=== PATIENT | male | born 1950 | race Hispanic/Latino ===

== ENCOUNTER 2019-02-12 09:36 | Day surgery (SDC) | payer OTHER ==
[~2019-02-12] VITALS: Ht 160 cm; Wt 76.2 kg
[2019-02-12] VITALS (7 sets, daily range): BP systolic 93–136; BP diastolic 51–81
[~2019-02-12 09:36] MED LIST: ASPI-1197 PO; FENO145T37 PO; FISH1CAP20 PO; IBUP-2353 PO; LISI-613 PO; METF-445 PO; SODIUM CHLORIDE 0.9% 1000ML 1,000 ML IV ONE; TAMS-1 PO
[2019-02-12] MEDS ORDERED: PROPOFOL 10 MG/ML 20ML VIAL IV ONE (12:49)
== END 2019-02-12 13:45 | disposition home or self-care (01) ==
LOC: DAH 09:36
PROVIDERS: ATTEND Internal Medicine
DX: K31.89 Other diseases of stomach and duodenum (principal); K86.9 Disease of pancreas, unspecified; K86.89 Other specified diseases of pancreas; I10 Essential (primary) hypertension; M10.9 Gout, unspecified; E78.5 Hyperlipidemia, unspecified; E11.9 Type 2 diabetes mellitus without complications; Z68.31 Body mass index [BMI] 31.0-31.9, adult; Z79.82 Long term (current) use of aspirin; Z98.890 Other specified postprocedural states; Z95.5 Presence of coronary angioplasty implant and graft
CPT/HCPCS: 43238; 82948 ×2; A4606; J2704; J7030; 43232

== ENCOUNTER 2019-03-05 06:57 | Day surgery (SDC) | payer OTHER ==
[~2019-03-05] VITALS: Ht 165.1 cm; Wt 120.7 kg
[~2019-03-05 06:57] MED LIST changes: -ASPI-1197 PO
[2019-03-05 07:51] VITALS: BP 121/76
[2019-03-05] MEDS ORDERED: METO-408 PO (08:05)
[2019-03-05 09:57] VITALS: BP 103/66
[2019-03-05 10:01] VITALS: BP 110/68
[2019-03-05 10:06] VITALS: BP 108/71
[2019-03-05 10:14] VITALS: BP 106/69
== END 2019-03-05 10:24 | disposition home or self-care (01) ==
LOC: ENDO 06:57 → DAH 06:57 → ENDO 10:24
PROVIDERS: ATTEND Internal Medicine Gastroenterology
DX: K31.89 Other diseases of stomach and duodenum (principal); K86.89 Other specified diseases of pancreas; D37.8 Neoplasm of uncertain behavior of other specified digestive organs; I10 Essential (primary) hypertension; E78.5 Hyperlipidemia, unspecified; E11.9 Type 2 diabetes mellitus without complications; Z79.899 Other long term (current) drug therapy; Z79.84 Long term (current) use of oral hypoglycemic drugs; Z79.82 Long term (current) use of aspirin; Z95.5 Presence of coronary angioplasty implant and graft; Z98.890 Other specified postprocedural states
CPT/HCPCS: 43238; 82948 ×2; A4215 ×2; A4606; J7030; 43232

== ENCOUNTER 2019-11-06 07:46 | Day surgery (SDC) | payer OTHER ==
[2019-11-06] VITALS (8 sets, daily range): BP systolic 98–133; BP diastolic 59–88
[~2019-11-06] VITALS: Ht 165.1 cm; Wt 77.1 kg
[~2019-11-06 07:46] MED LIST changes: +FENO145T26 PO; -FENO145T37 PO; -FISH1CAP20 PO; -IBUP-2353 PO; +IBUP-2784 PO; +METO-408 PO
[2019-11-06] MEDS ORDERED: PROPOFOL 10 MG/ML 20ML VIAL IV ONE ×3 (10:48→11:03)
== END 2019-11-06 11:55 | disposition home or self-care (01) ==
LOC: DAH 07:46 → ENDO 07:46
PROVIDERS: ATTEND Internal Medicine
DX: K86.9 Disease of pancreas, unspecified (principal); R93.3 Abnormal findings on diagnostic imaging of other parts of digestive tract; R93.5 Abnormal findings on diagnostic imaging of other abdominal regions, including retroperitoneum; E11.9 Type 2 diabetes mellitus without complications; I10 Essential (primary) hypertension; E78.5 Hyperlipidemia, unspecified; M10.9 Gout, unspecified; Z95.5 Presence of coronary angioplasty implant and graft; Z79.84 Long term (current) use of oral hypoglycemic drugs; Z79.82 Long term (current) use of aspirin; Z79.899 Other long term (current) drug therapy
CPT/HCPCS: 43237; 82948 ×2; 93005; A4215; A4221; A4222; A4223; A4606; A4620; A4663; J2704 ×3; J7030

== ENCOUNTER → 2020-01-06 | Outpatient (CLI) | payer OTHER ==
[~2020-01-06] MED LIST changes: -SODIUM CHLORIDE 0.9% 1000ML 1,000 ML IV ONE
[2020-01-06 16:56] LABS: CREATININE 1.2 mg/dL (0.5-1.5)
== END | disposition home or self-care (01) ==
LOC: LAB 16:13
PROVIDERS: ATTEND Internal Medicine Gastroenterology
DX: K86.1 Other chronic pancreatitis (principal); R93.3 Abnormal findings on diagnostic imaging of other parts of digestive tract
CPT/HCPCS: 36415; 82565; 84520

== ENCOUNTER → 2020-01-15 | Outpatient (CLI) | payer OTHER ==
[~2020-01-15] MED LIST changes: +GADODIAMIDE 10 MMOL/20 ML VIAL IV ONE
== END | disposition home or self-care (01) ==
LOC: RAH 08:00
PROVIDERS: ATTEND Internal Medicine Gastroenterology
DX: K86.2 Cyst of pancreas (principal); K86.1 Other chronic pancreatitis; R93.3 Abnormal findings on diagnostic imaging of other parts of digestive tract
CPT/HCPCS: 74183; A9579

== ENCOUNTER → 2020-10-12 | Outpatient (CLI) | payer OTHER ==
[~2020-10-12] MED LIST changes: -GADODIAMIDE 10 MMOL/20 ML VIAL IV ONE
== END | disposition home or self-care (01) ==
LOC: RAH 07:37
PROVIDERS: ATTEND Internal Medicine Gastroenterology
DX: K86.2 Cyst of pancreas (principal); R93.3 Abnormal findings on diagnostic imaging of other parts of digestive tract
CPT/HCPCS: 74181

== ENCOUNTER → 2021-04-09 | Outpatient (CLI) | payer OTHER ==
[~2021-04-09] MED LIST changes: +GADOTERATE MEGLUMINE 10 MMOL/20 ML VIAL IV ONE; -LISI-613 PO; +LISI20TA24 PO
== END | disposition home or self-care (01) ==
LOC: RAH 08:04
PROVIDERS: ATTEND Internal Medicine Gastroenterology
DX: K86.1 Other chronic pancreatitis (principal)
CPT/HCPCS: 74183; A9575

== ENCOUNTER → 2021-11-01 | Outpatient (CLI) | payer OTHER | END | disposition home or self-care (01) | LOC: RAH 08:02 | PROVIDERS: ATTEND Internal Medicine Gastroenterology | DX: K86.1 Other chronic pancreatitis (principal); K86.2 Cyst of pancreas | CPT/HCPCS: 74183; A9575 ==

== ENCOUNTER → 2022-07-05 | Outpatient (CLI) | payer OTHER | END | disposition home or self-care (01) | LOC: RAH 07:44 | PROVIDERS: ATTEND Internal Medicine Gastroenterology | DX: K86.1 Other chronic pancreatitis (principal) | CPT/HCPCS: 74183; A9575 ==

== ENCOUNTER 2022-08-09 10:13 | Day surgery (SDC) | payer OTHER ==
[~2022-08-09] VITALS: Ht 167.6 cm; Wt 70.3 kg
[~2022-08-09 10:13] MED LIST changes: +0.9%NACL 1000ML 1,000 ML IV ONE; -GADOTERATE MEGLUMINE 10 MMOL/20 ML VIAL IV ONE
[2022-08-09 10:30] VITALS: BP 119/75
[2022-08-09] MEDS ORDERED: ASPI-1443 PO (11:19)
[2022-08-09] MEDS ORDERED: ATOR40TA71 PO (11:19)
[2022-08-09] MEDS ORDERED: OMEG-148 PO (11:19)
[2022-08-09] MEDS ORDERED: FENTANYL CITRATE PF 50 MCG/1 ML 2ML VIAL ONE (12:07)
[2022-08-09] MEDS ORDERED: MIDAZOLAM HCL 1 MG/ML 2ML VIAL ONE ×2 (12:08→13:06)
[2022-08-09 13:40] VITALS: BP 113/67
[2022-08-09 13:55] VITALS: BP 119/78
[2022-08-09 14:10] VITALS: BP 120/69
== END 2022-08-09 14:33 | disposition home or self-care (01) ==
LOC: DAH 10:13 → ENDO 10:13
PROVIDERS: ATTEND Internal Medicine Gastroenterology
DX: R93.3 Abnormal findings on diagnostic imaging of other parts of digestive tract (principal); Z20.822 Contact with and (suspected) exposure to COVID-19; K86.2 Cyst of pancreas; K86.1 Other chronic pancreatitis; I10 Essential (primary) hypertension; E78.5 Hyperlipidemia, unspecified; M10.9 Gout, unspecified; E11.9 Type 2 diabetes mellitus without complications; Z79.84 Long term (current) use of oral hypoglycemic drugs; Z79.82 Long term (current) use of aspirin; Z88.8 Allergy status to other drugs, medicaments and biological substances; Z79.899 Other long term (current) drug therapy; Z83.3 Family history of diabetes mellitus
CPT/HCPCS: 87426; 43238; 88173; 88305; J3010; J7030 ×2; J2250 ×2; A4620; A4215 ×3; A4223; A4657; A4222; A4221; A4663; A4606; 99152; 99153

== ENCOUNTER 2025-08-02 20:19 | Inpatient (IN) | payer OTHER, MEDICAID ==
[~2025-08-02] VITALS: Ht 170.2 cm; Wt 56.6 kg
[~2025-08-02 20:19] MED LIST changes: -0.9%NACL 1000ML 1,000 ML IV ONE; +ASPI-1443 PO; +ATOR40TA71 PO; -FENO145T26 PO; +OMEG-148 PO
--- NOTE | 2025-08-02 20:30 | NUR ---
FAMILY REPORTS PATIENT WITH FEVER, CHILLS AND SORE THROAT ONSET 3 DAYS
--- NOTE | 2025-08-02 20:44 | EKG ---
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
[2025-08-02 20:51] LABS: APPEARANCE,URINE CLOUDY (CLEAR); GLUCOSE, URINE (UA) 30 mg/dL (NEGATIVE); LEUKOCYTE ESTERASE ,URINE NEGATIVE Leu/uL (NEGATIVE); NITRATE,URINE NEGATIVE (NEGATIVE); OCCULT BLOOD,URINE LARGE (NEGATIVE)
[2025-08-02] MEDS: 0.9%NACL 1000ML 1,770 ML IV ONE (20:56)
[2025-08-02 20:57] LABS: ADD UA MICROSCOPIC YES
[2025-08-02 21:01] LABS: SQUAMOUS EPITHELIAL CELL,UR RARE /HPF (0-2)
[2025-08-02 21:03] LABS: IMMATURE GRANULOCYTE ABSOLUTE 0.03 K/uL (0-1); NUCLEATED RED BLOOD CELLS 0.0 % (0.0-0.19); PLATELET COUNT (AUTO) 186 K/uL (130-400); RED BLOOD CELL COUNT(AUTO) 4.93 MIL/uL (4.50-6.20); RED CELL DISTRIBUTION WIDTH 12.0 % (11.0-15.5); WHITE BLOOD COUNT (AUTO) 9.6 K/uL (4.8-10.8)
[2025-08-02 21:13] LABS: INR 1.31 (0.85-1.15)
[2025-08-02 21:16] LABS: CREATININE 1.7 mg/dL (0.5-1.3); GLOMERULAR FILTR. RATE CALC 42.0 mL/min (>90); GLUCOSE,RANDOM 200.0 mg/dL (70-105); SODIUM SERUM 139.0 mmol/L (136-145); UREA NITROGEN, BLOOD 21.0 mg/dL (7-18)
[2025-08-02 21:39] LABS: ASPARTATE AMINOTRANSFERASE 56.0 U/L (10-37); TOTAL PROTEIN, SERUM 7.4 g/dL (6.0-8.3)
[2025-08-02 21:46] LABS: CREATINE KINASE, TOTAL 1742.0 U/L (21-232)
[2025-08-02 21:51] LABS: RAPID GROUP A STREP positive (NEGATIVE)
[2025-08-02 21:59] LABS: COVID19 (SARS ANTIGEN RAPID) PRESUMPTIVE NEGATIVE (NEGATIVE); INFLUENZA TYPE A Negative For Type A (NEGATIVE); INFLUENZA TYPE B Negative For Type B (NEGATIVE)
--- NOTE | 2025-08-02 21:59 | ERN ---
ED Note History of Present Illness Stated Complaint: SORE THROAT, CHILLS Chief Complaint: Sepsis Time Seen by MD: 20:25 Time Seen by Midlevel: 20:25 Dictation: The patient is a 75-year-old male with a history of diabetes, hypertension, who presents to the emergency department with complaints of sore throat and chills onset three days ago. Patient was seen at an day and night clinic and was sent over for further evaluation. Patient and family are poor historians. Unknown is patient has a history of arrhythmia but patient is on Xarelto 20 mg daily and metoprolol titrate. Patient reports occasionally green productive cough, denies any nausea or vomiting, denies any pain. Allergies: Coded Allergies: No Known Drug Allergies (Verified Allergy, Unknown, 04/24/20) Home Meds Reported Medications Atorvastatin Calcium (Atorvastatin Calcium) 40 Mg Tablet, 40 MG PO DAILY, TAB 08/09/22 [place]-3S/Dha/Epa/Fish Oil (Fish Oil 1,000 mg Softgel) 1 Each Capsule, 1 EACH PO DAILY, CAP 08/09/22 Aspirin (Aspirin EC) 81 Mg Tablet.dr, 81 MG PO DAILY, TAB 08/09/22 Metoprolol Succinate (Metoprolol Succinate) 25 Mg Tab.er.24h, 25 MG PO BID, TAB 03/05/19 Ibuprofen (Ibuprofen 200 mg Tablet) 200 Mg Tablet, 600 MG PO AD, TAB 02/11/19 Tamsulosin HCl (Flomax) 0.4 Mg/Cap Cap.er.24h, 0.4 MG PO HS, CAPSULE.DR 02/23/17 Lisinopril (Lisinopril) 20 Mg Tablet, 20 MG PO HS, TAB 02/23/17 Metformin HCl (Metformin HCl) 850 Mg Tablet, 850 MG PO BID, TAB 02/23/17 Past Medical History Past Medical History: Diabetes-Type II, Other Additional Past Medical Hx: POOR HISTORIAN Surgical History: Other Surgical History Other: SHOULDER, UNKNOWN LEFT OR RIGHT RN Note Reviewed/Agreed w/PFSH: Yes Review of System Dictation Constitutional: Negative for fever,chills, and weight loss Eyes: Negative for injury, pain,redness, and discharge ENT: Negative for injury,pain or swelling positive for sore throat Cardiovascular: Negative for chest pain, and edema positive for palpitations Respiratory: Negative for shortness of breath, cough, and wheezing, Abdomen/GI: Negative for abdominal pain, nausea, vomiting, diarrhea, and constipation Back: Negative for injury and pain : Negative for injury, bleeding and discharge MS/Extremity: Negative for injury and deformity Skin: Negative for rash, and discoloration Neuro: Negative for headache, weakness, numbness, tingling, and seizure Psych: Negative for suicide ideation, homicidal ideation, and hallucinations Initial Vital Sign VS Vital Signs Date Time Temp Pulse Resp B/P (MAP) Pulse Ox O2 Delivery O2 Flow Rate FiO2 08/02/25 20:20 99.1 180 24 89/57 94 Room Air 08/02/25 21:06 0 21 Physical Exam Dictation Vital Signs reviewed General Appearance: Alert, oriented x 3, no acute distress, well developed, nourished. Head and Face: non-traumatic. Eyes: PERRL, pink conjunctivas, eyelid no trauma, anterior chamber with arcus senilis. Ears: Pinnas intact and no signs of trauma or erythema ear canals clear and no discharge TM no erythema Nose: No discharge, no bleeding. Oropharynx: Mouth normal, tongue pink. pharynx clear,+ erythema, tonsils no exudates, no abscesses noted, mucous membrane moist Neck: Supple, non-tender, no thyromegaly, no masses, no JVD, no bruits Breast:Deferred Chest:No tenderness, no crepitus, no paradoxical movement, no retractions Lungs:Clear, well-ventilated, symmetric, no rales, no wheezing, no rhonchi, no stridor, good breath sounds bilaterally Heart: Irregular rate, irregular rhythm, no murmur, no gallops Vascular: no peripheral edema, Abdomen: Soft, positive bowel sounds, nondistended, no guarding, nontender, no rebound, no masses no hepatomegaly, no splenomegaly, no Odell's sign, no hernias. Rectal: Deferred Genital: Deferred Neurological: Normal speech, motor function intact, sensory function intact Musculoskeletal: Neck nontender, full range of motion, back nontender, full range of motion, Extremities: nontender, full range of motion Skin: Color pink, dry, no turgor, no rash, no lacerations, no abrasions, no contusions. Lymphatic: Deferred Results (Laboratory/Radiology) Laboratory/Radiology Laboratory Tests Test 08/02/25 20:30 08/02/25 20:50 08/02/25 21:33 08/03/25 01:04 Urine Color LIGHT-ORANGE (YELLOW) Urine Appearance CLOUDY (CLEAR) H Urine pH 5.5 (5.0-8.0) Urine Specific [place] 1.033 (1.001-1.031) Urine Protein 100 mg/dL (NEGATIVE) H Urine Glucose (UA) 30 mg/dL (NEGATIVE) H Urine Ketones NEGATIVE mg/dL (NEGATIVE) Urine Occult Blood LARGE (NEGATIVE) H Urine Nitrate NEGATIVE (NEGATIVE) Urine Bilirubin NEGATIVE mg/dL (NEGATIVE) Urine Urobilinogen 0.2 mg/dL (0.2-1.0) Urine Leukocyte Esterase NEGATIVE Liu/uL Urine RBC 2-5 /HPF (0-1) H Urine WBC 2-5 /HPF (0-1) H Urine Squamous Epithelial Cells RARE /HPF (0-2) Urine Bacteria RARE /HPF (None Seen) White Blood Count 9.6 K/uL (4.8-10.8) Red Blood Count 4.93 MIL/uL (4.50-6.20) Hemoglobin 16.1 g/dL (14.0-18.0) Hematocrit 45.2 % (42-54) Mean Corpuscular Volume 91.7 fL (79-99) Mean Corpuscular Hemoglobin 32.7 pg (27.0-33.0) Mean Corpuscular Hemoglobin Concent 35.6 g/dL (32.0-36.0) Red Cell Distribution Width 12.0 % (11.0-15.5) Platelet Count 186 K/uL (130-400) Mean Platelet Volume 11.1 fL (7.5-10.5) H Immature Granulocyte % (Auto) 0.3 % (0-1) Neutrophils (%) (Auto) 88.2 % (40.0-77.0) H Lymphocytes (%) (Auto) 4.7 % (21.0-51.0) L Monocytes (%) (Auto) 6.5 % (3.0-13.0) Eosinophils (%) (Auto) 0.0 % (0.0-8.0) Basophils (%) (Auto) 0.3 % (0.0-5.0) Neutrophils # (Auto) 8.5 K/uL (1.8-7.7) H Lymphocytes # (Auto) 0.5 K/uL (1.0-4.8) L Monocytes # (Auto) 0.6 K/uL (0.1-1.0) Eosinophils # (Auto) 0.00 K/uL (0.00-0.70) Basophils # (Auto) 0.03 K/uL (0.00-0.20) Absolute Immature Granulocyte (auto 0.03 K/uL (0-1) Nucleated Red Blood Cells 0.0 % (0.0-0.19) White Cell Morphology Comment See comments Prothrombin Time 13.5 SEC (9.6-11.6) H Prothromb Time International Ratio 1.31 (0.85-1.15) H Activated Partial Thromboplast Time 31.9 SEC (26.3-35.5) Sodium Level 139 mmol/L (136-145) Potassium Level 3.4 mmol/L (3.5-5.1) L Chloride Level 104 mmol/L (101-111) Carbon Dioxide Level 21 mmol/L (21-32) Blood Urea Nitrogen 21 mg/dL (7-18) H Creatinine 1.7 mg/dL (0.5-1.3) H Glomerular Filtration Rate Calc 42 mL/min (>90) Random Glucose 200 mg/dL (70-105) H Lactic Acid Level 3.1 mmol/L (0.8-2.5) H 2.0 mmol/L (0.8-2.5) Total Calcium 8.5 mg/dL (8.5-10.1) Magnesium Level 1.80 mg/dL (1.80-2.40) Total Bilirubin 1.4 mg/dL (0.2-1.0) H Direct Bilirubin 0.2 mg/dL (0.0-0.3) Aspartate Amino Transf (AST/SGOT) 56 U/L (10-37) H Alanine Aminotransferase (ALT/SGPT) 32 U/L (12-78) Alkaline Phosphatase 73 U/L (50-136) Total Creatine Kinase 1742 U/L (21-232) *H Troponin I High Sensitivity 44 ng/L (4-75) B-Type Natriuretic Peptide 118 pg/mL (0-100) H Total Protein 7.4 g/dL (6.0-8.3) Albumin 3.6 g/dL (3.5-5.0) Influenza Type A Antigen Negative For Type A Influenza Type B Antigen Negative For Type B SARS-CoV-2 Antigen (Rapid) PRESUMPTIVE NEGATIVE Group A Streptococcus Rapid positive (NEGATIVE) *A REASON: sob ORDERING PHYSICIAN: ILDA JEFFREY PROCEDURE: CXR1VW - CHEST 1VW EXAM: CR Chest, 1 View. CLINICAL HISTORY: sob COMPARISON: None provided. FINDINGS: LUNGS: The lungs show possible right upper lobe lung nodule adjacent to the anterior first rib. PLEURAL SPACES: No evidence of pleural effusion or pneumothorax. MEDIASTINUM: Cardiac size and mediastinal contours within normal limits. BONES: No acute osseous abnormality. IMPRESSION: Possible right upper lobe lung nodule. Recommend CT scan /[place] Labs Reviewed?: Yes EKG: (+) rhythm (Atrial fibrillation with a RVR) EKG Comment: Date:08/02/2025 Time:2036 Ventricular rate:184 ND interval: QRS duration:95 QT/QTc:319/552 EKG interpretation: Atrial flutter with a RVR Reviewed by ED Attending no STEMI Date:08/02/2025 Time:2323 Ventricular rate:104 ND interval:125 QRS duration:93 QT/QTc:326 EKG interpretation: Tachycardia with a regular rate Reviewed by ED Attending no STEMI ED Course ED Course Orders Procedure Category Date Status Time 12 Lead Ekg Tracing- EKG 08/02/25 Complete Technical 20:30 Cbc With Differential LAB 08/02/25 Complete 20:30 Blood Cult CONCHIS 08/02/25 In Process 20:30 Urinalysis Profile LAB 08/02/25 Complete 20:30 Chest 1vw RAD 08/02/25 Resulted 20:30 Acetaminophen 500mg PHA 08/02/25 Complete Tab (Tylenol 500mg T 20:30 0.9%Nacl 1000ml (Ns PHA 08/02/25 Complete 1000ml) 20:30 Creatine Kinase, Total LAB 08/02/25 Complete 20:30 Troponin I High LAB 08/02/25 Complete Sensitivity 20:30 Lactic Acid LAB 08/02/25 Complete 20:30 Ceftriaxone 1g Vial PHA 08/02/25 Complete (Rocephine 1g Inj) 20:30 Basic Metabolic Panel LAB 08/02/25 Complete 20:30 B-Type Natriuretic LAB 10/25/25 Complete Peptide 20:30 Hepatic Function Panel LAB 08/02/25 Complete 20:30 Covid19 (Sars Antigen LAB 08/02/25 Complete Rapid) 20:30 Influenza Type A & B, LAB 08/02/25 Complete Rapid 20:30 Rapid (Group A Strep) LAB 08/02/25 Complete 20:30 Pt And Ptt LAB 08/02/25 Complete 20:33 Diltiazem 25mg Inj PHA 08/02/25 Complete (Cardizem 25mg Inj) 21:00 Diltiazem 25mg Inj PHA 08/02/25 Complete (Cardizem 25mg Inj) 21:30 Magnesium LAB 08/02/25 Complete 21:22 Diltiazem 25mg Inj PHA 08/02/25 Complete (Cardizem 25mg Inj) 22:00 Potassium Bicarb/Cit PHA 08/02/25 Complete Ac 25meq (K-Lyte Ta 22:00 Diltiazem 125 Mg/25 PHA 08/02/25 In Process Ml Inj (Diltiazem 12 22:00 Diltiazem 25mg Inj PHA 08/02/25 Complete (Cardizem 25mg Inj) 22:00 12 Lead Ekg Tracing- EKG 08/02/25 Complete Technical 23:21 Edm Admit Bridge Order ADM 08/02/25 Transmitted 23:49 Lactic Acid (Removed) LAB 08/03/25 Complete 00:07 Cardiology Consult CONPHYSVC 08/03/25 Transmitted 00:20 Lactated Ringers PHA 08/03/25 In Process 1000ml (Lactated 00:30 Heparin 5,000 Unit PHA 08/03/25 In Process Vial (Heparin 5,000 U 00:30 Penicillin G PHA 08/03/25 In Process Benzathine (Bicillin 01:30 Hemoglobin A1c LAB 08/03/25 In Process 00:14 Initiate JANINA 08/03/25 In Process Hyperglycemia Protoco 00:14 Insulin Regular, PHA 08/03/25 In Process Human 3ml (Humulin R 07:30 Initiate Hypoglycemia JANINA 08/03/25 In Process Protocol 00:14 Dextrose 50%-Water PHA 08/03/25 In Process (D50w) 00:30 Glucagon 1mg Kit PHA 08/03/25 In Process (Glucagon 1mg Kit) 00:30 Procalcitonin LAB 08/03/25 In Process 00:14 Potassium Chloride PHA 08/03/25 Complete 20meq Er (K-Dur/Klor- 00:30 Metoprolol Tartrate PHA 08/03/25 In Process 25 Mg Tab (Lopressor 09:00 Ceftriaxone 2gm Vial PHA 08/03/25 In Process (Rocephin 2gm Inj) 00:30 Vital Signs(Adult CPOE 08/03/25 Transmitted Hospitalist) 00:23 Acetaminophen 325 Tab PHA 08/03/25 In Process (Tylenol 325mg Tab 00:30 Acetaminophen 325 Tab PHA 08/03/25 In Process (Tylenol 325mg Tab 00:30 Ondansetron 4mg Inj PHA 08/03/25 In Process (Zofran 4mg Inj) 00:30 Mag/Alum/Simeth 30ml PHA 08/03/25 In Process (Maalox Plus 30ml) 00:30 Lactulose 20 Gm/30 Ml PHA 08/03/25 In Process Udcup (Constulose 00:30 Nitroglycerin 0.4mg PHA 08/03/25 In Process Sl Tab (Nitrostat) 00:30 Guaifenesin-Dm PHA 08/03/25 In Process 200/20mg 10ml 00:30 Nurse To Enter Home CPOE 08/03/25 Transmitted Medication 00:23 Admit Orders ADM 08/03/25 Transmitted 00:23 Heart Healthy Diet DIET 08/03/25 Transmitted Breakfast Famotidine 20mg Tab PHA 08/03/25 In Process (Pepcid 20mg Tab) 09:00 Blood Cult CONCHIS 08/03/25 In Process 00:30 Creatine Kinase, Total LAB 08/04/25 Verified 04:00 0.9%Nacl 1000ml (Ns PHA 08/03/25 In Process 1000ml) 00:30 Echo 2-D Complete ECHO 08/03/25 Logged 00:40 Current Medications Medications (Trade) Dose Ordered Sig/Anish Route PRN Reason Start Time Stop Time Status Last Admin Dose Admin Acetaminophen (TYLenol 500MG TAB) 1,000 mg ONCE ONCE PO 08/02/25 20:30 08/02/25 20:37 DC 08/02/25 21:26 Ceftriaxone Sodium (ROCEphine 1G INJ) 1 gm ONCE ONCE IVPB 08/02/25 20:30 08/02/25 20:37 DC 08/02/25 21:25 Diltiazem HCl (CARDIzem 25MG INJ) 5 mg ONCE ONCE IVP 08/02/25 21:30 08/02/25 21:31 DC 08/02/25 21:12 Diltiazem HCl (CARDIzem 25MG INJ) 5 mg ONCE ONCE IVP 08/02/25 22:00 08/02/25 22:01 DC 08/02/25 21:45 Diltiazem HCl (CARDIzem 25MG INJ) 10 mg ONCE ONCE IVP 08/02/25 21:00 08/02/25 21:01 DC 08/02/25 20:58 Diltiazem HCl (CARDIzem 25MG INJ) 10 mg ONCE ONCE IVP 08/02/25 22:00 08/02/25 22:01 DC 08/02/25 21:56 Diltiazem HCl 125 mg/Sodium Chloride 125 ml @ 0 mls/hr PROTOCOL IV 08/02/25 22:00 09/01/25 21:59 08/02/25 22:24 Potassium Bicarbonate (K-Lyte Tablet Eff 25 Meq Tablet.eff) 25 meq ONCE ONCE PO 08/02/25 22:00 08/02/25 22:01 DC 08/02/25 21:45 Sodium Chloride 1,770 ml @ 590 mls/hr ONCE ONCE IV 08/02/25 20:30 08/02/25 23:29 DC 08/02/25 20:56 Vital Signs Date Time Temp Pulse Resp B/P (MAP) Pulse Ox O2 Delivery O2 Flow Rate FiO2 08/03/25 00:23 105 18 104/65 96 Room Air* 0 21 08/02/25 23:31 104 19 93/58 97 Room Air* 0 21 08/02/25 22:52 145 20 100/58 97 Room Air* 0 21 08/02/25 22:24 157 95/65 08/02/25 21:56 152 08/02/25 21:45 146 08/02/25 21:26 100.0 08/02/25 21:12 146 08/02/25 21:06 100.0 144 20 91/57 97 Room Air* 0 21 08/02/25 20:58 180 84/61 08/02/25 20:20 99.1 180 24 89/57 94 Room Air Medical Decision Making MDM MDM: The patient is a 75-year-old male with a history of diabetes, hypertension, who presents to the emergency department with complaints of sore throat and chills onset three days ago. Patient was seen at an day and night clinic and was sent over for further evaluation. Patient and family are poor historians. Unknown is patient has a history of arrhythmia but patient is on Xarelto 20 mg daily and metoprolol titrate. Patient reports occasionally green productive cough, denies any nausea or vomiting, denies any pain. CBC showed no leukocytosis, no anemia, chemistry showed mild hypokalemia, creatinine of 1.7, lactic acid of 3.3, negative troponin but elevated CK level, slightly elevated BNP. Serology was positive for strep throat. Chest x-ray showed a small right upper lung nodule. Patient was treated with IV antibiotics and IV fluids. Patient was started on Cardizem drip for AFib RVR. Patient's heart rate improved. We will admit patient for further evaluation treatment. Differential diagnosis: Sepsis, ACS, electrolyte imbalance, tachyarrhythmias, dehydration Comorbidities: Hypertension, hyperlipidemia, hypothyroidism Tests considered and not ordered secondary to shared decision making include: none Previous outside records reviewed: none Risk of complication and/or morbidity or mortality of patient management: The patient meets criteria for admission. Need for emergency major/minor surgery: No There are no social concerns with this patient. I independently interpreted the tests I ordered (labs, urinalysis, etc.). I discussed the case with the hospitalist for admission. Tray who accepts admission I discussed the case with the following specialists: none. Historian: wally avina I independently interpreted imaging studies and EKGs that I ordered (US, CT, XR, EKG, etc.). External chart review: none. Medical management and examination interpretation discussions were had by me with other qualified healthcare professionals as indicated for the patient's care. Critical Care Note Critical Time: other (37) Comment(s) Total critical care time was 37 minutes. Excluding time for procedures. Management of critically ill patient with concern for acute decompensation. Management included interpretation of laboratory values and imaging, hemodynamics, time for consultation with consultants and admitting physician. DX & DISP Disposition: Inpatient Decision to Admit Date: Aug 03, 2025 Decision to Admit Time: 23:49 Departure Impression: Primary Impression: Atrial fibrillation with RVR Additional Impressions: Sepsis, Strep throat, Hypokalemia, Acute kidney injury, Rhabdomyolysis Condition: Stable Referrals: JASPREET JACK M.D. (PCP) I have examined patient, & reviewed all documents, & agreed W/ the Diagnosis, and Plan ILDA JEFFREY Aug 02, 2025 21:59 JASS ESCALANTE MD Aug 03, 2025 01:28
--- NOTE | 2025-08-02 22:14 | HMCIMG ---
EXAM: CR Chest, 1 View. CLINICAL HISTORY: sob COMPARISON: None provided. FINDINGS: LUNGS: The lungs show possible right upper lobe lung nodule adjacent to the anterior first rib. PLEURAL SPACES: No evidence of pleural effusion or pneumothorax. MEDIASTINUM: Cardiac size and mediastinal contours within normal limits. BONES: No acute osseous abnormality. IMPRESSION: Possible right upper lobe lung nodule. Recommend CT scan /[place]
--- NOTE | 2025-08-02 23:30 | EKG ---
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
[2025-08-03] VITALS (8 sets, daily range): BP systolic 97–118; BP diastolic 54–75; PULSE 62–168; RESP 18–22; TEMP 97.5–98.8; O2SAT 94–100
[2025-08-03] MEDS ORDERED: NITROGLYCERIN 0.4 MG SL TAB SL PRN (00:30)
[2025-08-03] MEDS ORDERED: MAG/ALUM/SIMETH 30 ML UDCUP PO PRN (00:30)
[2025-08-03] MEDS ORDERED: GLUCAGON 1MG KIT 1 MG ML IM PRN (00:30)
[2025-08-03] MEDS ORDERED: DEXTROSE 50%-WATER 50 ML DISP.SYRIN IV PRN (00:30)
[2025-08-03] MEDS: LACTATED RINGERS 1000ML 1,000 ML IV SCH (00:42)
[2025-08-03] MEDS: PoTASSium chloRIDE 20MEQ ER 20 MEQ ERTAB PO ONE (00:42)
[2025-08-03] MEDS: 0.9%NACL 1000ML 1,983 ML IV ONE (00:43)
--- NOTE | 2025-08-03 00:50 | HP ---
[facility] HISTORY & PHYSICAL Date Patient Seen: Aug 03, 2025 Time of Visit: 00:33 Supervising Physician: CARLOS MCCABE Primary Care Physician: DR. JACK. JASPREET Outpatient Specialists: [ ] Inpatient Consults: [ ] PROBLEM LIST: 1. ACUTE STREPTOCOCCAL PHARYNGITIS 2. ACUTE COMPLICATED CYSTITIS 3. SEVERE SEPSIS DUE TO ACUTE COMPLICATED CYSTITIS AND ACUTE STREPTOCOCCAL PHARYNGITIS 4. CHRONIC KIDNEY DISEASE STAGE III 5. RHABDOMYOLYSIS 6. DIABETES TYPE 2 UNCONTROLLED 7. AFIB WITH RVR 8. HYPOKALEMIA CHIEF COMPLAINT: Sore throat, fever and chills HPI: Patient is a 75-year-old male with past medical history significant for diabetes type 2, hypertension, BPH, hypothyroidism, atrial fibrillation on Xarelto and [id number] mg p.o. b.i.d., and a surgical history of left shoulder surgery, referred to the emergency department four days in our clinic for evaluation of sore throat associated with fever and chills for about three days. Patient reports that for the past three days, he has been experiencing worsening sore throat associated with fever and chills. Today, he was evaluated at day and night clinic and was referred to the emergency department for further evaluation and treatment. Per ER report, patient WBC at day and night clinic was 12.5. The workup in the emergency department shows group a strep rapid positive, potassium of 3.4, BUN of 21, creatinine 1.7, GFR of 42, glucose of 200, lactic acid of 3.1, CK of 1742, UA positive for UTI. EKG shows AFib with RVR. In the emergency department, patient received NS1 L bolus, Cardizem 10 mg IV push x2, Cardizem 5 mg IV push x2, and was started on Cardizem drip. In addition patient received potassium [id number] mEq once, ceftriaxone1 g IV. And patient was started on Cardizem drip. Patient will be admitted to PCCU for close monitoring. PAST MEDICAL HX: see above PAST SURGICAL HX: noncontributory SOCIAL HISTORY: No tobacco, ETOH, or illicit drug use Coded Allergies: No Known Drug Allergies (Verified Allergy, Unknown, 04/24/20) REVIEW OF SYSTEMS: 12 point ROS reviewed with patient. Pertinent positives mentioned above. Otherwise negative. PHYSICAL EXAM: GENERAL: alert, weak, awake oriented x 3 HEENT: EOMI, Sclera non icteric, moist mucosa NECK: Sore throat LUNGS: Clear breath sounds bilaterally. No wheezes HEART: Regular rate and rhythm. Normal S1 and S2, without murmurs ABD: Abdomen soft, nontender. Bowel sounds present EXT: No clubbing cyanosis or edema NEURO: Alert and oriented to person, follows commands Vital Signs (last 8hr) Date Time Temp Pulse Resp B/P (MAP) Pulse Ox O2 Delivery O2 Flow Rate FiO2 08/03/25 00:23 105 18 104/65 96 Room Air* 0 21 08/02/25 23:31 104 19 93/58 97 Room Air* 0 21 08/02/25 22:52 145 20 100/58 97 Room Air* 0 21 08/02/25 22:24 157 95/65 08/02/25 21:56 152 08/02/25 21:45 146 08/02/25 21:26 100.0 08/02/25 21:12 146 08/02/25 21:06 100.0 144 20 91/57 97 Room Air* 0 21 08/02/25 20:58 180 84/61 08/02/25 20:20 99.1 180 24 89/57 94 Room Air LABS: Hematology Labs: Test 08/02/25 20:50 Range/Units White Blood Count 9.6 4.8-10.8 K/uL Red Blood Count 4.93 4.50-6.20 MIL/uL Hemoglobin 16.1 14.0-18.0 g/dL Hematocrit 45.2 42-54 % Mean Corpuscular Volume 91.7 79-99 fL Mean Corpuscular Hemoglobin 32.7 27.0-33.0 pg Mean Corpuscular Hemoglobin Concent 35.6 32.0-36.0 g/dL Red Cell Distribution Width 12.0 11.0-15.5 % Platelet Count 186 130-400 K/uL Mean Platelet Volume 11.1 H 7.5-10.5 fL Immature Granulocyte % (Auto) 0.3 0-1 % Neutrophils (%) (Auto) 88.2 H 40.0-77.0 % Lymphocytes (%) (Auto) 4.7 L 21.0-51.0 % Monocytes (%) (Auto) 6.5 3.0-13.0 % Eosinophils (%) (Auto) 0.0 0.0-8.0 % Basophils (%) (Auto) 0.3 0.0-5.0 % Neutrophils # (Auto) 8.5 H 1.8-7.7 K/uL Lymphocytes # (Auto) 0.5 L 1.0-4.8 K/uL Monocytes # (Auto) 0.6 0.1-1.0 K/uL Eosinophils # (Auto) 0.00 0.00-0.70 K/uL Basophils # (Auto) 0.03 0.00-0.20 K/uL Absolute Immature Granulocyte (auto 0.03 0-1 K/uL Nucleated Red Blood Cells 0.0 0.0-0.19 % White Cell Morphology Comment See comments Chemistry Labs: Test 08/02/25 20:50 Range/Units Sodium Level 139 136-145 mmol/L Potassium Level 3.4 L 3.5-5.1 mmol/L Chloride Level 104 101-111 mmol/L Carbon Dioxide Level 21 21-32 mmol/L Blood Urea Nitrogen 21 H 7-18 mg/dL Creatinine 1.7 H 0.5-1.3 mg/dL Glomerular Filtration Rate Calc 42 >90 mL/min Random Glucose 200 H 70-105 mg/dL Lactic Acid Level 3.1 H 0.8-2.5 mmol/L Total Calcium 8.5 8.5-10.1 mg/dL Magnesium Level 1.80 1.80-2.40 mg/dL Total Bilirubin 1.4 H 0.2-1.0 mg/dL Direct Bilirubin 0.2 0.0-0.3 mg/dL Aspartate Amino Transf (AST/SGOT) 56 H 10-37 U/L Alanine Aminotransferase (ALT/SGPT) 32 12-78 U/L Alkaline Phosphatase 73 50-136 U/L Total Creatine Kinase 1742 *H 21-232 U/L Troponin I High Sensitivity 44 4-75 ng/L B-Type Natriuretic Peptide 118 H 0-100 pg/mL Total Protein 7.4 6.0-8.3 g/dL Albumin 3.6 3.5-5.0 g/dL Coagulation Labs: Test 08/02/25 20:50 Range/Units Prothrombin Time 13.5 H 9.6-11.6 SEC Prothromb Time International Ratio 1.31 H 0.85-1.15 Activated Partial Thromboplast Time 31.9 26.3-35.5 SEC DIAGNOSTICS / RADIOLOGY RESULTS: [ ] PLAN: Admit patient PCCU Start LR at 150 mL/hour Penicillin G 1.2 MILLION UNITS IM ONCE Ceftriaxone2 g IV daily Obtain blood culture x2 Obtain urine culture Repeat lactic acid level in 6 hours Repeat potassium level in a.m. Repeat CK level in a.m. Cardiac ADA diet Accu-Cheks a.c. HS Insulin coverage per sliding scale Obtain hemoglobin A1c All nephrotoxic drugs Monitor creatinine trend Continue Cardizem drip [id number] mg p.o. b.i.d. Cardiology is consulted pending anticipation for further recommendations Obtain 2D echo cardiology read Obtain procalcitonin level NEURO: Minimize central acting medications as possible. Maintain fall precautions, adequate lighting during the day PULMONARY: Supplemental 02 as needed. Maintain aspiration precautions at all times CARDIOVASCULAR: Follow hemodynamics. Vital signs per facility protocol Cardiology consult pending anticipation for further recommendations Continue Cardizem drip Obtain 2D echo cardiology read GI & NUTRITION: Continue with nutritional support. Continue stool softeners and laxatives as needed. KIDNEYS & ELECTROLYTES: Strict monitoring of intake, output and overall fluid balance. Avoid nephrotoxic medications to the extent possible. Medications to be dosed according to renal function. Monitor electrolytes and replace as needed Start LR at 150 mL/hour ENDOCRINE: Maintain blood glucose between 100-180 at all times. Hypoglycemia protocol in place Obtain hemoglobin A1c INFECTIOUS DISEASE: Trend temperature, WBC and procalcitonin level Follow cultures, deescalate antibiotics as soon as possible. Panculture if new onset fever Penicillin G 1.2 million units IM once Ceftriaxone2 g IV daily ONCOLOGY/HEMATOLOGY/COAGULATION: Monitor for s/s of bleeding Monitor hemoglobin, coagulation studies as needed SKIN: Pressure ulcer prevention per facility protocol Specialty mattress ORTHO/REHAB: Continue PT/OT Prophylaxis: Continue GI and DVT prophylaxis Code Status: Full Resuscitation Disposition: TBD Other: Total patient care time exceeds 35 minutes excluding all procedures. Case discussed with Carlos Mccabe and the above plan was formulated. TRENTON ALLEN Aug 03, 2025 00:49
[2025-08-03] MEDS: PENIcillin G benZATHine L-A 1.2 MILUNITS/2 ML SYG IM ONE (01:46)
[2025-08-03] MEDS ORDERED: LEVO25TA54 PO (01:57)
[2025-08-03] MEDS ORDERED: METO25TA6 PO (01:57)
[2025-08-03] MEDS ORDERED: METF-445 PO (01:57)
[2025-08-03] MEDS ORDERED: RIVA20TA PO (01:57)
[2025-08-03] MEDS ORDERED: ERGO500093 PO (01:57)
[2025-08-03] MEDS: FAMOTIDINE 20MG TAB PO SCH (08:39)
--- NOTE | 2025-08-03 08:54 | CONS ---
[facility] CARDIOLOGY CONSULTATION NOTE Date Patient Seen: Aug 03, 2025 Time of Visit: 08:48 Primary Supervisor [employer]: Dr Bette Cui Reason for Consultation: AF RVR History of Present Illness: Patient is a 75-year-old male with past medical history of paroxysmal atrial fibrillation, recently diagnosed in March of 2025 and started on metoprolol and DOAC Xarelto, coronary artery disease, nonobstructive by prior left heart catheterization in 2012, benign cardiac pharmacologic stress test in 2018, hypertension, dyslipidemia, type 2 diabetes mellitus, history of pancreatic mass. Patient was admitted to [facility] with complaints of fevers and chills, diagnosed with severe sepsis due to acute complicated cystitis and streptococcal pharyngitis. Creatinine 1.7. Lactic acid 3.1. Creatinine kinase 17. Patient is presenting EKG showed atrial fibrillation with rapid ventricular response, having received Cardizem IV pushes and started on Cardizem drip. TSH normal at 1.17. Procalcitonin elevated at 7.48. Chest x-ray showed possible right upper lobe lung nodule". Past Medical History: Hypertension. Hyperlipidemia. Diabetes. left heart catheter August 2013 with that 20% mid and distal LAD. 50% diagonal otherwise normal coronaries with EF of 70%. hospitalization February 18, 2019 with chest pain. echo February 19, 2019 with EF of 55-60%. Trace MR. Bishop February 19, 2019 with normal myocardial perfusion. No ischemia or infarct. EF 70%. short burst of PAT versus PAF lasting 1- 2 seconds. Pancreatic mass status post recent biopsy pending further workup. Memory impairment Past Surgical History: Left heart catheterization 2012 Right Shoulder Arthroscopy 02/24/2017 Family History: no FHx cardiac disease Social History: nonsmoker Home Meds: Ergocalciferol 1.25 MG (29890 UT) Capsule 1 capsule Orally once a week. Levothyroxine Sodium 25 MCG Tablet 1 tablet in the morning on an empty stomach Orally Once a day. Ibuprofen 600 MG Tablet 1 tablet with food or milk as needed Orally Three times a day. metFORMIN HCl 850 MG Tablet 1 tablet with a meal Orally Twice a day. Metoprolol Tartrate 25 MG Tablet 1 tablet Orally once a day. Xarelto 20 MG Tablet 1 tablet with food Orally Once a day. Current Meds: Current Medications Medications Dose Ordered Sig/Anish Start Time Stop Time Status Last Admin Diltiazem HCl 125 mg/Sodium Chloride 125 ml @ 0 mls/hr PROTOCOL 08/02/25 22:00 09/01/25 21:59 08/02/25 22:24 Lactated Ringer's 1,000 ml @ 150 mls/hr Q6H40M 08/03/25 00:30 09/02/25 00:29 08/03/25 07:18 Heparin Sodium (Porcine) 5,000 unit Q12H 08/03/25 00:30 09/02/25 00:29 08/03/25 00:42 Insulin Human Regular INSULIN SLIDING SCAL... ACHS 08/03/25 07:30 09/02/25 07:29 Dextrose 50 ml AD PRN 08/03/25 00:30 09/02/25 00:29 Glucagon 1 mg AD PRN 08/03/25 00:30 09/02/25 00:29 Metoprolol Tartrate 25 mg BID 08/03/25 09:00 09/02/25 08:59 08/03/25 07:18 Ceftriaxone Sodium 2 gm Q24H 08/03/25 00:30 08/13/25 00:29 Acetaminophen 650 mg Q6H PRN 08/03/25 00:30 09/02/25 00:29 Ondansetron HCl 4 mg Q6H PRN 08/03/25 00:30 09/02/25 00:29 Al Hydroxide/Mg Hydroxide 30 ml Q6H PRN 08/03/25 00:30 09/02/25 00:29 Lactulose 20 gm BID PRN 08/03/25 00:30 09/02/25 00:29 Nitroglycerin 0.4 mg PROTOCOL PRN 08/03/25 00:30 09/02/25 00:29 Guaifenesin/ Dextromethorphan 10 ml Q4H PRN 08/03/25 00:30 09/02/25 00:29 Famotidine 20 mg DAILY 08/03/25 09:00 09/02/25 08:59 08/03/25 08:39 Acetaminophen 650 mg Q6H PRN 08/03/25 02:30 09/02/25 02:29 Review of Systems: Presently, patient feels well. Denies any chest pain, fatigue, fevers or chills. No abdominal pain nausea vomiting or diarrhea. Denies any bleeding or bruising. He denies any chest pain, shortness of breath orthopnea lower extremity edema, PND. No palpitations. Physical Examination: GENERAL: [No acute distress.] HEAD: [Normal with no signs of head trauma.] NECK: Normal carotid upstrokes without bruits.] LUNGS: [Clear breath sounds bilaterally. On room air No wheezes, or rhonchi.] HEART: Irregularly irregular rhythm.. Tachycardic. Normal S1 and S2 without murmurs, gallop or rub.] VASC: [Peripheral pulses +2 bilaterally.] ABD: [Soft, nontender EXT: [No clubbing, cyanosis or edema.] SKIN: [No rashes or lesions noted.] NEURO: [Awake, alert, and oriented x3. No focal sensory or strength deficits noted.] Vital Signs (last 8hr) Date Time Temp Pulse Resp B/P (MAP) Pulse Ox O2 Delivery O2 Flow Rate FiO2 08/03/25 08:30 95 08/03/25 08:01 120 08/03/25 07:00 98.1 168 18 107/75 98 Room Air 08/03/25 05:45 94 Room Air* 0 21 08/03/25 05:10 98.6 115 19 109/59 97 Room Air* 0 21 08/03/25 04:22 113 19 93/72 97 Room Air* 0 21 08/03/25 02:00 140 20 111/79 100 Nasal Cannula* 2 28 Laboratory: [ ] Hematology Labs: Test 08/02/25 20:50 Range/Units White Blood Count 9.6 4.8-10.8 K/uL Red Blood Count 4.93 4.50-6.20 MIL/uL Hemoglobin 16.1 14.0-18.0 g/dL Hematocrit 45.2 42-54 % Mean Corpuscular Volume 91.7 79-99 fL Mean Corpuscular Hemoglobin 32.7 27.0-33.0 pg Mean Corpuscular Hemoglobin Concent 35.6 32.0-36.0 g/dL Red Cell Distribution Width 12.0 11.0-15.5 % Platelet Count 186 130-400 K/uL Mean Platelet Volume 11.1 H 7.5-10.5 fL Immature Granulocyte % (Auto) 0.3 0-1 % Neutrophils (%) (Auto) 88.2 H 40.0-77.0 % Lymphocytes (%) (Auto) 4.7 L 21.0-51.0 % Monocytes (%) (Auto) 6.5 3.0-13.0 % Eosinophils (%) (Auto) 0.0 0.0-8.0 % Basophils (%) (Auto) 0.3 0.0-5.0 % Neutrophils # (Auto) 8.5 H 1.8-7.7 K/uL Lymphocytes # (Auto) 0.5 L 1.0-4.8 K/uL Monocytes # (Auto) 0.6 0.1-1.0 K/uL Eosinophils # (Auto) 0.00 0.00-0.70 K/uL Basophils # (Auto) 0.03 0.00-0.20 K/uL Absolute Immature Granulocyte (auto 0.03 0-1 K/uL Nucleated Red Blood Cells 0.0 0.0-0.19 % White Cell Morphology Comment See comments Chemistry Labs: Test 08/03/25 08:00 08/03/25 01:04 08/02/25 20:50 Range/Units Whole Blood Glucose 161 H 70-110 MG/DL Bedside Glucose Comment Notified Nurse Hemoglobin A1c 6.3 H 4.0-6.0 % Estimated Average Glucose (eAG) 134 H 70-126 mg/dL Lactic Acid Level 2.0 0.8-2.5 mmol/L Procalcitonin 7.48 H 0.05-0.5 ng/mL Thyroid Stimulating Hormone (TSH) 1.17 0.36-3.74 uIU/mL Sodium Level 139 136-145 mmol/L Potassium Level 3.4 L 3.5-5.1 mmol/L Chloride Level 104 101-111 mmol/L Carbon Dioxide Level 21 21-32 mmol/L Blood Urea Nitrogen 21 H 7-18 mg/dL Creatinine 1.7 H 0.5-1.3 mg/dL Glomerular Filtration Rate Calc 42 >90 mL/min Random Glucose 200 H 70-105 mg/dL Total Calcium 8.5 8.5-10.1 mg/dL Magnesium Level 1.80 1.80-2.40 mg/dL Total Bilirubin 1.4 H 0.2-1.0 mg/dL Direct Bilirubin 0.2 0.0-0.3 mg/dL Aspartate Amino Transf (AST/SGOT) 56 H 10-37 U/L Alanine Aminotransferase (ALT/SGPT) 32 12-78 U/L Alkaline Phosphatase 73 50-136 U/L Total Creatine Kinase 1742 *H 21-232 U/L Troponin I High Sensitivity 44 4-75 ng/L B-Type Natriuretic Peptide 118 H 0-100 pg/mL Total Protein 7.4 6.0-8.3 g/dL Albumin 3.6 3.5-5.0 g/dL Coagulation Labs: Test 08/02/25 20:50 Range/Units Prothrombin Time 13.5 H 9.6-11.6 SEC Prothromb Time International Ratio 1.31 H 0.85-1.15 Activated Partial Thromboplast Time 31.9 26.3-35.5 SEC Assessment: Severe sepsis Acute complicated cystitis Acute streptococcal pharyngitis Atrial fibrillation with rapid ventricular response Hypothyroidism, normal TSH Coronary artery disease, nonobstructive by prior [facility] Lung nodule Pancreatic mass Plan: Breakthrough atrial fibrillation with rapid ventricular response likely precipitated by acute infectious illness Continue with metoprolol [id number] mg twice a day, compared with once daily as his home medications Continue with the diltiazem drip Continue to treat underlying infectious illness and wean from the diltiazem drip as tolerated Continue with the therapeutic anticoagulation, however due to an EGFR less than 50, we will reduce the dose to Xarelto 15 mg daily We will obtain transthoracic echocardiogram once his heart rate is less than 100 beats per minute to evaluate his left ventricular systolic function and left atrial size. BETTE CUI DO Aug 03, 2025 08:54
[2025-08-03] MEDS: RIVAROXABAN 15 MG TABLET PO ONE (10:27)
[2025-08-03] MEDS: BENZOCAINE/MENTH/CETYLPYRD CL 1 EACH LOZENGE MM PRN (11:55)
--- NOTE | 2025-08-03 12:29 | HMCSR ---
APPROVED REPORT EXAM: Two-dimensional and M-mode echocardiogram with Doppler and color Doppler. Study Details: TDS INDICATION ICD: Atrial fibrillation with rapid ventricular response. 2D Dimensions IVSd0.6 (0.7-1.1cm)LVEF(%)44.6 (>50%)LVED Vol(simp.)40.0 mL LVDd4.1 (3.8-5.6cm)FS(%)22 %LVES Vol(simp.)21.0 mL PWd0.9 (0.7-1.1cm)LVOT diam1.9 (1.8-2.4cm)LVEF(%, simp.)47 % IVSs0.7 cmIVC diam1.1 cmLA ESV INDEX (BP)15.83 mL/m2 LVDs3.2 (2.5-4.0cm) PWs1.0 cm Deformation Strain Apical 4-9.8 % Apical 2-7.8 % Apical 3-10.7 % Global Strain-9.5 % Aortic Valve AoV Vmax1.0 m/Tsering Peak GR4.3 mmHgLVOT Vmax0.6 m/s AoV VTI0.1 mAo Mean GR2.3 mmHgLVOT VTI0.12 m KEVYN (VMAX)1.64 cm2AVA (VTI) 2.2 cm2 Mitral Valve MV E Vmax99.6 cm/sDECEL Ermm172 ms P 1/2 T52 ms MVA (PHT)4.3 cm2 TDI E/E' Medial9.4E/E' Cteamgd81.0 Medial E' Peak V10.57 cm/sLateral E' Peak V9.02 cm/s Tricuspid Valve RAP (EST) 8 mmHgRVSP8.0 mmHg Left Ventricle The left ventricle is normal size. GLS -10.0% Suboptimal endocardial definition. There is normal left ventricular wall thickness. LVEF is 45-50%. The LV diastolic function was unable to be assessed due to atrial arrhythmia. Right Ventricle The right ventricle appears normal in size. The right ventricular systolic function is normal. Atria The left atrium size is normal. The right atrium size is normal. Aortic Valve The aortic valve is normal in structure. No aortic regurgitation is present. There is no aortic valvu lar stenosis. Mitral Valve Mild posterior annular calcification noted. The mitral valve is mildly thickened. There is no mitral valve regurgitation noted. There is no mitral valve stenosis. Tricuspid Valve The tricuspid valve is normal in structure. There is no tricuspid valve regurgitation noted. Pulmonic Valve The pulmonary valve is normal in structure. There is no pulmonic valvular regurgitation. Great Vessels The aortic root is normal in size. The IVC is normal in size and collapses <50% with inspiration. Pericardium There is no pericardial effusion. Other Information Quality : Technically difficult study due to body habitus Rhythm : A-Fib Conclusion LVEF is 45-50%. Suboptimal endocardial definition. The LV diastolic function was unable to be assessed due to atrial arrhythmia. Mild posterior annular calcification noted.
[2025-08-03 13:44] LABS: AMPHET/METH SCREEN,URINE NEGATIVE (NEGATIVE); BARBITURATE SCREEN, URINE NEGATIVE (NEGATIVE); CANNABINOID SCREEN,URINE NEGATIVE (NEGATIVE); COCAINE SCREEN,URINE NEGATIVE (NEGATIVE)
--- NOTE | 2025-08-03 17:29 | NUR ---
CM NOTE MET WITH PT AND SPOUSE AND SPOKE TO SON SOCORRO ON PHONE, PT LIVES WITH SON AND SPOUSE, HAS PROVIDER 2-3HRS DAILY FOR ADLS ASSIST, AMBULATES PER SELF NO DME. [place] SONS ASSIST WITH TRANSPORT. Addendum: 08/03/25 at 1734 by JAROCHO OJEDA CM Amended: Links added.
--- NOTE | 2025-08-03 22:21 | PN ---
[facility] PROGRESS NOTE Date Patient Seen: Aug 03, 2025 Time of Visit: 12:00 Supervising Physician: Carlos Branham MD Primary Care Physician: DR. JACK. JASPREET Outpatient Specialists: [ ] Inpatient Consults: [ ] PROBLEM LIST: 1. ACUTE STREPTOCOCCAL PHARYNGITIS 2. ACUTE COMPLICATED CYSTITIS 3. SEVERE SEPSIS DUE TO ACUTE COMPLICATED CYSTITIS AND ACUTE STREPTOCOCCAL PHARYNGITIS 4. CHRONIC KIDNEY DISEASE STAGE III 5. RHABDOMYOLYSIS 6. DIABETES TYPE 2 UNCONTROLLED 7. AFIB WITH RVR 8. HYPOKALEMIA INTERVAL HISTORY: No major overnight events. Patient with GCS of 14. Continues on LR at 150 with decreased to 75 mL/hour. Denies nausea and vomiting or diarrhea. As per one six at the bedside patient has been having trouble eating due to throat infection and pain. Currently patient is on room air in no apparent distress. Neutrophils glucose has been within goal. Procalcitonin elevated at 7.48 hemoglobin A1c of 6.3. Troponins negative. CK level 1742. We will repeat labs in the morning. REVIEW OF SYSTEMS: 12 point ROS reviewed with patient. Pertinent positives mentioned above. Otherwise negative. PHYSICAL EXAM: GENERAL: sleeping but easily awake. HEENT: EOMI, Sclera non icteric, moist mucosa NECK: Sore throat LUNGS: Clear breath sounds bilaterally. No wheezes HEART: Regular rate and rhythm. Normal S1 and S2, without murmurs ABD: Abdomen soft, nontender. Bowel sounds present EXT: No clubbing cyanosis or edema NEURO: Alert and oriented to person, follows commands Vital Signs (last 8hr) Date Time Temp Pulse Resp B/P (MAP) Pulse Ox O2 Delivery O2 Flow Rate FiO2 08/03/25 20:01 98.1 62 18 118/66 96 Room Air 08/03/25 16:00 97.5 108 20 107/54 97 Room Air LABS: Hematology Labs: Test 08/02/25 20:50 Range/Units White Blood Count 9.6 4.8-10.8 K/uL Red Blood Count 4.93 4.50-6.20 MIL/uL Hemoglobin 16.1 14.0-18.0 g/dL Hematocrit 45.2 42-54 % Mean Corpuscular Volume 91.7 79-99 fL Mean Corpuscular Hemoglobin 32.7 27.0-33.0 pg Mean Corpuscular Hemoglobin Concent 35.6 32.0-36.0 g/dL Red Cell Distribution Width 12.0 11.0-15.5 % Platelet Count 186 130-400 K/uL Mean Platelet Volume 11.1 H 7.5-10.5 fL Immature Granulocyte % (Auto) 0.3 0-1 % Neutrophils (%) (Auto) 88.2 H 40.0-77.0 % Lymphocytes (%) (Auto) 4.7 L 21.0-51.0 % Monocytes (%) (Auto) 6.5 3.0-13.0 % Eosinophils (%) (Auto) 0.0 0.0-8.0 % Basophils (%) (Auto) 0.3 0.0-5.0 % Neutrophils # (Auto) 8.5 H 1.8-7.7 K/uL Lymphocytes # (Auto) 0.5 L 1.0-4.8 K/uL Monocytes # (Auto) 0.6 0.1-1.0 K/uL Eosinophils # (Auto) 0.00 0.00-0.70 K/uL Basophils # (Auto) 0.03 0.00-0.20 K/uL Absolute Immature Granulocyte (auto 0.03 0-1 K/uL Nucleated Red Blood Cells 0.0 0.0-0.19 % White Cell Morphology Comment See comments Chemistry Labs: Test 08/03/25 19:59 08/03/25 15:59 08/03/25 01:04 08/02/25 20:50 Range/Units Whole Blood Glucose 142 H 70-110 MG/DL Bedside Glucose Comment Notified Nurse Hemoglobin A1c 6.3 H 4.0-6.0 % Estimated Average Glucose (eAG) 134 H 70-126 mg/dL Lactic Acid Level 2.0 0.8-2.5 mmol/L Procalcitonin 7.48 H 0.05-0.5 ng/mL Thyroid Stimulating Hormone (TSH) 1.17 0.36-3.74 uIU/mL Sodium Level 139 136-145 mmol/L Potassium Level 3.4 L 3.5-5.1 mmol/L Chloride Level 104 101-111 mmol/L Carbon Dioxide Level 21 21-32 mmol/L Blood Urea Nitrogen 21 H 7-18 mg/dL Creatinine 1.7 H 0.5-1.3 mg/dL Glomerular Filtration Rate Calc 42 >90 mL/min Random Glucose 200 H 70-105 mg/dL Total Calcium 8.5 8.5-10.1 mg/dL Magnesium Level 1.80 1.80-2.40 mg/dL Total Bilirubin 1.4 H 0.2-1.0 mg/dL Direct Bilirubin 0.2 0.0-0.3 mg/dL Aspartate Amino Transf (AST/SGOT) 56 H 10-37 U/L Alanine Aminotransferase (ALT/SGPT) 32 12-78 U/L Alkaline Phosphatase 73 50-136 U/L Total Creatine Kinase 1742 *H 21-232 U/L Troponin I High Sensitivity 44 4-75 ng/L B-Type Natriuretic Peptide 118 H 0-100 pg/mL Total Protein 7.4 6.0-8.3 g/dL Albumin 3.6 3.5-5.0 g/dL Coagulation Labs: Test 08/02/25 20:50 Range/Units Prothrombin Time 13.5 H 9.6-11.6 SEC Prothromb Time International Ratio 1.31 H 0.85-1.15 Activated Partial Thromboplast Time 31.9 26.3-35.5 SEC DIAGNOSTICS / RADIOLOGY RESULTS: [ ][address] [place] [address] IMAGING REPORT Signed PATIENT: LADARIUS CARTER MR#: [id number] : 1950 SEX: M AGE: 75 LOCATION: [facility] ORDER STATUS: ADM IN REPORT#: [id number] SERVICE REASON: afib with rvr ORDERING PHYSICIAN: TRENTON ALLEN PROCEDURE: ECHO CMP - ECHO 2-D COMPLETE APPROVED REPORT EXAM: Two-dimensional and M-mode echocardiogram with Doppler and color Doppler. Study Details: TDS INDICATION ICD: Atrial fibrillation with rapid ventricular response. 2D Dimensions IVSd 0.6 (0.7-1.1cm) LVEF(%) 44.6 (>50%) LVED Vol(simp.) 40.0 mL LVDd 4.1 (3.8-5.6cm) FS(%) 22 % LVES Vol(simp.) 21.0 mL PWd 0.9 (0.7-1.1cm) LVOT diam 1.9 (1.8-2.4cm) LVEF(%, simp.) 47 % IVSs 0.7 cm IVC diam 1.1 cm LA ESV INDEX (BP) 15.83 mL/m2 LVDs 3.2 (2.5-4.0cm) PWs 1.0 cm Deformation Strain Apical 4 -9.8 % Apical 2 -7.8 % Apical 3 -10.7 % Global Strain -9.5 % Aortic Valve AoV Vmax 1.0 m/s Ao Peak GR 4.3 mmHg LVOT Vmax 0.6 m/s AoV VTI 0.1 m Ao Mean GR 2.3 mmHg LVOT VTI 0.12 m KEVYN (VMAX) 1.64 cm2 KEVYN (VTI) 2.2 cm2 Mitral Valve MV E Vmax 99.6 cm/s DECEL Time 130 ms P 1/2 T 52 ms MVA (PHT) 4.3 cm2 TDI E/E' Medial 9.4 E/E' Lateral 11.0 Medial E' Peak V 10.57 cm/s Lateral E' Peak V 9.02 cm/s Tricuspid Valve RAP (EST) 8 mmHg RVSP 8.0 mmHg Left Ventricle The left ventricle is normal size. GLS -10.0% Suboptimal endocardial definition. There is normal left ventricular wall thickness. LVEF is 45-50%. The LV diastolic function was unable to be assessed due to atrial arrhythmia. Right Ventricle The right ventricle appears normal in size. The right ventricular systolic function is normal. Atria The left atrium size is normal. The right atrium size is normal. Aortic Valve The aortic valve is normal in structure. No aortic regurgitation is present. There is no aortic valvular stenosis. Mitral Valve Mild posterior annular calcification noted. The mitral valve is mildly thickened. There is no mitral valve regurgitation noted. There is no mitral valve stenosis. Tricuspid Valve The tricuspid valve is normal in structure. There is no tricuspid valve regurgitation noted. Pulmonic Valve The pulmonary valve is normal in structure. There is no pulmonic valvular regurgitation. Great Vessels The aortic root is normal in size. The IVC is normal in size and collapses <50% with inspiration. Pericardium There is no pericardial effusion. Other Information Quality : Technically difficult study due to body habitus Rhythm : A-Fib Conclusion LVEF is 45-50%. Suboptimal endocardial definition. The LV diastolic function was unable to be assessed due to atrial arrhythmia. Mild posterior annular calcification noted. DICTATED BY: BETTE ISAACS DO DATE: 08/03/2549 ELECTRONICALLY SIGNED BY: BETTE ISAACS DO DATE: 08/03/25 1229 [facility] [address] [place] [address] IMAGING REPORT Signed PATIENT: LADARIUS CARTER MR#: [id number] : 1950 SEX: M AGE: 75 LOCATION: [facility] ORDER 32 STATUS: REG ER REPORT#: [id number] SERVICE 29 REASON: sob ORDERING PHYSICIAN: ILDA JEFFREY SALES AND MARKETING MANAGER PROCEDURE: CXR1VW - CHEST 1VW EXAM: CR Chest, 1 View. CLINICAL HISTORY: sob COMPARISON: None provided. FINDINGS: LUNGS: The lungs show possible right upper lobe lung nodule adjacent to the anterior first rib. PLEURAL SPACES: No evidence of pleural effusion or pneumothorax. MEDIASTINUM: Cardiac size and mediastinal contours within normal limits. BONES: No acute osseous abnormality. IMPRESSION: Possible right upper lobe lung nodule. Recommend CT scan /[place] DICTATED BY: YAIMA PEREZ MD DATE: 08/02/252312 ELECTRONICALLY SIGNED BY: YAIMA PEREZ MD DATE: 08/02/252312 PLAN: continue PCU Start LR at 75 mL/hour Ceftriaxone2 g IV daily Obtain blood culture x2 UDS CK level in am Cardiac ADA diet Accu-Cheks a.c. HS Monitor creatinine trend [id number] mg p.o. b.i.d. follow cardiology recommendations continue Xarelto NEURO: Minimize central acting medications as possible. Maintain fall precautions, adequate lighting during the day PULMONARY: Supplemental 02 as needed. Maintain aspiration precautions at all times CARDIOVASCULAR: Follow hemodynamics. Vital signs per facility protocol Cardiology consult pending anticipation for further recommendations Continue Cardizem drip Obtain 2D echo cardiology read GI & NUTRITION: Continue with nutritional support. Continue stool softeners and laxatives as needed. KIDNEYS & ELECTROLYTES: Strict monitoring of intake, output and overall fluid balance. Avoid nephrotoxic medications to the extent possible. Medications to be dosed according to renal function. Monitor electrolytes and replace as needed Start LR at 75 mL/hour ENDOCRINE: Maintain blood glucose between 100-180 at all times. Hypoglycemia protocol in place Obtain hemoglobin A1c INFECTIOUS DISEASE: Trend temperature, WBC and procalcitonin level Follow cultures, deescalate antibiotics as soon as possible. Panculture if new onset fever Penicillin G 1.2 million units IM once Ceftriaxone2 g IV daily ONCOLOGY/HEMATOLOGY/COAGULATION: Monitor for s/s of bleeding Monitor hemoglobin, coagulation studies as needed SKIN: Pressure ulcer prevention per facility protocol Specialty mattress ORTHO/REHAB: Continue PT/OT Prophylaxis: Continue GI and DVT prophylaxis Code Status: Full Resuscitation Disposition: TBD Other: Total patient care time exceeds 35 minutes excluding all procedures. Case dis cussed with Carlos Leyva and the above plan was formulated. ATTESTATION BY PHYSICIAN I attest that I reviewed and discussed the case with the Physician Sole Rounding Machine Operator as well as agree with the Physician Sole Rounding Machine Operator's findings, plans of care, and documentation above. Carlos Guzmán MD, [facility] Aug 03, 2025 22:21
[2025-08-04] VITALS (8 sets, daily range): BP systolic 97–120; BP diastolic 61–75; PULSE 66–110; RESP 18–20; TEMP 97.9–99.5; O2SAT 96–98
--- NOTE | 2025-08-04 03:13 | NUR ---
Orders. spoke to Dr. Burrows. Informed that patient has dementia and was pulling on IV tubing lines. Cardizem drip is infusing through peripheral IV.Family member is at bedside, attempted to utilize family member to deter patient from removing iv lines, telemetry, and getting out of bed. the assistance of family member was not successful.Order for jasiel received.
--- NOTE | 2025-08-04 05:30 | NUR ---
Orders. spoke to Taha after mitten orders were in place. Informed Taha that patient has removed mittens.Family member is at bedside, attempted to utilize family member to deter patient from removing mittens. The assistance of family member was not successful.Order for sitter was placed. No sitter available at this time as per house carpenter. Patient will get a sitter at shift change.
--- NOTE | 2025-08-04 07:31 | PN ---
Severe sepsis Acute complicated cystitis Acute streptococcal pharyngitis Atrial fibrillation with rapid ventricular response Hypothyroidism, normal TSH Coronary artery disease, nonobstructive by prior [facility] Lung nodule Pancreatic mass Patient denies chest pain or chest pressure, shortness of breath or palpitations. He is eager to go home. No JVD, nonlabored respiration, bibasilar rales noted but these are probably atelectatic. Normal S1 and S2, no edema, oriented in all spheres and appropriate. Echocardiogram demonstrated 45-50% ejection fraction but this was obtained when the patient had been septic and in atrial fibrillation. Now he is in sinus rhythm with regular rhythm and I think we should eventually reassess ventricular function on an outpatient basis after a period of stability, but for now I would not change medicines further. I will defer to others to address the noncardiac issues such as complicated urinary tract infection and sepsis, but would not make additional changes in cardiac treatment at this time. If others feel the patient is ready for discharge, we can see him in follow up in the office in two months. Vitals/Labs Vital Signs Date Time Temp Pulse Resp B/P (MAP) Pulse Ox O2 Delivery O2 Flow Rate FiO2 08/04/25 04:25 98.4 110 18 102/65 95 Room Air 08/04/25 03:51 0 21 Medications Current Medications Acetaminophen 1,000 mg ONCE ONCE PO Last administered on 08/02/25at 21:26; Start 08/02/25 at 20:30; Stop 08/02/25 at 20:37; Status DC Sodium Chloride 1,770 ml @ 590 mls/hr ONCE ONCE IV Last administered on 08/02/25at 20:56; Start 08/02/25 at 20:30; Stop 08/02/25 at 23:29; Status DC Ceftriaxone Sodium 1 gm ONCE ONCE IVPB Last administered on 08/02/25at 21:25; Start 08/02/25 at 20:30; Stop 08/02/25 at 20:37; Status DC Diltiazem HCl 10 mg ONCE ONCE IVP Last administered on 08/02/25at 20:58; Start 08/02/25 at 21:00; Stop 08/02/25 at 21:01; Status DC Diltiazem HCl 5 mg ONCE ONCE IVP Last administered on 08/02/25at 21:12; Start 08/02/25 at 21:30; Stop 08/02/25 at 21:31; Status DC Diltiazem HCl 5 mg ONCE ONCE IVP Last administered on 08/02/25at 21:45; Start 08/02/25 at 22:00; Stop 08/02/25 at 22:01; Status DC Potassium Bicarbonate 25 meq ONCE ONCE PO Last administered on 08/02/25at 21:45; Start 08/02/25 at 22:00; Stop 08/02/25 at 22:01; Status DC Diltiazem HCl 125 mg/Sodium Chloride 125 ml @ 0 mls/hr PROTOCOL IV Last administered on 08/04/25at 02:49; Start 08/02/25 at 22:00; Stop 09/01/25 at 21:59 Diltiazem HCl 10 mg ONCE ONCE IVP Last administered on 08/02/25at 21:56; Start 08/02/25 at 22:00; Stop 08/02/25 at 22:01; Status DC Lactated Ringer's 1,000 ml @ 150 mls/hr Q6H40M IV Last administered on 08/04/25at 00:23; Start 08/03/25 at 00:30; Stop 09/02/25 at 00:29 Heparin Sodium (Porcine) 5,000 unit Q12H SQ Last administered on 08/03/25at 00:42; Start 08/03/25 at 00:30; Stop 08/03/25 at 10:08; Status DC Penicillin G Benzathine 1.2 milunits ONCE ONCE IM Last administered on 5at 01:46; Start 08/03/25 at 01:30; Stop 08/03/25 at 01:31; Status DC Insulin Human Regular INSULIN SLIDING SCAL... ACHS SQ Last administered on 08/03/25at 11:58; Start 08/03/25 at 07:30; Stop 09/02/25 at 07:29 Dextrose 50 ml AD PRN IV; Start 08/03/25 at 00:30; Stop 09/02/25 at 00:29 Glucagon 1 mg AD PRN IM; Start 08/03/25 at 00:30; Stop 09/02/25 at 00:29 Potassium Chloride 40 meq ONCE ONCE PO Last administered on 08/03/25at 00:42; Start 08/03/25 at 00:30; Stop 08/03/25 at 00:41; Status DC Metoprolol Tartrate 25 mg BID PO Last administered on 08/03/25at 20:55; Start 08/03/25 at 09:00; Stop 09/02/25 at 08:59 Ceftriaxone Sodium 2 gm Q24H IVPB Last administered on 08/04/25at 02:00; Start 08/03/25 at 00:30; Stop 08/13/25 at 00:29 Acetaminophen 650 mg Q6H PRN PO; Start 08/03/25 at 00:30; Stop 09/02/25 at 00:29 Acetaminophen 650 mg Q4H PRN PO; Start 08/03/25 at 00:30; Stop 08/03/25 at 02:29; Status DC Ondansetron HCl 4 mg Q6H PRN IV; Start 08/03/25 at 00:30; Stop 09/02/25 at 00:29 Al Hydroxide/Mg Hydroxide 30 ml Q6H PRN PO; Start 08/03/25 at 00:30; Stop 09/02/25 at 00:29 Lactulose 20 gm BID PRN PO; Start 08/03/25 at 00:30; Stop 09/02/25 at 00:29 Nitroglycerin 0.4 mg PROTOCOL PRN SL; Start 08/03/25 at 00:30; Stop 09/02/25 at 00:29 Guaifenesin/ Dextromethorphan 10 ml Q4H PRN PO; Start 08/03/25 at 00:30; Stop 09/02/25 at 00:29 Famotidine 20 mg DAILY PO Last administered on 08/03/25at 08:39; Start 08/03/25 at 09:00; Stop 09/02/25 at 08:59 Sodium Chloride 1,983 ml @ 661 mls/hr ONCE ONCE IV; Start 08/03/25 at 00:30; Stop 08/03/25 at 03:29; Status DC Acetaminophen 650 mg Q6H PRN PEG; Start 08/03/25 at 02:30; Stop 09/02/25 at 02:29 Metoprolol Tartrate 25 mg STK-MED ONCE .ROUTE; Start 08/03/25 at 07:17; Stop 08/03/25 at 07:17; Status DC Rivaroxaban 15 mg DAILY PO; Start 08/04/25 at 09:00; Stop 09/03/25 at 08:59 Rivaroxaban 15 mg ONCE ONCE PO Last administered on 08/03/25at 10:27; Start 08/03/25 at 10:00; Stop 08/03/25 at 10:09; Status DC Benzocaine 1 each Q4H PRN MM Last administered on 08/03/25at 11:55; Start 08/03/25 at 10:30; Stop 09/02/25 at 10:29 GAVIOTA VOSS MD Aug 04, 2025 07:31
[2025-08-04] MEDS: RIVAROXABAN 10 MG TABLET PO SCH (09:42)
[2025-08-04 10:56] LABS: IMMATURE GRANULOCYTE ABSOLUTE 0.06 K/uL (0-1); NUCLEATED RED BLOOD CELLS 0.0 % (0.0-0.19); PLATELET COUNT (AUTO) 161 K/uL (130-400); RED BLOOD CELL COUNT(AUTO) 4.11 MIL/uL (4.50-6.20); RED CELL DISTRIBUTION WIDTH 12.4 % (11.0-15.5); WHITE BLOOD COUNT (AUTO) 12.0 K/uL (4.8-10.8)
--- NOTE | 2025-08-04 10:56 | PN ---
[facility] PROGRESS NOTE Date Patient Seen: Aug 04, 2025 Time of Visit: 10:56 Supervising Physician: Trung Breaux MD Primary Care Physician: DR. JACK. JASPREET Outpatient Specialists: [ ] Inpatient Consults: [ ] PROBLEM LIST: ACUTE STREPTOCOCCAL PHARYNGITIS ACUTE COMPLICATED CYSTITIS SEVERE SEPSIS DUE TO ACUTE COMPLICATED CYSTITIS AND ACUTE STREPTOCOCCAL PHARYNGITIS CHRONIC KIDNEY DISEASE STAGE III RHABDOMYOLYSIS, improving 1 episode Melena DIABETES TYPE 2 UNCONTROLLED AFIB WITH RVR on Xarelto HYPOKALEMIA INTERVAL HISTORY: Overnight patient became confused slightly combative trying to remove IVs. Ordered for 1-1 sitter was placed and currently on a 1-1 observation. As per patient's son this is how he gets when he has been in the hospital given that he has history of dementia. Nurse reported one episode of melena no further episodes since this morning. Patient is started on Protonix 40 mg IV push b.i.d.. Son wishes to take patient home to avoid further confusion. GI specialist Dr. Jairo Cash from [facility] agrees to see pt at his clinic once discharged. Per Supervising Physician monitor inpatinet one more day due to his current HX of AC with Xarelto. Otherwise patient is tolerating clear liquids a little better. Rhabdomyolysis is improving. He continues on LR at 75 mL/hour. REVIEW OF SYSTEMS: 12 point ROS reviewed with patient. Pertinent positives mentioned above. Otherwise negative. PHYSICAL EXAM: GENERAL: sleeping but easily awake. HEENT: EOMI, Sclera non icteric, moist mucosa NECK: Sore throat LUNGS: Clear breath sounds bilaterally. No wheezes HEART: Regular rate and rhythm. Normal S1 and S2, without murmurs ABD: Abdomen soft, nontender. Bowel sounds present EXT: No clubbing cyanosis or edema NEURO: Alert and oriented to person, follows commands Vital Signs (last 8hr) Date Time Temp Pulse Resp B/P (MAP) Pulse Ox O2 Delivery O2 Flow Rate FiO2 08/04/25 08:00 97.9 90 20 120/74 97 Room Air 08/04/25 04:25 98.4 110 18 102/65 95 Room Air 08/04/25 03:51 96 Room Air* 0 21 LABS: Hematology Labs: Test 08/02/25 20:50 Range/Units White Blood Count 9.6 4.8-10.8 K/uL Red Blood Count 4.93 4.50-6.20 MIL/uL Hemoglobin 16.1 14.0-18.0 g/dL Hematocrit 45.2 42-54 % Mean Corpuscular Volume 91.7 79-99 fL Mean Corpuscular Hemoglobin 32.7 27.0-33.0 pg Mean Corpuscular Hemoglobin Concent 35.6 32.0-36.0 g/dL Red Cell Distribution Width 12.0 11.0-15.5 % Platelet Count 186 130-400 K/uL Mean Platelet Volume 11.1 H 7.5-10.5 fL Immature Granulocyte % (Auto) 0.3 0-1 % Neutrophils (%) (Auto) 88.2 H 40.0-77.0 % Lymphocytes (%) (Auto) 4.7 L 21.0-51.0 % Monocytes (%) (Auto) 6.5 3.0-13.0 % Eosinophils (%) (Auto) 0.0 0.0-8.0 % Basophils (%) (Auto) 0.3 0.0-5.0 % Neutrophils # (Auto) 8.5 H 1.8-7.7 K/uL Lymphocytes # (Auto) 0.5 L 1.0-4.8 K/uL Monocytes # (Auto) 0.6 0.1-1.0 K/uL Eosinophils # (Auto) 0.00 0.00-0.70 K/uL Basophils # (Auto) 0.03 0.00-0.20 K/uL Absolute Immature Granulocyte (auto 0.03 0-1 K/uL Nucleated Red Blood Cells 0.0 0.0-0.19 % White Cell Morphology Comment See comments Chemistry Labs: Test 08/04/25 10:43 08/04/25 05:02 08/03/25 15:59 08/03/25 01:04 Range/Units Whole Blood Glucose 146 H 70-110 MG/DL Total Creatine Kinase 652 #*H 21-232 U/L Bedside Glucose Comment Notified Nurse Hemoglobin A1c 6.3 H 4.0-6.0 % Estimated Average Glucose (eAG) 134 H 70-126 mg/dL Lactic Acid Level 2.0 0.8-2.5 mmol/L Procalcitonin 7.48 H 0.05-0.5 ng/mL Thyroid Stimulating Hormone (TSH) 1.17 0.36-3.74 uIU/mL Test 08/02/25 20:50 Range/Units Sodium Level 139 136-145 mmol/L Potassium Level 3.4 L 3.5-5.1 mmol/L Chloride Level 104 101-111 mmol/L Carbon Dioxide Level 21 21-32 mmol/L Blood Urea Nitrogen 21 H 7-18 mg/dL Creatinine 1.7 H 0.5-1.3 mg/dL Glomerular Filtration Rate Calc 42 >90 mL/min Random Glucose 200 H 70-105 mg/dL Total Calcium 8.5 8.5-10.1 mg/dL Magnesium Level 1.80 1.80-2.40 mg/dL Total Bilirubin 1.4 H 0.2-1.0 mg/dL Direct Bilirubin 0.2 0.0-0.3 mg/dL Aspartate Amino Transf (AST/SGOT) 56 H 10-37 U/L Alanine Aminotransferase (ALT/SGPT) 32 12-78 U/L Alkaline Phosphatase 73 50-136 U/L Troponin I High Sensitivity 44 4-75 ng/L B-Type Natriuretic Peptide 118 H 0-100 pg/mL Total Protein 7.4 6.0-8.3 g/dL Albumin 3.6 3.5-5.0 g/dL Coagulation Labs: Test 08/02/25 20:50 Range/Units Prothrombin Time 13.5 H 9.6-11.6 SEC Prothromb Time International Ratio 1.31 H 0.85-1.15 Activated Partial Thromboplast Time 31.9 26.3-35.5 SEC DIAGNOSTICS / RADIOLOGY RESULTS: [ ] [address] [place] [address] IMAGING REPORT Signed PATIENT: LADARIUS CARTER MR#: [id number] : 1950 SEX: M AGE: 75 LOCATION: 2DH ORDER 1132 STATUS: ADM IN REPORT#: [id number] SERVICE 1127 REASON: altered mental status ORDERING PHYSICIAN: DIONISIO MCINTYRE PROCEDURE: HEAD WO - CT HEAD/BRAIN W/O CONTRAST CT OF THE BRAIN WITHOUT CONTRAST CLINICAL INDICATION: Altered mental status TECHNIQUE: Multiple contiguous axial CT images were obtained through the brain without the administration of intravenous contrast. Coronal and sagittal reconstructions were also obtained. COMPARISON: None available FINDINGS: The ventricular system and cortical sulci demonstrate a normal size and configuration for the patients age. There are no intra- or extra-axial collections, mass effect, or midline shift. The basal cisterns are patent. The cyr-white matter differentiation is preserved. The midline structures and cervicomedullary junction are unremarkable. There is no evidence of acute intracranial hemorrhage or areas of acute infarction. Vascular calcification is present. The calvarium is unremarkable in appearance. No suspicious lytic or sclerotic osseous lesions are seen. The visualized portions of the sinuses are well aerated. The mastoid air cells are well pneumatized and well aerated. The visualized orbital structures are unremarkable in appearance. IMPRESSION: 1. No CT evidence of an acute intracranial process. 2. Age-appropriate involutional changes. /[place] DICTATED BY: SUDHA DUNNE MD DATE: 08/04/251417 ELECTRONICALLY SIGNED BY: SUDHA DUNNE MD DATE: 08/04/251417 PLAN: continue LR at 75 mL/hour Ceftriaxone2 g IV daily Follow cultures Monitor for bleeding Protonix 40mg IVp BID Sucralfate 1 g BID CK level in am Cardiac ADA diet Accu-Cheks a.c. HS Monitor creatinine trend [id number] mg p.o. b.i.d. follow cardiology recommendations - pt to follow up with cardiology in 2 months. continue Xarelto NEURO: Minimize central acting medications as possible. Maintain fall precautions, adequate lighting during the day PULMONARY: Supplemental 02 as needed. Maintain aspiration precautions at all times CARDIOVASCULAR: Follow hemodynamics. Vital signs per facility protocol Cardiology consult pending anticipation for further recommendations Continue Cardizem drip Obtain 2D echo cardiology read GI & NUTRITION: Continue with nutritional support. Continue stool softeners and laxatives as needed. KIDNEYS & ELECTROLYTES: Strict monitoring of intake, output and overall fluid balance. Avoid nephrotoxic medications to the extent possible. Medications to be dosed according to renal function. Monitor electrolytes and replace as needed Start LR at 75 mL/hour ENDOCRINE: Maintain blood glucose between 100-180 at all times. Hypoglycemia protocol in place Obtain hemoglobin A1c INFECTIOUS DISEASE: Trend temperature, WBC and procalcitonin level Follow cultures, deescalate antibiotics as soon as possible. Panculture if new onset fever Penicillin G 1.2 million units IM once Ceftriaxone2 g IV daily ONCOLOGY/HEMATOLOGY/COAGULATION: Monitor for s/s of bleeding Monitor hemoglobin, coagulation studies as needed SKIN: Pressure ulcer prevention per facility protocol Specialty mattress ORTHO/REHAB: Continue PT/OT Prophylaxis: Continue GI and DVT prophylaxis Code Status: Full Resuscitation Disposition: TBD Other: Total patient care time exceeds 35 minutes excluding all procedures. ATTESTATION BY PHYSICIAN I have evaluated the patient chart, medical records, and spoke with appropriate staff. I reviewed the documentation, medical decision making, and treatment plan as noted by the mid-level provider above. I agree with the findings and plan of care. Trung Breaux MD, [facility] Aug 04, 2025 10:56
[2025-08-04 11:05] LABS: CREATININE 0.8 mg/dL (0.5-1.3); GLOMERULAR FILTR. RATE CALC 93.0 mL/min (>90); GLUCOSE,RANDOM 163.0 mg/dL (70-105); SODIUM SERUM 141.0 mmol/L (136-145); UREA NITROGEN, BLOOD 27.0 mg/dL (7-18)
[2025-08-04 11:08] LABS: ASPARTATE AMINOTRANSFERASE 57.0 U/L (10-37); TOTAL PROTEIN, SERUM 5.6 g/dL (6.0-8.3)
--- NOTE | 2025-08-04 13:19 | HMCIMG ---
CT OF THE BRAIN WITHOUT CONTRAST CLINICAL INDICATION: Altered mental status TECHNIQUE: Multiple contiguous axial CT images were obtained through the brain without the administration of intravenous contrast. Coronal and sagittal reconstructions were also obtained. COMPARISON: None available FINDINGS: The ventricular system and cortical sulci demonstrate a normal size and configuration for the patients age. There are no intra- or extra-axial collections, mass effect, or midline shift. The basal cisterns are patent. The cyr-white matter differentiation is preserved. The midline structures and cervicomedullary junction are unremarkable. There is no evidence of acute intracranial hemorrhage or areas of acute infarction. Vascular calcification is present. The calvarium is unremarkable in appearance. No suspicious lytic or sclerotic osseous lesions are seen. The visualized portions of the sinuses are well aerated. The mastoid air cells are well pneumatized and well aerated. The visualized orbital structures are unremarkable in appearance. IMPRESSION: 1. No CT evidence of an acute intracranial process. 2. Age-appropriate involutional changes. /[place]
[2025-08-04] MEDS: MAGNESIUM 2GM PREMIX 50ML 50 ML IV PRN (13:22)
[2025-08-04] MEDS: PoTASSium chloRIDE 20MEQ ER 20 MEQ ERTAB PO PRN (13:22)
[2025-08-04] MEDS: SUCRALFATE 1 GM TABLET PO SCH (22:19)
[2025-08-05 03:48] VITALS: BP 113/71; PULSE 70; RESP 20; TEMP 98.2
[2025-08-05 07:00] VITALS: BP 135/87; PULSE 65; RESP 20; TEMP 98
[2025-08-05 07:49] LABS: NUCLEATED RED BLOOD CELLS 0.0 % (0.0-0.19); PLATELET COUNT (AUTO) 164.0 K/uL (130-400); RED BLOOD CELL COUNT(AUTO) 3.56 MIL/uL (4.50-6.20); RED CELL DISTRIBUTION WIDTH 12.5 % (11.0-15.5); WHITE BLOOD COUNT (AUTO) 7.3 K/uL (4.8-10.8)
--- NOTE | 2025-08-05 07:53 | PN ---
Severe sepsis Acute complicated cystitis Acute streptococcal pharyngitis Atrial fibrillation with rapid ventricular response Hypothyroidism, normal TSH Coronary artery disease, nonobstructive by prior [facility] Lung nodule Pancreatic mass Acute mental status changes 08/04/2025 Dementia Melena morning of 08/04/2025 Hospitalist mid-level note yesterday references melena yesterday morning. Patient's son reports dark poop. Current nurse can not confirm that the patient had melena. Patient is conversant but apparently has not been having mental status changes and was combative at times in the last24 hours. Has a sitter. Physical exam shows no JVD, no rales, nonlabored respiration, no retractions, normal S1 and S2, no murmur, regular rhythm at a controlled rate, no edema. I note that the patient has a planned outpatient follow up for melena/GI bleeding. In my opinion it would be best to have the patient evaluated before discharge, particularly since he has atrial fibrillation and I ideally should be anticoagulated. If he does have confirmed acute GI bleeding he should be off Xarelto. Since there is confusion about this issue, I will defer to the hospitalist to clarify whether melena was or was not present within the last48 hours and if it was, I will defer to the hospitalist to discontinue Xarelto. Vitals/Labs Vital Signs Date Time Temp Pulse Resp B/P (MAP) Pulse Ox O2 Delivery O2 Flow Rate FiO2 08/05/25 07:00 98.1 65 20 135/87 100 Room Air 08/04/25 20:00 0 21 Laboratory Tests 08/05/25 07:39 Medications Current Medications Acetaminophen 1,000 mg ONCE ONCE PO Last administered on 08/02/25at 21:26; Start 08/02/25 at 20:30; Stop 08/02/25 at 20:37; Status DC Sodium Chloride 1,770 ml @ 590 mls/hr ONCE ONCE IV Last administered on 08/02/25at 20:56; Start 08/02/25 at 20:30; Stop 08/02/25 at 23:29; Status DC Ceftriaxone Sodium 1 gm ONCE ONCE IVPB Last administered on 08/02/25at 21:25; Start 08/02/25 at 20:30; Stop 08/02/25 at 20:37; Status DC Diltiazem HCl 10 mg ONCE ONCE IVP Last administered on 08/02/25at 20:58; Start 08/02/25 at 21:00; Stop 08/02/25 at 21:01; Status DC Diltiazem HCl 5 mg ONCE ONCE IVP Last administered on 08/02/25at 21:12; Start 08/02/25 at 21:30; Stop 08/02/25 at 21:31; Status DC Diltiazem HCl 5 mg ONCE ONCE IVP Last administered on 08/02/25at 21:45; Start 08/02/25 at 22:00; Stop 08/02/25 at 22:01; Status DC Potassium Bicarbonate 25 meq ONCE ONCE PO Last administered on 08/02/25at 21:45; Start 08/02/25 at 22:00; Stop 08/02/25 at 22:01; Status DC Diltiazem HCl 125 mg/Sodium Chloride 125 ml @ 0 mls/hr PROTOCOL IV Last administered on 08/04/25at 02:49; Start 08/02/25 at 22:00; Stop 08/04/25 at 12:58; Status DC Diltiazem HCl 10 mg ONCE ONCE IVP Last administered on 08/02/25at 21:56; Start 08/02/25 at 22:00; Stop 08/02/25 at 22:01; Status DC Lactated Ringer's 1,000 ml @ 50 mls/hr Q20H IV Last administered on 08/04/25at 22:32; Start 08/03/25 at 00:30; Stop 09/02/25 at 00:29 Heparin Sodium (Porcine) 5,000 unit Q12H SQ Last administered on 08/03/25at 00:42; Start 08/03/25 at 00:30; Stop 08/03/25 at 10:08; Status DC Penicillin G Benzathine 1.2 milunits ONCE ONCE IM Last administered on 08/03/25at 01:46; Start 08/03/25 at 01:30; Stop 08/03/25 at 01:31; Status DC Insulin Human Regular INSULIN SLIDING SCAL... ACHS SQ Last administered on 08/03/25at 11:58; Start 08/03/25 at 07:30; Stop 09/02/25 at 07:29 Dextrose 50 ml AD PRN IV; Start 08/03/25 at 00:30; Stop 09/02/25 at 00:29 Glucagon 1 mg AD PRN IM; Start 08/03/25 at 00:30; Stop 09/02/25 at 00:29 Potassium Chloride 40 meq ONCE ONCE PO Last administered on 08/03/25at 00:42; Start 08/03/25 at 00:30; Stop 08/03/25 at 00:41; Status DC Metoprolol Tartrate 25 mg BID PO Last administered on 08/04/25at 22:20; Start 08/03/25 at 09:00; Stop 09/02/25 at 08:59 Ceftriaxone Sodium 2 gm Q24H IVPB Last administered on 08/05/25at 00:44; Start 08/03/25 at 00:30; Stop 08/13/25 at 00:29 Acetaminophen 650 mg Q6H PRN PO; Start 08/03/25 at 00:30; Stop 09/02/25 at 00:29 Acetaminophen 650 mg Q4H PRN PO; Start 08/03/25 at 00:30; Stop 08/03/25 at 02:29; Status DC Ondansetron HCl 4 mg Q6H PRN IV; Start 08/03/25 at 00:30; Stop 09/02/25 at 00:29 Al Hydroxide/Mg Hydroxide 30 ml Q6H PRN PO; Start 08/03/25 at 00:30; Stop 09/02/25 at 00:29 Lactulose 20 gm BID PRN PO; Start 08/03/25 at 00:30; Stop 09/02/25 at 00:29 Nitroglycerin 0.4 mg PROTOCOL PRN SL; Start 08/03/25 at 00:30; Stop 09/02/25 at 00:29 Guaifenesin/ Dextromethorphan 10 ml Q4H PRN PO; Start 08/03/25 at 00:30; Stop 09/02/25 at 00:29 Famotidine 20 mg DAILY PO Last administered on 08/04/25at 09:42; Start 08/03/25 at 09:00; Stop 08/04/25 at 12:54; Status DC Sodium Chloride 1,983 ml @ 661 mls/hr ONCE ONCE IV; Start 08/03/25 at 00:30; Stop 08/03/25 at 03:29; Status DC Acetaminophen 650 mg Q6H PRN PEG; Start 08/03/25 at 02:30; Stop 09/02/25 at 02:29 Metoprolol Tartrate 25 mg STK-MED ONCE .ROUTE; Start 08/03/25 at 07:17; Stop 08/03/25 at 07:17; Status DC Rivaroxaban 15 mg DAILY PO Last administered on 08/04/25at 09:42; Start 08/04/25 at 09:00; Stop 09/03/25 at 08:59 Rivaroxaban 15 mg ONCE ONCE PO Last administered on 08/03/25at 10:27; Start 08/03/25 at 10:00; Stop 08/03/25 at 10:09; Status DC Benzocaine 1 each Q4H PRN MM Last administered on 08/03/25at 11:55; Start 08/03/25 at 10:30; Stop 09/02/25 at 10:29 Pantoprazole Sodium 40 mg BID PO; Start 08/04/25 at 21:00; Stop 08/04/25 at 12:57; Status DC Sucralfate 1 gm BID PO Last administered on 08/04/25at 22:19; Start 08/04/25 at 21:00; Stop 09/03/25 at 20:59 Potassium Chloride 100 ml @ 100 mls/hr AD PRN IV; Start 08/04/25 at 12:00; Stop 09/03/25 at 11:59 Potassium Chloride 20 meq AD PRN PO; Start 08/04/25 at 12:00; Stop 09/03/25 at 11:59 Potassium Chloride 20 meq AD PRN PO Last administered on 08/04/25at 13:22; Start 08/04/25 at 12:00; Stop 09/03/25 at 11:59 Magnesium Sulfate 50 ml @ 0 mls/hr PROTOCOL PRN IV Last administered on 08/04/25at 13:22; Start 08/04/25 at 12:00; Stop 09/03/25 at 11:59 Pantoprazole Sodium 40 mg BID IVP Last administered on 08/04/25at 22:18; Start 08/04/25 at 21:00; Stop 09/03/25 at 20:59 Pantoprazole Sodium 40 mg ONCE ONCE IVP Last administered on 08/04/25at 13:21; Start 08/04/25 at 13:00; Stop 08/04/25 at 13:05; Status DC Metoprolol Tartrate 5 mg Q6H PRN IV Last administered on 08/04/25at 22:21; Start 08/04/25 at 17:00; Stop 09/03/25 at 16:59 GAVIOTA VOSS MD Aug 05, 2025 07:53
[2025-08-05 08:00] VITALS: O2SAT 97
[2025-08-05 08:21] LABS: CREATININE 1.0 mg/dL (0.5-1.3); GLOMERULAR FILTR. RATE CALC 79.0 mL/min (>90); GLUCOSE,RANDOM 82.0 mg/dL (70-105); SODIUM SERUM 143.0 mmol/L (136-145); UREA NITROGEN, BLOOD 18.0 mg/dL (7-18)
[2025-08-05 09:23] LABS: ASPARTATE AMINOTRANSFERASE 42.0 U/L (10-37); TOTAL PROTEIN, SERUM 5.4 g/dL (6.0-8.3)
--- NOTE | 2025-08-05 11:49 | PN ---
[facility] PROGRESS NOTE Date Patient Seen: Aug 05, 2025 Time of Visit: 11:49 Supervising Physician: Dr. Trung Breaux Primary Care Physician: Dr. Doris Vela Inpatient Consults: [facility], GI PROBLEM LIST: Acute streptococcal pharyngitis Acute complicated cystitis Severe sepsis due to above Acute GI bleed (+) melena Acute blood loss anemia Acute rhabdomyolysis Acute delirium in patient with dementia Electrolyte derangement (Hypokalemia) Atrial fibrillation on Xarelto (on hold), CHADS2-VASc 5 points, HAS-BLED 4 points GOUT, possible exacerbation CKD stage III Diabetes mellitus type 2 History of pancreatic mass since 2021 Dementia INTERVAL HISTORY: Patient assessed at bedside. Awake and alert to name. Calm. Sitter at bedside. Confused, at baseline due to dementia. Per son at bedside, patient hasn't slept much since admission. Spoke to son about starting melatonin and Olanzapine IM PRN in case patient gets agitated. Son states last night patient was very agitated and aggressive, which is not normal behavior for patient. Son states patient had another episode of melena dark earlier today and one yesterday. Hemoglobin decreased to 11.7 from 16 on admission. Xarelto placed on hold. Explained CHADS2-VASc 5 points, HAS-BLED 4 points to sons at bedside, state they understand risks and benefits of holding Xarelto. Later in the day, I was notified that patient had right knee pain and had history of Gout, uric acid ordered. All questions answered. Prognosis is guarded. PLAN: Consult GI, hold Xarelto Melatonin at night Sitter due to confusion, fall precaution Trial of prednisone due to Gout Continue Ceftriaxone 2 g IV daily Follow cultures Protonix 40mg IV BID Sucralfate 1 g BID CK level in am Monitor creatinine trend Metoprolol 25 mg p.o. b.i.d. Follow cardiology recommendations - pt to follow up with cardiology in 2 months. PRN Olanzapine REVIEW OF SYSTEMS: Unable due to mental status PHYSICAL EXAM: GENERAL: sleeping but easily awake. HEENT: EOMI, Sclera non icteric, moist mucosa NECK: Sore throat LUNGS: Clear breath sounds bilaterally. No wheezes HEART: Regular rate and rhythm. Normal S1 and S2, without murmurs ABD: Abdomen soft, nontender. Bowel sounds present EXT: No clubbing cyanosis or edema NEURO: Alert and oriented to person, follows commands Vital Signs (last 8hr) Date Time Temp Pulse Resp B/P (MAP) Pulse Ox O2 Delivery O2 Flow Rate FiO2 08/05/25 07:00 98.1 65 20 135/87 100 Room Air LABS: Hematology Labs: Test 08/05/25 07:39 08/04/25 05:02 Range/Units White Blood Count 7.3 4.8-10.8 K/uL Red Blood Count 3.56 L 4.50-6.20 MIL/uL Hemoglobin 11.7 L 14.0-18.0 g/dL Hematocrit 32.1 L 42-54 % Mean Corpuscular Volume 90.2 79-99 fL Mean Corpuscular Hemoglobin 32.9 27.0-33.0 pg Mean Corpuscular Hemoglobin Concent 36.4 H 32.0-36.0 g/dL Red Cell Distribution Width 12.5 11.0-15.5 % Platelet Count 164 130-400 K/uL Mean Platelet Volume 11.4 H 7.5-10.5 fL Nucleated Red Blood Cells 0.0 0.0-0.19 % Immature Granulocyte % (Auto) 0.5 0-1 % Neutrophils (%) (Auto) 83.6 H 40.0-77.0 % Lymphocytes (%) (Auto) 10.9 L 21.0-51.0 % Monocytes (%) (Auto) 4.8 3.0-13.0 % Eosinophils (%) (Auto) 0.0 0.0-8.0 % Basophils (%) (Auto) 0.2 0.0-5.0 % Neutrophils # (Auto) 10.1 H 1.8-7.7 K/uL Lymphocytes # (Auto) 1.3 1.0-4.8 K/uL Monocytes # (Auto) 0.6 0.1-1.0 K/uL Eosinophils # (Auto) 0.00 0.00-0.70 K/uL Basophils # (Auto) 0.02 0.00-0.20 K/uL Absolute Immature Granulocyte (auto 0.06 0-1 K/uL Red Blood Cell Morphology See comments Chemistry Labs: Test 08/05/25 11:39 08/05/25 07:39 08/04/25 05:02 08/03/25 15:59 Range/Units Whole Blood Glucose 82 70-110 MG/DL Sodium Level 143 136-145 mmol/L Potassium Level 3.7 3.5-5.1 mmol/L Chloride Level 110 101-111 mmol/L Carbon Dioxide Level 28 21-32 mmol/L Blood Urea Nitrogen 18 7-18 mg/dL Creatinine 1.0 0.5-1.3 mg/dL Glomerular Filtration Rate Calc 79 >90 mL/min Random Glucose 82 70-105 mg/dL Total Calcium 8.2 L 8.5-10.1 mg/dL Magnesium Level 1.90 1.80-2.40 mg/dL Total Bilirubin 0.4 0.2-1.0 mg/dL Direct Bilirubin 0.1 0.0-0.3 mg/dL Aspartate Amino Transf (AST/SGOT) 42 H 10-37 U/L Alanine Aminotransferase (ALT/SGPT) 41 12-78 U/L Alkaline Phosphatase 46 L 50-136 U/L Total Protein 5.4 L 6.0-8.3 g/dL Albumin 2.4 L 3.5-5.0 g/dL Total Creatine Kinase 652 #*H 21-232 U/L Lipase 26 16-77 U/L Bedside Glucose Comment Notified Nurse DIAGNOSTICS / RADIOLOGY RESULTS: NA Plan: NEURO: Minimize central acting medications as possible. Maintain fall precautions, adequate lighting during the day PULMONARY: Supplemental 02 as needed. Maintain aspiration precautions at all times CARDIOVASCULAR: Follow hemodynamics. Vital signs per facility protocol Cardiology consult pending anticipation for further recommendations GI & NUTRITION: Continue with nutritional support. Continue stool softeners and laxatives as needed. KIDNEYS & ELECTROLYTES: Strict monitoring of intake, output and overall fluid balance. Avoid nephrotoxic medications to the extent possible. Medications to be dosed according to renal function. Monitor electrolytes and replace as needed ENDOCRINE: Maintain blood glucose between 100-180 at all times. Hypoglycemia protocol in place INFECTIOUS DISEASE: Trend temperature, WBC and procalcitonin level Follow cultures, deescalate antibiotics as soon as possible. Panculture if new onset fever ONCOLOGY/HEMATOLOGY/COAGULATION: Monitor for s/s of bleeding Monitor hemoglobin, coagulation studies as needed SKIN: Pressure ulcer prevention per facility protocol Specialty mattress ORTHO/REHAB: Continue PT/OT Prophylaxis: Continue GI and DVT prophylaxis Code Status: Full Resuscitation Disposition: TBD Other: Total patient care time 37 minutes excluding all procedures. ASHLEY MONTEIRO [employer] Aug 05, 2025 11:49
[2025-08-05 12:00] VITALS: BP 127/68; PULSE 68; RESP 18; TEMP 98.1
[2025-08-05] MEDS: guaiFENesin-DM 200/20MG 10ML PO PRN (16:31)
--- NOTE | 2025-08-05 17:23 | CONS ---
GASTROENTEROLOGY CONSULTATION NOTE Date of Consultation: Aug 05, 2025 Time of Consultation: 17:21 History of Present Illness: [ 75-year-old male patient with past medical history for Type 2 diabetes, Hypertension, afib on xarelto, BPH who presented to the emergency room with complaints of sore throat, chills. We were consulted for melena. Patient's initial hgb of 16.1 has dropped to 10.9. WBC7.3, and platelets 164. Chemistry significant for calcium 8.2, AST 42, alkaline phosphatase 4, total tein 5.4, albumin 2.4. Pt 13.5/INR 1.31. CXR showing possible right upper lung nodule. Head CT showing no acute intracranial process. On exam, Patient is awake, alert, and oriented x 3 in no acute distress. His respirations are unlabored. BBS are clear. Abdomen is soft and not distended. Patent denies having any melena or hematemesis. Spouse at bedside states she is unsure if patient has had any melena. Recommendations for EGD given since his hgb dropped significantly since admission. All their questions were answered and they agreed to proceed. Informed EGD will be scheduled for 08/07/25 given patient had last dose of Xarelto this morning and is currently on third day of treatment for Grp A strep. Patient and spouse verbalized understanding and agreement. ] Review of Systems: CONSTITUTIONAL: No malaise or change in sensation of wellbeing. ENMT: No rhinorrhea, otorrhea, sinus pain, ear ache. CARDIOVASCULAR: No angina, palpitations, orthopnea or paroxysmal dyspnea. RESPIRATORY: No SOB. GASTROINTESTINAL: No abdominal pain, nausea, vomiting, diarrhea, hematemesis, melena or change in the patient's habitual bowel movements consistency/number. GENITOURINARY: No dysuria, hematuria or change in bladder continence. MUSCULOSKELETAL: No new muscle pain or decrease in muscular strength. No new joint swelling, redness or tenderness. SKIN: No new rash. Past Medical History: [ Type 2 diabetes, hypertension, bph ] Past Surgical History: [ shoulder surgery] Past Social History: [ ] Family History: [ ] Coded Allergies: No Known Drug Allergies (Verified Allergy, Unknown, 04/24/20) Physical Exam: GEN: Awake, alert, oriented in person, time and place, and in no acute distress. HEENT: No rhinorrhea. Oral mucosa is pink, moist and within normal limits. CHEST: Lung auscultation revealed normal breath sounds bilaterally. CARDIAC:Heart sounds are regular. ABD: Soft, non-tender and not distended. No peritoneal signs on palpation. Normal bowel sounds. Last bm 08/05/25. EXT: No cyanosis or clubbing. No edema. SKIN: Intact. No rashes. NEURO: Alert and oriented to name, place and person.No focal motor deficits. Normal speech. Vital Sign (Last 24 Hours) 08/05/25 08/05/25 08:00 12:00 Temp 98.1 Pulse 68 Resp 18 B/P (MAP) 127/68 Pulse Ox 97 O2 Delivery Room Air O2 Flow Rate 0 FiO2 21 Intake & Output (last 24hrs) 08/04/25 08/04/25 08/05/25 15:00 23:00 07:00 Intake Total 480 ml 490.0 ml 400.0 ml Output Total 100 ml 1350 ml Balance 380 ml 490.0 ml -950.0 ml Laboratory: [ ] Laboratory: Test 08/05/25 15:27 08/05/25 14:53 08/05/25 07:39 08/04/25 05:02 Range/Units Whole Blood Glucose 101 70-110 MG/DL Hemoglobin 11.4 L 14.0-18.0 g/dL Hematocrit 31.7 L 42-54 % White Blood Count 7.3 4.8-10.8 K/uL Red Blood Count 3.56 L 4.50-6.20 MIL/uL Mean Corpuscular Volume 90.2 79-99 fL Mean Corpuscular Hemoglobin 32.9 27.0-33.0 pg Mean Corpuscular Hemoglobin Concent 36.4 H 32.0-36.0 g/dL Red Cell Distribution Width 12.5 11.0-15.5 % Platelet Count 164 130-400 K/uL Mean Platelet Volume 11.4 H 7.5-10.5 fL Nucleated Red Blood Cells 0.0 0.0-0.19 % Sodium Level 143 136-145 mmol/L Potassium Level 3.7 3.5-5.1 mmol/L Chloride Level 110 101-111 mmol/L Carbon Dioxide Level 28 21-32 mmol/L Blood Urea Nitrogen 18 7-18 mg/dL Creatinine 1.0 0.5-1.3 mg/dL Glomerular Filtration Rate Calc 79 >90 mL/min Random Glucose 82 70-105 mg/dL Uric Acid 6.0 2.6-7.2 mg/dL Total Calcium 8.2 L 8.5-10.1 mg/dL Magnesium Level 1.90 1.80-2.40 mg/dL Total Bilirubin 0.4 0.2-1.0 mg/dL Direct Bilirubin 0.1 0.0-0.3 mg/dL Aspartate Amino Transf (AST/SGOT) 42 H 10-37 U/L Alanine Aminotransferase (ALT/SGPT) 41 12-78 U/L Alkaline Phosphatase 46 L 50-136 U/L Total Protein 5.4 L 6.0-8.3 g/dL Albumin 2.4 L 3.5-5.0 g/dL Immature Granulocyte % (Auto) 0.5 0-1 % Neutrophils (%) (Auto) 83.6 H 40.0-77.0 % Lymphocytes (%) (Auto) 10.9 L 21.0-51.0 % Monocytes (%) (Auto) 4.8 3.0-13.0 % Eosinophils (%) (Auto) 0.0 0.0-8.0 % Basophils (%) (Auto) 0.2 0.0-5.0 % Neutrophils # (Auto) 10.1 H 1.8-7.7 K/uL Lymphocytes # (Auto) 1.3 1.0-4.8 K/uL Monocytes # (Auto) 0.6 0.1-1.0 K/uL Eosinophils # (Auto) 0.00 0.00-0.70 K/uL Basophils # (Auto) 0.02 0.00-0.20 K/uL Absolute Immature Granulocyte (auto 0.06 0-1 K/uL Red Blood Cell Morphology See comments Total Creatine Kinase 652 #*H 21-232 U/L Lipase 26 16-77 U/L Current Medications Medications (Trade) Dose Ordered Sig/Anish Route PRN Reason Start Time Stop Time Status Last Admin Dose Admin Acetaminophen (TYLenol 325MG TAB) 650 mg Q4H PRN PO MILD PAIN (1-3) 08/03/25 00:30 08/03/25 02:29 DC Acetaminophen (TYLenol 325MG TAB) 650 mg Q6H PRN PO TEMPERATURE GREATER THAN 101.5 08/03/25 00:30 09/02/25 00:29 08/05/25 16:31 650 MG Acetaminophen (TYLenol 650MG ELIXIR) 650 mg Q6H PRN PEG MILD PAIN (1-3) 08/03/25 02:30 09/02/25 02:29 Al Hydroxide/Mg Hydroxide (MAALox PLUS 30ML) 30 ml Q6H PRN PO INDIGESTION 08/03/25 00:30 09/02/25 00:29 Benzocaine (Cepacol Sore Throat Lozenge) 1 each Q4H PRN MM SORE THROAT 08/03/25 10:30 09/02/25 10:29 08/03/25 11:55 1 EACH Ceftriaxone Sodium (Rocephin 2gm Inj) 2 gm Q24H IVPB 08/03/25 00:30 08/13/25 00:29 08/05/25 00:44 2 GM Dextrose (D50w) 50 ml AD PRN IV HYPOGLYCEMIA PROTOCOL 08/03/25 00:30 09/02/25 00:29 Diltiazem HCl 125 mg/Sodium Chloride 125 ml @ 0 mls/hr PROTOCOL IV 08/02/25 22:00 08/04/25 12:58 DC 08/04/25 02:49 0 MLS/HR Famotidine (Pepcid 20mg Tab) 20 mg DAILY PO 08/03/25 09:00 08/04/25 12:54 DC 08/04/25 09:42 20 MG Glucagon (Glucagon 1mg Kit) 1 mg AD PRN IM HYPOGLYCEMIA PROTOCOL 08/03/25 00:30 09/02/25 00:29 Guaifenesin/ Dextromethorphan (RobiTUSSin DM 200/20MG 10ML) 10 ml Q4H PRN PO COUGH 08/03/25 00:30 09/02/25 00:29 08/05/25 16:31 10 ML Heparin Sodium (Porcine) (HEParin 5,000 UNIT VIAL) 5,000 unit Q12H SQ 08/03/25 00:30 08/03/25 10:08 DC 08/03/25 00:42 5,000 UNIT Insulin Human Regular (humuLIN R 100 UNIT/ML 3ML) INSULIN SLIDING SCAL... ACHS SQ 08/03/25 07:30 09/02/25 07:29 08/03/25 11:58 4 UNIT Lactated Ringer's 1,000 ml @ 50 mls/hr Q20H IV 08/03/25 00:30 09/02/25 00:29 08/04/25 22:32 50 MLS/HR Lactulose (Constulose 20gm/ 30ml Udcup) 20 gm BID PRN PO CONSTIPATION 08/03/25 00:30 09/02/25 00:29 Magnesium Sulfate 50 ml @ 0 mls/hr PROTOCOL PRN IV MAGNESIUM PROTOCOL 08/04/25 12:00 09/03/25 11:59 08/04/25 13:22 25 MLS/HR Metoprolol Tartrate (loprESSOR) 5 mg Q6H PRN IV INCREASED HEART RATE >120 BPM 08/04/25 17:00 09/03/25 16:59 08/04/25 22:21 5 MG Metoprolol Tartrate (loprESSOR) 25 mg BID PO 08/03/25 09:00 09/02/25 08:59 08/05/25 11:42 25 MG Nitroglycerin (Nitrostat) 0.4 mg PROTOCOL PRN SL CHEST PAIN 08/03/25 00:30 09/02/25 00:29 Olanzapine (ZyPREXA 10MG/ML 1ML Vial) 5 mg DAILY PRN IM AGITATION 08/05/25 17:30 09/04/25 17:29 Ondansetron HCl (zoFRAN 4MG INJ) 4 mg Q6H PRN IV NAUSEA/VOMITING 08/03/25 00:30 09/02/25 00:29 Pantoprazole Sodium (PROTonix 40MG INJ) 40 mg BID IVP 08/04/25 21:00 09/03/25 20:59 08/05/25 12:22 40 MG Pantoprazole Sodium (PROTonix 40MG TAB) 40 mg BID PO 08/04/25 21:00 08/04/25 12:57 DC Potassium Chloride 100 ml @ 100 mls/hr AD PRN IV POTASSIUM PROTOCOL 08/04/25 12:00 09/03/25 11:59 Potassium Chloride (K-Dur/Klor-Con 20meq) 20 meq AD PRN PO POTASSIUM PROTOCOL 08/04/25 12:00 09/03/25 11:59 08/05/25 16:31 20 MEQ Potassium Chloride (KCl 10% Elixir 20meq/15ml) 20 meq AD PRN PO POTASSIUM PROTOCOL 08/04/25 12:00 09/03/25 11:59 Prednisone (deltaSONE/ oraSONE 20MG TAB) 20 mg DAILY PO 08/05/25 17:00 09/04/25 16:59 Rivaroxaban (Xarelto) 15 mg DAILY PO 08/04/25 09:00 08/05/25 11:54 DC 08/04/25 09:42 15 MG Sucralfate (Carafate) 1 gm BID PO 08/04/25 21:00 09/03/25 20:59 08/05/25 11:41 1 GM Diagnostics / Radiology: [COPY/PASTE HERE IF NO REPORTS PLEASE DELETE SECTION] Assessment: [ Melena Acute Gi blood loss Afib on xarelto STrep A positive] Plan: [Case discussed with Dr. Izquierdo Hold Xarelto Plan for EGD on 08/07/25 Please call with questions, concerns, and change in clinical status, and any s igns of overt GI bleed Thank you for this consult. ] VASU [employer] Aug 05, 2025 17:23
[2025-08-05 19:02] VITALS: BP 108/61; PULSE 63; RESP 18; TEMP 98.2
[2025-08-05 20:00] VITALS: O2SAT 97
[2025-08-05] MEDS: MELATONIN 5 MG TABLET PO ONE (21:48)
[2025-08-06] VITALS (7 sets, daily range): BP systolic 113–151; BP diastolic 56–78; PULSE 60–80; RESP 18–22; TEMP 97.2–98.5; O2SAT 100
[2025-08-06] MEDS: HALOPERIDOL INJ 5 MG/ML VIAL IM ONE (02:02)
[2025-08-06 02:46] LABS: ASPARTATE AMINOTRANSFERASE 54.0 U/L (10-37); CREATINE KINASE, TOTAL 231.0 U/L (21-232); CREATININE 1.0 mg/dL (0.5-1.3); GLOMERULAR FILTR. RATE CALC 79.0 mL/min (>90); GLUCOSE,RANDOM 185.0 mg/dL (70-105); SODIUM SERUM 142.0 mmol/L (136-145); TOTAL PROTEIN, SERUM 5.9 g/dL (6.0-8.3); UREA NITROGEN, BLOOD 17.0 mg/dL (7-18)
--- NOTE | 2025-08-06 07:44 | PN ---
Severe sepsis Acute complicated cystitis Acute streptococcal pharyngitis Atrial fibrillation with rapid ventricular response Hypothyroidism, normal TSH Coronary artery disease, nonobstructive by prior [facility] Lung nodule Pancreatic mass Acute mental status changes 08/04/2025 Dementia Melena morning of 08/04/2025 Patient is somnolent this morning, apparently still has significant mental status changes but is calm. Chest is clear, no JVD, normal S1 and S2, no S3 or murmur, S4 noted, regular rhythm at normal rate, no edema. Currently the patient is in normal sinus rhythm. Impression and recommendation: No change of treatment for today. I observe that Xarelto has been discontinued and GI service consulted nine concur with that plan. Vitals/Labs Vital Signs Date Time Temp Pulse Resp B/P (MAP) Pulse Ox O2 Delivery O2 Flow Rate FiO2 08/06/25 07:00 98.2 60 22 151/78 100 Room Air 08/05/25 20:00 0 21 Laboratory Tests 08/05/25 14:53 08/05/25 20:13 08/06/25 02:27 Medications Current Medications Acetaminophen 1,000 mg ONCE ONCE PO Last administered on 08/02/25at 21:26; Start 08/02/25 at 20:30; Stop 08/02/25 at 20:37; Status DC Sodium Chloride 1,770 ml @ 590 mls/hr ONCE ONCE IV Last administered on 08/02/25at 20:56; Start 08/02/25 at 20:30; Stop 08/02/25 at 23:29; Status DC Ceftriaxone Sodium 1 gm ONCE ONCE IVPB Last administered on 08/02/25at 21:25; Start 08/02/25 at 20:30; Stop 08/02/25 at 20:37; Status DC Diltiazem HCl 10 mg ONCE ONCE IVP Last administered on 08/02/25at 20:58; Start 08/02/25 at 21:00; Stop 08/02/25 at 21:01; Status DC Diltiazem HCl 5 mg ONCE ONCE IVP Last administered on 08/02/25at 21:12; Start 08/02/25 at 21:30; Stop 08/02/25 at 21:31; Status DC Diltiazem HCl 5 mg ONCE ONCE IVP Last administered on 08/02/25at 21:45; Start 08/02/25 at 22:00; Stop 08/02/25 at 22:01; Status DC Potassium Bicarbonate 25 meq ONCE ONCE PO Last administered on 08/02/25at 21:45; Start 08/02/25 at 22:00; Stop 08/02/25 at 22:01; Status DC Diltiazem HCl 125 mg/Sodium Chloride 125 ml @ 0 mls/hr PROTOCOL IV Last administered on 08/04/25at 02:49; Start 08/02/25 at 22:00; Stop 08/04/25 at 12:58; Status DC Diltiazem HCl 10 mg ONCE ONCE IVP Last administered on 08/02/25at 21:56; Start 08/02/25 at 22:00; Stop 08/02/25 at 22:01; Status DC Lactated Ringer's 1,000 ml @ 50 mls/hr Q20H IV Last administered on 08/06/25at 00:09; Start 08/03/25 at 00:30; Stop 09/02/25 at 00:29 Heparin Sodium (Porcine) 5,000 unit Q12H SQ Last administered on 08/03/25at 00:42; Start 08/03/25 at 00:30; Stop 08/03/25 at 10:08; Status DC Penicillin G Benzathine 1.2 milunits ONCE ONCE IM Last administered on 08/03/25at 01:46; Start 08/03/25 at 01:30; Stop 08/03/25 at 01:31; Status DC Insulin Human Regular INSULIN SLIDING SCAL... ACHS SQ Last administered on 08/03/25at 11:58; Start 08/03/25 at 07:30; Stop 09/02/25 at 07:29 Dextrose 50 ml AD PRN IV; Start 08/03/25 at 00:30; Stop 09/02/25 at 00:29 Glucagon 1 mg AD PRN IM; Start 08/03/25 at 00:30; Stop 09/02/25 at 00:29 Potassium Chloride 40 meq ONCE ONCE PO Last administered on 08/03/25at 00:42; Start 08/03/25 at 00:30; Stop 08/03/25 at 00:41; Status DC Metoprolol Tartrate 25 mg BID PO Last administered on 08/05/25at 21:16; Start 08/03/25 at 09:00; Stop 09/02/25 at 08:59 Ceftriaxone Sodium 2 gm Q24H IVPB Last administered on 08/06/25at 00:09; Start 08/03/25 at 00:30; Stop 08/13/25 at 00:29 Acetaminophen 650 mg Q6H PRN PO Last administered on 08/06/25at 05:26; Start 08/03/25 at 00:30; Stop 09/02/25 at 00:29 Acetaminophen 650 mg Q4H PRN PO; Start 08/03/25 at 00:30; Stop 08/03/25 at 02:29; Status DC Ondansetron HCl 4 mg Q6H PRN IV; Start 08/03/25 at 00:30; Stop 09/02/25 at 00:29 Al Hydroxide/Mg Hydroxide 30 ml Q6H PRN PO; Start 08/03/25 at 00:30; Stop 09/02/25 at 00:29 Lactulose 20 gm BID PRN PO; Start 08/03/25 at 00:30; Stop 09/02/25 at 00:29 Nitroglycerin 0.4 mg PROTOCOL PRN SL; Start 08/03/25 at 00:30; Stop 09/02/25 at 00:29 Guaifenesin/ Dextromethorphan 10 ml Q4H PRN PO Last administered on 08/05/25at 16:31; Start 08/03/25 at 00:30; Stop 09/02/25 at 00:29 Famotidine 20 mg DAILY PO Last administered on 08/04/25at 09:42; Start 08/03/25 at 09:00; Stop 08/04/25 at 12:54; Status DC Sodium Chloride 1,983 ml @ 661 mls/hr ONCE ONCE IV; Start 08/03/25 at 00:30; Stop 08/03/25 at 03:29; Status DC Acetaminophen 650 mg Q6H PRN PEG; Start 08/03/25 at 02:30; Stop 09/02/25 at 02:29 Metoprolol Tartrate 25 mg STK-MED ONCE .ROUTE; Start 08/03/25 at 07:17; Stop 08/03/25 at 07:17; Status DC Rivaroxaban 15 mg DAILY PO Last administered on 08/04/25at 09:42; Start 08/04/25 at 09:00; Stop 08/05/25 at 11:54; Status DC Rivaroxaban 15 mg ONCE ONCE PO Last administered on 08/03/25at 10:27; Start 08/03/25 at 10:00; Stop 08/03/25 at 10:09; Status DC Benzocaine 1 each Q4H PRN MM Last administered on 08/03/25at 11:55; Start 08/03/25 at 10:30; Stop 09/02/25 at 10:29 Pantoprazole Sodium 40 mg BID PO; Start 08/04/25 at 21:00; Stop 08/04/25 at 12:57; Status DC Sucralfate 1 gm BID PO Last administered on 08/05/25at 21:16; Start 08/04/25 at 21:00; Stop 09/03/25 at 20:59 Potassium Chloride 100 ml @ 100 mls/hr AD PRN IV; Start 08/04/25 at 12:00; Stop 09/03/25 at 11:59 Potassium Chloride 20 meq AD PRN PO; Start 08/04/25 at 12:00; Stop 09/03/25 at 11:59 Potassium Chloride 20 meq AD PRN PO Last administered on 08/05/25at 16:31; Start 08/04/25 at 12:00; Stop 09/03/25 at 11:59 Magnesium Sulfate 50 ml @ 0 mls/hr PROTOCOL PRN IV Last administered on 08/04/25at 13:22; Start 08/04/25 at 12:00; Stop 09/03/25 at 11:59 Pantoprazole Sodium 40 mg BID IVP Last administered on 08/05/25at 21:16; Start 08/04/25 at 21:00; Stop 09/03/25 at 20:59 Pantoprazole Sodium 40 mg ONCE ONCE IVP Last administered on 08/04/25at 13:21; Start 08/04/25 at 13:00; Stop 08/04/25 at 13:05; Status DC Metoprolol Tartrate 5 mg Q6H PRN IV Last administered on 08/04/25at 22:21; Start 08/04/25 at 17:00; Stop 09/03/25 at 16:59 Prednisone 20 mg DAILY PO Last administered on 08/05/25at 18:44; Start 08/05/25 at 17:00; Stop 09/04/25 at 16:59 Olanzapine 5 mg DAILY PRN IM Last administered on 08/06/25at 00:13; Start 08/05/25 at 17:30; Stop 09/04/25 at 17:29 Melatonin 10 mg ONCE ONCE PO Last administered on 08/05/25at 21:48; Start 08/05/25 at 21:30; Stop 08/05/25 at 21:31; Status DC Haloperidol Lactate 4 mg ONCE ONCE IM Last administered on 08/06/25at 02:02; Start 08/06/25 at 02:00; Stop 08/06/25 at 02:01; Status DC GAVIOTA VOSS MD Aug 06, 2025 07:44
--- NOTE | 2025-08-06 10:34 | PN ---
[facility] PROGRESS NOTE Date Patient Seen: Aug 06, 2025 Time of Visit: 10:34 Supervising Physician: Dr. Trung Breaux Primary Care Physician: Dr. Doris Vela Inpatient Consults: [facility], GI PROBLEM LIST: Acute streptococcal pharyngitis Acute complicated cystitis Severe sepsis due to above Acute GI bleed (+) melena Acute blood loss anemia Acute rhabdomyolysis Acute delirium in patient with dementia Electrolyte derangement (Hypokalemia) Atrial fibrillation on Xarelto (on hold), CHADS2-VASc 5 points, HAS-BLED 4 points GOUT, possible exacerbation CKD stage III Diabetes mellitus type 2 History of pancreatic mass since 2021 Dementia INTERVAL HISTORY: Patient assessed at bedside. Awake and alert, able to follow commands. Complains of right knee pain. Will adjust pain medications and added lidocaine. Uric acid is normal. Per son, he gives patient allopurinol at home. Will start allopurinol here. No more episodes of melena, hemoglobin stable at 12.2. Pending to go for EGD tomorrow. Patient got agitated last night again, sitter at bedside. PLAN: Pending EGD on 08/07/2025 by GI, hold Xarelto Melatonin at night Sitter due to confusion, fall precaution Trial of prednisone due to Gout and allopurinol Continue Ceftriaxone 2 g IV daily (day #4) Follow cultures Protonix 40mg IV BID Sucralfate 1 g BID CK level in am Monitor creatinine trend Metoprolol 25 mg p.o. b.i.d. Follow cardiology recommendations - pt to follow up with cardiology in 2 months. PRN Olanzapine REVIEW OF SYSTEMS: Unable due to mental status PHYSICAL EXAM: GENERAL: 75 year old male on room air. NAD. HEENT: EOMI, Sclera non icteric, moist mucosa NECK: Sore throat LUNGS: Clear breath sounds bilaterally. No wheezes HEART: Regular rate and rhythm. Normal S1 and S2, without murmurs ABD: Abdomen soft, nontender. Bowel sounds present EXT: No clubbing cyanosis or edema NEURO: Alert and oriented to person, follows commands Vital Signs (last 8hr) Date Time Temp Pulse Resp B/P (MAP) Pulse Ox O2 Delivery O2 Flow Rate FiO2 08/06/25 07:00 98.2 60 22 151/78 100 Room Air 08/06/25 03:00 98.4 72 18 120/61 98 Room Air LABS: Hematology Labs: Test 08/06/25 08:10 08/05/25 07:39 Range/Units Hemoglobin 12.2 L 14.0-18.0 g/dL Hematocrit 34.3 L 42-54 % White Blood Count 7.3 4.8-10.8 K/uL Red Blood Count 3.56 L 4.50-6.20 MIL/uL Mean Corpuscular Volume 90.2 79-99 fL Mean Corpuscular Hemoglobin 32.9 27.0-33.0 pg Mean Corpuscular Hemoglobin Concent 36.4 H 32.0-36.0 g/dL Red Cell Distribution Width 12.5 11.0-15.5 % Platelet Count 164 130-400 K/uL Mean Platelet Volume 11.4 H 7.5-10.5 fL Nucleated Red Blood Cells 0.0 0.0-0.19 % Chemistry Labs: Test 08/06/25 05:10 08/06/25 02:27 08/05/25 07:39 Range/Units Whole Blood Glucose 132 H 70-110 MG/DL Sodium Level 142 136-145 mmol/L Potassium Level 3.9 3.5-5.1 mmol/L Chloride Level 108 101-111 mmol/L Carbon Dioxide Level 24 21-32 mmol/L Blood Urea Nitrogen 17 7-18 mg/dL Creatinine 1.0 0.5-1.3 mg/dL Glomerular Filtration Rate Calc 79 >90 mL/min Random Glucose 185 #H 70-105 mg/dL Total Calcium 8.1 L 8.5-10.1 mg/dL Magnesium Level 2.00 1.80-2.40 mg/dL Total Bilirubin 0.3 # 0.2-1.0 mg/dL Aspartate Amino Transf (AST/SGOT) 54 H 10-37 U/L Alanine Aminotransferase (ALT/SGPT) 58 # 12-78 U/L Alkaline Phosphatase 68 # 50-136 U/L Total Creatine Kinase 231 # 21-232 U/L Total Protein 5.9 L 6.0-8.3 g/dL Albumin 2.6 L 3.5-5.0 g/dL Uric Acid 6.0 2.6-7.2 mg/dL Direct Bilirubin 0.1 0.0-0.3 mg/dL DIAGNOSTICS / RADIOLOGY RESULTS: [ ] Plan: NEURO: Minimize central acting medications as possible. Maintain fall precautions, adequate lighting during the day PULMONARY: Supplemental 02 as needed. Maintain aspiration precautions at all times CARDIOVASCULAR: Follow hemodynamics. Vital signs per facility protocol Cardiology consult pending anticipation for further recommendations GI & NUTRITION: Continue with nutritional support. Continue stool softeners and laxatives as needed. KIDNEYS & ELECTROLYTES: Strict monitoring of intake, output and overall fluid balance. Avoid nephrotoxic medications to the extent possible. Medications to be dosed according to renal function. Monitor electrolytes and replace as needed ENDOCRINE: Maintain blood glucose between 100-180 at all times. Hypoglycemia protocol in place INFECTIOUS DISEASE: Trend temperature, WBC and procalcitonin level Follow cultures, deescalate antibiotics as soon as possible. Panculture if new onset fever ONCOLOGY/HEMATOLOGY/COAGULATION: Monitor for s/s of bleeding Monitor hemoglobin, coagulation studies as needed SKIN: Pressure ulcer prevention per facility protocol Specialty mattress ORTHO/REHAB: Continue PT/OT Prophylaxis: Continue GI and DVT prophylaxis Code Status: Full Resuscitation Disposition: ASHLEY SOTO Aug 06, 2025 10:34
--- NOTE | 2025-08-06 12:01 | PN ---
GASTROENTEROLOGY PROGRESS NOTE Date of Visit: Aug 06, 2025 Time of Visit: 11:58 Events / Notes: [No acute events overnight. VSS. Patient's hemoglobin holding at 11.9 and 12.2. Chemistries significant for glucose of 185, calcium 8.1, AST of 54, total protein 5.9, albumin 2.6. On exam patient is resting in semi-Acuna's in no acute distress. He denies having any pain. Patient continues receiving Roce phin for strep infection and has been off of Xarelto now for two days. Plan for EGD exam in the morning. All their questions were answered and they agreed to proceed. Review of Systems: CONSTITUTIONAL: No malaise or change in sensation of wellbeing. ENMT: No rhinorrhea, otorrhea, sinus pain, ear ache. CARDIOVASCULAR: No angina, palpitations, orthopnea or paroxysmal dyspnea. RESPIRATORY: No SOB. GASTROINTESTINAL: No abdominal pain, nausea, vomiting, diarrhea, hematemesis, melena or change in the patient's habitual bowel movements consistency/number. GENITOURINARY: No dysuria, hematuria or change in bladder continence. MUSCULOSKELETAL: No new muscle pain or decrease in muscular strength. No new joint swelling, redness or tenderness. SKIN: No new rash. Physical Exam: GEN: Awake, alert, oriented in person, time and place, and in no acute distress. HEENT: No rhinorrhea. Oral mucosa is pink, moist and within normal limits. CHEST: Lung auscultation revealed normal breath sounds bilaterally. CARDIAC:Heart sounds are regular. ABD: Soft, non-tender and not distended. No peritoneal signs on palpation. Normal bowel sounds. Last bm 08/06/25. EXT: No cyanosis or clubbing. No edema. SKIN: Intact. No rashes. NEURO: Alert and oriented to name, place and person.No focal motor deficits. Normal speech. Vital Signs (last 8hr) Date Time Temp Pulse Resp B/P (MAP) Pulse Ox O2 Delivery O2 Flow Rate FiO2 08/06/25 11:04 97.7 62 20 133/73 Room Air 08/06/25 07:00 98.2 60 22 151/78 100 Room Air Laboratory: [ ] Laboratory: Test 08/06/25 11:12 08/06/25 08:10 08/06/25 02:27 08/05/25 07:39 Range/Units Whole Blood Glucose 97 70-110 MG/DL Hemoglobin 12.2 L 14.0-18.0 g/dL Hematocrit 34.3 L 42-54 % Sodium Level 142 136-145 mmol/L Potassium Level 3.9 3.5-5.1 mmol/L Chloride Level 108 101-111 mmol/L Carbon Dioxide Level 24 21-32 mmol/L Blood Urea Nitrogen 17 7-18 mg/dL Creatinine 1.0 0.5-1.3 mg/dL Glomerular Filtration Rate Calc 79 >90 mL/min Random Glucose 185 #H 70-105 mg/dL Total Calcium 8.1 L 8.5-10.1 mg/dL Magnesium Level 2.00 1.80-2.40 mg/dL Total Bilirubin 0.3 # 0.2-1.0 mg/dL Aspartate Amino Transf (AST/SGOT) 54 H 10-37 U/L Alanine Aminotransferase (ALT/SGPT) 58 # 12-78 U/L Alkaline Phosphatase 68 # 50-136 U/L Total Creatine Kinase 231 # 21-232 U/L Total Protein 5.9 L 6.0-8.3 g/dL Albumin 2.6 L 3.5-5.0 g/dL White Blood Count 7.3 4.8-10.8 K/uL Red Blood Count 3.56 L 4.50-6.20 MIL/uL Mean Corpuscular Volume 90.2 79-99 fL Mean Corpuscular Hemoglobin 32.9 27.0-33.0 pg Mean Corpuscular Hemoglobin Concent 36.4 H 32.0-36.0 g/dL Red Cell Distribution Width 12.5 11.0-15.5 % Platelet Count 164 130-400 K/uL Mean Platelet Volume 11.4 H 7.5-10.5 fL Nucleated Red Blood Cells 0.0 0.0-0.19 % Uric Acid 6.0 2.6-7.2 mg/dL Direct Bilirubin 0.1 0.0-0.3 mg/dL Current Medications Medications (Trade) Dose Ordered Sig/Anish Route PRN Reason Start Time Stop Time Status Last Admin Dose Admin Acetaminophen (TYLenol 325MG TAB) 650 mg Q4H PRN PO MILD PAIN (1-3) 08/03/25 00:30 08/03/25 02:29 DC Acetaminophen (TYLenol 325MG TAB) 650 mg Q6H PRN PO TEMPERATURE GREATER THAN 101.5 08/03/25 00:30 09/02/25 00:29 08/06/25 05:26 650 MG Acetaminophen (TYLenol 650MG ELIXIR) 650 mg Q6H PRN PEG MILD PAIN (1-3) 08/03/25 02:30 09/02/25 02:29 Al Hydroxide/Mg Hydroxide (MAALox PLUS 30ML) 30 ml Q6H PRN PO INDIGESTION 08/03/25 00:30 09/02/25 00:29 Allopurinol (ZYLOprim 100MG) 100 mg TID PO 08/06/25 14:00 09/05/25 13:59 Benzocaine (Cepacol Sore Throat Lozenge) 1 each Q4H PRN MM SORE THROAT 08/03/25 10:30 09/02/25 10:08/03/25 11:55 1 EACH Ceftriaxone Sodium (Rocephin 2gm Inj) 2 gm Q24H IVPB 08/03/25 00:30 08/13/25 00:29 08/06/25 00:09 2 GM Dextrose (D50w) 50 ml AD PRN IV HYPOGLYCEMIA PROTOCOL 08/03/25 00:30 09/02/25 00:29 Diltiazem HCl 125 mg/Sodium Chloride 125 ml @ 0 mls/hr PROTOCOL IV 08/02/25 22:00 08/04/25 12:58 DC 08/04/25 02:49 0 MLS/HR Famotidine (Pepcid 20mg Tab) 20 mg DAILY PO 08/03/25 09:00 08/04/25 12:54 DC 08/04/25 09:42 20 MG Glucagon (Glucagon 1mg Kit) 1 mg AD PRN IM HYPOGLYCEMIA PROTOCOL 08/03/25 00:30 09/02/25 00:29 Guaifenesin/ Dextromethorphan (RobiTUSSin DM 200/20MG 10ML) 10 ml Q4H PRN PO COUGH 08/03/25 00:30 09/02/25 00:29 08/05/25 16:31 10 ML Heparin Sodium (Porcine) (HEParin 5,000 UNIT VIAL) 5,000 unit Q12H SQ 08/03/25 00:30 08/03/25 10:08 DC 08/03/25 00:42 5,000 UNIT Insulin Human Regular (humuLIN R 100 UNIT/ML 3ML) INSULIN SLIDING SCAL... ACHS SQ 08/03/25 07:30 09/02/25 07:29 08/03/25 11:58 4 UNIT Lactated Ringer's 1,000 ml @ 50 mls/hr Q20H IV 08/03/25 00:30 09/02/25 00:29 08/06/25 00:09 50 MLS/HR Lactulose (Constulose 20gm/ 30ml Udcup) 20 gm BID PRN PO CONSTIPATION 08/03/25 00:30 09/02/25 00:29 Magnesium Sulfate 50 ml @ 0 mls/hr PROTOCOL PRN IV MAGNESIUM PROTOCOL 08/04/25 12:00 09/03/25 11:59 08/04/25 13:22 25 MLS/HR Metoprolol Tartrate (loprESSOR) 5 mg Q6H PRN IV INCREASED HEART RATE >120 BPM 08/04/25 17:00 09/03/25 16:59 08/04/25 22:21 5 MG Metoprolol Tartrate (loprESSOR) 25 mg BID PO 08/03/25 09:00 09/02/25 08:59 08/06/25 09:54 25 MG Nitroglycerin (Nitrostat) 0.4 mg PROTOCOL PRN SL CHEST PAIN 08/03/25 00:30 09/02/25 00:29 Olanzapine (ZyPREXA 10MG/ML 1ML Vial) 5 mg DAILY PRN IM AGITATION 08/05/25 17:30 09/04/25 17:29 08/06/25 00:13 5 MG Ondansetron HCl (zoFRAN 4MG INJ) 4 mg Q6H PRN IV NAUSEA/VOMITING 08/03/25 00:30 09/02/25 00:29 Pantoprazole Sodium (PROTonix 40MG INJ) 40 mg BID IVP 08/04/25 21:00 09/03/25 20:59 08/06/25 09:54 40 MG Pantoprazole Sodium (PROTonix 40MG TAB) 40 mg BID PO 08/04/25 21:00 08/04/25 12:57 DC Potassium Chloride 100 ml @ 100 mls/hr AD PRN IV POTASSIUM PROTOCOL 08/04/25 12:00 09/03/25 11:59 Potassium Chloride (K-Dur/Klor-Con 20meq) 20 meq AD PRN PO POTASSIUM PROTOCOL 08/04/25 12:00 09/03/25 11:59 08/05/25 16:31 20 MEQ Potassium Chloride (KCl 10% Elixir 20meq/15ml) 20 meq AD PRN PO POTASSIUM PROTOCOL 08/04/25 12:00 09/03/25 11:59 Prednisone (deltaSONE/ oraSONE 20MG TAB) 20 mg DAILY PO 08/05/25 17:00 09/04/25 16:59 08/06/25 09:54 20 MG Rivaroxaban (Xarelto) 15 mg DAILY PO 08/04/25 09:00 08/05/25 11:54 DC 08/04/25 09:42 15 MG Sucralfate (Carafate) 1 gm BID PO 08/04/25 21:00 09/03/25 20:59 08/06/25 09:54 1 GM Diagnostics / Radiology: [COPY/PASTE HERE IF NO REPORTS PLEASE DELETE SECTION] Assessment: [ Melena Acute Gi blood loss Afib on xarelto STrep A positive] Plan: [Case discussed with Dr. Izquierdo Hold Xarelto Clear fluids today NPO after midnight Plan for EGD on 08/07/25 Please call with questions, concerns, and change in clinical status, and any signs of overt GI bleed Thank you for this consult. ] VASU REEVES Aug 06, 2025 12:01
[2025-08-06] MEDS: LIDOCAINE 4% ADH..PATCH TP ONE (16:30)
[2025-08-07] VITALS (18 sets, daily range): BP systolic 103–150; BP diastolic 49–89; PULSE 77–166; RESP 18–22; TEMP 97.5–102.5; O2SAT 96–100
--- NOTE | 2025-08-07 03:17 | NUR ---
laundry housekeeper mariana made aware of EGD, confirmed with me that the EGD is already scheduled for 0800 for 08/07
[2025-08-07 03:53] LABS: NUCLEATED RED BLOOD CELLS 0.0 % (0.0-0.19); PLATELET COUNT (AUTO) 249.0 K/uL (130-400); RED BLOOD CELL COUNT(AUTO) 3.53 MIL/uL (4.50-6.20); RED CELL DISTRIBUTION WIDTH 12.3 % (11.0-15.5); WHITE BLOOD COUNT (AUTO) 15.1 K/uL (4.8-10.8)
[2025-08-07 04:18] LABS: ASPARTATE AMINOTRANSFERASE 37.0 U/L (10-37); CREATININE 0.9 mg/dL (0.5-1.3); GLOMERULAR FILTR. RATE CALC 90.0 mL/min (>90); GLUCOSE,RANDOM 91.0 mg/dL (70-105); SODIUM SERUM 142.0 mmol/L (136-145); TOTAL PROTEIN, SERUM 6.1 g/dL (6.0-8.3); UREA NITROGEN, BLOOD 10.0 mg/dL (7-18)
--- NOTE | 2025-08-07 05:43 | NUR ---
spoke to esequiel galvez lease analyst about patient being in pain however he is NPO due to EGD in the morning, as per esequiel galvez lease analyst, okay to give patient one time does of morphine 2mg
[2025-08-07] MEDS ORDERED: VANCOMYCIN PROTOCOL PER PHARMACY IV SCH (07:30)
--- NOTE | 2025-08-07 07:36 | NUR ---
UA/UCX sent. Lab notified to draw blood culture before to start antibiotic.
[2025-08-07 07:49] LABS: APPEARANCE,URINE CLEAR (CLEAR); GLUCOSE, URINE (UA) NEGATIVE (NEGATIVE); LEUKOCYTE ESTERASE ,URINE NEGATIVE Leu/uL (NEGATIVE); NITRATE,URINE NEGATIVE (NEGATIVE); OCCULT BLOOD,URINE NEGATIVE (NEGATIVE)
[2025-08-07 07:51] LABS: ADD UA MICROSCOPIC NO
[2025-08-07] MEDS ORDERED: VANCOMYCIN HCL 1.25 GM/250 ML BAG IV ONE (09:00)
--- NOTE | 2025-08-07 09:00 | PN ---
Severe sepsis Acute complicated cystitis Acute streptococcal pharyngitis Atrial fibrillation with rapid ventricular response Hypothyroidism, normal TSH Coronary artery disease, nonobstructive by prior [facility] Lung nodule Pancreatic mass Acute mental status changes 08/04/2025 Dementia Melena morning of 08/04/2025 Patient reports no chest pain or dyspnea. Rhythm is currently regular with the occasional extrasystole. Endoscopy is planned for this afternoon and I agree with that plan; from a cardiac perspective with the patient is stable enough for the procedure and with melena during this hospitalization I concur with a plan to evaluate and treat aggressively. Physical exam is negative for JVD, rales, respiratory distress or murmur. Occasional extra systole on exam with a normal S1 and S2, no edema. Impression and plan: Patient was previously known to have atrial fibrillation and has been exacerbation when treated here for sepsis. He has had mental status changes. He has been pancreatic mass and a lung nodule and has developed melena during this hospitalization. From a cardiac perspective he should be anticoagulated if possible, but from a GI perspective this may not be appropriate. At this time I do not have any further cardiac recommendations, apart from completing the phone cardiac evaluation as mentioned. Vitals/Labs Vital Signs Date Time Temp Pulse Resp B/P (MAP) Pulse Ox O2 Delivery O2 Flow Rate FiO2 08/07/25 07:20 101.7 08/07/25 07:00 77 22 115/76 97 Room Air 08/07/25 00:00 0 21 Laboratory Tests 08/07/25 03:44 Medications Current Medications Acetaminophen 1,000 mg ONCE ONCE PO Last administered on 08/02/25at 21:26; Start 08/02/25 at 20:30; Stop 08/02/25 at 20:37; Status DC Sodium Chloride 1,770 ml @ 590 mls/hr ONCE ONCE IV Last administered on 08/02/25at 20:56; Start 08/02/25 at 20:30; Stop 08/02/25 at 23:29; Status DC Ceftriaxone Sodium 1 gm ONCE ONCE IVPB Last administered on 08/02/25at 21:25; Start 08/02/25 at 20:30; Stop 08/02/25 at 20:37; Status DC Diltiazem HCl 10 mg ONCE ONCE IVP Last administered on 08/02/25at 20:58; Start 08/02/25 at 21:00; Stop 08/02/25 at 21:01; Status DC Diltiazem HCl 5 mg ONCE ONCE IVP Last administered on 08/02/25at 21:12; Start 08/02/25 at 21:30; Stop 08/02/25 at 21:31; Status DC Diltiazem HCl 5 mg ONCE ONCE IVP Last administered on 08/02/25at 21:45; Start 08/02/25 at 22:00; Stop 08/02/25 at 22:01; Status DC Potassium Bicarbonate 25 meq ONCE ONCE PO Last administered on 08/02/25at 21:45; Start 08/02/25 at 22:00; Stop 08/02/25 at 22:01; Status DC Diltiazem HCl 125 mg/Sodium Chloride 125 ml @ 0 mls/hr PROTOCOL IV Last administered on 08/04/25at 02:49; Start 08/02/25 at 22:00; Stop 08/04/25 at 12:58; Status DC Diltiazem HCl 10 mg ONCE ONCE IVP Last administered on 08/02/25at 21:56; Start 08/02/25 at 22:00; Stop 08/02/25 at 22:01; Status DC Lactated Ringer's 1,000 ml @ 50 mls/hr Q20H IV Last administered on 08/06/25at 14:03; Start 08/03/25 at 00:30; Stop 09/02/25 at 00:29 Heparin Sodium (Porcine) 5,000 unit Q12H SQ Last administered on 08/03/25at 00:42; Start 08/03/25 at 00:30; Stop 08/03/25 at 10:08; Status DC Penicillin G Benzathine 1.2 milunits ONCE ONCE IM Last administered on 08/03/25at 01:46; Start 08/03/25 at 01:30; Stop 08/03/25 at 01:31; Status DC Insulin Human Regular INSULIN SLIDING SCAL... ACHS SQ Last administered on 08/03/25at 11:58; Start 08/03/25 at 07:30; Stop 09/02/25 at 07:29 Dextrose 50 ml AD PRN IV; Start 08/03/25 at 00:30; Stop 09/02/25 at 00:29 Glucagon 1 mg AD PRN IM; Start 08/03/25 at 00:30; Stop 09/02/25 at 00:29 Potassium Chloride 40 meq ONCE ONCE PO Last administered on 08/03/25at 00:42; Start 08/03/25 at 00:30; Stop 08/03/25 at 00:41; Status DC Metoprolol Tartrate 25 mg BID PO Last administered on 08/06/25at 21:46; Start 08/03/25 at 09:00; Stop 09/02/25 at 08:59 Ceftriaxone Sodium 2 gm Q24H IVPB Last administered on 08/07/25at 01:39; Start 08/03/25 at 00:30; Stop 08/07/25 at 07:28; Status DC Acetaminophen 650 mg Q6H PRN PO Last administered on 08/07/25at 07:20; Start 08/03/25 at 00:30; Stop 09/02/25 at 00:29 Acetaminophen 650 mg Q4H PRN PO; Start 08/03/25 at 00:30; Stop 08/03/25 at 02:29; Status DC Ondansetron HCl 4 mg Q6H PRN IV; Start 08/03/25 at 00:30; Stop 09/02/25 at 00:29 Al Hydroxide/Mg Hydroxide 30 ml Q6H PRN PO; Start 08/03/25 at 00:30; Stop 09/02/25 at 00:29 Lactulose 20 gm BID PRN PO; Start 08/03/25 at 00:30; Stop 09/02/25 at 00:29 Nitroglycerin 0.4 mg PROTOCOL PRN SL; Start 08/03/25 at 00:30; Stop 09/02/25 at 00:29 Guaifenesin/ Dextromethorphan 10 ml Q4H PRN PO Last administered on 08/05/25at 16:31; Start 08/03/25 at 00:30; Stop 09/02/25 at 00:29 Famotidine 20 mg DAILY PO Last administered on 08/04/25at 09:42; Start 08/03/25 at 09:00; Stop 08/04/25 at 12:54; Status DC Sodium Chloride 1,983 ml @ 661 mls/hr ONCE ONCE IV; Start 08/03/25 at 00:30; Stop 08/03/25 at 03:29; Status DC Acetaminophen 650 mg Q6H PRN PEG; Start 08/03/25 at 02:30; Stop 09/02/25 at 02:29 Metoprolol Tartrate 25 mg STK-MED ONCE .ROUTE; Start 08/03/25 at 07:17; Stop 08/03/25 at 07:17; Status DC Rivaroxaban 15 mg DAILY PO Last administered on 08/04/25at 09:42; Start 08/04/25 at 09:00; Stop 08/05/25 at 11:54; Status DC Rivaroxaban 15 mg ONCE ONCE PO Last administered on 08/03/25at 10:27; Start 08/03/25 at 10:00; Stop 08/03/25 at 10:09; Status DC Benzocaine 1 each Q4H PRN MM Last administered on 08/03/25at 11:55; Start 08/03/25 at 10:30; Stop 09/02/25 at 10:29 Pantoprazole Sodium 40 mg BID PO; Start 08/04/25 at 21:00; Stop 08/04/25 at 12:57; Status DC Sucralfate 1 gm BID PO Last administered on 08/06/25at 21:47; Start 08/04/25 at 21:00; Stop 09/03/25 at 20:59 Potassium Chloride 100 ml @ 100 mls/hr AD PRN IV; Start 08/04/25 at 12:00; Stop 09/03/25 at 11:59 Potassium Chloride 20 meq AD PRN PO; Start 08/04/25 at 12:00; Stop 09/03/25 at 11:59 Potassium Chloride 20 meq AD PRN PO Last administered on 08/05/25at 16:31; Start 08/04/25 at 12:00; Stop 09/03/25 at 11:59 Magnesium Sulfate 50 ml @ 0 mls/hr PROTOCOL PRN IV Last administered on 08/04/25at 13:22; Start 08/04/25 at 12:00; Stop 09/03/25 at 11:59 Pantoprazole Sodium 40 mg BID IVP Last administered on 08/06/25at 21:46; Start 08/04/25 at 21:00; Stop 09/03/25 at 20:59 Pantoprazole Sodium 40 mg ONCE ONCE IVP Last administered on 08/04/25at 13:21; Start 08/04/25 at 13:00; Stop 08/04/25 at 13:05; Status DC Metoprolol Tartrate 5 mg Q6H PRN IV Last administered on 08/04/25at 22:21; Start 08/04/25 at 17:00; Stop 09/03/25 at 16:59 Prednisone 20 mg DAILY PO Last administered on 08/06/25at 09:54; Start 08/05/25 at 17:00; Stop 09/04/25 at 16:59 Olanzapine 5 mg DAILY PRN IM Last administered on 08/06/25at 00:13; Start 08/05/25 at 17:30; Stop 09/04/25 at 17:29 Melatonin 10 mg ONCE ONCE PO Last administered on 08/05/25at 21:48; Start 08/05/25 at 21:30; Stop 08/05/25 at 21:31; Status DC Haloperidol Lactate 4 mg ONCE ONCE IM Last administered on 08/06/25at 02:02; Start 08/06/25 at 02:00; Stop 08/06/25 at 02:01; Status DC Allopurinol 100 mg TID PO Last administered on 08/06/25at 21:46; Start 08/06/25 at 14:00; Stop 09/05/25 at 13:59 Tramadol HCl 50 mg ONCE ONCE PO Last administered on 08/06/25at 16:30; Start 08/06/25 at 16:30; Stop 08/06/25 at 16:31; Status DC Lidocaine 1 each ONCE ONCE TP Last administered on 08/06/25at 16:30; Start 08/06/25 at 16:30; Stop 08/06/25 at 16:31; Status DC Lidocaine 1 each Q24H TP; Start 08/07/25 at 16:30; Stop 09/06/25 at 16:29 Tramadol HCl 50 mg Q6H PRN PO Last administered on 08/07/25at 00:05; Start 08/06/25 at 19:30; Stop 08/11/25 at 19:29 Morphine Sulfate 2 mg ONCE ONCE IVP Last administered on 08/07/25at 05:57; Start 08/07/25 at 05:45; Stop 08/07/25 at 05:50; Status DC Morphine Sulfate 2 mg ONCE ONCE IVP; Start 08/07/25 at 06:00; Stop 08/07/25 at 05:50; Status DC Cefepime HCl 1 gm Q8H IVPB Last administered on 08/07/25at 07:52; Start 08/07/25 at 07:30; Stop 08/17/25 at 07:29 Vancomycin HCl 1 each AD IV; Start 08/07/25 at 07:30; Stop 08/21/25 at 07:29 Vancomycin HCl 1.25 gm ONCE ONCE IV; Start 08/07/25 at 09:00; Stop 08/07/25 at 07:39; Status DC Vancomycin HCl 250 ml @ 125 mls/hr Q12H IV; Start 08/07/25 at 21:00; Stop 08/17/25 at 20:59 Vancomycin HCl 250 ml @ 125 mls/hr ONCE ONCE IV; Start 08/07/25 at 09:00; Stop 08/07/25 at 10:59 GAVIOTA VOSS MD Aug 07, 2025 09:00
[2025-08-07 09:09] LABS: SARS-CoV-2, RNA, NAAT NEGATIVE SARS CoV-2 (NEGATIVE)
[2025-08-07 09:16] LABS: INFLUENZA TYPE A Negative For Type A (NEGATIVE); INFLUENZA TYPE B Negative For Type B (NEGATIVE)
[2025-08-07] MEDS: VANCOMYCIN 1.25 GM/250 ML BAG 250 ML IV ONE (09:42)
--- NOTE | 2025-08-07 11:10 | NUR ---
patient taken for EGD at tis time. Son at bedside, called and notified.
--- NOTE | 2025-08-07 12:16 | PN ---
[facility] PROGRESS NOTE Date Patient Seen: Aug 07, 2025 Time of Visit: 12:16 Supervising Physician: Dr. Dru Soliman Primary Care Physician: Dr. Doris Vela Inpatient Consults: [facility], GI, Dr. Anderson (Orthopedic surgeon) PROBLEM LIST: Acute streptococcal pharyngitis Acute complicated cystitis Severe sepsis due to above Acute GI bleed (+) melena Acute blood loss anemia Acute rhabdomyolysis, resolved Acute delirium in patient with dementia Acute metabolic encephalopathy in patient with dementia Electrolyte derangement (Hypokalemia) Atrial fibrillation with RVRon Xarelto (on hold), CHADS2-VASc 5 points, HAS- BLED 4 points Left knee swelling with moderate joint effusion is seen per CT knee, rule out septic arthritis Febrile illness, not POA GOUT CKD stage III Diabetes mellitus type 2 History of pancreatic cyst since 2021, negative biopsy per family Dementia INTERVAL HISTORY: Patient assessed at bedside. Awake and alert, able to follow commands. Patient started with atrial fibrillation with RVR in the 150's-170's. Patient went for EGD but was aborted due to afib RVR. IV metoprolol 5mg ordered, with repeat dose as well. Metoprolol increased to 50mg PO every 6 hours per cardiology recommendations. Cardiology was made aware by nursing. Complains of left knee pain now, more swelling noted. CT of LLE showed moderate joint effusion is seen, orthopedic surgeon consulted. Uric acid is normal.Hemoglobin 11.5, no melanotic stools per nursing or family. WBC increased to 15.6. Pancultures ordered due to fevers with highest of 102.6. Escalated IV ABX to Cefepime and Vancomycin. COVID and influenza negative. Updated and son at bedside on plan of care. Explained CHADS2-VASc 5 points, HAS-BLED 4 points, state they understand risk of stroke due to holding OAC right now. Prognosis is guarded. PLAN: Consult orthopedic surgeon due to left joint effusion Changed IV ABX to Cefepime and Vancomycin, pancultured CT chest with contrast ordered due to abnormal CXR Pending EGD on 08/08/2025 by GI, hold Xarelto Sitter due to confusion, fall precaution Trial of prednisone due to Gout and allopurinol Follow cultures Protonix 40mg IV BID Sucralfate 1 g BID Metoprolol 25 mg p.o. b.i.d. Follow cardiology recommendations PRN Olanzapine REVIEW OF SYSTEMS: Unable due to mental status PHYSICAL EXAM: GENERAL: 75 year old male on room air. NAD. HEENT: EOMI, Sclera non icteric, moist mucosa NECK: Sore throat LUNGS: Clear breath sounds bilaterally. No wheezes HEART: Regular rate and rhythm. Normal S1 and S2, without murmurs ABD: Abdomen soft, nontender. Bowel sounds present EXT: No clubbing cyanosis or edema NEURO: Alert and oriented to person, follows commands Vital Signs (last 8hr) Date Time Temp Pulse Resp B/P (MAP) Pulse Ox O2 Delivery O2 Flow Rate FiO2 08/07/25 11:00 99.7 82 20 138/66 96 Room Air 08/07/25 08:20 98.2 08/07/25 07:20 101.7 08/07/25 07:00 102.6 77 22 115/76 97 Room Air LABS: Hematology Labs: Test 08/07/25 03:44 Range/Units White Blood Count 15.1 H 4.8-10.8 K/uL Red Blood Count 3.53 L 4.50-6.20 MIL/uL Hemoglobin 11.5 L 14.0-18.0 g/dL Hematocrit 32.4 L 42-54 % Mean Corpuscular Volume 91.8 79-99 fL Mean Corpuscular Hemoglobin 32.6 27.0-33.0 pg Mean Corpuscular Hemoglobin Concent 35.5 32.0-36.0 g/dL Red Cell Distribution Width 12.3 11.0-15.5 % Platelet Count 249 # 130-400 K/uL Mean Platelet Volume 10.9 H 7.5-10.5 fL Nucleated Red Blood Cells 0.0 0.0-0.19 % Chemistry Labs: Test 08/07/25 11:11 08/07/25 07:43 08/07/25 03:44 08/06/25 02:27 Range/Units Whole Blood Glucose 81 70-110 MG/DL Lactic Acid Level 1.2 0.8-2.5 mmol/L Uric Acid 4.7 2.6-7.2 mg/dL Procalcitonin 0.36 0.05-0.5 ng/mL Sodium Level 142 136-145 mmol/L Potassium Level 3.5 3.5-5.1 mmol/L Chloride Level 106 101-111 mmol/L Carbon Dioxide Level 29 21-32 mmol/L Blood Urea Nitrogen 10 7-18 mg/dL Creatinine 0.9 0.5-1.3 mg/dL Glomerular Filtration Rate Calc 90 >90 mL/min Random Glucose 91 70-105 mg/dL Total Calcium 8.2 L 8.5-10.1 mg/dL Magnesium Level 2.00 1.80-2.40 mg/dL Total Bilirubin 0.3 0.2-1.0 mg/dL Aspartate Amino Transf (AST/SGOT) 37 10-37 U/L Alanine Aminotransferase (ALT/SGPT) 55 12-78 U/L Alkaline Phosphatase 56 50-136 U/L Total Protein 6.1 6.0-8.3 g/dL Albumin 2.7 L 3.5-5.0 g/dL Total Creatine Kinase 231 # 21-232 U/L DIAGNOSTICS / RADIOLOGY RESULTS: SERVICE 0721 REASON: left knee swelling, fevers ORDERING PHYSICIAN: ASHLEY MONTEIRO SPEEDER FRAME TENDER PROCEDURE: LOW EXT WO - CT LOW EXT W/O CONTRAST EXAM: CT left Knee without IV contrast CLINICAL HISTORY: left knee swelling, fevers TECHNIQUE: Axial images were acquired through the left knee without IV contrast. Reformatted images were reviewed. COMPARISON: None provided. FINDINGS: BONES: No acute fracture or aggressive appearing osseous lesion. JOINTS: No dislocation. The joint spaces are narrowed affecting all 3 compartments. SOFT TISSUES: The soft tissues are remarkable for a large joint effusion. No abscess. IMPRESSION: No acute osseous abnormality. Tricompartmental osteoarthritis. No evidence of abscess or osteomyelitis. Moderate joint effusion is seen /[place] Plan: NEURO: Minimize central acting medications as possible. Maintain fall precautions, adequate lighting during the day PULMONARY: Supplemental 02 as needed. Maintain aspiration precautions at all times CARDIOVASCULAR: Follow hemodynamics. Vital signs per facility protocol Cardiology consult pending anticipation for further recommendations GI & NUTRITION: Continue with nutritional support. Continue stool softeners and laxatives as needed. KIDNEYS & ELECTROLYTES: Strict monitoring of intake, output and overall fluid balance. Avoid nephrotoxic medications to the extent possible. Medications to be dosed according to renal function. Monitor electrolytes and replace as needed ENDOCRINE: Maintain blood glucose between 100-180 at all times. Hypoglycemia protocol in place INFECTIOUS DISEASE: Trend temperature, WBC and procalcitonin level Follow cultures, deescalate antibiotics as soon as possible. Panculture if new onset fever ONCOLOGY/HEMATOLOGY/COAGULATION: Monitor for s/s of bleeding Monitor hemoglobin, coagulation studies as needed SKIN: Pressure ulcer prevention per facility protocol Specialty mattress ORTHO/REHAB: Continue PT/OT Prophylaxis: Continue GI and DVT prophylaxis Code Status: Full Resuscitation Disposition: TBD Total care time: 36 minutes excluding procedures ASHLEY MONTEIRO Aug 07, 2025 12:16
--- NOTE | 2025-08-07 13:10 | EKG ---
[facility] Test Date: 2025-08-07 Test Time: 12:57:39 Pat Name: LADARIUS CARTER Department: [facility] Room: 228 1 Gender: M Operations Tech: [id number] : 1950 Requested By: BENEDICTO JAMES Order Number: [id number] Reading MD: Jairo James Measurements Intervals [place] Rate: 155 P: 0 MA: 0 QRS: 87 QRSD: 92 T: -43 QT: 303 QTc: 493 Interpretive Statements Atrial fibrillation with rapid V-rate Ventricular premature complex Repolarization abnormality, prob rate related Compared to ECG 08/02/2025 23:24:21 Ventricular premature complex(es) now present Early repolarization now present Sinus tachycardia no longer present Electronically Signed On 08-07-2025 17:48:29 CDT by Jairo James Please click the below link to view image of tracing.
--- NOTE | 2025-08-07 13:22 | NUR ---
PATIENT BACK FROM ENDO, PROCEDURE CANCELLED BECAUSE OF AFIB RVR. ON ARRIVAL TO UNIT PATIENT IS SINUS RHYTHM PER TELE.
--- NOTE | 2025-08-07 14:23 | HMCIMG ---
EXAM: CT left Knee without IV contrast CLINICAL HISTORY: left knee swelling, fevers TECHNIQUE: Axial images were acquired through the left knee without IV contrast. Reformatted images were reviewed. COMPARISON: None provided. FINDINGS: BONES: No acute fracture or aggressive appearing osseous lesion. JOINTS: No dislocation. The joint spaces are narrowed affecting all 3 compartments. SOFT TISSUES: The soft tissues are remarkable for a large joint effusion. No abscess. IMPRESSION: No acute osseous abnormality. Tricompartmental osteoarthritis. No evidence of abscess or osteomyelitis. Moderate joint effusion is seen /[place]
[2025-08-07] MEDS: PoTASSium chl 10% ELIXIR 20MEQ 20 MEQ/15 ML UDCUP PO PRN (14:41)
--- NOTE | 2025-08-07 14:58 | NUR ---
Spoke with Dr. Garcia and reported heart rate and rhythm. TORB entered and implemented. Will continue to monitor the patient.
[2025-08-07] MEDS: LIDOCAINE 4% ADH..PATCH TP SCH (16:34)
[2025-08-07] MEDS: VANCOMYCIN 1G/250ML KIT 250 ML IV SCH (20:49)
--- NOTE | 2025-08-07 22:25 | HMCIMG ---
EXAM: CHEST RADIOGRAPH, 1 VIEW Technique: Single frontal view of the chest was obtained. Clinical Information: Fevers. Findings: Lungs and large airways: Bilateral perihilar air-space opacities with mild pulmonary vascular congestion. A right upper lobe nodular opacity is again seen and appears more conspicuous than on the prior study. Pleura: No pleural effusion or pneumothorax identified. Heart and mediastinum: Cardiac size and mediastinal contours are within normal limits. Bones/joints: No acute osseous abnormality is identified. Impression: * Comparison: Compared with chest radiograph dated 08/02/2025 at 21:01 EDT: the right upper lobe nodular opacity appears increased in conspicuity, and new/greater bilateral perihilar infiltrates with mild pulmonary vascular congestion are present; cardiac and mediastinal contours remain within normal limits. * Bilateral perihilar infiltrates with mild pulmonary vascular congestion???consider infectious process versus edema; correlate clinically and consider short-interval radiographic follow-up to document resolution. /[place]
[2025-08-08] VITALS (136 sets, daily range): BP systolic 89–155; BP diastolic 45–114; PULSE 57–175; RESP 11–50; TEMP 97.6–99.8; O2SAT 97–98
[2025-08-08 05:24] LABS: NUCLEATED RED BLOOD CELLS 0.0 % (0.0-0.19); PLATELET COUNT (AUTO) 247.0 K/uL (130-400); RED BLOOD CELL COUNT(AUTO) 3.48 MIL/uL (4.50-6.20); RED CELL DISTRIBUTION WIDTH 12.4 % (11.0-15.5); WHITE BLOOD COUNT (AUTO) 11.6 K/uL (4.8-10.8)
[2025-08-08 05:37] LABS: ASPARTATE AMINOTRANSFERASE 48.0 U/L (10-37); CREATININE 1.1 mg/dL (0.5-1.3); GLOMERULAR FILTR. RATE CALC 71.0 mL/min (>90); GLUCOSE,RANDOM 92.0 mg/dL (70-105); SODIUM SERUM 139.0 mmol/L (136-145); TOTAL PROTEIN, SERUM 6.2 g/dL (6.0-8.3); UREA NITROGEN, BLOOD 13.0 mg/dL (7-18); VANCOMYCIN TROUGH 16.9 UG/ML (10.0-20.0)
--- NOTE | 2025-08-08 05:53 | EKG ---
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: [id number] : 1950 Requested By: GAVIOTA VOSS Order Number: [id number] Reading MD: Prashant Garcia Measurements Intervals [place] Rate: 173 P: 0 WV: 0 QRS: 61 QRSD: 92 T: -30 QT: 252 QTc: 427 Interpretive Statements Atrial fibrillation with rapid ventricular response Nonspecific ST abnormality Abnormal QRS-T angle, consider primary T wave abnormality Compared to ECG 08/07/2025 12:57:39 ST (T wave) deviation now present T-wave abnormality now present Atrial fibrillation no longer present Ventricular premature complex(es) no longer present Early repolarization no longer present Electronically Signed On 08-08-2025 12:22:59 CDT by Prashant Garcia Please click the below link to view image of tracing.
--- NOTE | 2025-08-08 06:04 | NUR ---
Paged [employer] Technician [employer] fire [employer] via [employer] answering service for patient heart rate 170s-180s. Metoprolol prn dose given however HR is still elevated. Addendum: 08/08/25 at 0625 by AZALIA HENDERSON RN RN Spoke to railroad engineer Jairo James MD. Informed him of patients heart rate and rhythm. As per provider give 10 mg cardizem iv push now and if patients heart rate is still tachycardic and SBP is above 105 give a second dose of cardizem 10 mg iv push.
--- NOTE | 2025-08-08 07:30 | PN ---
PROGRESS NOTE PROBLEM LIST: [Severe sepsis Acute complicated cystitis Acute streptococcal pharyngitis Atrial fibrillation with rapid ventricular response Hypothyroidism, normal TSH Coronary artery disease, nonobstructive by prior [facility] Lung nodule Pancreatic mass Acute mental status changes 08/04/2025 Dementia Melena morning of 08/04/20] INTERIM HISTORY OF PRESENT ILLNESS: I was called early this morning regarding patient's SVT requiring with heart rates in the 160s to 180s. Patient has a history was in the hospital for atrial fibrillation with a rapid ventricular response in the setting of severe sepsis and acute complicated cystitis. Upon my arrival to the room patient was also febrile. This is likely contributing fracture. Adjustments were made by Cardiology yesterday in regards to patient's AV rafa blocking agents and patient has a ejection fraction of 45-50%. REVIEW OF SYSTEMS: See HPI VITAL SIGNS Vital Signs Date Time Temp Pulse Resp B/P (MAP) Pulse Ox O2 Delivery O2 Flow Rate FiO2 08/08/25 07:04 102.4 08/08/25 06:58 129 141/88 08/08/25 06:40 20 100 Room Air 08/07/25 19:14 0 21 Laboratory Tests 08/08/25 04:52 LABS/MEDS Laboratory Tests Test 08/07/25 07:34 08/07/25 07:43 08/07/25 08:40 08/07/25 11:11 Urine Color LIGHT-YELLOW (YELLOW) Urine Appearance CLEAR (CLEAR) Urine pH 6.0 (5.0-8.0) Urine Specific [place] 1.014 (1.001-1.031) Urine Protein NEGATIVE mg/dL (NEGATIVE) Urine Glucose (UA) NEGATIVE mg/dL (NEGATIVE) Urine Ketones NEGATIVE mg/dL (NEGATIVE) Urine Occult Blood NEGATIVE (NEGATIVE) Urine Nitrate NEGATIVE (NEGATIVE) Urine Bilirubin NEGATIVE mg/dL (NEGATIVE) Urine Urobilinogen 0.2 mg/dL (0.2-1.0) Urine Leukocyte Esterase NEGATIVE Liu/uL Lactic Acid Level 1.2 mmol/L (0.8-2.5) Uric Acid 4.7 mg/dL (2.6-7.2) Procalcitonin 0.36 ng/mL (0.05-0.5) Influenza Type A Antigen Negative For Type A Influenza Type B Antigen Negative For Type B SARS-CoV-2, RNA, NAAT NEGATIVE SARS CoV-2 Whole Blood Glucose 81 MG/DL (70-110) Test 08/07/25 16:19 08/07/25 20:22 08/08/25 04:51 08/08/25 04:52 Whole Blood Glucose 115 MG/DL (70-110) H 107 MG/DL (70-110) 95 MG/DL (70-110) White Blood Count 11.6 K/uL (4.8-10.8) H Red Blood Count 3.48 MIL/uL (4.50-6.20) L Hemoglobin 11.3 g/dL (14.0-18.0) L Hematocrit 32.5 % (42-54) L Mean Corpuscular Volume 93.4 fL (79-99) Mean Corpuscular Hemoglobin 32.5 pg (27.0-33.0) Mean Corpuscular Hemoglobin Concent 34.8 g/dL (32.0-36.0) Red Cell Distribution Width 12.4 % (11.0-15.5) Platelet Count 247 K/uL (130-400) Mean Platelet Volume 11.2 fL (7.5-10.5) H Nucleated Red Blood Cells 0.0 % (0.0-0.19) Sodium Level 139 mmol/L (136-145) Potassium Level 3.5 mmol/L (3.5-5.1) Chloride Level 104 mmol/L (101-111) Carbon Dioxide Level 28 mmol/L (21-32) Blood Urea Nitrogen 13 mg/dL (7-18) Creatinine 1.1 mg/dL (0.5-1.3) Glomerular Filtration Rate Calc 71 mL/min (>90) Random Glucose 92 mg/dL (70-105) Lactic Acid Level 1.2 mmol/L (0.8-2.5) Total Calcium 8.2 mg/dL (8.5-10.1) L Magnesium Level 1.80 mg/dL (1.80-2.40) Total Bilirubin 0.6 mg/dL (0.2-1.0) Aspartate Amino Transf (AST/SGOT) 48 U/L (10-37) H Alanine Aminotransferase (ALT/SGPT) 61 U/L (12-78) Alkaline Phosphatase 66 U/L (50-136) C-Reactive Protein, Quantitative 199.30 mg/L (0.5-3.0) H Total Protein 6.2 g/dL (6.0-8.3) Albumin 2.5 g/dL (3.5-5.0) L Procalcitonin 0.82 ng/mL (0.05-0.5) H Vancomycin Level Trough 16.9 UG/ML (10.0-20.0) Current Medications Acetaminophen 1,000 mg ONCE ONCE PO Last administered on 08/02/25 21:26; Start 08/02/25 at 20:30; Stop 08/02/25 at 20:37; Status DC Sodium Chloride 1,770 ml @ 590 mls/hr ONCE ONCE IV Last administered on 08/02/25at 20:56; Start 08/02/25 at 20:30; Stop 08/02/25 at 23:29; Status DC Ceftriaxone Sodium 1 gm ONCE ONCE IVPB Last administered on 08/02/25at 21:25; Start 08/02/25 at 20:30; Stop 08/02/25 at 20:37; Status DC Diltiazem HCl 10 mg ONCE ONCE IVP Last administered on 08/02/25at 20:58; Start 08/02/25 at 21:00; Stop 08/02/25 at 21:01; Status DC Diltiazem HCl 5 mg ONCE ONCE IVP Last administered on 08/02/25at 21:12; Start 08/02/25 at 21:30; Stop 08/02/25 at 21:31; Status DC Diltiazem HCl 5 mg ONCE ONCE IVP Last administered on 08/02/25at 21:45; Start 08/02/25 at 22:00; Stop 08/02/25 at 22:01; Status DC Potassium Bicarbonate 25 meq ONCE ONCE PO Last administered on 08/02/25at 21:45; Start 08/02/25 at 22:00; Stop 08/02/25 at 22:01; Status DC Diltiazem HCl 125 mg/Sodium Chloride 125 ml @ 0 mls/hr PROTOCOL IV Last administered on 08/04/25at 02:49; Start 08/02/25 at 22:00; Stop 08/04/25 at 12:58; Status DC Diltiazem HCl 10 mg ONCE ONCE IVP Last administered on 08/02/25at 21:56; Start 08/02/25 at 22:00; Stop 08/02/25 at 22:01; Status DC Lactated Ringer's 1,000 ml @ 50 mls/hr Q20H IV Last administered on 08/07/25at 14:47; Start 08/03/25 at 00:30; Stop 09/02/25 at 00:29 Heparin Sodium (Porcine) 5,000 unit Q12H SQ Last administered on 08/03/25at 00:42; Start 08/03/25 at 00:30; Stop 08/03/25 at 10:08; Status DC Penicillin G Benzathine 1.2 milunits ONCE ONCE IM Last administered on 08/03/25at 01:46; Start 08/03/25 at 01:30; Stop 08/03/25 at 01:31; Status DC Insulin Human Regular INSULIN SLIDING SCAL... ACHS SQ Last administered on 08/03/25at 11:58; Start 08/03/25 at 07:30; Stop 09/02/25 at 07:29 Dextrose 50 ml AD PRN IV; Start 08/03/25 at 00:30; Stop 09/02/25 at 00:29 Glucagon 1 mg AD PRN IM; Start 08/03/25 at 00:30; Stop 09/02/25 at 00:29 Potassium Chloride 40 meq ONCE ONCE PO Last administered on 08/03/25at 00:42; Start 08/03/25 at 00:30; Stop 08/03/25 at 00:41; Status DC Metoprolol Tartrate 25 mg BID PO Last administered on 08/07/25at 13:10; Start 08/03/25 at 09:00; Stop 08/07/25 at 15:00; Status DC Ceftriaxone Sodium 2 gm Q24H IVPB Last administered on 08/07/25at 01:39; Start 08/03/25 at 00:30; Stop 08/07/25 at 07:28; Status DC Acetaminophen 650 mg Q6H PRN PO Last administered on 08/07/25at 13:40; Start 08/03/25 at 00:30; Stop 09/02/25 at 00:29 Acetaminophen 650 mg Q4H PRN PO; Start 08/03/25 at 00:30; Stop 08/03/25 at 02:29; Status DC Ondansetron HCl 4 mg Q6H PRN IV; Start 08/03/25 at 00:30; Stop 09/02/25 at 00:29 Al Hydroxide/Mg Hydroxide 30 ml Q6H PRN PO; Start 08/03/25 at 00:30; Stop 09/02/25 at 00:29 Lactulose 20 gm BID PRN PO; Start 08/03/25 at 00:30; Stop 09/02/25 at 00:29 Nitroglycerin 0.4 mg PROTOCOL PRN SL; Start 08/03/25 at 00:30; Stop 09/02/25 at 00:29 Guaifenesin/ Dextromethorphan 10 ml Q4H PRN PO Last administered on 08/05/25at 16:31; Start 08/03/25 at 00:30; Stop 09/02/25 at 00:29 Famotidine 20 mg DAILY PO Last administered on 08/04/25at 09:42; Start 08/03/25 at 09:00; Stop 08/04/25 at 12:54; Status DC Sodium Chloride 1,983 ml @ 661 mls/hr ONCE ONCE IV; Start 08/03/25 at 00:30; Stop 08/03/25 at 03:29; Status DC Acetaminophen 650 mg Q6H PRN PEG Last administered on 08/08/25at 07:04; Start 08/03/25 at 02:30; Stop 09/02/25 at 02:29 Metoprolol Tartrate 25 mg STK-MED ONCE .ROUTE; Start 08/03/25 at 07:17; Stop 08/03/25 at 07:17; Status DC Rivaroxaban 15 mg DAILY PO Last administered on 08/04/25at 09:42; Start 08/04/25 at 09:00; Stop 08/05/25 at 11:54; Status DC Rivaroxaban 15 mg ONCE ONCE PO Last administered on 08/03/25at 10:27; Start 08/03/25 at 10:00; Stop 08/03/25 at 10:09; Status DC Benzocaine 1 each Q4H PRN MM Last administered on 08/03/25at 11:55; Start 08/03/25 at 10:30; Stop 09/02/25 at 10:29 Pantoprazole Sodium 40 mg BID PO; Start 08/04/25 at 21:00; Stop 08/04/25 at 12:57; Status DC Sucralfate 1 gm BID PO Last administered on 08/07/25at 20:49; Start 08/04/25 at 21:00; Stop 09/03/25 at 20:59 Potassium Chloride 100 ml @ 100 mls/hr AD PRN IV; Start 08/04/25 at 12:00; Stop 09/03/25 at 11:59 Potassium Chloride 20 meq AD PRN PO Last administered on 08/08/25at 06:10; Start 08/04/25 at 12:00; Stop 09/03/25 at 11:59 Potassium Chloride 20 meq AD PRN PO Last administered on 08/05/25at 16:31; Start 08/04/25 at 12:00; Stop 09/03/25 at 11:59 Magnesium Sulfate 50 ml @ 0 mls/hr PROTOCOL PRN IV Last administered on 08/08/25at 06:10; Start 08/04/25 at 12:00; Stop 09/03/25 at 11:59 Pantoprazole Sodium 40 mg BID IVP Last administered on 08/07/25at 20:49; Start 08/04/25 at 21:00; Stop 09/03/25 at 20:59 Pantoprazole Sodium 40 mg ONCE ONCE IVP Last administered on 08/04/25at 13:21; Start 08/04/25 at 13:00; Stop 08/04/25 at 13:05; Status DC Metoprolol Tartrate 5 mg Q6H PRN IV Last administered on 08/08/25at 05:02; Start 08/04/25 at 17:00; Stop 09/03/25 at 16:59 Prednisone 20 mg DAILY PO Last administered on 08/06/25at 09:54; Start 08/05/25 at 17:00; Stop 09/04/25 at 16:59 Olanzapine 5 mg DAILY PRN IM Last administered on 08/06/25at 00:13; Start 08/05/25 at 17:30; Stop 09/04/25 at 17:29 Melatonin 10 mg ONCE ONCE PO Last administered on 08/05/25at 21:48; Start 08/05/25 at 21:30; Stop 08/05/25 at 21:31; Status DC Haloperidol Lactate 4 mg ONCE ONCE IM Last administered on 08/06/25at 02:02; Start 08/06/25 at 02:00; Stop 08/06/25 at 02:01; Status DC Allopurinol 100 mg TID PO Last administered on 08/07/25at 20:49; Start 08/06/25 at 14:00; Stop 09/05/25 at 13:59 Tramadol HCl 50 mg ONCE ONCE PO Last administered on 08/06/25at 16:30; Start 08/06/25 at 16:30; Stop 08/06/25 at 16:31; Status DC Lidocaine 1 each ONCE ONCE TP Last administered on 08/06/25at 16:30; Start 08/06/25 at 16:30; Stop 08/06/25 at 16:31; Status DC Lidocaine 1 each Q24H TP Last administered on 08/07/25at 16:34; Start 08/07/25 at 16:30; Stop 09/06/25 at 16:29 Tramadol HCl 50 mg Q6H PRN PO Last administered on 08/08/25at 01:04; Start 08/06/25 at 19:30; Stop 08/11/25 at 19:29 Morphine Sulfate 2 mg ONCE ONCE IVP Last administered on 08/07/25at 05:57; Start 08/07/25 at 05:45; Stop 08/07/25 at 05:50; Status DC Morphine Sulfate 2 mg ONCE ONCE IVP; Start 08/07/25 at 06:00; Stop 08/07/25 at 05:50; Status DC Cefepime HCl 1 gm Q8H IVPB Last administered on 08/08/25at 01:03; Start 08/07/25 at 07:30; Stop 08/17/25 at 07:29 Vancomycin HCl 1 each AD IV; Start 08/07/25 at 07:30; Stop 08/21/25 at 07:29 Vancomycin HCl 1.25 gm ONCE ONCE IV; Start 08/07/25 at 09:00; Stop 08/07/25 at 07:39; Status DC Vancomycin HCl 250 ml @ 125 mls/hr Q12H IV Last administered on 08/07/25at 20:49; Start 08/07/25 at 21:00; Stop 08/17/25 at 20:59 Vancomycin HCl 250 ml @ 125 mls/hr ONCE ONCE IV Last administered on 08/07/25at 09:42; Start 08/07/25 at 09:00; Stop 08/07/25 at 10:59; Status DC Metoprolol Tartrate 5 mg ONCE ONCE IV Last administered on 08/07/25at 14:18; Start 08/07/25 at 14:30; Stop 08/07/25 at 14:31; Status DC Diltiazem HCl 10 mg ONCE PRN IVP; Start 08/07/25 at 15:00; Stop 08/07/25 at 15:00; Status DC Diltiazem HCl 125 mg/Sodium Chloride 125 ml @ 0 mls/hr AD PRN IV; Start 08/07/25 at 15:00; Stop 08/07/25 at 14:59; Status DC Metoprolol Tartrate 50 mg Q6H PO Last administered on 08/08/25at 01:04; Start 08/07/25 at 19:00; Stop 09/06/25 at 18:59 Metoprolol Tartrate 5 mg ONCE IV Last administered on 08/07/25at 16:53; Start 08/07/25 at 17:00; Stop 08/07/25 at 21:00; Status DC Metoprolol Tartrate 50 mg ONCE PO Last administered on 08/07/25at 16:53; Start 08/07/25 at 17:00; Stop 08/07/25 at 21:00; Status DC Diltiazem HCl 10 mg ONCE ONCE IVP Last administered on 08/08/25at 06:37; Start 08/08/25 at 06:30; Stop 08/08/25 at 06:31; Status DC Diltiazem HCl 10 mg ONCE ONCE IVP Last administered on 08/08/25at 06:58; Start 08/08/25 at 07:00; Stop 08/08/25 at 07:01; Status DC PHYSICAL EXAMINATION: GENERAL: No acute distress. HEENT: Normocephalic, atraumatic. CARDIAC: Positive S1 and S2 tachycardic irregularly irregular. No murmurs. LUNGS: Clear to auscultation bilaterally. ABDOMEN: Bowel sounds present, soft, nontender. EXTREMITIES: No edema bilaterally. NEUROLOGIC: Cranial nerves 2-12 grossly intact. PSYCHIATRIC: Calm. TELEMETRY: AFib with RVR ASSESSMENT: []Severe sepsis Acute complicated cystitis Acute streptococcal pharyngitis Atrial fibrillation with rapid ventricular response Hypothyroidism, normal TSH Coronary artery disease, nonobstructive by prior [facility] Lung nodule Pancreatic mass Acute mental status changes 08/04/2025 Dementia Melena morning of 08/04/2025 PLAN: [] We will reinitiate Cardizem as he did respond to that and has been on that medication with adequate rate control. Albumin of two RV boluses and I think it would be best to returns for patient to the ICU for better observation and management of patient's SVT. May have to initiate a Cardizem drip. Also patient is afebrile of hardware evaluation of the SOB readdress by primary team. We will continue to follow closely. MASON HOYOS MD Aug 08, 2025 07:30
--- NOTE | 2025-08-08 07:43 | NUR ---
Jairo James MD at the bedside. As per provider patient is to be upgraded to ICU. Start patient on 30 mg cardizem po q 6hr first dose now.
[2025-08-08] MEDS ORDERED: MAGNESIUM 2GM PREMIX 50ML 50 ML IV SCH (08:00)
[2025-08-08] MEDS: DOXYCYCLINE 100MG+NS 250ML 250 ML IV SCH (08:17)
--- NOTE | 2025-08-08 09:13 | NUR ---
[facility] ICU Skin Assessment: Patient assessed by wound healing team. Patient with no wounds or skin breakdown noted. Assessment and recommendations provided to primary nurse. Education provided. Addendum: 08/08/25 at 1149 by JUANCHO BAHENA RN RN/ Amended: Links added.
--- NOTE | 2025-08-08 10:39 | CONS ---
[facility] CONSULTATION NOTE Date Patient Seen: Aug 08, 2025 Time of Visit: 10:38 Supervising Physician: Dr. Dru Soliman Reason for Consultation: ICU Primary Care Physician: Dr. Doris Vela Inpatient Consults: [facility], GI, Dr. Anderson (Orthopedic surgeon) PROBLEM LIST: Acute streptococcal pharyngitis Acute complicated cystitis Severe sepsis due to above Acute GI bleed (+) melena Acute blood loss anemia Acute rhabdomyolysis, resolved Acute delirium in patient with dementia Acute metabolic encephalopathy in patient with dementia Electrolyte derangement (Hypokalemia) Atrial fibrillation with RVR on Xarelto (on hold), CHADS2-VASc 5 points, HAS- BLED 4 points Left knee swelling with moderate joint effusion is seen per CT knee, rule out septic arthritis Febrile illness, not POA GOUT CKD stage III Diabetes mellitus type 2 History of pancreatic cyst since 2021, negative biopsy per family Dementia INTERVAL HISTORY: Patient assessed at bedside. He was transferred to ICU per cardiology due to persistent atrial fibrillation with RVR. Cardiology ordered Cardizem IV. Awake and alert, able to follow commands. Complains of left knee pain now, continues with swelling. CT of LLE showed moderate joint effusion is seen, orthopedic surgeon consulted yesterday and pending to evaluate today. Uric acid is normal.Hemoglobin 11.3, no melanotic stools per nursing or family. WBC decreased to 11.6 from 15. Pancultures ordered yesterday, still pending. Continues on IV ABX to Cefepime, Vancomycin and added Doxycycline. COVID and influenza negative. BLE venous doppler ordered negative for DVT but shows suprapatellar bursitis. Updated son at bedside on plan of care. Explained CHADS2-VASc 5 points, HAS-BLED 4 points, state they understand risk of stroke due to holding OAC right now. Prognosis is guarded. PLAN: Transferred to ICU due to afib RVR Consult orthopedic surgeon due to left joint effusion Continue on IV ABX to Cefepime, Vancomycin, and doxycycline, pancultured CT chest with contrast ordered due to abnormal CXR Pending EGD on 08/08/2025 by GI, hold Xarelto Follow cardiology recommendations Sitter due to confusion, fall precaution Trial of prednisone due to Gout and allopurinol Follow cultures Protonix 40mg IV BID Sucralfate 1 g BID Metoprolol 25 mg p.o. b.i.d. Follow cardiology recommendations PRN Olanzapine PAST MEDICAL HX: see above PAST SURGICAL HX: noncontributory SOCIAL HISTORY: No tobacco, ETOH, or illicit drug use Coded Allergies: No Known Drug Allergies (Verified Allergy, Unknown, 04/24/20) REVIEW OF SYSTEMS: Unable due to mental status PHYSICAL EXAM: GENERAL: 75 year old male on room air. NAD. HEENT: EOMI, Sclera non icteric, moist mucosa NECK: Sore throat LUNGS: Clear breath sounds bilaterally. No wheezes HEART: Regular rate and rhythm. Normal S1 and S2, without murmurs ABD: Abdomen soft, nontender. Bowel sounds present EXT: No clubbing cyanosis or edema (+) left knee warm to to touch, swelling noted. NEURO: Alert and oriented to person, follows commands Vital Signs (last 8hr) Date Time Temp Pulse Resp B/P (MAP) Pulse Ox O2 Delivery O2 Flow Rate FiO2 08/08/25 08:56 117 19 96 08/08/25 08:55 127 14 98 08/08/25 08:53 123 19 124/78 (93) 99 08/08/25 08:52 123 19 100 08/08/25 08:51 112 19 110/64 (79) 100 08/08/25 08:46 123 22 100 08/08/25 08:46 123 20 99 Room Air 08/08/25 08:46 123 22 110/64 (79) 100 08/08/25 08:45 114 20 100 08/08/25 08:42 138 20 110/64 (79) 100 08/08/25 08:42 138 20 110/64 99 Room Air 08/08/25 08:31 154 20 99 Room Air 08/08/25 08:30 151 20 100 08/08/25 08:29 145 20 130/56 99 Room Air 08/08/25 08:29 145 20 130/56 (80) 100 08/08/25 08:16 148 20 99 Room Air 08/08/25 08:15 155 20 100 08/08/25 08:12 155 25 103/69 99 Room Air 08/08/25 08:12 155 20 103/69 (80) 100 08/08/25 08:01 162 20 100 Room Air 08/08/25 08:00 163 20 99 08/08/25 07:57 163 20 104/65 100 Room Air 08/08/25 07:57 163 20 104/65 (78) 99 08/08/25 07:54 179 141/88 08/08/25 07:16 161 20 100 Room Air 08/08/25 07:15 99.3 164 20 99 08/08/25 07:04 102.4 08/08/25 06:58 129 141/88 08/08/25 06:40 113 20 121/83 100 Room Air 08/08/25 06:37 142 08/08/25 06:23 169 20 119/58 100 Room Air 08/08/25 06:13 170 20 100 Room Air 08/08/25 06:04 174 20 139/98 100 Room Air 08/08/25 05:53 93 20 121/80 100 Room Air 08/08/25 05:43 175 20 144/82 100 Room Air 08/08/25 05:33 101 20 134/66 100 Room Air 08/08/25 05:23 74 20 143/94 100 Room Air 08/08/25 05:02 161 149/68 08/08/25 05:00 161 18 149/68 98 Room Air 08/08/25 04:57 86 18 149/68 100 Room Air 08/08/25 03:09 99.0 88 20 136/73 100 Room Air LABS: Hematology Labs: Test 08/08/25 04:52 Range/Units White Blood Count 11.6 H 4.8-10.8 K/uL Red Blood Count 3.48 L 4.50-6.20 MIL/uL Hemoglobin 11.3 L 14.0-18.0 g/dL Hematocrit 32.5 L 42-54 % Mean Corpuscular Volume 93.4 79-99 fL Mean Corpuscular Hemoglobin 32.5 27.0-33.0 pg Mean Corpuscular Hemoglobin Concent 34.8 32.0-36.0 g/dL Red Cell Distribution Width 12.4 11.0-15.5 % Platelet Count 247 130-400 K/uL Mean Platelet Volume 11.2 H 7.5-10.5 fL Nucleated Red Blood Cells 0.0 0.0-0.19 % Chemistry Labs: Test 08/08/25 04:52 08/08/25 04:51 08/07/25 07:43 Range/Units Sodium Level 139 136-145 mmol/L Potassium Level 3.5 3.5-5.1 mmol/L Chloride Level 104 101-111 mmol/L Carbon Dioxide Level 28 21-32 mmol/L Blood Urea Nitrogen 13 7-18 mg/dL Creatinine 1.1 0.5-1.3 mg/dL Glomerular Filtration Rate Calc 71 >90 mL/min Random Glucose 92 70-105 mg/dL Lactic Acid Level 1.2 0.8-2.5 mmol/L Total Calcium 8.2 L 8.5-10.1 mg/dL Magnesium Level 1.80 1.80-2.40 mg/dL Total Bilirubin 0.6 0.2-1.0 mg/dL Aspartate Amino Transf (AST/SGOT) 48 H 10-37 U/L Alanine Aminotransferase (ALT/SGPT) 61 12-78 U/L Alkaline Phosphatase 66 50-136 U/L C-Reactive Protein, Quantitative 199.30 H 0.5-3.0 mg/L Total Protein 6.2 6.0-8.3 g/dL Albumin 2.5 L 3.5-5.0 g/dL Procalcitonin 0.82 H 0.05-0.5 ng/mL Whole Blood Glucose 95 70-110 MG/DL Uric Acid 4.7 2.6-7.2 mg/dL DIAGNOSTICS / RADIOLOGY RESULTS: PROCEDURE: VENOUS WILLIAM - US VENOUS DOPPLER BILATERAL EXAM: ULTRASOUND VENOUS DOPPLER OF BOTH LOWER EXTREMITIES Technique: Real-time grayscale ultrasound with graded transducer compression, color Doppler, and pulsed-wave spectral Doppler performed from the common femoral region through the calf veins in longitudinal and transverse planes; respiratory phasicity and distal augmentation maneuvers were assessed. Clinical Information: Bilateral lower-extremity swelling. Findings: Right lower extremity venous system: The common femoral vein, great saphenous vein at the saphenofemoral junction, femoral vein, popliteal vein, and posterior tibial veins are fully compressible with normal color filling and normal respiratory phasicity and augmentation on spectral Doppler; no intraluminal thrombus is identified. Right knee region: A fluid collection in the suprapatellar region measures 5.4 ??? 4.3 ??? 1.4 cm, most consistent with suprapatellar bursitis. Left lower extremity venous system: The common femoral vein, great saphenous vein at the saphenofemoral junction, femoral vein, popliteal vein, and posterior tibial veins are fully compressible with normal color filling and normal respiratory phasicity and augmentation on spectral Doppler; no intraluminal thrombus is identified. Left knee region: A fluid collection in the suprapatellar region measures 5.6 ??? 5.4 ??? 1.4 cm, most consistent with suprapatellar bursitis. Impression: * No sonographic evidence of deep venous thrombosis in either lower extremity from the common femoral through the posterior tibial veins. * Right suprapatellar bursitis with a fluid collection measuring 5.4 ??? 4.3 ??? 1.4 cm; correlate with symptoms and consider orthopedic evaluation and/or aspiration if clinically indicated. * Left suprapatellar bursitis with a fluid collection measuring 5.6 ??? 5.4 ??? 1.4 cm; correlate with symptoms and consider orthopedic evaluation and/or PLAN NEURO: Minimize central acting medications as possible. Fall Precautions. Well lighted room through the day and minimize interruptions through the night to prevent acute delirium. PULMONARY: Supplemental 02 as needed Titrate Fio2 to keep Spo2 > or = 90% DuoNebs and CPT as needed IS hourly while awake for pulmonary hygiene Out of bed to chair as tolerated CARDIOVASCULAR: Follow hemodynamics. Titrate vasopressor to keep MAP >65 or systolic blood pressure >95mmHg DRIPS: [ ] LINES: [ ] GI & NUTRITION: Continue nutritional support Aspirations precautions Prokinetic agents and laxatives as needed KIDNEYS & ELECTROLYTES: Strict monitoring of intake and output Daily weights Avoid nephrotoxic agents Monitor electrolytes and replace as needed Goal urine output of 30mL/hr or 0.5mL/kg/hr ENDOCRINE: Maintain blood glucose between 100-180 at all times. Insulin sliding scale for blood glucose management INFECTIOUS DISEASE: Trend temperature. Powell-culture if febrile. Micro: [ ] Antibiotics: [ ] HEMATOLOGY & COAGULATION: Monitor H&H. Keep Hgb > 7 Transfuse 1 unit of PRBC for Hgb < 7 Transfuse 1 pack of platelets of platelets < 20, 000 Watch for any signs and symptoms of bleeding SKIN: Pressure ulcer prevention per facility protocol Rehab: PT/OT Prophylaxis: GI: [ ] DVT: [ ] Code Status: Full Resuscitation Disposition: TBD Other: Total patient care time exceeds 35 minutes excluding all procedures. Case was discussed and seen with my supervising physician. The above plan was formulated and agreed upon. ASHLEY MONTEIRO Aug 08, 2025 10:39
[2025-08-08 12:29] LABS: CREATININE 1.0 mg/dL (0.5-1.3); GLOMERULAR FILTR. RATE CALC 79.0 mL/min (>90); GLUCOSE,RANDOM 194.0 mg/dL (70-105); SODIUM SERUM 137.0 mmol/L (136-145); UREA NITROGEN, BLOOD 13.0 mg/dL (7-18)
[2025-08-08 12:34] LABS: ASPARTATE AMINOTRANSFERASE 50.0 U/L (10-37); TOTAL PROTEIN, SERUM 6.0 g/dL (6.0-8.3)
--- NOTE | 2025-08-08 14:39 | HMCIMG ---
EXAM: ULTRASOUND VENOUS DOPPLER OF BOTH LOWER EXTREMITIES Technique: Real-time grayscale ultrasound with graded transducer compression, color Doppler, and pulsed-wave spectral Doppler performed from the common femoral region through the calf veins in longitudinal and transverse planes; respiratory phasicity and distal augmentation maneuvers were assessed. Clinical Information: Bilateral lower-extremity swelling. Findings: Right lower extremity venous system: The common femoral vein, great saphenous vein at the saphenofemoral junction, femoral vein, popliteal vein, and posterior tibial veins are fully compressible with normal color filling and normal respiratory phasicity and augmentation on spectral Doppler; no intraluminal thrombus is identified. Right knee region: A fluid collection in the suprapatellar region measures 5.4 ??? 4.3 ??? 1.4 cm, most consistent with suprapatellar bursitis. Left lower extremity venous system: The common femoral vein, great saphenous vein at the saphenofemoral junction, femoral vein, popliteal vein, and posterior tibial veins are fully compressible with normal color filling and normal respiratory phasicity and augmentation on spectral Doppler; no intraluminal thrombus is identified. Left knee region: A fluid collection in the suprapatellar region measures 5.6 ??? 5.4 ??? 1.4 cm, most consistent with suprapatellar bursitis. Impression: * No sonographic evidence of deep venous thrombosis in either lower extremity from the common femoral through the posterior tibial veins. * Right suprapatellar bursitis with a fluid collection measuring 5.4 ??? 4.3 ??? 1.4 cm; correlate with symptoms and consider orthopedic evaluation and/or aspiration if clinically indicated. * Left suprapatellar bursitis with a fluid collection measuring 5.6 ??? 5.4 ??? 1.4 cm; correlate with symptoms and consider orthopedic evaluation and/or aspiration if clinically indicated. /[place]
[2025-08-08] MEDS ORDERED: IOHEXOL-350 50ML VIAL IV ONE (17:49)
[2025-08-08 21:15] LABS: CREATININE 1.1 mg/dL (0.5-1.3); GLOMERULAR FILTR. RATE CALC 71.0 mL/min (>90); GLUCOSE,RANDOM 156.0 mg/dL (70-105); SODIUM SERUM 138.0 mmol/L (136-145); UREA NITROGEN, BLOOD 15.0 mg/dL (7-18)
[2025-08-09] VITALS (69 sets, daily range): BP systolic 91–189; BP diastolic 43–120; PULSE 67–161; RESP 9–35; TEMP 97.5–98.6; O2SAT 96–100
[2025-08-09 04:26] LABS: NUCLEATED RED BLOOD CELLS 0.0 % (0.0-0.19); PLATELET COUNT (AUTO) 327.0 K/uL (130-400); RED BLOOD CELL COUNT(AUTO) 3.5 MIL/uL (4.50-6.20); RED CELL DISTRIBUTION WIDTH 12.6 % (11.0-15.5); WHITE BLOOD COUNT (AUTO) 14.4 K/uL (4.8-10.8)
[2025-08-09 04:54] LABS: ASPARTATE AMINOTRANSFERASE 31.0 U/L (10-37); CREATININE 1.3 mg/dL (0.5-1.3); GLOMERULAR FILTR. RATE CALC 58.0 mL/min (>90); GLUCOSE,RANDOM 124.0 mg/dL (70-105); SODIUM SERUM 140.0 mmol/L (136-145); TOTAL PROTEIN, SERUM 6.1 g/dL (6.0-8.3); UREA NITROGEN, BLOOD 18.0 mg/dL (7-18)
--- NOTE | 2025-08-09 09:07 | PN ---
[facility] PROGRESS NOTE Date Patient Seen: Aug 09, 2025 Time of Visit: 09:07 Supervising Physician: Trung Breaux MD Primary Care Physician: Dr. Doris Vela Inpatient Consults: [facility], GI, Dr. Anderson (Orthopedic surgeon) PROBLEM LIST: Acute streptococcal pharyngitis Acute complicated cystitis Severe sepsis due to above Acute GI bleed (+) melena Acute blood loss anemia Acute rhabdomyolysis, resolved Acute delirium in patient with dementia Acute metabolic encephalopathy in patient with dementia Electrolyte derangement (Hypokalemia) Atrial fibrillation with RVR on Xarelto (on hold), CHADS2-VASc 5 points, HAS- BLED 4 points+ Left knee swelling with moderate joint effusion is seen per CT knee, rule out septic arthritis Febrile illness, not POA GOUT CKD stage III Diabetes mellitus type 2 History of pancreatic cyst since 2021, negative biopsy per family Dementia INTERVAL HISTORY: Pt seen in the ICU slightly restless, one to one sitter. Pt continue with atrial flutter Rythm at 105bpm on bedside monitor. He continues on Cardizem at 15mg/hr. We are following cardiology recommendations regarding his atrial fibrillation. For now pt may receive Valium PRN anxiety for agitation. We are pending ortho consult to eval left kne effusion. PLAN: Consult orthopedic surgeon due to left joint effusion Changed IV ABX to Cefepime and Vancomycin, pancultured CT chest with contrast ordered due to abnormal CXR Pending EGD on 08/08/2025 by GI, hold Xarelto likely Monday Sitter due to confusion, fall precaution Trial of prednisone due to Gout and allopurinol Follow cultures Protonix 40mg IV BID Sucralfate 1 g BID Metoprolol 25 mg p.o. b.i.d. Follow cardiology recommendations PRN Olanzapine REVIEW OF SYSTEMS: Unable due to mental status PHYSICAL EXAM: GENERAL: 75 year old male on room air. NAD. HEENT: EOMI, Sclera non icteric, moist mucosa NECK: no JVD LUNGS: Clear breath sounds bilaterally. No wheezes HEART: Regular rate and rhythm. Normal S1 and S2, without murmurs ABD: Abdomen soft, nontender. Bowel sounds present EXT: No clubbing cyanosis or edema (+) left knee warm to to touch, swelling noted. NEURO: Alert and oriented to person, follows commands Vital Signs (last 8hr) Date Time Temp Pulse Resp B/P (MAP) Pulse Ox O2 Delivery O2 Flow Rate FiO2 08/09/25 08:45 98.6 08/09/25 06:24 116 14 122/84 (97) 100 08/09/25 06:09 110 16 115/77 (90) 100 08/09/25 05:55 103 16 125/87 (100) 100 08/09/25 05:54 102 9 172/120 (137) 99 08/09/25 05:39 123 16 142/82 (102) 100 08/09/25 05:30 104 18 112/73 (86) 100 08/09/25 05:09 115 14 133/61 (85) 100 08/09/25 04:54 122 18 126/105 (112) 96 08/09/25 04:44 132 17 128/80 (96) 99 08/09/25 04:24 121 24 105/73 (84) 93 08/09/25 04:09 137 22 110/68 (82) 100 08/09/25 04:00 100 Room Air* 0 21 08/09/25 04:00 97.9 08/09/25 03:56 166 153/110 08/09/25 03:54 125 17 100/62 (75) 84 08/09/25 03:40 118 24 123/43 (69) 97 08/09/25 03:24 159 17 153/110 (124) 86 08/09/25 03:09 150 16 128/84 (99) 100 08/09/25 02:54 82 18 117/61 (79) 98 08/09/25 02:40 159 16 126/75 (92) 99 08/09/25 02:25 122 18 107/61 (76) 97 08/09/25 02:10 108 17 127/59 (81) 96 08/09/25 01:55 109 14 114/80 (91) 94 08/09/25 01:40 94 16 116/75 (89) 97 08/09/25 01:24 110 17 112/62 (79) 96 08/09/25 01:09 97 19 115/63 (80) 77 LABS: Hematology Labs: Test 08/09/25 03:58 Range/Units White Blood Count 14.4 H 4.8-10.8 K/uL Red Blood Count 3.50 L 4.50-6.20 MIL/uL Hemoglobin 11.6 L 14.0-18.0 g/dL Hematocrit 32.5 L 42-54 % Mean Corpuscular Volume 92.9 79-99 fL Mean Corpuscular Hemoglobin 33.1 H 27.0-33.0 pg Mean Corpuscular Hemoglobin Concent 35.7 32.0-36.0 g/dL Red Cell Distribution Width 12.6 11.0-15.5 % Platelet Count 327 # 130-400 K/uL Mean Platelet Volume 10.5 7.5-10.5 fL Nucleated Red Blood Cells 0.0 0.0-0.19 % Chemistry Labs: Test 08/09/25 05:45 08/09/25 03:58 08/08/25 04:52 Range/Units Whole Blood Glucose 132 H 70-110 MG/DL Sodium Level 140 136-145 mmol/L Potassium Level 3.7 3.5-5.1 mmol/L Chloride Level 107 101-111 mmol/L Carbon Dioxide Level 21 21-32 mmol/L Blood Urea Nitrogen 18 7-18 mg/dL Creatinine 1.3 0.5-1.3 mg/dL Glomerular Filtration Rate Calc 58 >90 mL/min Random Glucose 124 H 70-105 mg/dL Total Calcium 8.3 L 8.5-10.1 mg/dL Magnesium Level 2.40 1.80-2.40 mg/dL Total Bilirubin 0.6 0.2-1.0 mg/dL Aspartate Amino Transf (AST/SGOT) 31 10-37 U/L Alanine Aminotransferase (ALT/SGPT) 48 12-78 U/L Alkaline Phosphatase 65 50-136 U/L Total Protein 6.1 6.0-8.3 g/dL Albumin 2.2 L 3.5-5.0 g/dL Lactic Acid Level 1.2 0.8-2.5 mmol/L C-Reactive Protein, Quantitative 199.30 H 0.5-3.0 mg/L Procalcitonin 0.82 H 0.05-0.5 ng/mL DIAGNOSTICS / RADIOLOGY RESULTS: [[place] [address] [place] [id number] IMAGING REPORT Signed PATIENT: LADARIUS CARTER MR#: [id number] : 1950 SEX: M AGE: 75 LOCATION: 2CV ORDER 5 STATUS: ADM IN REPORT#: [id number] SERVICE REASON: swelling ORDERING PHYSICIAN: ASHLEY MONTEIRO LEAD CLINICAL RESEARCH COORDINATOR PROCEDURE: VENOUS WILLIAM - US VENOUS DOPPLER BILATERAL EXAM: ULTRASOUND VENOUS DOPPLER OF BOTH LOWER EXTREMITIES Technique: Real-time grayscale ultrasound with graded transducer compression, color Doppler, and pulsed-wave spectral Doppler performed from the common femoral region through the calf veins in longitudinal and transverse planes; respiratory phasicity and distal augmentation maneuvers were assessed. Clinical Information: Bilateral lower-extremity swelling. Findings: Right lower extremity venous system: The common femoral vein, great saphenous vein at the saphenofemoral junction, femoral vein, popliteal vein, and posterior tibial veins are fully compressible with normal color filling and normal respiratory phasicity and augmentation on spectral Doppler; no intraluminal thrombus is identified. Right knee region: A fluid collection in the suprapatellar region measures 5.4 ??? 4.3 ??? 1.4 cm, most consistent with suprapatellar bursitis. Left lower extremity venous system: The common femoral vein, great saphenous vein at the saphenofemoral junction, femoral vein, popliteal vein, and posterior tibial veins are fully compressible with normal color filling and normal respiratory phasicity and augmentation on spectral Doppler; no intraluminal thrombus is identified. Left knee region: A fluid collection in the suprapatellar region measures 5.6 ??? 5.4 ??? 1.4 cm, most consistent with suprapatellar bursitis. Impression: * No sonographic evidence of deep venous thrombosis in either lower extremity from the common femoral through the posterior tibial veins. * Right suprapatellar bursitis with a fluid collection measuring 5.4 ??? 4.3 ??? 1.4 cm; correlate with symptoms and consider orthopedic evaluation and/or aspiration if clinically indicated. * Left suprapatellar bursitis with a fluid collection measuring 5.6 ??? 5.4 ??? 1.4 cm; correlate with symptoms and consider orthopedic evaluation and/or aspiration if clinically indicated. /[place] DICTATED BY: OTIS GLASS MD DATE: 08/08/251537 ELECTRONICALLY SIGNED BY: OTIS GLASS MD DATE: 08/08/251537 ] PLAN NEURO: Minimize central acting medications as possible. Fall Precautions. Well lighted room through the day and minimize interruptions through the night to prevent acute delirium. PULMONARY: Supplemental 02 as needed Titrate Fio2 to keep Spo2 > or = 90% DuoNebs and CPT as needed IS hourly while awake for pulmonary hygiene Out of bed to chair as tolerated CARDIOVASCULAR: Follow hemodynamics. Titrate vasopressor to keep MAP >65 or systolic blood pressure >95mmHg DRIPS: cardizem LINES: PIV GI & NUTRITION: Continue nutritional support Aspirations precautions Prokinetic agents and laxatives as needed KIDNEYS & ELECTROLYTES: Strict monitoring of intake and output Daily weights Avoid nephrotoxic agents Monitor electrolytes and replace as needed Goal urine output of 30mL/hr or 0.5mL/kg/hr ENDOCRINE: Maintain blood glucose between 100-180 at all times. Insulin sliding scale for blood glucose management INFECTIOUS DISEASE: Trend temperature. Powell-culture if febrile. Micro: [ ] Antibiotics: [ ] cefepime doxy and vanco HEMATOLOGY & COAGULATION: Monitor H&H. Keep Hgb > 7 Transfuse 1 unit of PRBC for Hgb < 7 Transfuse 1 pack of platelets of platelets < 20, 000 Watch for any signs and symptoms of bleeding SKIN: Pressure ulcer prevention per facility protocol Rehab: PT/OT Prophylaxis: GI: [Protonix ] DVT: [SCD ] Code Status: Full Resuscitation Disposition: TBD Other: Total patient care time exceeds 35 minutes excluding all procedures. Case was discussed and seen with my supervising physician. The above plan was formulated and agreed upon. ATTESTATION BY PHYSICIAN I have evaluated the patient chart, medical records, and spoke with appropriate staff. I reviewed the documentation, medical decision making, and treatment plan as noted by the mid-level provider above. I agree with the findings and plan of care. Trung Breaux MD, NELLY J AGACN Aug 09, 2025 09:07
--- NOTE | 2025-08-09 11:45 | NUR ---
STATUS PT AFIB 160s, RESTLESS. DENIES PAIN OR DISCOMFORT @ THIS TIME. CARDIZEM GTT INCREASED TO 15 MG/HR. PRN DOSE OF METOPROLOL 5 MG IVP GIVEN. V/S PER SPREADSHEET.
--- NOTE | 2025-08-09 13:38 | PN ---
[facility] C[facility]IOLOG[facility] PROGRESS NOTE Date Patient Seen: Aug 09, 2025 Time of Visit: 13:24 Interval History: This 75-year-old [place] male, patient of Dr. Bette Cui, has a history of type 2 diabetes, stage III chronic renal insufficiency, gout, pancr eatic cysts since 2021, dementia, permanent atrial fibrillation, chronic anticoagulation with Xarelto, and nonobstructive coronary artery disease by prior cardiac catheterization in 2012 (20% mid and distal LAD and 50% diagonal stenosis with otherwise normal coronaries). He was admitted with acute streptococcal pharyngitis, complicated cystitis, and sepsis as well as melena and blood loss anemia. The patient has had delirium complicating his dementia as well as a metabolic encephalopathy. Patient was noted to have a rapid ventricular response to his permanent atrial fibrillation on admission and currently is on a combination of diltiazem drip 15 milligrams/hour and metoprolol 50 mg q.6 as well as p.r.n. IV metoprolol as needed. Upper endoscopy was aborted 08/08/2025 due to a rapid ventricular response to his atrial fibrillation earlier. There has been no evidence of bright red blood per rectum. He complained of left leg pain and a CT of LLE showed moderate joint effusion was seen with consultation placed orthopedic surgery. Physical Examination: GENERAL: No acute distress. HEAD: Normal with no signs of head trauma. EYES: PERRLA, EOMI, conjunctiva and sclera normal. NECK: Supple without JVD. There is no tenderness, lymphadenopathy, or masses. No thyromegaly. Normal carotid upstrokes without bruits. LUNGS: Clear breath sounds bilaterally. No wheezes, or rhonchi. HEART: Normal rate and rhythm. Normal S1 and S2 without murmurs, gallop or rub. VASC: Peripheral pulses +2 bilaterally. EXT: No clubbing, cyanosis or edema. NEURO: Awake, alert, and oriented x3. No focal neurological deficits noted. Laboratory: Hematology Labs: Test 08/09/25 03:58 Range/Units White Blood Count 14.4 H 4.8-10.8 K/uL Red Blood Count 3.50 L 4.50-6.20 MIL/uL Hemoglobin 11.6 L 14.0-18.0 g/dL Hematocrit 32.5 L 42-54 % Mean Corpuscular Volume 92.9 79-99 fL Mean Corpuscular Hemoglobin 33.1 H 27.0-33.0 pg Mean Corpuscular Hemoglobin Concent 35.7 32.0-36.0 g/dL Red Cell Distribution Width 12.6 11.0-15.5 % Platelet Count 327 # 130-400 K/uL Mean Platelet Volume 10.5 7.5-10.5 fL Nucleated Red Blood Cells 0.0 0.0-0.19 % Chemistry Labs: Test 08/09/25 11:44 08/09/25 03:58 08/08/25 04:52 Range/Units Whole Blood Glucose 178 H 70-110 MG/DL Sodium Level 140 136-145 mmol/L Potassium Level 3.7 3.5-5.1 mmol/L Chloride Level 107 101-111 mmol/L Carbon Dioxide Level 21 21-32 mmol/L Blood Urea Nitrogen 18 7-18 mg/dL Creatinine 1.3 0.5-1.3 mg/dL Glomerular Filtration Rate Calc 58 >90 mL/min Random Glucose 124 H 70-105 mg/dL Total Calcium 8.3 L 8.5-10.1 mg/dL Magnesium Level 2.40 1.80-2.40 mg/dL Total Bilirubin 0.6 0.2-1.0 mg/dL Aspartate Amino Transf (AST/SGOT) 31 10-37 U/L Alanine Aminotransferase (ALT/SGPT) 48 12-78 U/L Alkaline Phosphatase 65 50-136 U/L Total Protein 6.1 6.0-8.3 g/dL Albumin 2.2 L 3.5-5.0 g/dL Lactic Acid Level 1.2 0.8-2.5 mmol/L C-Reactive Protein, Quantitative 199.30 H 0.5-3.0 mg/L Procalcitonin 0.82 H 0.05-0.5 ng/mL Diagnostics / Radiology: 2D echo: Conclusion LVEF is 45-50%. Suboptimal endocardial definition. The LV diastolic function was unable to be assessed due to atrial arrhythmia. Mild posterior annular calcification noted. DICTATED BY: BETTE CUI DO DATE: 08/03/25 0949 Impression and Plan: Acute streptococcal pharyngitis: Acute complicated cystitis: Severe sepsis due to above: Left knee swelling with moderate joint effusion is seen per CT knee, rule out septic arthritis: -antibiotic management as per primary team -await orthopedic surgical consultation Acute GI bleed (+) melena reported on admission, no bright red blood per rectum, upper endoscopy aborted due to AFib with RVR 08/08/2025: Long-term Xarelto 20 mg daily for permanent atrial fibrillation, on hold given history of GI bleed on admission: -PPI therapy and reschedule endoscopy Monday if sepsis syndrome resolves and AFib rate is controlled -continue to hold Xarelto until endoscopic studies completed Permanent atrial fibrillation, with rapid ventricular response rate due to sepsis syndrome: Long-term anticoagulation with Xarelto, currently on hold: -continue diltiazem IV drip at current 15 mg/hour. Consider weaning when heart rate begins to improve on present metoprolol 50 p.o. q.6 hours Nonobstructive coronary artery disease by cardiac catheterization August 2013 with 20% mid and distal LAD stenosis, 50% diagonal branch stenosis, and otherwise normal coronaries with LVEF of 70%: -discontinue statin therapy given rhabdomyolysis Comorbidities: Essential hypertension Hyperlipidemia History of hypothyroidism Acute rhabdomyolysis, resolved Acute delirium in patient with dementia Acute metabolic encephalopathy in patient with dementia Electrolyte derangement (Hypokalemia) GOUT CKD stage III Diabetes mellitus type 2 History of pancreatic cyst since 2021, negative biopsy per family Dementia ENIO VALEIRO MD Aug 09, 2025 13:38
--- NOTE | 2025-08-09 15:25 | NUR ---
TRANSFER PT TRANSFERRED TO 229 VIA BED. TOLERATED TRANSFER WELL, NO DISTRESS NOTED. 1:1 SITTER @ BEDSIDE. CARDIZEM GTT @ 15 MG/HR & LACTATED RINGER'S @ 50 ML/HR. BEDSIDE REPORT GIVEN TO MARILIA BRAVO RN.
--- NOTE | 2025-08-09 21:00 | NUR ---
MEDICATION HELD PT APPEARED DROWSY UPON ENTERING ROOM. DIFFICULTY AROUSING PT. PT DRANK MINIMUM WATER AND BEGAN COUGHING UP WATER. APPEARED TO HAVE DIFFICULTY SWALLOWING WATER. HELD ALLOPURINOL, VALIUM, AND SUCRALFATE. METOPROLOL MEDICATION HELD DUE TO LOW BLOOD PRESSURE OF
[2025-08-10] VITALS (9 sets, daily range): BP systolic 111–145; BP diastolic 53–75; PULSE 62–142; RESP 18–22; TEMP 98.1–98.9; O2SAT 97
[2025-08-10 04:29] LABS: NUCLEATED RED BLOOD CELLS 0.0 % (0.0-0.19); PLATELET COUNT (AUTO) 370.0 K/uL (130-400); RED BLOOD CELL COUNT(AUTO) 3.41 MIL/uL (4.50-6.20); RED CELL DISTRIBUTION WIDTH 12.6 % (11.0-15.5); WHITE BLOOD COUNT (AUTO) 20.7 K/uL (4.8-10.8)
[2025-08-10 04:54] LABS: ASPARTATE AMINOTRANSFERASE 40.0 U/L (10-37); CREATININE 1.0 mg/dL (0.5-1.3); GLOMERULAR FILTR. RATE CALC 79.0 mL/min (>90); GLUCOSE,RANDOM 119.0 mg/dL (70-105); SODIUM SERUM 138.0 mmol/L (136-145); TOTAL PROTEIN, SERUM 6.0 g/dL (6.0-8.3); UREA NITROGEN, BLOOD 15.0 mg/dL (7-18)
--- NOTE | 2025-08-10 07:15 | NUR ---
DR. LAZO AT BEDSIDE FOR EVALUATION, PTS STATUS, CONSULT FOR BILATERAL KNEE PAIN, MD UPDATED ON PTS LABS, VS, MEDICATIONS. PT ORIENTED X2, UNABLE TO MAKE MEDICAL DECISIONS AT THIS TIME, WILL AWAIT FOR FAMILY MEMBER TO EXPLAIN OPTIONS FOR TREATMENT.
--- NOTE | 2025-08-10 10:08 | PN ---
[facility] PROGRESS NOTE Date Patient Seen: Aug 10, 2025 Time of Visit: 10:08 Supervising Physician: Trung Breaux MD Primary Care Physician: Dr. Doris Vela Inpatient Consults: [facility], GI, Dr. Anderson (Orthopedic surgeon) PROBLEM LIST: Acute streptococcal pharyngitis Acute complicated cystitis Severe sepsis due to above Acute GI bleed (+) melena Acute blood loss anemia Acute rhabdomyolysis, resolved Acute delirium in patient with dementia Acute metabolic encephalopathy in patient with dementia Electrolyte derangement (Hypokalemia) Atrial fibrillation with RVR on Xarelto (on hold), CHADS2-VASc 5 points, HAS- BLED 4 points+ Left knee swelling with moderate joint effusion is seen per CT knee, rule out septic arthritis Febrile illness, not POA GOUT CKD stage III Diabetes mellitus type 2 History of pancreatic cyst since 2021, negative biopsy per family Dementia INTERVAL HISTORY: Pt now in [facility] atrial flutter HR of 108bpm on cardizem gtt at 15mg/hr. Will continue following cardiology recommendations. Pt is confused, has underlying dementia. currently with one to one sitter. Family is visiting. He was seen by Dr anderson I have spoke to Dr Anderson requesting aspiration of left knee for rule out of septi arthritis and he reported he will proceed for bedside procedure if ok with family. Pt has remained afebrile WBC increasing and may be causing increased confusion for now will DC. Pt can use lidocaine patch to site and Tylenol prn. PLAN: Consult orthopedic surgeon due to left joint effusion- follow recommendations Continue IV abx follow cultures CT chest with contrast ordered due to abnormal CXR- pending results Pending EGD on 08/08/2025 by GI, hold Xarelto likely Monday Sitter due to confusion, fall precaution DC prednisone Follow cultures Protonix 40mg IV BID Sucralfate 1 g BID Metoprolol 25 mg p.o. b.i.d. Follow cardiology recommendations PRN Olanzapine REVIEW OF SYSTEMS: Unable due to mental status PHYSICAL EXAM: GENERAL: 75 year old male on room air. NAD. HEENT: EOMI, Sclera non icteric, moist mucosa NECK: no JVD LUNGS: Clear breath sounds bilaterally. No wheezes HEART: Regular rate and rhythm. Normal S1 and S2, without murmurs ABD: Abdomen soft, nontender. Bowel sounds present EXT: No clubbing cyanosis or edema (+) left knee warm to to touch, swelling noted. NEURO: Alert and oriented to person, follows commands Vital Signs (last 8hr) Date Time Temp Pulse Resp B/P (MAP) Pulse Ox O2 Delivery O2 Flow Rate FiO2 08/10/25 08:00 98.4 62 18 137/75 93 Room Air 08/10/25 07:59 97 Room Air* 0 21 08/10/25 03:36 98.2 98 18 122/60 99 Room Air LABS: Hematology Labs: Test 08/10/25 03:36 Range/Units White Blood Count 20.7 #H 4.8-10.8 K/uL Red Blood Count 3.41 L 4.50-6.20 MIL/uL Hemoglobin 10.9 L 14.0-18.0 g/dL Hematocrit 32.0 L 42-54 % Mean Corpuscular Volume 93.8 79-99 fL Mean Corpuscular Hemoglobin 32.0 27.0-33.0 pg Mean Corpuscular Hemoglobin Concent 34.1 32.0-36.0 g/dL Red Cell Distribution Width 12.6 11.0-15.5 % Platelet Count 370 130-400 K/uL Mean Platelet Volume 10.3 7.5-10.5 fL Nucleated Red Blood Cells 0.0 0.0-0.19 % Chemistry Labs: Test 08/10/25 03:36 08/09/25 20:17 08/09/25 03:58 Range/Units Sodium Level 138 136-145 mmol/L Potassium Level 3.3 L 3.5-5.1 mmol/L Chloride Level 103 101-111 mmol/L Carbon Dioxide Level 29 21-32 mmol/L Blood Urea Nitrogen 15 7-18 mg/dL Creatinine 1.0 0.5-1.3 mg/dL Glomerular Filtration Rate Calc 79 >90 mL/min Random Glucose 119 H 70-105 mg/dL Total Calcium 8.3 L 8.5-10.1 mg/dL Total Bilirubin 0.6 0.2-1.0 mg/dL Aspartate Amino Transf (AST/SGOT) 40 H 10-37 U/L Alanine Aminotransferase (ALT/SGPT) 66 # 12-78 U/L Alkaline Phosphatase 69 50-136 U/L Total Protein 6.0 6.0-8.3 g/dL Albumin 2.0 L 3.5-5.0 g/dL Thyroid Stimulating Hormone (TSH) 2.19 # 0.36-3.74 uIU/mL Free Thyroxine (T4) Direct 1.15 0.76-1.46 ng/dL Whole Blood Glucose 154 H 70-110 MG/DL Magnesium Level 2.40 1.80-2.40 mg/dL DIAGNOSTICS / RADIOLOGY RESULTS: [ ][facility] [address] [place] [address] IMAGING REPORT Signed PATIENT: LADARIUS CARTER MR#: [id number] : 1950 SEX: M AGE: 75 LOCATION: 2CV ORDER 5 STATUS: ADM IN REPORT#: [id number] SERVICE REASON: swelling ORDERING PHYSICIAN: ASHLEY MONTEIRO PROCEDURE: VENOUS WILLIAM - US VENOUS DOPPLER BILATERAL EXAM: ULTRASOUND VENOUS DOPPLER OF BOTH LOWER EXTREMITIES Technique: Real-time grayscale ultrasound with graded transducer compression, color Doppler, and pulsed-wave spectral Doppler performed from the common femoral region through the calf veins in longitudinal and transverse planes; respiratory phasicity and distal augmentation maneuvers were assessed. Clinical Information: Bilateral lower-extremity swelling. Findings: Right lower extremity venous system: The common femoral vein, great saphenous vein at the saphenofemoral junction, femoral vein, popliteal vein, and posterior tibial veins are fully compressible with normal color filling and normal respiratory phasicity and augmentation on spectral Doppler; no intraluminal thrombus is identified. Right knee region: A fluid collection in the suprapatellar region measures 5.4 ??? 4.3 ??? 1.4 cm, most consistent with suprapatellar bursitis. Left lower extremity venous system: The common femoral vein, great saphenous vein at the saphenofemoral junction, femoral vein, popliteal vein, and posterior tibial veins are fully compressible with normal color filling and normal respiratory phasicity and augmentation on spectral Doppler; no intraluminal thrombus is identified. Left knee region: A fluid collection in the suprapatellar region measures 5.6 ??? 5.4 ??? 1.4 cm, most consistent with suprapatellar bursitis. Impression: * No sonographic evidence of deep venous thrombosis in either lower extremity from the common femoral through the posterior tibial veins. * Right suprapatellar bursitis with a fluid collection measuring 5.4 ??? 4.3 ??? 1.4 cm; correlate with symptoms and consider orthopedic evaluation and/or aspiration if clinically indicated. * Left suprapatellar bursitis with a fluid collection measuring 5.6 ??? 5.4 ??? 1.4 cm; correlate with symptoms and consider orthopedic evaluation and/or aspiration if clinically indicated. /[place] DICTATED BY: OTIS GLASS MD DATE: 08/08/251537 ELECTRONICALLY SIGNED BY: OTIS GLASS MD DATE: 08/08/251537 Plan: NEURO: Minimize central acting medications as possible. Maintain fall precautions, adequate lighting during the day PULMONARY: Supplemental 02 as needed. Maintain aspiration precautions at all times CARDIOVASCULAR: Follow hemodynamics. Vital signs per facility protocol Cardiology consult pending anticipation for further recommendations GI & NUTRITION: Continue with nutritional support. Continue stool softeners and laxatives as needed. KIDNEYS & ELECTROLYTES: Strict monitoring of intake, output and overall fluid balance. Avoid nephrotoxic medications to the extent possible. Medications to be dosed according to renal function. Monitor electrolytes and replace as needed ENDOCRINE: Maintain blood glucose between 100-180 at all times. Hypoglycemia protocol in place INFECTIOUS DISEASE: Trend temperature, WBC and procalcitonin level Follow cultures, deescalate antibiotics as soon as possible. Panculture if new onset fever ONCOLOGY/HEMATOLOGY/COAGULATION: Monitor for s/s of bleeding Monitor hemoglobin, coagulation studies as needed SKIN: Pressure ulcer prevention per facility protocol Specialty mattress ORTHO/REHAB: Continue PT/OT Prophylaxis: Continue GI and DVT prophylaxis Code Status: Full Resuscitation Disposition: TBD Total care time: 36 minutes excluding procedures ATTESTATION BY PHYSICIAN I have evaluated the patient chart, medical records, and spoke with appropriate staff. I reviewed the documentation, medical decision making, and treatment plan as noted by the mid-level provider above. I agree with the findings and plan of care. Trung Breaux MD, NELLY J AGACNP Aug 10, 2025 10:08
--- NOTE | 2025-08-10 10:23 | PN ---
[facility]IOLOG[facility] PROGRESS NOTE Date Patient Seen: Aug 10, 2025 Time of Visit: 10:09 Interval History: This 75-year-old Latin-[place]e male, patient of Dr. Bette Cui, has a history of type 2 diabetes, stage III chronic renal insufficiency, gout, pancr eatic cysts since 2021, dementia, permanent atrial fibrillation, chronic anticoagulation with Xarelto, and nonobstructive coronary artery disease by prior cardiac catheterization in 2012 (20% mid and distal LAD and 50% diagonal stenosis with otherwise normal coronaries). He was admitted with acute streptococcal pharyngitis, complicated cystitis, and sepsis as well as melena and blood loss anemia. The patient has had delirium complicating his dementia as well as a metabolic encephalopathy. Patient was noted to have a rapid ventricular response to his permanent atrial fibrillation on admission and currently is on a combination of diltiazem drip 15 milligrams/hour and metoprolol 50 mg q.6 as well as p.r.n. IV metoprolol as needed. Upper endoscopy was aborted 08/08/2025 due to a rapid ventricular response to his atrial fibrillation earlier. There has been no evidence of bright red blood per rectum. He complained of left leg pain and a CT of LLE showed moderate joint effusion , he has been seen by orthopedic surgeon and feels may be a gout flare- up. This morning, he continues on IV diltiazem at 15 milligrams/hour with heart rates into the 130 beat per minute range of his atrial fibrillation. Physical Examination: GENERAL: No acute distress. HEAD: Normal with no signs of head trauma. EYES: PERRLA, EOMI, conjunctiva and sclera normal. NECK: Supple without JVD. There is no tenderness, lymphadenopathy, or masses. No thyromegaly. Normal carotid upstrokes without bruits. LUNGS: Clear breath sounds bilaterally. No wheezes, or rhonchi. HEART: Normal rate and rhythm. Normal S1 and S2 without murmurs, gallop or rub. VASC: Peripheral pulses +2 bilaterally. EXT: No clubbing, cyanosis or edema. Tenderness to the knees bilaterally with warmth noted NEURO: Awake, alert, and oriented x2. No focal neurological deficits noted. Laboratory: Hematology Labs: Test 08/10/25 03:36 Range/Units White Blood Count 20.7 #H 4.8-10.8 K/uL Red Blood Count 3.41 L 4.50-6.20 MIL/uL Hemoglobin 10.9 L 14.0-18.0 g/dL Hematocrit 32.0 L 42-54 % Mean Corpuscular Volume 93.8 79-99 fL Mean Corpuscular Hemoglobin 32.0 27.0-33.0 pg Mean Corpuscular Hemoglobin Concent 34.1 32.0-36.0 g/dL Red Cell Distribution Width 12.6 11.0-15.5 % Platelet Count 370 130-400 K/uL Mean Platelet Volume 10.3 7.5-10.5 fL Nucleated Red Blood Cells 0.0 0.0-0.19 % Chemistry Labs: Test 08/10/25 03:36 08/09/25 20:17 08/09/25 03:58 Range/Units Sodium Level 138 136-145 mmol/L Potassium Level 3.3 L 3.5-5.1 mmol/L Chloride Level 103 101-111 mmol/L Carbon Dioxide Level 29 21-32 mmol/L Blood Urea Nitrogen 15 7-18 mg/dL Creatinine 1.0 0.5-1.3 mg/dL Glomerular Filtration Rate Calc 79 >90 mL/min Random Glucose 119 H 70-105 mg/dL Total Calcium 8.3 L 8.5-10.1 mg/dL Total Bilirubin 0.6 0.2-1.0 mg/dL Aspartate Amino Transf (AST/SGOT) 40 H 10-37 U/L Alanine Aminotransferase (ALT/SGPT) 66 # 12-78 U/L Alkaline Phosphatase 69 50-136 U/L Total Protein 6.0 6.0-8.3 g/dL Albumin 2.0 L 3.5-5.0 g/dL Thyroid Stimulating Hormone (TSH) 2.19 # 0.36-3.74 uIU/mL Free Thyroxine (T4) Direct 1.15 0.76-1.46 ng/dL Whole Blood Glucose 154 H 70-110 MG/DL Magnesium Level 2.40 1.80-2.40 mg/dL Diagnostics / Radiology: 2D echo: Conclusion LVEF is 45-50%. Suboptimal endocardial definition. The LV diastolic function was unable to be assessed due to atrial arrhythmia. Mild posterior annular calcification noted. DICTATED BY: BETTE CUI DO DATE: 08/03/25 0949 Impression and Plan: Acute streptococcal pharyngitis: Acute complicated cystitis: Severe sepsis due to above: Left knee swelling with moderate joint effusion is seen per CT knee, rule out septic arthritis: -antibiotic management as per primary team -continue with recommendations per Orthopedic surgeon Acute GI bleed (+) melena reported on admission, no bright red blood per rectum, upper endoscopy aborted due to AFib with RVR 08/08/2025: Long-term Xarelto 20 mg daily for permanent atrial fibrillation, on hold given history of GI bleed on admission: -PPI therapy and reschedule endoscopy Monday if sepsis syndrome resolves and AFib rate is controlled -continue to hold Xarelto until endoscopic studies completed Permanent atrial fibrillation, with rapid ventricular response rate due to sepsis syndrome: Long-term anticoagulation with Xarelto, currently on hold: -continue diltiazem IV drip at current 15 mg/hour. -continues on metoprolol 50 p.o. q.6 hours -give digoxin 0.25 mg IV x1 dose and assess heart rate response -continue to hold Xarelto until endoscopic studies completed Nonobstructive coronary artery disease by cardiac catheterization August 2013 with 20% mid and distal LAD stenosis, 50% diagonal branch stenosis, and otherwise normal coronaries with LVEF of 70%: -discontinue statin therapy given rhabdomyolysis Comorbidities: Essential hypertension Hyperlipidemia History of hypothyroidism Acute rhabdomyolysis, resolved Acute delirium in patient with dementia Acute metabolic encephalopathy in patient with dementia Electrolyte derangement (Hypokalemia) GOUT CKD stage III Diabetes mellitus type 2 History of pancreatic cyst since 2021, negative biopsy per family Dementia PHYSICIAN ATTESTATION OF PHYSICIAN CLOTH WASHER BACK TENDER DOCUMENTATION: I attest that I was physically present for the varela portions of the service and evaluated the patient with the Physician Shell Shop Supervisor, and I reviewed and discussed the case with the Physician Shell Shop Supervisor and made modifications to the Physician Shell Shop Supervisor's findings and plans of care as documented above SERGIO GAN Aug 10, 2025 10:23 ENIO VALERIO MD Aug 10, 2025 13:32
[2025-08-11] VITALS (12 sets, daily range): BP systolic 110–137; BP diastolic 67–89; PULSE 89–168; RESP 16–22; TEMP 97.9–99.7; O2SAT 96–97
--- NOTE | 2025-08-11 00:33 | HMCIMG ---
EXAM: CHEST RADIOGRAPH, 1 VIEW Technique: Single frontal view of the chest. Clinical Information: Sepsis and congestive heart failure. Findings: Lungs and large airways: Bilateral perihilar air-space opacities are present with mild pulmonary vascular congestion. A right upper lobe nodular opacity is present. Pleura: No pleural effusion or pneumothorax is identified. Heart and mediastinum: Cardiac size and mediastinal contours are within normal limits. Bones/joints: No acute osseous abnormality is identified. Impression: * Comparison: Compared with chest radiograph dated 08/07/2025 09:11 EDT, bilateral perihilar air-space opacities and mild pulmonary vascular congestion are unchanged, and the right upper lobe nodular opacity persists. /[place]
[2025-08-11] MEDS: LACTULOSE 20 GM/30 ML UDCUP PO PRN (08:38)
--- NOTE | 2025-08-11 12:45 | PN ---
[facility] PROGRESS NOTE Date Patient Seen: Aug 11, 2025 Time of Visit: 12:36 Supervising Physician: Dr Trung Breaux Primary Care Physician: Dr. Doris Vela Inpatient Consults: [facility], GI, Dr. Anderson (Orthopedic surgeon) PROBLEM LIST: Atrial fibrillation with RVR on Xarelto (on hold), CHADS2-VASc 5 points, HAS- BLED 4 points+ Acute streptococcal pharyngitis Acute complicated cystitis Severe sepsis due to above Acute GI bleed (+) melena Acute blood loss anemia Acute rhabdomyolysis, resolved Acute delirium in patient with dementia Acute metabolic encephalopathy in patient with dementia Electrolyte derangement (Hypokalemia) Left knee swelling with moderate joint effusion is seen per CT knee, rule out septic arthritis Febrile illness, not POA GOUT CKD stage III Diabetes mellitus type 2 History of pancreatic cyst since 2021, negative biopsy per family Dementia INTERVAL HISTORY: Patient was seen and examined, all labs and imaging have been reviewed, patient is back in AFib RVR overnight, heart rate in the 150s, started back on the Cardizem, cardiology increased the metoprolol to 75 mg b.i.d., patient is currently in AFib heart rate in the 80s GI is still waiting for the sepsis and the strip to resolve before proceeding with any type of EGD. Xarelto remains on hold, The hemoglobin remained stable, platelets are 370 yesterday we are pending repeat labs today. Patient's white count is up to 20 but he has been started on steroids. He is on 20 mg daily. Cultures remain negative x4 days, he is afebrile Patient continues on antibiotics to include doxycycline, vancomycin and cefepime. Patient has underlying dementia, there is a sitter at bedside for redirection. Family is also present at bedside. All were updated. Patient currently on room air chest x-ray shows improvement PLAN: Continue on antibiotics, supplemental O2, nebulizer treatments Follow specialty recs Orthopedic recs Follow GI recs, pending EGD Follow cardiology recs - adjustments to antihypertensive Telemetry REVIEW OF SYSTEMS: Unable due to mental status PHYSICAL EXAM: GENERAL: 75 year old male on room air. NAD. HEENT: EOMI, Sclera non icteric, moist mucosa NECK: no JVD LUNGS: Clear breath sounds bilaterally. No wheezes HEART: Regular rate and rhythm. Normal S1 and S2, without murmurs ABD: Abdomen soft, nontender. Bowel sounds present EXT: No clubbing cyanosis or edema (+) left knee warm to to touch, swelling noted. NEURO: Alert and oriented to person, follows commands Vital Signs (last 8hr) Date Time Temp Pulse Resp B/P (MAP) Pulse Ox O2 Delivery O2 Flow Rate FiO2 08/11/25 11:29 99.3 98 22 110/76 100 Room Air 08/11/25 10:30 108 08/11/25 08:45 97 Room Air* 0 21 08/11/25 08:18 160 124/78 08/11/25 07:08 99.7 97 16 124/78 99 Room Air LABS: Hematology Labs: Test 08/10/25 03:36 Range/Units White Blood Count 20.7 #H 4.8-10.8 K/uL Red Blood Count 3.41 L 4.50-6.20 MIL/uL Hemoglobin 10.9 L 14.0-18.0 g/dL Hematocrit 32.0 L 42-54 % Mean Corpuscular Volume 93.8 79-99 fL Mean Corpuscular Hemoglobin 32.0 27.0-33.0 pg Mean Corpuscular Hemoglobin Concent 34.1 32.0-36.0 g/dL Red Cell Distribution Width 12.6 11.0-15.5 % Platelet Count 370 130-400 K/uL Mean Platelet Volume 10.3 7.5-10.5 fL Nucleated Red Blood Cells 0.0 0.0-0.19 % Chemistry Labs: Test 08/11/25 11:32 08/11/25 03:46 08/10/25 03:36 Range/Units Whole Blood Glucose 172 H 70-110 MG/DL Procalcitonin 0.16 0.05-0.5 ng/mL Sodium Level 138 136-145 mmol/L Potassium Level 3.3 L 3.5-5.1 mmol/L Chloride Level 103 101-111 mmol/L Carbon Dioxide Level 29 21-32 mmol/L Blood Urea Nitrogen 15 7-18 mg/dL Creatinine 1.0 0.5-1.3 mg/dL Glomerular Filtration Rate Calc 79 >90 mL/min Random Glucose 119 H 70-105 mg/dL Total Calcium 8.3 L 8.5-10.1 mg/dL Total Bilirubin 0.6 0.2-1.0 mg/dL Aspartate Amino Transf (AST/SGOT) 40 H 10-37 U/L Alanine Aminotransferase (ALT/SGPT) 66 # 12-78 U/L Alkaline Phosphatase 69 50-136 U/L Total Protein 6.0 6.0-8.3 g/dL Albumin 2.0 L 3.5-5.0 g/dL Thyroid Stimulating Hormone (TSH) 2.19 # 0.36-3.74 uIU/mL Free Thyroxine (T4) Direct 1.15 0.76-1.46 ng/dL DIAGNOSTICS / RADIOLOGY RESULTS: [ ] Plan: NEURO: Minimize central acting medications as possible. Maintain fall precautions, adequate lighting during the day PULMONARY: Supplemental 02 as needed. Maintain aspiration precautions at all times CARDIOVASCULAR: Follow hemodynamics. Vital signs per facility protocol Cardiology consult pending anticipation for further recommendations GI & NUTRITION: Continue with nutritional support. Continue stool softeners and laxatives as needed. KIDNEYS & ELECTROLYTES: Strict monitoring of intake, output and overall fluid balance. Avoid nephrotoxic medications to the extent possible. Medications to be dosed according to renal function. Monitor electrolytes and replace as needed ENDOCRINE: Maintain blood glucose between 100-180 at all times. Hypoglycemia protocol in place INFECTIOUS DISEASE: Trend temperature, WBC and procalcitonin level Follow cultures, deescalate antibiotics as soon as possible. Panculture if new onset fever ONCOLOGY/HEMATOLOGY/COAGULATION: Monitor for s/s of bleeding Monitor hemoglobin, coagulation studies as needed SKIN: Pressure ulcer prevention per facility protocol Specialty mattress ORTHO/REHAB: Continue PT/OT Prophylaxis: Continue GI and DVT prophylaxis Code Status: Full Resuscitation Disposition: TBD Total care time: 42 minutes excluding procedures NUSRAT RICK PAC Aug 11, 2025 12:45
--- NOTE | 2025-08-11 13:06 | CONS ---
HISTORY OF PRESENT ILLNESS: This is a 75-year-old gentleman who has been admitted in the [facility]. The patient complains of bilateral knee pain. No history of any trauma or falls. No history of insect bite. The patient is complaining of pain in both right and left knee, which alternates. The patient is currently being admitted for fevers and chills. PAST MEDICAL HISTORY: Positive for diabetes, hypertension, benign prostatic hypertrophy, AFib on blood thinners. Hypothyroidism. PAST SURGICAL HISTORY: None. ALLERGIES: None. HOME MEDICATIONS: Reviewed. SOCIAL HISTORY: He does not smoke. He does not drink alcohol or do illegal drugs. FAMILY HISTORY: Nothing significant. PHYSICAL EXAMINATION: GENERAL: The patient is awake, alert, oriented x 3. VITAL SIGNS: The latest vital signs are heart rate 86, respiratory rate 15, blood pressure 132/73, oxygen saturation 98% on room air. HEENT: Normocephalic, atraumatic. NECK: No engorged vein. CHEST: Symmetric movement is seen. HEART: Regular rate and rhythm. ABDOMEN: Soft, nontender, and nondistended. Bowel sounds present. EXTREMITIES: Examination of the right lower extremity shows right knee swelling present. Mild warmth present. Knee range of motion is limited. Motor and sensory is grossly intact. Toes are warm and pink. Good capillary refill is present. Examination of the left knee again shows swelling more than the right knee. No bony tenderness. No bony crepitus. Compartments are soft and compressible. Motor and sensory is grossly intact. Toes are warm and pink. LABORATORY INVESTIGATIONS: Reviewed. DIAGNOSTIC STUDIES: CT scan of both knees shows changes of some arthritis present in the knee joint. ASSESSMENT AND PLAN: No fever, no chills. I had a detailed conversation with the patient regarding his condition and told the treatment options available including the risks and benefits of all the options available, including aspiration of the right knee joint. The patient verbalized understanding and said that he will get back to us for further care and management. Also, we will continue to follow the patient. TID: [id number] RECEIPT: [id number]
--- NOTE | 2025-08-11 13:19 | PN ---
PROBLEM LIST: 1. Acute streptococcal pharyngitis. 2. Acute complicated cystitis. 3. Severe sepsis. 4. Left knee joint effusion, questionable septic arthritis, being managed by Orthopedic Surgery. 5. Acute GI blood loss with melena, referred on this admission with bright red blood per rectum, pending assessment by GI. 6. Permanent atrial fibrillation with long-term anticoagulation with Xarelto, currently on hold due to GI bleed. 7. History of nonobstructive coronary artery disease by cardiac catheterization in 2012 with prior documentation of preserved LV systolic function. 8. Essential hypertension. 9. Hypoproteinemia. 10. History of hypothyroidism, on supplement. 11. Acute rhabdomyolysis, on presentation, resolved. 12. Underlying history of dementia with superimposed delirium and agitation with probable superimposed acute metabolic encephalopathy with electrolyte derangements. 13. Chronic kidney disease, stage 3. 14. History of gout. 15. Diabetes mellitus, type 2. 16. History of pancreatic cyst documented in 2021. 17. Echocardiography on this admission revealing an EF of 45-50%. This gentleman has been hospitalized predominantly because of his infectious disease and possible connective tissue issues. He has been fairly agitated intermittently and has been requiring medications for that. The patient has also had atrial fibrillation with rapid ventricular response, currently on diltiazem drip. He has been maintained on beta blockers as well and has been given 1 dose of digoxin. On assessing the patient this morning, he appears to have generalized discomfort. He basically has discomfort anywhere he is touched. He is currently afebrile, but had a low-grade temperature yesterday. His blood pressure has been in the 130 systolic range. He is saturated at 100% on room air. The patient's last lab studies yesterday revealed a white count of 20.7 with an H and H of 10.9 and 32.0 respectively with a platelet count of 370,000. Chemistry yesterday revealed a sodium of 138, potassium of 3.3 being addressed per protocol. The chloride is 103, CO2 is 29, BUN was 15, and creatinine 1.0 with a GFR of 79. The patient had a hemoglobin A1c of 6.3. His lactic acid was normal. The calcium was slightly low at 8.3, the magnesium was 2.4. Liver enzymes are essentially normal. The patient had a C-reactive protein of 199.3. His albumin was low at 2.0 consistent with significant protein malnutrition. Lipase was normal and the thyroid function was adequate. This gentleman is currently maintained on levothyroxine, p.r.n. diazepam, Maxipime, diltiazem, vancomycin, metoprolol, allopurinol, Zyprexa, pantoprazole, sucralfate, metoprolol on a p.r.n. basis, and additional p.r.n. medications. The patient's atrial fibrillation has been permanent. The drop in the ejection fraction is likely related to the rapid ventricular response episodes. The patient's predominant problem now is his possible infectious process. From the cardiac standpoint, I will increase the metoprolol to 75 q.6 in the hope of getting his heart rate under slightly better control. We will continue management as per the primary care team, Orthopedics, Infectious Disease, and GI. TID: [id number] RECEIPT: [id number]
--- NOTE | 2025-08-11 16:15 | NUR ---
DISCHARGE Discharge instructions given to patient and patient's brother, Kevin. Both verbalized knowledge and understanding. Report called to Naomi Rubio LVN. All questions/concerns addressed. Personal belongings verified to be back with patient. 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 Addendum: 08/11/25 at 1901 by ANITHA MATA RN RN PLEASE DISREGARD PREVIOUS NOTE WRONG PATIENT
--- NOTE | 2025-08-11 21:10 | PN ---
GASTROENTEROLOGY PROGRESS NOTE Date of Visit: Aug 11, 2025 Time of Visit: 21:09 Events / Notes: No acute events overnight. Hgb 10.9. EGD aborted due to arrhythmia. Plan of care discussed. Denies fever, chills, abdominal pain, N/V, hematemesis, bloating, constipation, diarrhea, melena or hematochezia. Review of Systems: CONSTITUTIONAL: No malaise or change in sensation of wellbeing. ENMT: No rhinorrhea, otorrhea, sinus pain, ear ache. CARDIOVASCULAR: No angina, palpitations, orthopnea or paroxysmal dyspnea. RESPIRATORY: No SOB. GASTROINTESTINAL: No abdominal pain, nausea, vomiting, diarrhea, hematemesis, melena or change in the patient's habitual bowel movements consistency/number. GENITOURINARY: No dysuria, hematuria or change in bladder continence. MUSCULOSKELETAL: No new muscle pain or decrease in muscular strength. No new joint swelling, redness or tenderness. SKIN: No new rash. Physical Exam: GEN: Awake, alert, oriented in person, time and place, and in no acute distress. HEENT: No rhinorrhea. Oral mucosa is pink, moist and within normal limits. CHEST: Lung auscultation revealed normal breath sounds bilaterally. CARDIAC:Heart sounds are regular. ABD: Soft, non-tender and not distended. No peritoneal signs on palpation. Normal bowel sounds. Last bm 08/06/25. EXT: No cyanosis or clubbing. No edema. SKIN: Intact. No rashes. NEURO: Alert and oriented to name, place and person.No focal motor deficits. Normal speech. Vital Signs (last 8hr) Date Time Temp Pulse Resp B/P (MAP) Pulse Ox O2 Delivery O2 Flow Rate FiO2 08/11/25 19:55 98.1 134 18 137/86 95 Room Air 08/11/25 19:55 134 08/11/25 16:00 98.1 90 20 120/83 98 Room Air 08/11/25 15:51 90 120/83 Laboratory: [ ] Laboratory: Test 08/11/25 19:55 08/11/25 03:46 08/10/25 07:54 08/10/25 03:36 Range/Units Whole Blood Glucose 146 H 70-110 MG/DL Procalcitonin 0.16 0.05-0.5 ng/mL Vancomycin Level Trough 18.7 # 10.0-20.0 UG/ML White Blood Count 20.7 #H 4.8-10.8 K/uL Red Blood Count 3.41 L 4.50-6.20 MIL/uL Hemoglobin 10.9 L 14.0-18.0 g/dL Hematocrit 32.0 L 42-54 % Mean Corpuscular Volume 93.8 79-99 fL Mean Corpuscular Hemoglobin 32.0 27.0-33.0 pg Mean Corpuscular Hemoglobin Concent 34.1 32.0-36.0 g/dL Red Cell Distribution Width 12.6 11.0-15.5 % Platelet Count 370 130-400 K/uL Mean Platelet Volume 10.3 7.5-10.5 fL Nucleated Red Blood Cells 0.0 0.0-0.19 % Sodium Level 138 136-145 mmol/L Potassium Level 3.3 L 3.5-5.1 mmol/L Chloride Level 103 101-111 mmol/L Carbon Dioxide Level 29 21-32 mmol/L Blood Urea Nitrogen 15 7-18 mg/dL Creatinine 1.0 0.5-1.3 mg/dL Glomerular Filtration Rate Calc 79 >90 mL/min Random Glucose 119 H 70-105 mg/dL Total Calcium 8.3 L 8.5-10.1 mg/dL Total Bilirubin 0.6 0.2-1.0 mg/dL Aspartate Amino Transf (AST/SGOT) 40 H 10-37 U/L Alanine Aminotransferase (ALT/SGPT) 66 # 12-78 U/L Alkaline Phosphatase 69 50-136 U/L Total Protein 6.0 6.0-8.3 g/dL Albumin 2.0 L 3.5-5.0 g/dL Thyroid Stimulating Hormone (TSH) 2.19 # 0.36-3.74 uIU/mL Free Thyroxine (T4) Direct 1.15 0.76-1.46 ng/dL Current Medications Medications (Trade) Dose Ordered Sig/Anish Route PRN Reason Start Time Stop Time Status Last Admin Dose Admin Acetaminophen (TYLenol 325MG TAB) 650 mg Q4H PRN PO MILD PAIN (1-3) 08/03/25 00:30 08/03/25 02:29 DC Acetaminophen (TYLenol 325MG TAB) 650 mg Q6H PRN PO PAIN LEVEL 1 TO 3 08/03/25 00:30 09/02/25 00:29 08/11/25 09:53 650 MG Acetaminophen (TYLenol 650MG ELIXIR) 650 mg Q6H PRN PEG MILD PAIN (1-3) 08/03/25 02:30 08/11/25 08:38 DC 08/08/25 07:04 650 MG Acetaminophen (TYLenol 650MG ELIXIR) 650 mg Q6H PRN PO MILD PAIN (1-3) 08/11/25 14:30 09/10/25 14:29 Al Hydroxide/Mg Hydroxide (MAALox PLUS 30ML) 30 ml Q6H PRN PO INDIGESTION 08/03/25 00:30 09/02/25 00:29 Allopurinol (ZYLOprim 100MG) 100 mg TID PO 08/06/25 14:00 09/05/25 13:59 08/11/25 17:05 100 MG Benzocaine (Cepacol Sore Throat Lozenge) 1 each Q4H PRN MM SORE THROAT 08/03/25 10:30 09/02/25 10:29 08/03/25 11:55 1 EACH Cefepime HCl (MAXipime 1 GM vial) 1 gm Q12H IVPB 08/09/25 19:30 08/17/25 07:29 08/11/25 08:18 1 GM Cefepime HCl (MAXipime 1 GM vial) 1 gm Q8H IVPB 08/07/25 07:30 08/09/25 07:17 DC 08/09/25 07:00 1 GM Ceftriaxone Sodium (Rocephin 2gm Inj) 2 gm Q24H IVPB 08/03/25 00:30 08/07/25 07:28 DC 08/07/25 01:39 2 GM Dextrose (D50w) 50 ml AD PRN IV HYPOGLYCEMIA PROTOCOL 08/03/25 00:30 09/02/25 00:29 Diazepam (VALium 5 MG/ML 2 ML SYG) 5 mg AM PRN IV AGITATION/PSYCHOSIS 08/09/25 15:30 08/16/25 15:29 08/11/25 03:46 5 MG Diazepam (VALium 5 MG/ML 2 ML SYG) 5 mg HS IV 08/09/25 21:00 08/16/25 20:59 Diltiazem HCl (CARDIzem 25MG INJ) 10 mg ONCE PRN IVP CARDIZEM PROTOCOL 08/07/25 15:00 08/07/25 15:00 DC Diltiazem HCl (CARDIzem 60MG TAB) 30 mg Q6H PO 08/08/25 08:00 08/08/25 11:00 DC 08/08/25 07:59 30 MG Diltiazem HCl 125 mg/Sodium Chloride 125 ml @ 0 mls/hr AD PRN IV CARDIZEM PROTOCOL 08/07/25 15:00 08/07/25 14:59 DC Diltiazem HCl 125 mg/Sodium Chloride 125 ml @ 0 mls/hr AD PRN IV CARDIZEM PROTOCOL 08/08/25 11:00 09/07/25 10:59 08/11/25 15:51 15 MLS/HR Diltiazem HCl 125 mg/Sodium Chloride 125 ml @ 0 mls/hr PROTOCOL IV 08/02/25 22:00 08/04/25 12:58 DC 08/04/25 02:49 0 MLS/HR Doxycycline Hyclate 250 ml @ 125 mls/hr Q12H IV 08/08/25 08:00 08/18/25 07:59 08/11/25 08:38 125 MLS/HR Famotidine (Pepcid 20mg Tab) 20 mg DAILY PO 08/03/25 09:00 08/04/25 12:54 DC 08/04/25 09:42 20 MG Glucagon (Glucagon 1mg Kit) 1 mg AD PRN IM HYPOGLYCEMIA PROTOCOL 08/03/25 00:30 09/02/25 00:29 Guaifenesin/ Dextromethorphan (RobiTUSSin DM 200/20MG 10ML) 10 ml Q4H PRN PO COUGH 08/03/25 00:30 09/02/25 00:29 08/05/25 16:31 10 ML Heparin Sodium (Porcine) (HEParin 5,000 UNIT VIAL) 5,000 unit Q12H SQ 08/03/25 00:30 08/03/25 10:08 DC 08/03/25 00:42 5,000 UNIT Insulin Human Regular (humuLIN R 100 UNIT/ML 3ML) INSULIN SLIDING SCAL... ACHS SQ 08/03/25 07:30 09/02/25 07:29 08/10/25 21:24 6 UNIT Lactated Ringer's 1,000 ml @ 50 mls/hr Q20H IV 08/03/25 00:30 08/10/25 10:11 DC 08/09/25 08:47 50 MLS/HR Lactulose (Constulose 20gm/ 30ml Udcup) 20 gm BID PRN PO CONSTIPATION 08/03/25 00:30 09/02/25 00:29 08/11/25 08:38 20 GM Levothyroxine Sodium (SYNTHroid 25MCG TAB) 25 mcg DAILY@0630 PO 08/10/25 06:30 09/09/25 06:29 08/11/25 06:08 25 MCG Lidocaine (Lidocaine Patch 4%) 1 each Q24H TP 08/07/25 16:30 09/06/25 16:29 08/11/25 17:01 1 EACH Magnesium Sulfate 50 ml @ 0 mls/hr PROTOCOL IV 08/08/25 08:00 08/08/25 07:36 DC Magnesium Sulfate 50 ml @ 0 mls/hr PROTOCOL PRN IV MAGNESIUM PROTOCOL 08/04/25 12:00 09/03/25 11:59 08/08/25 06:10 25 MLS/HR Metoprolol Tartrate (loprESSOR) 5 mg ONCE IV 08/07/25 17:00 08/07/25 21:00 DC 08/07/25 16:53 5 MG Metoprolol Tartrate (loprESSOR) 5 mg Q6H PRN IV INCREASED HEART RATE >120 BPM 08/04/25 17:00 09/03/25 16:59 08/11/25 19:55 5 MG Metoprolol Tartrate (loprESSOR) 25 mg BID PO 08/03/25 09:00 08/07/25 15:00 DC 08/07/25 13:10 25 MG Metoprolol Tartrate (loprESSOR) 50 mg ONCE PO 08/07/25 17:00 08/07/25 21:00 DC 08/07/25 16:53 50 MG Metoprolol Tartrate (loprESSOR) 50 mg Q6H PO 08/07/25 19:00 08/11/25 08:04 DC 08/11/25 00:59 50 MG Metoprolol Tartrate (loprESSOR) 75 mg Q6H PO 08/11/25 08:30 09/10/25 08:29 08/11/25 17:05 75 MG Nitroglycerin (Nitrostat) 0.4 mg PROTOCOL PRN SL CHEST PAIN 08/03/25 00:30 09/02/25 00:29 Olanzapine (ZyPREXA 10MG/ML 1ML Vial) 5 mg DAILY PRN IM AGITATION 08/05/25 17:30 09/04/25 17:29 08/08/25 20:21 5 MG Ondansetron HCl (zoFRAN 4MG INJ) 4 mg Q6H PRN IV NAUSEA/VOMITING 08/03/25 00:30 09/02/25 00:29 Pantoprazole Sodium (PROTonix 40MG INJ) 40 mg BID IVP 08/04/25 21:00 09/03/25 20:59 08/11/25 08:18 40 MG Pantoprazole Sodium (PROTonix 40MG TAB) 40 mg BID PO 08/04/25 21:00 08/04/25 12:57 DC Potassium Chloride 100 ml @ 100 mls/hr AD PRN IV POTASSIUM PROTOCOL 08/04/25 12:00 09/03/25 11:59 08/09/25 17:00 100 MLS/HR Potassium Chloride (K-Dur/Klor-Con 20meq) 20 meq AD PRN PO POTASSIUM PROTOCOL 08/04/25 12:00 09/03/25 11:59 08/05/25 16:31 20 MEQ Potassium Chloride (KCl 10% Elixir 20meq/15ml) 20 meq AD PRN PO POTASSIUM PROTOCOL 08/04/25 12:00 09/03/25 11:59 08/08/25 06:10 20 MEQ Prednisone (deltaSONE/ oraSONE 20MG TAB) 20 mg DAILY PO 08/05/25 17:00 08/10/25 10:08 DC 08/10/25 09:12 20 MG Rivaroxaban (Xarelto) 15 mg DAILY PO 08/04/25 09:00 08/05/25 11:54 DC 08/04/25 09:42 15 MG Sucralfate (Carafate) 1 gm BID PO 08/04/25 21:00 09/03/25 20:59 08/11/25 08:17 1 GM Tramadol HCl (UltRAM) 50 mg Q6H PRN PO MODERATE PAIN (4-6) 08/06/25 19:30 08/10/25 10:33 DC 08/09/25 10:30 50 MG Vancomycin HCl 250 ml @ 125 mls/hr Q12H IV 08/07/25 21:00 08/11/25 17:08 DC 08/11/25 11:14 125 MLS/HR Vancomycin HCl (Vancomycin Protocol) 1 each AD IV 08/07/25 07:30 08/21/25 07:29 Diagnostics / Radiology: [COPY/PASTE HERE IF NO REPORTS PLEASE DELETE SECTION] Assessment: [ Melena Acute Gi blood loss Afib on xarelto STrep A positive] Plan: Continue GI prophylaxis Advance diet as tolerated Avoid NSAIDs Antireflux measures Monitor H&H and transfuse as needed Call with questions, concerns or change in clinical status Patient to follow-up at clinic post discharge Thank you for this consult DEBBIE KIMBROUGH SPECIAL NEEDS BABYSITTER Aug 11, 2025 21:10
[2025-08-11 21:51] LABS: CREATININE 1.7 mg/dL (0.5-1.3); GLOMERULAR FILTR. RATE CALC 42.0 mL/min (>90); GLUCOSE,RANDOM 164.0 mg/dL (70-105); SODIUM SERUM 138.0 mmol/L (136-145); UREA NITROGEN, BLOOD 21.0 mg/dL (7-18)
[2025-08-11 21:54] LABS: PHOSPHORUS 3.6 mg/dL (2.5-4.9)
[2025-08-12] VITALS (10 sets, daily range): BP systolic 114–136; BP diastolic 65–98; PULSE 81–140; RESP 18–22; TEMP 97.8–99.1; O2SAT 97
--- NOTE | 2025-08-12 00:06 | NUR ---
PER TELE FULL TIME BABYSITTER PATIENT CONVERTED TO SINUS RHYTHM 80s. CARDIZEM DRIP TO BE STOPPED DUE TO CONVERSION TO SINUS RHYTHM.
--- NOTE | 2025-08-12 00:52 | NUR ---
PER TELE RADIO/TV TECHNICIAN, PATIENT CONVERTED BACK TO AFIB 120s. WILL RESTART ON IV DRIP CARDIZEM @ 10MG/HR.
--- NOTE | 2025-08-12 01:19 | NUR ---
@2128PM 08/11/[address] Mitra HOYOS, REPORTED AFIB IN 160s DESPITE ON CARDIZEM 15MG/HR IV, STATED TO ORDER METOPROLOL 5MG IV PUSH Q5MIN X3 IF HEART RATE GREATER THAN 110, ORDERS Q4HRS PRN.
--- NOTE | 2025-08-12 06:59 | EKG ---
[facility] Test Date: 2025-08-11 Test Time: 21:20:53 Pat Name: LADARIUS CARTER Department: 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
--- NOTE | 2025-08-12 07:54 | NUR ---
dr. crowley rounded this am. stated to d/c metoprolol tartrate 75mg po q6hrs, start on metoprolol tartrate 200mg bid.
[2025-08-12] MEDS ORDERED: COMPOUND IV REFRIGERATED 1 EACH IVSOLN MISC PRN (08:00)
[2025-08-12] MEDS ORDERED: COMPOUND IV MISC 1 EACH IVSOLN MISC PRN (08:00)
[2025-08-12 09:52] LABS: IMMATURE GRANULOCYTE ABSOLUTE 0.17 K/uL (0-1); NUCLEATED RED BLOOD CELLS 0.0 % (0.0-0.19); PLATELET COUNT (AUTO) 333 K/uL (130-400); RED BLOOD CELL COUNT(AUTO) 3.78 MIL/uL (4.50-6.20); RED CELL DISTRIBUTION WIDTH 13.0 % (11.0-15.5); WHITE BLOOD COUNT (AUTO) 18.1 K/uL (4.8-10.8)
--- NOTE | 2025-08-12 12:10 | NUR ---
CARDIZEM DRIP WAS DC'D AFTER HEART RATE DOWN TO 70'S AND WILL CONTINUE TO MONITOR HEART RATE. REMAINS IN A FIB.
--- NOTE | 2025-08-12 13:15 | NUR ---
PT CONVERTED TO RSR AND WILL CONTINUE TO MONITOR HEART RATE AND RHYTHM.
--- NOTE | 2025-08-12 14:32 | PN ---
[facility] PROGRESS NOTE Date Patient Seen: Aug 12, 2025 Time of Visit: 14:32 Supervising Physician: Dr Sabino Williamson Primary Care Physician: Dr. Doris Vela Inpatient Consults: [facility], GI, Dr. Anderson (Orthopedic surgeon) PROBLEM LIST: Atrial fibrillation with RVR on Xarelto (on hold), CHADS2-VASc 5 points, HAS- BLED 4 points+ Acute streptococcal pharyngitis Acute complicated cystitis Severe sepsis due to above Acute GI bleed (+) melena Acute blood loss anemia Acute rhabdomyolysis, resolved Acute delirium in patient with dementia Acute metabolic encephalopathy in patient with dementia Electrolyte derangement (Hypokalemia) Left knee swelling with moderate joint effusion is seen per CT knee, rule out septic arthritis Febrile illness, not POA GOUT CKD stage III Diabetes mellitus type 2 History of pancreatic cyst since 2021, negative biopsy per family Dementia INTERVAL HISTORY: Patient was seen and examined, all labs and imaging have been reviewed, patient's rate is more controlled, did require continued adjustments to the Cardizem as well as increasing his beta-yovany to 200 mg b.i.d. Patient is awake and following simple commands continues to be confused, secondary to dementia and has a sitter at bedside GI we will hold off on any type of EGD, possible outpatient Patient continues on antibiotics, we are following cultures Chest x-ray revealed improvement, good saturations on room air, blood pressure is 123/98 with a heart rate in the 1 teens PLAN: Continue on antibiotics, supplemental O2, nebulizer treatments Follow specialty recs Orthopedic recs Follow GI recs Follow cardiology recs - adjustments to antihypertensive Telemetry Total critical care time spent 41 minutes, time excludes any procedures or educational time. Patient requiring adjustments to antihypertensives along with antiarrhythmics. Telemetry and is at high risk for decompensation. REVIEW OF SYSTEMS: Unable due to mental status PHYSICAL EXAM: GENERAL: 75 year old male on room air. NAD. HEENT: EOMI, Sclera non icteric, moist mucosa NECK: no JVD LUNGS: Clear breath sounds bilaterally. No wheezes HEART: Regular rate and rhythm. Normal S1 and S2, without murmurs ABD: Abdomen soft, nontender. Bowel sounds present EXT: No clubbing cyanosis or edema (+) left knee warm to to touch, swelling noted. NEURO: Alert and oriented to person, follows commands Vital Signs (last 8hr) Date Time Temp Pulse Resp B/P (MAP) Pulse Ox O2 Delivery O2 Flow Rate FiO2 08/12/25 11:25 98.1 82 20 114/70 96 Room Air 08/12/25 07:00 97.9 117 20 123/98 97 Room Air LABS: Hematology Labs: Test 08/12/25 09:48 Range/Units White Blood Count 18.1 H 4.8-10.8 K/uL Red Blood Count 3.78 L 4.50-6.20 MIL/uL Hemoglobin 12.4 L 14.0-18.0 g/dL Hematocrit 35.9 L 42-54 % Mean Corpuscular Volume 95.0 79-99 fL Mean Corpuscular Hemoglobin 32.8 27.0-33.0 pg Mean Corpuscular Hemoglobin Concent 34.5 32.0-36.0 g/dL Red Cell Distribution Width 13.0 11.0-15.5 % Platelet Count 333 130-400 K/uL Mean Platelet Volume 9.7 7.5-10.5 fL Immature Granulocyte % (Auto) 0.9 0-1 % Neutrophils (%) (Auto) 90.7 H 40.0-77.0 % Lymphocytes (%) (Auto) 3.2 L 21.0-51.0 % Monocytes (%) (Auto) 4.8 3.0-13.0 % Eosinophils (%) (Auto) 0.2 0.0-8.0 % Basophils (%) (Auto) 0.2 0.0-5.0 % Neutrophils # (Auto) 16.4 H 1.8-7.7 K/uL Lymphocytes # (Auto) 0.6 L 1.0-4.8 K/uL Monocytes # (Auto) 0.9 0.1-1.0 K/uL Eosinophils # (Auto) 0.04 0.00-0.70 K/uL Basophils # (Auto) 0.04 0.00-0.20 K/uL Absolute Immature Granulocyte (auto 0.17 0-1 K/uL Nucleated Red Blood Cells 0.0 0.0-0.19 % White Cell Morphology Comment See comments Chemistry Labs: Test 08/12/25 11:05 08/11/25 21:35 08/11/25 03:46 Range/Units Whole Blood Glucose 182 H 70-110 MG/DL Sodium Level 138 136-145 mmol/L Potassium Level 3.6 3.5-5.1 mmol/L Chloride Level 104 101-111 mmol/L Carbon Dioxide Level 26 21-32 mmol/L Blood Urea Nitrogen 21 H 7-18 mg/dL Creatinine 1.7 H 0.5-1.3 mg/dL Glomerular Filtration Rate Calc 42 >90 mL/min Random Glucose 164 H 70-105 mg/dL Total Calcium 8.2 L 8.5-10.1 mg/dL Phosphorus Level 3.6 2.5-4.9 mg/dL Magnesium Level 2.00 1.80-2.40 mg/dL Procalcitonin 0.16 0.05-0.5 ng/mL DIAGNOSTICS / RADIOLOGY RESULTS: [ ] PLAN NEURO: Minimize central acting medications as possible. Fall Precautions. Well lighted room through the day and minimize interruptions through the night to prevent acute delirium. PULMONARY: Supplemental 02 as needed Titrate Fio2 to keep Spo2 > or = 90% DuoNebs and CPT as needed IS hourly while awake for pulmonary hygiene Out of bed to chair as tolerated CARDIOVASCULAR: Follow hemodynamics. Titrate vasopressor to keep MAP >65 or systolic blood pressure >95mmHg DRIPS: cardizem LINES: PIV GI & NUTRITION: Continue nutritional support Aspirations precautions Prokinetic agents and laxatives as needed KIDNEYS & ELECTROLYTES: Strict monitoring of intake and output Daily weights Avoid nephrotoxic agents Monitor electrolytes and replace as needed Goal urine output of 30mL/hr or 0.5mL/kg/hr ENDOCRINE: Maintain blood glucose between 100-180 at all times. Insulin sliding scale for blood glucose management INFECTIOUS DISEASE: Trend temperature. Powell-culture if febrile. Micro: [ ] Antibiotics: [ ] cefepime doxy and vanco HEMATOLOGY & COAGULATION: Monitor H&H. Keep Hgb > 7 Transfuse 1 unit of PRBC for Hgb < 7 Transfuse 1 pack of platelets of platelets < 20, 000 Watch for any signs and symptoms of bleeding SKIN: Pressure ulcer prevention per facility protocol Rehab: PT/OT Prophylaxis: GI: [Protonix ] DVT: [SCD ] Code Status: Full Resuscitation Disposition: TBD Case was discussed and seen with my supervising physician. The above plan was formulated and agreed upon. NUSRAT RICK PAC Aug 12, 2025 14:32
--- NOTE | 2025-08-12 23:46 | NUR ---
@2335PM WAS REPORTED BY STOCKROOM CLERK JANICE THAT PATIENT CONVERTED BACK TO AFIB 120 TO 140s. @ 2345pm WAS REPORTED BY STOCKROOM CLERK THAT PATIENT IS GOING IN AND OUT OF SINUS RHYTHM AND AFIB 120 TO 130s. PAGED BENCHMARK AT THIS TIME. PENDING CALL BACK.
[2025-08-13] VITALS (11 sets, daily range): BP systolic 112–144; BP diastolic 63–84; PULSE 63–99; RESP 16–20; TEMP 97.4–98.1; O2SAT 99–100
--- NOTE | 2025-08-13 00:11 | NUR ---
Patient restarted on cardizem iv drip at 15mg/hr. in afib 140 To 150s sustaining despite prn metoprolol 5mg iv x1 given.
[2025-08-13 01:00] LABS: IMMATURE GRANULOCYTE ABSOLUTE 0.08 K/uL (0-1); NUCLEATED RED BLOOD CELLS 0.0 % (0.0-0.19); PLATELET COUNT (AUTO) 255 K/uL (130-400); RED BLOOD CELL COUNT(AUTO) 3.54 MIL/uL (4.50-6.20); RED CELL DISTRIBUTION WIDTH 12.9 % (11.0-15.5); WHITE BLOOD COUNT (AUTO) 14.2 K/uL (4.8-10.8)
[2025-08-13 01:17] LABS: ASPARTATE AMINOTRANSFERASE 34.0 U/L (10-37); CREATININE 1.3 mg/dL (0.5-1.3); GLOMERULAR FILTR. RATE CALC 58.0 mL/min (>90); GLUCOSE,RANDOM 157.0 mg/dL (70-105); INR 1.19 (0.85-1.15); PHOSPHORUS 3.4 mg/dL (2.5-4.9); SODIUM SERUM 139.0 mmol/L (136-145); TOTAL PROTEIN, SERUM 5.9 g/dL (6.0-8.3); UREA NITROGEN, BLOOD 25.0 mg/dL (7-18)
--- NOTE | 2025-08-13 01:55 | NUR ---
@0130am Received call back from dr. Mitra elise. Reported sustaining heart rate in 150s as per monitoring tech tech- atrial flutter. Despite giving metoprolol 5mg iv x1, restarting cardizem 15mg/hr (15ml/hr) iv patient heart rate still continued to sustain from 140 to 150s. Ekg done per protocol reported to Dr. Mitra Elise. Advised md that patient is already on an increased dose of metoprolol tartrate 200mg q12hrs. Received orders from MD, to discontinue cardizem and start patient amiodarone iv infusion with bolus as per protocol.
[2025-08-13] MEDS: AMIOdarone 150MG/100ML BAG 100 ML IV SCH (02:09)
--- NOTE | 2025-08-13 02:09 | NUR ---
stopped iv cardizem per md orders. amiodarone iv bolus to be initiated.
--- NOTE | 2025-08-13 02:28 | NUR ---
ORDERS FROM , IF CONTINUES TACHY START ON IV AMIODARONE IV INFUSION. WHEN I WAS ABOUT TO START AMIODARONE IV INFUSION RECEIVED CALL FROM TELEMETRY STATING PATIENT HAD ALREADY GONE DONE TO AFIB 90s, low afib 100s.
[2025-08-13] MEDS: AMIODARONE 360MG/200ML BAG 200 ML IV SCH (05:06)
--- NOTE | 2025-08-13 05:13 | EKG ---
[facility] Test Date: 2025-08-13 Test Time: 01:00:46 Pat Name: LADARIUS CARTER Department: 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 Lift Operator: SHADIA : 1950 Requested By: BENEDICTO HOYOS Order Number: [id number] Reading MD: Irish Cui Measurements Intervals [place] Rate: 154 P: 69 IA: 190 QRS: 62 QRSD: 100 T: -49 QT: 218 QTc: 349 Interpretive Statements Sinus tachycardia ST & T wave abnormality, consider inferior ischemia Compared to ECG 08/11/2025 21:20:53 ST (T wave) deviation now present Possible ischemia now present Atrial fibrillation no longer present Ventricular premature complex(es) no longer present Electronically Signed On 08-14-2025 12:34:39 [employer] by Irish Cui Please click the below link to view image of tracing.
--- NOTE | 2025-08-13 07:03 | NUR ---
dr carline ying. ordered amiodarone 200mg po bid. also chaitanya to continue amiodarone iv drip.
--- NOTE | 2025-08-13 07:17 | PN ---
PROBLEM LIST: 1. Acute streptococcus pharyngitis. 2. Acute complicated cystitis. 3. Sepsis. 4. Left knee pain with joint effusion, questionable septic arthritis, being managed by Orthopedic Surgery. 5. Acute GI bleed with blood loss and melena and bright red blood per rectum, being evaluated by GI. 6. Permanent paroxysmal atrial fibrillation with periods of rapid ventricular response, on anticoagulation with Xarelto, currently on hold due to GI bleed. 7. History of nonobstructive coronary artery disease by prior cardiac catheterization with documentation of preserved LV systolic function by prior assessment. 8. History of essential hypertension. 9. Hyperlipoproteinemia. 10. History of hypothyroidism, on supplements with adequate assessment of the thyroid function on this admission. 11. Acute rhabdomyolysis on presentation, resolved. 12. History of underlying dementia with superimposed delirium with agitation with superimposed metabolic encephalopathy due to electrolyte derangements. 13. Chronic kidney disease, stage 3. 14. History of gout. 15. Diabetes mellitus, type 2. 16. History of pancreatic cyst documented in 2021. 17. Echocardiography on this admission, documenting an EF of 45-50%. This gentleman has been hospitalized predominantly because of sepsis. The patient has had multiple episodes of atrial fibrillation with rapid ventricular response. He had converted back to a sinus mechanism but is currently in AFib with RVR again. Last night, he was started on amiodarone and he had been placed on diltiazem drip once more because of his rapid rate. On assessing the patient this morning, he states that he feels better and he is not having any pain. His left knee appears to be less painful than previously. His vital signs are currently stable with heart rates in the 85-100 per minute range. His blood pressure is 110-135 systolic range. He is saturating at 99% on room air. He is afebrile. The patient's laboratory studies this morning revealed a sodium of 139, potassium is 3.3, being managed per protocol. The chloride is 108, CO2 of 24, BUN is 25, creatinine is 1.3 with a GFR of 58. The patient's calcium is low at 8.3; however, his albumin is quite low at 1.9, commensurate with his hypocalcemia with a total protein of 5.9. The ALT is elevated at 161, but the rest of the liver enzymes appear to be in adequate range. The patient's white count this morning is 14.2 down from 20.7 on the 2nd. His H and H is 11.4 and 33.3 respectively. The current platelet count is 255,000. The patient is currently maintained on amiodarone per protocol with IV drip, he is on metoprolol at 200 every 12 hours. He is on diltiazem drip for rate control. He is on levothyroxine at 25 mcg daily. He is on Maxipime, doxycycline, allopurinol, Zyprexa, pantoprazole, sucralfate, and additional p.r.n. medications. At this point, from the cardiac standpoint, we will continue the current management. I will start the patient on oral amiodarone. Once his IV amiodarone can be discontinued after the protocol has been infused, we will utilize oral amiodarone. The patient will be managed because of his other comorbid conditions. His long-term prognosis appears to be guarded given his multiple problems as outlined above. TID: [id number] RECEIPT: [id number]
--- NOTE | 2025-08-13 10:15 | PN ---
[facility] PROGRESS NOTE Date Patient Seen: Aug 13, 2025 Time of Visit: 10:15 Supervising Physician: Dr Sabino Williamson Primary Care Physician: Dr. Doris Vela Inpatient Consults: [facility], GI, Dr. Anderson (Orthopedic surgeon) PROBLEM LIST: Atrial fibrillation with RVR on Xarelto (on hold), CHADS2-VASc 5 points, HAS- BLED 4 points+ Acute streptococcal pharyngitis Acute complicated cystitis Severe sepsis due to above Acute GI bleed (+) melena Acute blood loss anemia Acute rhabdomyolysis, resolved Acute delirium in patient with dementia Acute metabolic encephalopathy in patient with dementia Electrolyte derangement (Hypokalemia) Left knee swelling with moderate joint effusion is seen per CT knee, rule out septic arthritis Febrile illness, not POA GOUT CKD stage III Diabetes mellitus type 2 History of pancreatic cyst since 2021, negative biopsy per family Dementia INTERVAL HISTORY: Patient was seen and examined, all labs and imaging have been reviewed, patient is now off Cardizem, started on amnio drip Oral amnio is already scheduled to start, he is on metoprolol 200 mg b.i.d. and his heart rate is in the 60s and 70s Patient is awake alert and at his baseline, he has a sitter at bedside to redirect Nursing reports no acute events overnight He is afebrile Good saturations on room air Vital signs improved PLAN: Patient will continue on antibiotics We will continue with nebulizer treatments We are following cardiology recommendations adjustments to his antihypertensives and antiarrhythmics. We will convert from amiodarone drip to oral Remains on telemetry Follow specialty recs Total critical care time spent 38 minutes, time excludes any procedures or educational time. Patient requiring adjustments to antihypertensives along with antiarrhythmics. Telemetry and is at high risk for decompensation. REVIEW OF SYSTEMS: Unable due to mental status PHYSICAL EXAM: GENERAL: 75 year old male on room air. NAD. HEENT: EOMI, Sclera non icteric, moist mucosa NECK: no JVD LUNGS: Clear breath sounds bilaterally. No wheezes HEART: Regular rate and rhythm. Normal S1 and S2, without murmurs ABD: Abdomen soft, nontender. Bowel sounds present EXT: No clubbing cyanosis or edema (+) left knee warm to to touch, swelling noted. NEURO: Alert and oriented to person, follows commands Vital Signs (last 8hr) Date Time Temp Pulse Resp B/P (MAP) Pulse Ox O2 Delivery O2 Flow Rate FiO2 08/13/25 08:33 97.9 75 20 139/67 100 Room Air 08/13/25 08:00 99 Room Air* 0 21 08/13/25 03:08 97.9 83 20 112/84 99 Room Air 08/13/25 02:20 99 LABS: Hematology Labs: Test 08/13/25 00:20 08/12/25 09:48 Range/Units White Blood Count 14.2 H 4.8-10.8 K/uL Red Blood Count 3.54 L 4.50-6.20 MIL/uL Hemoglobin 11.4 L 14.0-18.0 g/dL Hematocrit 33.3 L 42-54 % Mean Corpuscular Volume 94.1 79-99 fL Mean Corpuscular Hemoglobin 32.2 27.0-33.0 pg Mean Corpuscular Hemoglobin Concent 34.2 32.0-36.0 g/dL Red Cell Distribution Width 12.9 11.0-15.5 % Platelet Count 255 130-400 K/uL Mean Platelet Volume 9.8 7.5-10.5 fL Immature Granulocyte % (Auto) 0.6 0-1 % Neutrophils (%) (Auto) 83.5 H 40.0-77.0 % Lymphocytes (%) (Auto) 8.9 L 21.0-51.0 % Monocytes (%) (Auto) 6.1 3.0-13.0 % Eosinophils (%) (Auto) 0.8 0.0-8.0 % Basophils (%) (Auto) 0.1 0.0-5.0 % Neutrophils # (Auto) 11.8 H 1.8-7.7 K/uL Lymphocytes # (Auto) 1.3 1.0-4.8 K/uL Monocytes # (Auto) 0.9 0.1-1.0 K/uL Eosinophils # (Auto) 0.12 0.00-0.70 K/uL Basophils # (Auto) 0.02 0.00-0.20 K/uL Absolute Immature Granulocyte (auto 0.08 0-1 K/uL Nucleated Red Blood Cells 0.0 0.0-0.19 % White Cell Morphology Comment See comments Chemistry Labs: Test 08/13/25 06:13 08/13/25 00:20 Range/Units Whole Blood Glucose 163 H 70-110 MG/DL Sodium Level 139 136-145 mmol/L Potassium Level 3.3 L 3.5-5.1 mmol/L Chloride Level 108 101-111 mmol/L Carbon Dioxide Level 24 21-32 mmol/L Blood Urea Nitrogen 25 H 7-18 mg/dL Creatinine 1.3 0.5-1.3 mg/dL Glomerular Filtration Rate Calc 58 >90 mL/min Random Glucose 157 H 70-105 mg/dL Total Calcium 8.3 L 8.5-10.1 mg/dL Phosphorus Level 3.4 2.5-4.9 mg/dL Magnesium Level 2.10 1.80-2.40 mg/dL Total Bilirubin 0.5 0.2-1.0 mg/dL Aspartate Amino Transf (AST/SGOT) 34 10-37 U/L Alanine Aminotransferase (ALT/SGPT) 161 H 12-78 U/L Alkaline Phosphatase 110 50-136 U/L Total Protein 5.9 L 6.0-8.3 g/dL Albumin 1.9 L 3.5-5.0 g/dL Coagulation Labs: Test 08/13/25 00:20 Range/Units Prothrombin Time 12.4 H 9.6-11.6 SEC Prothromb Time International Ratio 1.19 H 0.85-1.15 Activated Partial Thromboplast Time 35.6 H 26.3-35.5 SEC DIAGNOSTICS / RADIOLOGY RESULTS: [ ] Plan: NEURO: Minimize central acting medications as possible. Maintain fall precautions, adequate lighting during the day PULMONARY: Supplemental 02 as needed. Maintain aspiration precautions at all times CARDIOVASCULAR: Follow hemodynamics. Vital signs per facility protocol Cardiology consult pending anticipation for further recommendations GI & NUTRITION: Continue with nutritional support. Continue stool softeners and laxatives as needed. KIDNEYS & ELECTROLYTES: Strict monitoring of intake, output and overall fluid balance. Avoid nephrotoxic medications to the extent possible. Medications to be dosed according to renal function. Monitor electrolytes and replace as needed ENDOCRINE: Maintain blood glucose between 100-180 at all times. Hypoglycemia protocol in place INFECTIOUS DISEASE: Trend temperature, WBC and procalcitonin level Follow cultures, deescalate antibiotics as soon as possible. Panculture if new onset fever ONCOLOGY/HEMATOLOGY/COAGULATION: Monitor for s/s of bleeding Monitor hemoglobin, coagulation studies as needed SKIN: Pressure ulcer prevention per facility protocol Specialty mattress ORTHO/REHAB: Continue PT/OT Prophylaxis: Continue GI and DVT prophylaxis Code Status: Full Resuscitation Disposition: NUSRAT MITCHELL PAC Aug 13, 2025 10:15
--- NOTE | 2025-08-13 20:06 | NUR ---
PATIENT ASLEEP. RESPIRATIONS EVEN AND UNLABORED. HELD VALIUM AT THIS TIME.
[2025-08-14] VITALS (9 sets, daily range): BP systolic 107–147; BP diastolic 59–78; PULSE 60–151; RESP 16–20; TEMP 97.7–99.2; O2SAT 99–100
[2025-08-14 03:52] LABS: IMMATURE GRANULOCYTE ABSOLUTE 0.12 K/uL (0-1); NUCLEATED RED BLOOD CELLS 0.0 % (0.0-0.19); PLATELET COUNT (AUTO) 246 K/uL (130-400); RED BLOOD CELL COUNT(AUTO) 3.59 MIL/uL (4.50-6.20); RED CELL DISTRIBUTION WIDTH 12.7 % (11.0-15.5); WHITE BLOOD COUNT (AUTO) 15.3 K/uL (4.8-10.8)
[2025-08-14 04:13] LABS: ASPARTATE AMINOTRANSFERASE 18.0 U/L (10-37); CREATININE 1.6 mg/dL (0.5-1.3); GLOMERULAR FILTR. RATE CALC 45.0 mL/min (>90); GLUCOSE,RANDOM 122.0 mg/dL (70-105); SODIUM SERUM 139.0 mmol/L (136-145); TOTAL PROTEIN, SERUM 6.3 g/dL (6.0-8.3); UREA NITROGEN, BLOOD 26.0 mg/dL (7-18)
--- NOTE | 2025-08-14 08:52 | PN ---
[facility] CARDIOLOGY PROGRESS NOTE Date Patient Seen: Aug 14, 2025 Time of Visit: 08:49 Interval History: Patient with 1:1 sitter No acute issues overnight Physical Examination: GENERAL: [No acute distress.] LUNGS: [Clear breath sounds bilaterally. On room air No wheezes, or rhonchi.] HEART: Irregularly irregular rhythm.. Tachycardic. Normal S1 and S2 without murmurs, gallop or rub.] VASC: [Peripheral pulses +2 bilaterally.] ABD: [Soft, nontender EXT: [No cyanosis or edema.] SKIN: [No rashes or lesions noted.] NEURO: [Awake, alert, and oriented x3. No focal sensory or strength deficits noted.] Laboratory: [ ] Hematology Labs: Test 08/14/25 03:23 08/12/25 09:48 Range/Units White Blood Count 15.3 H 4.8-10.8 K/uL Red Blood Count 3.59 L 4.50-6.20 MIL/uL Hemoglobin 11.6 L 14.0-18.0 g/dL Hematocrit 34.3 L 42-54 % Mean Corpuscular Volume 95.5 79-99 fL Mean Corpuscular Hemoglobin 32.3 27.0-33.0 pg Mean Corpuscular Hemoglobin Concent 33.8 32.0-36.0 g/dL Red Cell Distribution Width 12.7 11.0-15.5 % Platelet Count 246 130-400 K/uL Mean Platelet Volume 10.1 7.5-10.5 fL Immature Granulocyte % (Auto) 0.8 0-1 % Neutrophils (%) (Auto) 84.7 H 40.0-77.0 % Lymphocytes (%) (Auto) 7.1 L 21.0-51.0 % Monocytes (%) (Auto) 6.7 3.0-13.0 % Eosinophils (%) (Auto) 0.6 0.0-8.0 % Basophils (%) (Auto) 0.1 0.0-5.0 % Neutrophils # (Auto) 12.9 H 1.8-7.7 K/uL Lymphocytes # (Auto) 1.1 1.0-4.8 K/uL Monocytes # (Auto) 1.0 0.1-1.0 K/uL Eosinophils # (Auto) 0.09 0.00-0.70 K/uL Basophils # (Auto) 0.02 0.00-0.20 K/uL Absolute Immature Granulocyte (auto 0.12 0-1 K/uL Nucleated Red Blood Cells 0.0 0.0-0.19 % White Cell Morphology Comment See comments Chemistry Labs: Test 08/14/25 06:44 08/14/25 03:23 08/13/25 00:20 Range/Units Whole Blood Glucose 138 H 70-110 MG/DL Sodium Level 139 136-145 mmol/L Potassium Level 3.9 3.5-5.1 mmol/L Chloride Level 106 101-111 mmol/L Carbon Dioxide Level 22 21-32 mmol/L Blood Urea Nitrogen 26 H 7-18 mg/dL Creatinine 1.6 H 0.5-1.3 mg/dL Glomerular Filtration Rate Calc 45 >90 mL/min Random Glucose 122 H 70-105 mg/dL Total Calcium 8.5 8.5-10.1 mg/dL Total Bilirubin 0.7 0.2-1.0 mg/dL Aspartate Amino Transf (AST/SGOT) 18 10-37 U/L Alanine Aminotransferase (ALT/SGPT) 111 H 12-78 U/L Alkaline Phosphatase 103 50-136 U/L Total Protein 6.3 6.0-8.3 g/dL Albumin 2.1 L 3.5-5.0 g/dL Phosphorus Level 3.4 2.5-4.9 mg/dL Magnesium Level 2.10 1.80-2.40 mg/dL Coagulation Labs: Test 08/13/25 00:20 Range/Units Prothrombin Time 12.4 H 9.6-11.6 SEC Prothromb Time International Ratio 1.19 H 0.85-1.15 Activated Partial Thromboplast Time 35.6 H 26.3-35.5 SEC Impression and Plan: 1. Acute streptococcus pharyngitis. 2. Acute complicated cystitis. 3. Sepsis. 4. Left knee pain with joint effusion, questionable septic arthritis, being managed by Orthopedic Surgery. 5. Acute GI bleed with blood loss and melena and bright red blood per rectum, being evaluated by GI. Upper endoscopy was aborted due to AF RVR ;; it appears further w/u will be deferred to outpatient setting. Will need to await this evaluation prior to DOAC resumptions. 6. Permanent paroxysmal atrial fibrillation with periods of rapid ventricular response, on anticoagulation with Xarelto, currently on hold due to GI bleed. Initially on diltiazem gtt upon hospital presentation; now he is status post amiodarone infusion on 08/13 and placed on PO amiodarone. TSH wnl. 7. History of nonobstructive coronary artery disease by prior cardiac catheterization with documentation of preserved LV systolic function by prior assessment. 8. History of essential hypertension. 9. Hyperlipoproteinemia. 10. History of hypothyroidism, on supplements with adequate assessment of the thyroid function on this admission. 11. Acute rhabdomyolysis on presentation, resolved. 12. History of underlying dementia with superimposed delirium with agitation with superimposed metabolic encephalopathy due to electrolyte derangements. 13. Chronic kidney disease, stage 3. 14. History of gout. 15. Diabetes mellitus, type 2. 16. History of pancreatic cyst documented in 2021. 17. Echocardiography on this admission, documenting an EF of 45-50%. BETTE ISAACS DO Aug 14, 2025 08:52
--- NOTE | 2025-08-14 13:01 | PN ---
[facility] PROGRESS NOTE Date Patient Seen: Aug 14, 2025 Time of Visit: 12:58 Supervising Physician: Jazzy Branham Primary Care Physician: Dr. Doris Vela Inpatient Consults: [facility], GI, Dr. Anderson (Orthopedic surgeon) PROBLEM LIST: Atrial fibrillation with RVR on Xarelto (on hold), CHADS2-VASc 5 points, HAS- BLED 4 points+ Acute streptococcal pharyngitis Acute complicated cystitis Severe sepsis due to above Acute GI bleed (+) melena Acute blood loss anemia Acute rhabdomyolysis, resolved Acute delirium in patient with dementia Acute metabolic encephalopathy in patient with dementia Electrolyte derangement (Hypokalemia) Left knee swelling with moderate joint effusion is seen per CT knee, rule out septic arthritis Febrile illness, not POA GOUT CKD stage III Diabetes mellitus type 2 History of pancreatic cyst since 2021, negative biopsy per family Dementia INTERVAL HISTORY: Patient was seen and examined, all labs and imaging have been reviewed Patient is sitting comfortably in bed, nursing reports no acute events overnight Patient's rate improved considerably. Off the Cardizem. On oral amnio and metoprolol 200 mg b.i.d. Patient is tolerating his diet He is a sitter at bedside that continues to redirect Patient is afebrile Good O2 saturations PLAN: Continue with current antibiotics Continue with nebulizer treatments Following cardiology recs Continue to hold antiplatelets while we follow hemoglobin. Follow GI recommendations not recommending any type of procedure at this time and will be done on outpatient basis Pending ortho for consultation for knee effusion Case management for discharge planning Total patient care time 43 minutes minutes, time excludes any procedures or educational time. REVIEW OF SYSTEMS: Unable due to mental status PHYSICAL EXAM: GENERAL: 75 year old male on room air. NAD. HEENT: EOMI, Sclera non icteric, moist mucosa NECK: no JVD LUNGS: Clear breath sounds bilaterally. No wheezes HEART: Regular rate and rhythm. Normal S1 and S2, without murmurs ABD: Abdomen soft, nontender. Bowel sounds present EXT: No clubbing cyanosis or edema (+) left knee warm to to touch, swelling noted. NEURO: Alert and oriented to person, follows commands Vital Signs (last 8hr) Date Time Temp Pulse Resp B/P (MAP) Pulse Ox O2 Delivery O2 Flow Rate FiO2 08/14/25 07:00 98.6 63 20 147/75 100 Room Air LABS: Hematology Labs: Test 08/14/25 03:23 Range/Units White Blood Count 15.3 H 4.8-10.8 K/uL Red Blood Count 3.59 L 4.50-6.20 MIL/uL Hemoglobin 11.6 L 14.0-18.0 g/dL Hematocrit 34.3 L 42-54 % Mean Corpuscular Volume 95.5 79-99 fL Mean Corpuscular Hemoglobin 32.3 27.0-33.0 pg Mean Corpuscular Hemoglobin Concent 33.8 32.0-36.0 g/dL Red Cell Distribution Width 12.7 11.0-15.5 % Platelet Count 246 130-400 K/uL Mean Platelet Volume 10.1 7.5-10.5 fL Immature Granulocyte % (Auto) 0.8 0-1 % Neutrophils (%) (Auto) 84.7 H 40.0-77.0 % Lymphocytes (%) (Auto) 7.1 L 21.0-51.0 % Monocytes (%) (Auto) 6.7 3.0-13.0 % Eosinophils (%) (Auto) 0.6 0.0-8.0 % Basophils (%) (Auto) 0.1 0.0-5.0 % Neutrophils # (Auto) 12.9 H 1.8-7.7 K/uL Lymphocytes # (Auto) 1.1 1.0-4.8 K/uL Monocytes # (Auto) 1.0 0.1-1.0 K/uL Eosinophils # (Auto) 0.09 0.00-0.70 K/uL Basophils # (Auto) 0.02 0.00-0.20 K/uL Absolute Immature Granulocyte (auto 0.12 0-1 K/uL Nucleated Red Blood Cells 0.0 0.0-0.19 % Chemistry Labs: Test 08/14/25 06:44 08/14/25 03:23 08/13/25 00:20 Range/Units Whole Blood Glucose 138 H 70-110 MG/DL Sodium Level 139 136-145 mmol/L Potassium Level 3.9 3.5-5.1 mmol/L Chloride Level 106 101-111 mmol/L Carbon Dioxide Level 22 21-32 mmol/L Blood Urea Nitrogen 26 H 7-18 mg/dL Creatinine 1.6 H 0.5-1.3 mg/dL Glomerular Filtration Rate Calc 45 >90 mL/min Random Glucose 122 H 70-105 mg/dL Total Calcium 8.5 8.5-10.1 mg/dL Total Bilirubin 0.7 0.2-1.0 mg/dL Aspartate Amino Transf (AST/SGOT) 18 10-37 U/L Alanine Aminotransferase (ALT/SGPT) 111 H 12-78 U/L Alkaline Phosphatase 103 50-136 U/L Total Protein 6.3 6.0-8.3 g/dL Albumin 2.1 L 3.5-5.0 g/dL Phosphorus Level 3.4 2.5-4.9 mg/dL Magnesium Level 2.10 1.80-2.40 mg/dL Coagulation Labs: Test 08/13/25 00:20 Range/Units Prothrombin Time 12.4 H 9.6-11.6 SEC Prothromb Time International Ratio 1.19 H 0.85-1.15 Activated Partial Thromboplast Time 35.6 H 26.3-35.5 SEC DIAGNOSTICS / RADIOLOGY RESULTS: [ ] Plan: NEURO: Minimize central acting medications as possible. Maintain fall precautions, adequate lighting during the day PULMONARY: Supplemental 02 as needed. Maintain aspiration precautions at all times CARDIOVASCULAR: Follow hemodynamics. Vital signs per facility protocol Cardiology consult pending anticipation for further recommendations GI & NUTRITION: Continue with nutritional support. Continue stool softeners and laxatives as needed. KIDNEYS & ELECTROLYTES: Strict monitoring of intake, output and overall fluid balance. Avoid nephrotoxic medications to the extent possible. Medications to be dosed according to renal function. Monitor electrolytes and replace as needed ENDOCRINE: Maintain blood glucose between 100-180 at all times. Hypoglycemia protocol in place INFECTIOUS DISEASE: Trend temperature, WBC and procalcitonin level Follow cultures, deescalate antibiotics as soon as possible. Panculture if new onset fever ONCOLOGY/HEMATOLOGY/COAGULATION: Monitor for s/s of bleeding Monitor hemoglobin, coagulation studies as needed SKIN: Pressure ulcer prevention per facility protocol Specialty mattress ORTHO/REHAB: Continue PT/OT Prophylaxis: Continue GI and DVT prophylaxis Code Status: Full Resuscitation Disposition: NUSRAT MITCHELL PAC Aug 14, 2025 13:01
--- NOTE | 2025-08-14 15:25 | NUR ---
I spoke with Manny Gibson, [employer] who informed me that patient converted to atrial fibrillation with rapid ventricular response, rate of 158. Patient asymptomatic. Voices no discomfort. Blood pressure was 150/84mmhg. oxygen saturation of 99% on room air. I administered lopressor intravenously as per e-mar orders (administer for heart rate greater than 120bpmin). I spoke with Delisa Elizabeth PA-C and made him aware, he advised to continue current medication regimen of lopressor IV. Two minutes after administering medication, rate was down to 90 beats per minute and patient converted to normal sinus rhythm. Patient voices no discomfort at this time. Nursing will continue to monitor and evaluate patient and he remains attached to bedside vital signs monitoring and on continuous telemetry.
--- NOTE | 2025-08-14 16:00 | NUR ---
Patient continues to remain asymptomatic. I reported all findings to Pamela Martinez RN and Shorty Morrissey RN, nurse manager fine who verbalized he will send Pamela Martinez RN to take over care while I attended mandatory staff competencies/annual influenza vaccination. Per telemetry, patient remains in sinus rhythm and continues to voice no complaints upon my departure.
--- NOTE | 2025-08-14 17:15 | NUR ---
Returned and resumed nursing care. I spoke with barbara Bryant who indicated that patient continued to be in sinus rhythm. Remains asymptomatic and has 1:1 constant observer at bedside.
[2025-08-14] MEDS: diazePAM 5 MG TAB PO ONE (20:13)
[2025-08-15] VITALS (8 sets, daily range): BP systolic 98–140; BP diastolic 52–74; PULSE 47–150; RESP 16–18; TEMP 97.7–98.4; O2SAT 98–99
[2025-08-15 05:21] LABS: IMMATURE GRANULOCYTE ABSOLUTE 0.09 K/uL (0-1); NUCLEATED RED BLOOD CELLS 0.0 % (0.0-0.19); PLATELET COUNT (AUTO) 240 K/uL (130-400); RED BLOOD CELL COUNT(AUTO) 3.52 MIL/uL (4.50-6.20); RED CELL DISTRIBUTION WIDTH 12.9 % (11.0-15.5); WHITE BLOOD COUNT (AUTO) 12.9 K/uL (4.8-10.8)
[2025-08-15 05:49] LABS: ASPARTATE AMINOTRANSFERASE 30.0 U/L (10-37); CREATININE 2.2 mg/dL (0.5-1.3); GLOMERULAR FILTR. RATE CALC 31.0 mL/min (>90); GLUCOSE,RANDOM 104.0 mg/dL (70-105); SODIUM SERUM 140.0 mmol/L (136-145); TOTAL PROTEIN, SERUM 6.4 g/dL (6.0-8.3); UREA NITROGEN, BLOOD 35.0 mg/dL (7-18)
[2025-08-15] MEDS: LIDOCAINE HCL MPF 1% 5ML VIAL ONE (09:35)
[2025-08-15] MEDS ORDERED: ATROPINE 1MG SYG IVP PRN (10:00)
--- NOTE | 2025-08-15 13:40 | PN ---
[facility] PROGRESS NOTE Date Patient Seen: Aug 15, 2025 Time of Visit: 13:37 Supervising Physician: Dr Carlos Branham Primary Care Physician: Dr. Doris Vela Inpatient Consults: [facility], GI, Dr. Anderson (Orthopedic surgeon) PROBLEM LIST: Atrial fibrillation with RVR on Xarelto (on hold), CHADS2-VASc 5 points, HAS- BLED 4 points+ Acute streptococcal pharyngitis Acute complicated cystitis Severe sepsis due to above Acute GI bleed (+) melena Acute blood loss anemia Acute rhabdomyolysis, resolved Acute delirium in patient with dementia Acute metabolic encephalopathy in patient with dementia Electrolyte derangement (Hypokalemia) Left knee swelling with moderate joint effusion is seen per CT knee, rule out septic arthritis Febrile illness, not POA GOUT CKD stage III Diabetes mellitus type 2 History of pancreatic cyst since 2021, negative biopsy per family Dementia INTERVAL HISTORY: Patient was seen and examined, patient resting comfortably in bed, sitter at bedside All labs and imaging have been reviewed Patient pending needle aspiration to his left knee. Swelling but no signs of cellulitis, history of gout Heart rate is all over the place, he goes from being symptomatic bradycardia to AFib in the 150s. Nursing has instruction to administer half dose of atropine for heart rate less than 30. Despite this patient is comfortable reporting no chest pain or shortness of breath PLAN: Continue to follow cardiology recommendations, [facility] pending to re- evaluate Atropine if needed Telemetry Follow ortho recs Follow cultures, antibiotics Total critical care time 57 minutes, patient at a high risk for down decompensation, tachy-javier syndrome. Back on antiarrhythmics. REVIEW OF SYSTEMS: Unable due to mental status PHYSICAL EXAM: GENERAL: 75 year old male on room air. NAD. HEENT: EOMI, Sclera non icteric, moist mucosa NECK: no JVD LUNGS: Clear breath sounds bilaterally. No wheezes HEART: Regular rate and rhythm. Normal S1 and S2, without murmurs ABD: Abdomen soft, nontender. Bowel sounds present EXT: No clubbing cyanosis or edema (+) left knee warm to to touch, swelling noted. NEURO: Alert and oriented to person, follows commands Vital Signs (last 8hr) Date Time Temp Pulse Resp B/P (MAP) Pulse Ox O2 Delivery O2 Flow Rate FiO2 08/15/25 11:00 98.2 54 18 118/53 100 Room Air 08/15/25 09:58 99 Room Air* 0 21 08/15/25 07:00 98.2 150 18 104/74 100 Room Air LABS: Hematology Labs: Test 08/15/25 05:07 Range/Units White Blood Count 12.9 H 4.8-10.8 K/uL Red Blood Count 3.52 L 4.50-6.20 MIL/uL Hemoglobin 11.3 L 14.0-18.0 g/dL Hematocrit 33.6 L 42-54 % Mean Corpuscular Volume 95.5 79-99 fL Mean Corpuscular Hemoglobin 32.1 27.0-33.0 pg Mean Corpuscular Hemoglobin Concent 33.6 32.0-36.0 g/dL Red Cell Distribution Width 12.9 11.0-15.5 % Platelet Count 240 130-400 K/uL Mean Platelet Volume 10.4 7.5-10.5 fL Immature Granulocyte % (Auto) 0.7 0-1 % Neutrophils (%) (Auto) 82.5 H 40.0-77.0 % Lymphocytes (%) (Auto) 8.5 L 21.0-51.0 % Monocytes (%) (Auto) 7.4 3.0-13.0 % Eosinophils (%) (Auto) 0.7 0.0-8.0 % Basophils (%) (Auto) 0.2 0.0-5.0 % Neutrophils # (Auto) 10.7 H 1.8-7.7 K/uL Lymphocytes # (Auto) 1.1 1.0-4.8 K/uL Monocytes # (Auto) 1.0 0.1-1.0 K/uL Eosinophils # (Auto) 0.09 0.00-0.70 K/uL Basophils # (Auto) 0.02 0.00-0.20 K/uL Absolute Immature Granulocyte (auto 0.09 0-1 K/uL Nucleated Red Blood Cells 0.0 0.0-0.19 % Chemistry Labs: Test 08/15/25 10:48 08/15/25 05:07 08/14/25 20:09 Range/Units Whole Blood Glucose 131 H 70-110 MG/DL Sodium Level 140 136-145 mmol/L Potassium Level 3.7 3.5-5.1 mmol/L Chloride Level 106 101-111 mmol/L Carbon Dioxide Level 22 21-32 mmol/L Blood Urea Nitrogen 35 H 7-18 mg/dL Creatinine 2.2 H 0.5-1.3 mg/dL Glomerular Filtration Rate Calc 31 >90 mL/min Random Glucose 104 70-105 mg/dL Total Calcium 8.6 8.5-10.1 mg/dL Total Bilirubin 0.6 0.2-1.0 mg/dL Aspartate Amino Transf (AST/SGOT) 30 10-37 U/L Alanine Aminotransferase (ALT/SGPT) 90 H 12-78 U/L Alkaline Phosphatase 102 50-136 U/L Total Protein 6.4 6.0-8.3 g/dL Albumin 2.2 L 3.5-5.0 g/dL Bedside Glucose Comment Notified Nurse DIAGNOSTICS / RADIOLOGY RESULTS: [ ] PLAN NEURO: Minimize central acting medications as possible. Fall Precautions. Well lighted room through the day and minimize interruptions through the night to prevent acute delirium. PULMONARY: Supplemental 02 as needed Titrate Fio2 to keep Spo2 > or = 90% DuoNebs and CPT as needed IS hourly while awake for pulmonary hygiene Out of bed to chair as tolerated CARDIOVASCULAR: Follow hemodynamics. Titrate vasopressor to keep MAP >65 or systolic blood pressure >95mmHg DRIPS: cardizem LINES: PIV GI & NUTRITION: Continue nutritional support Aspirations precautions Prokinetic agents and laxatives as needed KIDNEYS & ELECTROLYTES: Strict monitoring of intake and output Daily weights Avoid nephrotoxic agents Monitor electrolytes and replace as needed Goal urine output of 30mL/hr or 0.5mL/kg/hr ENDOCRINE: Maintain blood glucose between 100-180 at all times. Insulin sliding scale for blood glucose management INFECTIOUS DISEASE: Trend temperature. Powell-culture if febrile. Micro: [ ] Antibiotics: [ ] cefepime doxy and vanco HEMATOLOGY & COAGULATION: Monitor H&H. Keep Hgb > 7 Transfuse 1 unit of PRBC for Hgb < 7 Transfuse 1 pack of platelets of platelets < 20, 000 Watch for any signs and symptoms of bleeding SKIN: Pressure ulcer prevention per facility protocol Rehab: PT/OT Prophylaxis: GI: [Protonix ] DVT: [SCD ] Code Status: Full Resuscitation Disposition: TBD Case was discussed and seen with my supervising physician. The above plan was formulated and agreed upon. NUSRAT RICK PAC Aug 15, 2025 13:40
--- NOTE | 2025-08-15 15:00 | CONS ---
HPI: This is a 75-year-old male with history of nonobstructive coronary artery disease, paroxysmal atrial fibrillation, type 2 diabetes mellitus, hypertension, hyperlipidemia, history of pancreatic mass dementia. He was admitted 08/03/2025 with productive cough, sore throat and chills, acute kidney injury, rhabdomyolysis and melena. His initial EKG 08/02/2025 type 1 counter-clockwise atrial flutter with a ventricular rate of 184 beats per minute. Subsequent EKG showed sinus rhythm with frequent PACs, heart rate 104 beats per minute. He was started on IV Cardizem due to paroxysmal atrial fibrillation with rapid ventricular response. Due to recurrent atrial fibrillation and atrial flutter, he was started on amiodarone infusion 08/13/2025 and has been transitioned to amiodarone 200 mg twice daily as well as metoprolol tartrate 200 mg twice daily for rate control. He developed sinus bradycardia with ventricular rates in the 30s as well as frequent PACs, conducted and nonconducted, with ventricular rates in the 30s to 50s. He underwent echocardiogram 08/03/2025 which shows an ejection fraction of 45- 50% with normal-sized left atrium, mild posterior annular calcification and normal pericardium. His chest x-ray 08/10/2025 demonstrates bilateral perihilar airspace opacities and mild pulmonary vascular congestion, and right upper lobe nodular opacity. Venous Doppler 08/08/2025 is negative for lower extremity DVT. CT of the head 08/04/2025 is negative for acute intracranial process with the age-appropriate involutional changes. White blood count 12.9 down from 15.3 yesterday, hemoglobin 11.3, hematocrit 33.6, platelets 240, creatinine 2.2 up from 1.6 yesterday, potassium 3.7. Group A strep positive (08/02/2025) blood cultures drawn 08/04/2025, 08/03/2025 and 08/07/2025 all negative after two days. Urine culture [id number] is negative. Prior EKGs from the office were reviewed. An EKG on 08/14/2024 and 04/04/2025 show atrial fibrillation with rapid ventricular response. An EKG dated 04/08/2025 shows sinus rhythm. His history was obtained through chart review and speaking with his nurse. He been asymptomatic for the bradycardia and episodes of rapid ventricular response. Patient History: PAST MEDICAL HISTORY: As noted above. SOCIAL HISTORY: Noncontributory. SURGICAL HISTORY: Noncontributory. Allergies: Coded Allergies: No Known Drug Allergies (Verified Allergy, Unknown, 04/24/20) Additional RoS: Unable to obtain Vital Signs Vital Signs 08/15/25 08/15/25 09:58 11:00 Temp 98.2 Pulse 54 Resp 18 B/P (MAP) 118/53 Pulse Ox 100 O2 Delivery Room Air O2 Flow Rate 0 FiO2 21 Eyes: EOM Normal, Normal Conjuctivae/eyelid Ear/Nose/Mouth/Throat: Landmarks WNL Neck: Symmetric, trach midline Cardiovascular: Regular Rate, Abnormal (bradycardic) Respiratory: Lungs clear Laboratory Tests Test 08/13/25 16:38 08/13/25 19:42 08/14/25 03:23 08/14/25 06:44 Range/Units Whole Blood Glucose 177 148 138 70-110 MG/DL White Blood Count 15.3 4.8-10.8 K/uL Red Blood Count 3.59 4.50-6.20 MIL/uL Hemoglobin 11.6 14.0-18.0 g/dL Hematocrit 34.3 42-54 % Mean Corpuscular Volume 95.5 79-99 fL Mean Corpuscular Hemoglobin 32.3 27.0-33.0 pg Mean Corpuscular Hemoglobin Concent 33.8 32.0-36.0 g/dL Red Cell Distribution Width 12.7 11.0-15.5 % Platelet Count 246 130-400 K/uL Mean Platelet Volume 10.1 7.5-10.5 fL Immature Granulocyte % (Auto) 0.8 0-1 % Neutrophils (%) (Auto) 84.7 40.0-77.0 % Lymphocytes (%) (Auto) 7.1 21.0-51.0 % Monocytes (%) (Auto) 6.7 3.0-13.0 % Eosinophils (%) (Auto) 0.6 0.0-8.0 % Basophils (%) (Auto) 0.1 0.0-5.0 % Neutrophils # (Auto) 12.9 1.8-7.7 K/uL Lymphocytes # (Auto) 1.1 1.0-4.8 K/uL Monocytes # (Auto) 1.0 0.1-1.0 K/uL Eosinophils # (Auto) 0.09 0.00-0.70 K/uL Basophils # (Auto) 0.02 0.00-0.20 K/uL Absolute Immature Granulocyte (auto 0.12 0-1 K/uL Nucleated Red Blood Cells 0.0 0.0-0.19 % Sodium Level 139 136-145 mmol/L Potassium Level 3.9 3.5-5.1 mmol/L Chloride Level 106 101-111 mmol/L Carbon Dioxide Level 22 21-32 mmol/L Blood Urea Nitrogen 26 7-18 mg/dL Creatinine 1.6 0.5-1.3 mg/dL Glomerular Filtration Rate Calc 45 >90 mL/min Random Glucose 122 70-105 mg/dL Total Calcium 8.5 8.5-10.1 mg/dL Total Bilirubin 0.7 0.2-1.0 mg/dL Aspartate Amino Transf (AST/SGOT) 18 10-37 U/L Alanine Aminotransferase (ALT/SGPT) 111 12-78 U/L Alkaline Phosphatase 103 50-136 U/L Total Protein 6.3 6.0-8.3 g/dL Albumin 2.1 3.5-5.0 g/dL Test 08/14/25 13:09 08/14/25 20:09 08/15/25 05:07 08/15/25 05:08 Range/Units Whole Blood Glucose 130 219 91 70-110 MG/DL Bedside Glucose Comment Notified Nurse White Blood Count 12.9 4.8-10.8 K/uL Red Blood Count 3.52 4.50-6.20 MIL/uL Hemoglobin 11.3 14.0-18.0 g/dL Hematocrit 33.6 42-54 % Mean Corpuscular Volume 95.5 79-99 fL Mean Corpuscular Hemoglobin 32.1 27.0-33.0 pg Mean Corpuscular Hemoglobin Concent 33.6 32.0-36.0 g/dL Red Cell Distribution Width 12.9 11.0-15.5 % Platelet Count 240 130-400 K/uL Mean Platelet Volume 10.4 7.5-10.5 fL Immature Granulocyte % (Auto) 0.7 0-1 % Neutrophils (%) (Auto) 82.5 40.0-77.0 % Lymphocytes (%) (Auto) 8.5 21.0-51.0 % Monocytes (%) (Auto) 7.4 3.0-13.0 % Eosinophils (%) (Auto) 0.7 0.0-8.0 % Basophils (%) (Auto) 0.2 0.0-5.0 % Neutrophils # (Auto) 10.7 1.8-7.7 K/uL Lymphocytes # (Auto) 1.1 1.0-4.8 K/uL Monocytes # (Auto) 1.0 0.1-1.0 K/uL Eosinophils # (Auto) 0.09 0.00-0.70 K/uL Basophils # (Auto) 0.02 0.00-0.20 K/uL Absolute Immature Granulocyte (auto 0.09 0-1 K/uL Nucleated Red Blood Cells 0.0 0.0-0.19 % Sodium Level 140 136-145 mmol/L Potassium Level 3.7 3.5-5.1 mmol/L Chloride Level 106 101-111 mmol/L Carbon Dioxide Level 22 21-32 mmol/L Blood Urea Nitrogen 35 7-18 mg/dL Creatinine 2.2 0.5-1.3 mg/dL Glomerular Filtration Rate Calc 31 >90 mL/min Random Glucose 104 70-105 mg/dL Total Calcium 8.6 8.5-10.1 mg/dL Total Bilirubin 0.6 0.2-1.0 mg/dL Aspartate Amino Transf (AST/SGOT) 30 10-37 U/L Alanine Aminotransferase (ALT/SGPT) 90 12-78 U/L Alkaline Phosphatase 102 50-136 U/L Total Protein 6.4 6.0-8.3 g/dL Albumin 2.2 3.5-5.0 g/dL Test 08/15/25 10:48 Range/Units Whole Blood Glucose 131 70-110 MG/DL ASSESSMENT: 1. Paroxysmal atrial fibrillation/atrial flutter with rapid ventricular response. 2. Sinus bradycardia secondary to medical therapy. 3. Nonconducted PACs. 4. Mild LV dysfunction. 5. Group a strep positive. 6. Acute GI bleed. PLAN: 1. He presented with atrial fibrillation/atrial flutter with rapid ventricular response in the setting of sepsis, initially treated with IV Cardizem for rate control. He was started on amiodarone infusion and transitioned to p.o. amiodarone 200 mg twice daily. He is also on metoprolol tartrate 200 mg twice daily for rate control. He developed sinus bradycardia with a ventricular rates in the 30s, as well as frequent nonconducted PACs. 2. We will discontinue metoprolol tartrate 200 mg twice daily. 3. Hold the evening dosage of amiodarone 200 mg if his heart rate is less than 50 beats per minute. 4. We will add p.r.n. Cardizem 5 mg IV push for sustained atrial fibrillation with rapid ventricular response with heart rates greater than 110 beats per minute. 5. We will monitor his heart rate overnight, if the bradycardia resolves by to hale morning, consider diltiazem 30 mg every 8 hours for rate control. 6. Xarelto is on hold due to acute GI bleed. The EGD could not be performed due to atrial fibrillation with rapid ventricular response. Once his GI workup has been completed, consider Eliquis 5 mg twice daily due to lower GI bleeding risk. 7. We will follow the patient. LENIN MAZARIEGOS Aug 15, 2025 15:00
[2025-08-15] MEDS: LIDOCAINE HCL MPF 1% 5ML VIAL IM ONE (16:07)
--- NOTE | 2025-08-15 16:25 | PN ---
GASTROENTEROLOGY PROGRESS NOTE Date of Visit: Aug 15, 2025 Time of Visit: 16:25 Events / Notes: No acute events overnight. Hgb 10.9. EGD aborted due to arrhythmia. Plan of care discussed. Denies fever, chills, abdominal pain, N/V, hematemesis, bloating, constipation, diarrhea, melena or hematochezia. Review of Systems: CONSTITUTIONAL: No malaise or change in sensation of wellbeing. ENMT: No rhinorrhea, otorrhea, sinus pain, ear ache. CARDIOVASCULAR: No angina, palpitations, orthopnea or paroxysmal dyspnea. RESPIRATORY: No SOB. GASTROINTESTINAL: No abdominal pain, nausea, vomiting, diarrhea, hematemesis, melena or change in the patient's habitual bowel movements consistency/number. GENITOURINARY: No dysuria, hematuria or change in bladder continence. MUSCULOSKELETAL: No new muscle pain or decrease in muscular strength. No new joint swelling, redness or tenderness. SKIN: No new rash. Physical Exam: GEN: Awake, alert, oriented in person, time and place, and in no acute distress. HEENT: No rhinorrhea. Oral mucosa is pink, moist and within normal limits. CHEST: Lung auscultation revealed normal breath sounds bilaterally. CARDIAC:Heart sounds are regular. ABD: Soft, non-tender and not distended. No peritoneal signs on palpation. Normal bowel sounds. Last bm 08/06/25. EXT: No cyanosis or clubbing. No edema. SKIN: Intact. No rashes. NEURO: Alert and oriented to name, place and person.No focal motor deficits. Normal speech. Vital Signs (last 8hr) Date Time Temp Pulse Resp B/P (MAP) Pulse Ox O2 Delivery O2 Flow Rate FiO2 08/15/25 11:00 98.2 54 18 118/53 100 Room Air 08/15/25 09:58 99 Room Air* 0 21 Laboratory: [ ] Laboratory: Test 08/15/25 16:01 08/15/25 05:07 08/14/25 20:09 Range/Units Whole Blood Glucose 176 H 70-110 MG/DL White Blood Count 12.9 H 4.8-10.8 K/uL Red Blood Count 3.52 L 4.50-6.20 MIL/uL Hemoglobin 11.3 L 14.0-18.0 g/dL Hematocrit 33.6 L 42-54 % Mean Corpuscular Volume 95.5 79-99 fL Mean Corpuscular Hemoglobin 32.1 27.0-33.0 pg Mean Corpuscular Hemoglobin Concent 33.6 32.0-36.0 g/dL Red Cell Distribution Width 12.9 11.0-15.5 % Platelet Count 240 130-400 K/uL Mean Platelet Volume 10.4 7.5-10.5 fL Immature Granulocyte % (Auto) 0.7 0-1 % Neutrophils (%) (Auto) 82.5 H 40.0-77.0 % Lymphocytes (%) (Auto) 8.5 L 21.0-51.0 % Monocytes (%) (Auto) 7.4 3.0-13.0 % Eosinophils (%) (Auto) 0.7 0.0-8.0 % Basophils (%) (Auto) 0.2 0.0-5.0 % Neutrophils # (Auto) 10.7 H 1.8-7.7 K/uL Lymphocytes # (Auto) 1.1 1.0-4.8 K/uL Monocytes # (Auto) 1.0 0.1-1.0 K/uL Eosinophils # (Auto) 0.09 0.00-0.70 K/uL Basophils # (Auto) 0.02 0.00-0.20 K/uL Absolute Immature Granulocyte (auto 0.09 0-1 K/uL Nucleated Red Blood Cells 0.0 0.0-0.19 % Sodium Level 140 136-145 mmol/L Potassium Level 3.7 3.5-5.1 mmol/L Chloride Level 106 101-111 mmol/L Carbon Dioxide Level 22 21-32 mmol/L Blood Urea Nitrogen 35 H 7-18 mg/dL Creatinine 2.2 H 0.5-1.3 mg/dL Glomerular Filtration Rate Calc 31 >90 mL/min Random Glucose 104 70-105 mg/dL Total Calcium 8.6 8.5-10.1 mg/dL Total Bilirubin 0.6 0.2-1.0 mg/dL Aspartate Amino Transf (AST/SGOT) 30 10-37 U/L Alanine Aminotransferase (ALT/SGPT) 90 H 12-78 U/L Alkaline Phosphatase 102 50-136 U/L Total Protein 6.4 6.0-8.3 g/dL Albumin 2.2 L 3.5-5.0 g/dL Bedside Glucose Comment Notified Nurse Current Medications Medications (Trade) Dose Ordered Sig/Anish Route PRN Reason Start Time Stop Time Status Last Admin Dose Admin Acetaminophen (TYLenol 325MG TAB) 650 mg Q4H PRN PO MILD PAIN (1-3) 08/03/25 00:30 08/03/25 02:29 DC Acetaminophen (TYLenol 325MG TAB) 650 mg Q6H PRN PO PAIN LEVEL 1 TO 3 08/03/25 00:30 09/02/25 00:29 08/14/25 03:09 650 MG Acetaminophen (TYLenol 650MG ELIXIR) 650 mg Q6H PRN PEG MILD PAIN (1-3) 08/03/25 02:30 08/11/25 08:38 DC 08/08/25 07:04 650 MG Acetaminophen (TYLenol 650MG ELIXIR) 650 mg Q6H PRN PO MILD PAIN (1-3) 08/11/25 14:30 09/10/25 14:29 Al Hydroxide/Mg Hydroxide (MAALox PLUS 30ML) 30 ml Q6H PRN PO INDIGESTION 08/03/25 00:30 09/02/25 00:29 Allopurinol (ZYLOprim 100MG) 100 mg TID PO 08/06/25 14:00 09/05/25 13:59 08/15/25 14:08 100 MG Amiodarone HCl (pacERONE 200MG) 200 mg BID PO 08/13/25 09:00 09/12/25 08:59 08/15/25 08:06 200 MG Amiodarone HCl 150 mg/Dextrose 103 ml @ 618 mls/hr ONCE IV 08/13/25 02:00 08/13/25 02:01 DC Amiodarone HCl 360 mg/Dextrose 207.2 ml @ 33.3 mls/hr AD IV 08/13/25 02:00 08/13/25 02:01 DC Amiodarone HCl 540 mg/Dextrose 310.8 ml @ 16.7 mls/hr [id number] IV 08/13/25 07:00 08/13/25 07:59 DC Amiodarone HCl 540 mg/Dextrose 310.8 ml @ 16.7 mls/hr [id number] IV 08/13/25 11:00 09/12/25 10:59 08/13/25 10:03 16.7 MLS/HR Amiodarone HCL/ Dextrose 100 ml @ 600 mls/hr PROTOCOL IV 08/13/25 02:00 08/13/25 07:06 DC 08/13/25 04:36 600 MLS/HR Amiodarone HCL/ Dextrose 200 ml @ 33.333 mls/ hr PROTOCOL IV 08/13/25 02:00 08/13/25 07:07 DC 08/13/25 05:06 33.333 MLS/HR Atropine Sulfate (Atropine 1mg Syg) 0.5 mg AD PRN IVP HR<30BPM 08/15/25 10:00 Benzocaine (Cepacol Sore Throat Lozenge) 1 each Q4H PRN MM SORE THROAT 08/03/25 10:30 09/02/25 10:29 08/03/25 11:55 1 EACH Cefepime HCl (MAXipime 1 GM vial) 1 gm Q12H IVPB 08/09/25 19:30 08/17/25 07:29 08/15/25 08:07 1 GM Cefepime HCl (MAXipime 1 GM vial) 1 gm Q8H IVPB 08/07/25 07:30 08/09/25 07:17 DC 08/09/25 07:00 1 GM Ceftriaxone Sodium (Rocephin 2gm Inj) 2 gm Q24H IVPB 08/03/25 00:30 08/07/25 07:28 DC 08/07/25 01:39 2 GM Dextrose (D50w) 50 ml AD PRN IV HYPOGLYCEMIA PROTOCOL 08/03/25 00:30 09/02/25 00:29 Diazepam (VALium 5 MG/ML 2 ML SYG) 5 mg AM PRN IV AGITATION/PSYCHOSIS 08/09/25 15:30 08/14/25 17:30 DC 08/12/25 02:59 5 MG Diazepam (VALium 5 MG/ML 2 ML SYG) 5 mg HS IV 08/09/25 21:00 08/14/25 17:30 DC Diltiazem HCl (CARDIzem 25MG INJ) 5 mg AD PRN IVP INCREASED HEART RATE >110 BPM 08/15/25 14:30 09/14/25 14:29 Diltiazem HCl (CARDIzem 25MG INJ) 10 mg ONCE PRN IVP CARDIZEM PROTOCOL 08/07/25 15:00 08/07/25 15:00 DC Diltiazem HCl (CARDIzem 60MG TAB) 30 mg Q6H PO 08/08/25 08:00 08/08/25 11:00 DC 08/08/25 07:59 30 MG Diltiazem HCl 125 mg/Sodium Chloride 125 ml @ 0 mls/hr AD PRN IV CARDIZEM PROTOCOL 08/07/25 15:00 08/07/25 14:59 DC Diltiazem HCl 125 mg/Sodium Chloride 125 ml @ 0 mls/hr AD PRN IV CARDIZEM PROTOCOL 08/08/25 11:00 08/12/25 07:58 DC 08/11/25 15:51 15 MLS/HR Diltiazem HCl 125 mg/Sodium Chloride 125 ml @ 0 mls/hr AD PRN IV CARDIZEM PROTOCOL 08/12/25 08:00 08/13/25 01:48 DC Diltiazem HCl 125 mg/Sodium Chloride 125 ml @ 0 mls/hr PROTOCOL IV 08/02/25 22:00 08/04/25 12:58 DC 08/04/25 02:49 0 MLS/HR Doxycycline Hyclate 250 ml @ 125 mls/hr Q12H IV 08/08/25 08:00 08/18/25 07:59 08/15/25 08:07 125 MLS/HR Famotidine (Pepcid 20mg Tab) 20 mg DAILY PO 08/03/25 09:00 08/04/25 12:54 DC 08/04/25 09:42 20 MG Glucagon (Glucagon 1mg Kit) 1 mg AD PRN IM HYPOGLYCEMIA PROTOCOL 08/03/25 00:30 09/02/25 00:29 Guaifenesin/ Dextromethorphan (RobiTUSSin DM 200/20MG 10ML) 10 ml Q4H PRN PO COUGH 08/03/25 00:30 09/02/25 00:29 08/05/25 16:31 10 ML Heparin Sodium (Porcine) (HEParin 5,000 UNIT VIAL) 5,000 unit Q12H SQ 08/03/25 00:30 08/03/25 10:08 DC 08/03/25 00:42 5,000 UNIT Insulin Human Regular (humuLIN R 100 UNIT/ML 3ML) INSULIN SLIDING SCAL... ACHS SQ 08/03/25 07:30 09/02/25 07:29 08/15/25 16:22 4 UNIT Lactated Ringer's 1,000 ml @ 50 mls/hr Q20H IV 08/03/25 00:30 08/10/25 10:11 DC 08/09/25 08:47 50 MLS/HR Lactulose (Constulose 20gm/ 30ml Udcup) 20 gm BID PRN PO CONSTIPATION 08/03/25 00:30 09/02/25 00:29 08/11/25 08:38 20 GM Levothyroxine Sodium (SYNTHroid 25MCG TAB) 25 mcg DAILY@0630 PO 08/10/25 06:30 09/09/25 06:29 08/15/25 06:07 25 MCG Lidocaine (Lidocaine Patch 4%) 1 each Q24H TP 08/07/25 16:30 09/06/25 16:29 08/14/25 18:01 1 EACH Magnesium Sulfate 50 ml @ 0 mls/hr PROTOCOL IV 08/08/25 08:00 08/08/25 07:36 DC Magnesium Sulfate 50 ml @ 0 mls/hr PROTOCOL PRN IV MAGNESIUM PROTOCOL 08/04/25 12:00 09/03/25 11:59 08/08/25 06:10 25 MLS/HR Metoprolol Tartrate (loprESSOR) 5 mg ONCE IV 08/07/25 17:00 08/07/25 21:00 DC 08/07/25 16:53 5 MG Metoprolol Tartrate (loprESSOR) 5 mg Q5MIN PRN IV INCREASED HEART RATE >110 BPM 08/11/25 22:00 08/11/25 22:13 DC 08/11/25 22:12 5 MG Metoprolol Tartrate (loprESSOR) 5 mg Q5MIN PRN IV INCREASED HEART RATE >110 BPM 08/12/25 03:30 08/12/25 04:23 DC 08/12/25 04:21 5 MG Metoprolol Tartrate (loprESSOR) 5 mg Q6H PRN IV INCREASED HEART RATE >120 BPM 08/04/25 17:00 09/03/25 16:59 08/14/25 15:54 5 MG Metoprolol Tartrate (loprESSOR) 25 mg BID PO 08/03/25 09:00 08/07/25 15:00 DC 08/07/25 13:10 25 MG Metoprolol Tartrate (loprESSOR) 50 mg ONCE PO 08/07/25 17:00 08/07/25 21:00 DC 08/07/25 16:53 50 MG Metoprolol Tartrate (loprESSOR) 50 mg Q6H PO 08/07/25 19:00 08/11/25 08:04 DC 08/11/25 00:59 50 MG Metoprolol Tartrate (loprESSOR) 75 mg Q6H PO 08/11/25 08:30 08/12/25 07:54 DC 08/12/25 02:58 75 MG Metoprolol Tartrate (loprESSOR) 200 mg Q12H9 PO 08/12/25 09:00 08/15/25 14:24 DC 08/15/25 08:06 200 MG Nitroglycerin (Nitrostat) 0.4 mg PROTOCOL PRN SL CHEST PAIN 08/03/25 00:30 09/02/25 00:29 Olanzapine (ZyPREXA 10MG/ML 1ML Vial) 5 mg DAILY PRN IM AGITATION 08/05/25 17:30 09/04/25 17:29 08/08/25 20:21 5 MG Ondansetron HCl (zoFRAN 4MG INJ) 4 mg Q6H PRN IV NAUSEA/VOMITING 08/03/25 00:30 09/02/25 00:29 Pantoprazole Sodium (PROTonix 40MG INJ) 40 mg BID IVP 08/04/25 21:00 09/03/25 20:59 08/15/25 08:06 40 MG Pantoprazole Sodium (PROTonix 40MG TAB) 40 mg BID PO 08/04/25 21:00 08/04/25 12:57 DC Potassium Chloride 100 ml @ 100 mls/hr AD PRN IV POTASSIUM PROTOCOL 08/04/25 12:00 09/03/25 11:59 08/09/25 17:00 100 MLS/HR Potassium Chloride (K-Dur/Klor-Con 20meq) 20 meq AD PRN PO POTASSIUM PROTOCOL 08/04/25 12:00 09/03/25 11:59 08/15/25 06:35 20 MEQ Potassium Chloride (KCl 10% Elixir 20meq/15ml) 20 meq AD PRN PO POTASSIUM PROTOCOL 08/04/25 12:00 09/03/25 11:59 08/13/25 04:04 20 MEQ Prednisone (deltaSONE/ oraSONE 20MG TAB) 20 mg DAILY PO 08/05/25 17:00 08/10/25 10:08 DC 08/10/25 09:12 20 MG Rivaroxaban (Xarelto) 15 mg DAILY PO 08/04/25 09:00 08/05/25 11:54 DC 08/04/25 09:42 15 MG Sucralfate (Carafate) 1 gm BID PO 08/04/25 21:00 09/03/25 20:59 08/15/25 08:06 1 GM Tramadol HCl (UltRAM) 50 mg Q6H PRN PO MODERATE PAIN (4-6) 08/06/25 19:30 08/10/25 10:33 DC 08/09/25 10:30 50 MG Vancomycin HCl 250 ml @ 125 mls/hr Q12H IV 08/07/25 21:00 08/11/25 17:08 DC 08/11/25 11:14 125 MLS/HR Vancomycin HCl (Vancomycin Protocol) 1 each AD IV 08/07/25 07:30 08/12/25 08:47 DC Diagnostics / Radiology: [COPY/PASTE HERE IF NO REPORTS PLEASE DELETE SECTION] Assessment: [ Melena Acute Gi blood loss Afib on xarelto STrep A positive] Plan: Continue GI prophylaxis Advance diet as tolerated Avoid NSAIDs Antireflux measures Monitor H&H and transfuse as needed Call with questions, concerns or change in clinical status Patient to follow-up at clinic post discharge Thank you for this consult DEBBIE [email or web address] Aug 15, 2025 16:25
--- NOTE | 2025-08-15 19:56 | OP ---
DATE OF PROCEDURE: 08/15/2025 PREOPERATIVE DIAGNOSIS: Right knee, left knee suspected septic arthritis. POSTOPERATIVE DIAGNOSIS: Right knee, left knee suspected septic arthritis. PROCEDURES PERFORMED: Aspiration under local anesthesia of right knee joint, aspiration under local anesthesia of left knee joint. COMPLICATIONS: None. SPECIMENS SENT: Right knee joint and left knee joint synovial fluid was sent for cultures, then white cell count with differential, and crystals. INDICATIONS FOR THE PROCEDURE: This is a 75-year-old man who has been admitted with bilateral knee swelling. He has multiple other medical issues going on. Orthopedics was consulted for bilateral knee swelling. We discussed in detail with the patient regarding his condition and told the treatment options available and the risks and benefits. All questions and consents were answered in detail. The patient verbalized understanding and preferred aspiration of both the knees to rule out septic arthritis. Informed consent was obtained. DESCRIPTION OF PROCEDURE: The patient was correctly identified in his room. The patient was in the supine position. First, we started with the left knee and the left knee was prepped and draped in a sterile fashion. We injected about 1% of lidocaine, 5 mL into the superolateral corner of the left knee. Then after that, we aspirated about 5 mL of yellowish-colored fluid from the left knee joint, which was sent for cultures and synovial fluid analysis to the laboratory. Compression dressing was applied. Then, we turned our attention to the right knee joint. The right knee joint was prepped and draped in a sterile fashion. Again, we injected 5 mL of lidocaine into the superolateral aspect of the right knee. Then, after that, we aspirated about 8 mL of fluid from the right knee joint, which was clear, yellowish colored. After the aspiration, we did a compression dressing. The patient tolerated the procedure well. No complications encountered. TID: [id number] RECEIPT: [id number]
[2025-08-15 21:47] LABS: GLUCOSE,BODY FLUID 149 mg/dL (1-40); GLUCOSE,BODY FLUID 167 mg/dL (1-40)
[2025-08-15 22:07] LABS: BODY FLUID WBC 17 /cu. mm.
[2025-08-15 22:17] LABS: BODY FLUID RBC 3894 /cu. mm.; BODY FLUID WBC 72 /cu. mm.
[2025-08-15 22:20] LABS: APPEARANCE BODY FLUID BLOODY (CLEAR); COLOR,BODY FLUID PINK (LT YELLOW); SPECIMENTYPE,BODY FLUID SYNOVIAL; TOTAL VOLUME,BODY FLUID 5 mL
[2025-08-15 22:21] LABS: APPEARANCE BODY FLUID CLOUDY (CLEAR); COLOR,BODY FLUID YELLOW (LT YELLOW); SPECIMENTYPE,BODY FLUID SYNOVIAL; TOTAL VOLUME,BODY FLUID 4 mL
[2025-08-15 23:03] LABS: BF LYMPHOCYTE 9 %; BF MONOCYTE 3 %; BF NEUTROPHIL 88.0 %
[2025-08-15 23:07] LABS: BF LYMPHOCYTE 6 %; BF NEUTROPHIL 94.0 %
[2025-08-16] VITALS (9 sets, daily range): BP systolic 100–134; BP diastolic 64–75; PULSE 64–146; RESP 18–19; TEMP 98–98.9; O2SAT 98–100
[2025-08-16 04:27] LABS: IMMATURE GRANULOCYTE ABSOLUTE 0.08 K/uL (0-1); NUCLEATED RED BLOOD CELLS 0.0 % (0.0-0.19); PLATELET COUNT (AUTO) 199 K/uL (130-400); RED BLOOD CELL COUNT(AUTO) 3.22 MIL/uL (4.50-6.20); RED CELL DISTRIBUTION WIDTH 12.9 % (11.0-15.5); WHITE BLOOD COUNT (AUTO) 10.0 K/uL (4.8-10.8)
[2025-08-16 04:50] LABS: ASPARTATE AMINOTRANSFERASE 23.0 U/L (10-37); CREATININE 3.1 mg/dL (0.5-1.3); GLOMERULAR FILTR. RATE CALC 20.0 mL/min (>90); GLUCOSE,RANDOM 164.0 mg/dL (70-105); SODIUM SERUM 133.0 mmol/L (136-145); TOTAL PROTEIN, SERUM 6.0 g/dL (6.0-8.3); UREA NITROGEN, BLOOD 51.0 mg/dL (7-18)
--- NOTE | 2025-08-16 08:59 | PN ---
[facility] PROGRESS NOTE Date Patient Seen: Aug 16, 2025 Time of Visit: 08:56 Supervising Physician: Dr Carlos Branham Primary Care Physician: Dr. Doris Vela Inpatient Consults: [facility], GI, Dr. Anderson (Orthopedic surgeon) PROBLEM LIST: Atrial fibrillation with RVR on Xarelto (on hold), CHADS2-VASc 5 points, HAS- BLED 4 points+ Tachy-javier syndrome Acute streptococcal pharyngitis Acute complicated cystitis Severe sepsis due to above Acute GI bleed (+) melena Acute blood loss anemia Acute rhabdomyolysis, resolved Acute delirium in patient with dementia Acute metabolic encephalopathy in patient with dementia Electrolyte derangement (Hypokalemia) Left knee swelling with moderate joint effusion is seen per CT knee, rule out septic arthritis Febrile illness, not POA GOUT CKD stage III Diabetes mellitus type 2 History of pancreatic cyst since 2021, negative biopsy per family Dementia INTERVAL HISTORY: Patient was seen and examined, patient comfortable in bed, is sitter is at bedside Patient back in AFib RVR, currently in the 120s Patient was seen by Dr. Burden amiodarone and metoprolol are now being held. They are treating the AFib RVR with Cardizem 5 mg pushes This was our instruction as of yesterday. Pending Cardiology recommendations this morning. Patient afebrile No family at bedside PLAN: Follow cardiology recs, telemetry Cardizem pushes for RVR Holding other antiarrhythmics Atropine if heart rate less than 30s Total critical care time 47 minutes, patient at a high risk for down decompensation, tachy-javier syndrome. REVIEW OF SYSTEMS: Unable due to mental status PHYSICAL EXAM: GENERAL: 75 year old male on room air. NAD. HEENT: EOMI, Sclera non icteric, moist mucosa NECK: no JVD LUNGS: Clear breath sounds bilaterally. No wheezes HEART: Regular rate and rhythm. Normal S1 and S2, without murmurs ABD: Abdomen soft, nontender. Bowel sounds present EXT: No clubbing cyanosis or edema (+) left knee warm to to touch, swelling noted. NEURO: Alert and oriented to person, follows commands Vital Signs (last 8hr) Date Time Temp Pulse Resp B/P (MAP) Pulse Ox O2 Delivery O2 Flow Rate FiO2 08/16/25 07:00 98.1 127 19 114/71 100 Room Air 08/16/25 06:39 131 119/59 08/16/25 04:30 99.0 146 18 111/71 96 Room Air 08/16/25 01:13 98.8 120 18 100/75 96 Room Air LABS: Hematology Labs: Test 08/16/25 03:57 Range/Units White Blood Count 10.0 4.8-10.8 K/uL Red Blood Count 3.22 L 4.50-6.20 MIL/uL Hemoglobin 10.3 L 14.0-18.0 g/dL Hematocrit 30.8 L 42-54 % Mean Corpuscular Volume 95.7 79-99 fL Mean Corpuscular Hemoglobin 32.0 27.0-33.0 pg Mean Corpuscular Hemoglobin Concent 33.4 32.0-36.0 g/dL Red Cell Distribution Width 12.9 11.0-15.5 % Platelet Count 199 130-400 K/uL Mean Platelet Volume 10.7 H 7.5-10.5 fL Immature Granulocyte % (Auto) 0.8 0-1 % Neutrophils (%) (Auto) 86.3 H 40.0-77.0 % Lymphocytes (%) (Auto) 6.5 L 21.0-51.0 % Monocytes (%) (Auto) 6.3 3.0-13.0 % Eosinophils (%) (Auto) 0.0 0.0-8.0 % Basophils (%) (Auto) 0.1 0.0-5.0 % Neutrophils # (Auto) 8.6 H 1.8-7.7 K/uL Lymphocytes # (Auto) 0.7 L 1.0-4.8 K/uL Monocytes # (Auto) 0.6 0.1-1.0 K/uL Eosinophils # (Auto) 0.00 0.00-0.70 K/uL Basophils # (Auto) 0.01 0.00-0.20 K/uL Absolute Immature Granulocyte (auto 0.08 0-1 K/uL Nucleated Red Blood Cells 0.0 0.0-0.19 % Chemistry Labs: Test 08/16/25 06:32 08/16/25 03:57 08/14/25 20:09 Range/Units Whole Blood Glucose 147 H 70-110 MG/DL Sodium Level 133 L 136-145 mmol/L Potassium Level 4.3 3.5-5.1 mmol/L Chloride Level 103 101-111 mmol/L Carbon Dioxide Level 19 L 21-32 mmol/L Blood Urea Nitrogen 51 H 7-18 mg/dL Creatinine 3.1 H 0.5-1.3 mg/dL Glomerular Filtration Rate Calc 20 >90 mL/min Random Glucose 164 #H 70-105 mg/dL Total Calcium 8.6 8.5-10.1 mg/dL Total Bilirubin 0.5 0.2-1.0 mg/dL Aspartate Amino Transf (AST/SGOT) 23 10-37 U/L Alanine Aminotransferase (ALT/SGPT) 65 # 12-78 U/L Alkaline Phosphatase 91 50-136 U/L Total Protein 6.0 6.0-8.3 g/dL Albumin 2.0 L 3.5-5.0 g/dL Bedside Glucose Comment Notified Nurse DIAGNOSTICS / RADIOLOGY RESULTS: [ ] PLAN NEURO: Minimize central acting medications as possible. Fall Precautions. Well lighted room through the day and minimize interruptions through the night to prevent acute delirium. PULMONARY: Supplemental 02 as needed Titrate Fio2 to keep Spo2 > or = 90% DuoNebs and CPT as needed IS hourly while awake for pulmonary hygiene Out of bed to chair as tolerated CARDIOVASCULAR: Follow hemodynamics. Titrate vasopressor to keep MAP >65 or systolic blood pressure >95mmHg DRIPS: cardizem LINES: PIV GI & NUTRITION: Continue nutritional support Aspirations precautions Prokinetic agents and laxatives as needed KIDNEYS & ELECTROLYTES: Strict monitoring of intake and output Daily weights Avoid nephrotoxic agents Monitor electrolytes and replace as needed Goal urine output of 30mL/hr or 0.5mL/kg/hr ENDOCRINE: Maintain blood glucose between 100-180 at all times. Insulin sliding scale for blood glucose management INFECTIOUS DISEASE: Trend temperature. Powell-culture if febrile. Micro: [ ] Antibiotics: [ ] cefepime doxy and vanco HEMATOLOGY & COAGULATION: Monitor H&H. Keep Hgb > 7 Transfuse 1 unit of PRBC for Hgb < 7 Transfuse 1 pack of platelets of platelets < 20, 000 Watch for any signs and symptoms of bleeding SKIN: Pressure ulcer prevention per facility protocol Rehab: PT/OT Prophylaxis: GI: [Protonix ] DVT: [SCD ] Code Status: Full Resuscitation Disposition: TBD Case was discussed and seen with my supervising physician. The above plan was formulated and agreed upon. NUSRAT RICK PAC Aug 16, 2025 08:59
--- NOTE | 2025-08-16 15:34 | PN ---
This is a 75-year-old male with history of nonobstructive coronary artery disease, paroxysmal atrial fibrillation, type 2 diabetes mellitus, hypertension, hyperlipidemia, history of pancreatic mass dementia. He was admitted 08/03/2025 with productive cough, sore throat and chills, acute kidney injury, rhabdomyolysis and melena. He is group a strep positive. His initial EKG 08/02/2025 type 1 counter-clockwise atrial flutter with a ventricular rate of 184 beats per minute. He developed recurrent atrial fibrillation/atrial flutter and was started on amiodarone infusion and transitioned to amiodarone 200 mg twice daily. He was treated with metoprolol tartrate 200 mg twice daily which was discontinued yesterday due to sinus bradycardia with ventricular rates in the 30s. Additionally he had frequent PACs, both conducted and nonconducted. Overnight he developed recurrent atrial flutter with rapid ventricular response which was ongoing. He is currently in atrial flutter with ventricular rates in the 120s to 130s. Echocardiogram 08/03/2025 shows an ejection fraction of 45-50% with normal-sized left atrium, mild posterior annular calcification and normal pericardium. Yesterday he underwent aspiration of the right knee joint due to suspected septic arthritis with 8 mL of clear, yellowish fluid aspirated. White blood count 10.0, hemoglobin 10.3, hematocrit 30.8, platelets 199, creatinine 3.1 up from 2.2, potassium 4.3, potassium 4.3, albumin 2.0. On exam, he is sleeping, irregular rhythm, decreased air entry midway to lung bases. Assessment: 1. Paroxysmal atrial fibrillation/atrial flutter with rapid ventricular response. 2. Sinus bradycardia. 3. Mild LV dysfunction. 4. Acute renal failure. 5. Melena. 6. Group a strep positive. Plan: 1. We will initiate Cardizem drip due to atrial flutter with sustained ventricular rates in the 120s to 130s, increasing to the 150s in intervals. 2. Continue amiodarone 200 mg twice daily. 3. Continue metoprolol tartrate 25 mg 3 times daily. 4. Xarelto was held on admission due to melena. EGD can not be performed due to his atrial arrhythmias. He is currently not a candidate for oral anticoagulation. 5. We will order chest x-ray due to decreased air entry on physical exam. 6. He has worsening renal failure. Recommend Nephrology consult. Vitals/Labs Vital Signs Date Time Temp Pulse Resp B/P (MAP) Pulse Ox O2 Delivery O2 Flow Rate FiO2 08/16/25 11:00 98.1 130 19 107/68 93 Room Air 08/15/25 20:00 0 21 Laboratory Tests 08/16/25 03:57 LENIN MAZARIEGOS PAC Aug 16, 2025 15:34
--- NOTE | 2025-08-16 17:45 | NUR ---
cardizem drip stopped as per marli vail. SB 40-50'S
--- NOTE | 2025-08-16 21:26 | CONS ---
NEPHROLOGY CONSULTATION REASON FOR CONSULTATION: Renal failure. The patient has multiple other comorbidities. HISTORY OF PRESENT ILLNESS: This patient has been in the hospital for several days. This patient has atrial fibrillation with bradycardia in between. The patient has knee suspected septic arthritis on the left side. The patient has undergone aspiration of the right knee and left knee joint fluid. The patient has rising BUN and creatinine. The patient also has anemia. The patient is generally weak. The patient has been in the hospital for the past several days. The patient has been treated for streptococcal pharyngitis and UTI with underlying CKD reported with underlying diabetes and hypertension. The patient is in ICU. The patient has been treated for sepsis. PAST MEDICAL HISTORY: As above, diabetes, hypertension, anemia, underlying other comorbidities as detailed. Hyperlipidemia, diabetes. Coronary artery disease, which was mild. The patient has pancreatic mass and memory impairment. PAST SURGICAL HISTORY: Cardiac catheterization, knee aspirations now, and right shoulder arthroscopy. FAMILY HISTORY: Negative for present contacts. SOCIAL HISTORY: No smoking, alcohol, or drug abuse. REVIEW OF SYSTEMS: CONSTITUTIONAL: Has been weak. No fever, chills, or rigors. HEENT: With no headache, oral ulcers, sore throat, or difficulty swallowing. No new vision complaint. RESPIRATORY: The patient has denied any cough, expectoration, hemoptysis or pleuritic pain. CARDIOVASCULAR: Has shortness of breath. No orthopnea or PND. GASTROINTESTINAL: Negative for nausea or vomiting or diarrhea reported. GENITOURINARY: Negative for dysuria or hematuria. DERMATOLOGIC: No rashes, pruritus or skin lesions. ENDOCRINE: No polyuria, polydipsia or polyphagia. PSYCHIATRIC: Negative for anxiety, depression, hallucinations. NEUROLOGIC: No seizures or syncope. MUSCULOSKELETAL: Knee joint swelling as described. All the other systemic review has been done and unremarkable. PHYSICAL EXAMINATION: GENERAL: Pale. No other distress. VITAL SIGNS: Blood pressure is 107/68. Pulse is 130. Respiratory rate is 19. HEENT: Head is atraumatic, normocephalic. Pupils are round and reactive. Sclerae anicteric. Conjunctivae not pale. Oral mucosa is not dry. NECK: Supple. No mass or bruits . Neck has no bruise. CHEST: Shows equal thoracic percussion note being resonant in all areas. CARDIAC: Irregular rhythm. No rubs. No S3 or S4. No parasternal heave. ABDOMEN: With no guarding or tenderness. Bowel sounds are free of fluid. No rebound, rigidity, or tenderness. EXTREMITIES: With no edema and no cyanosis or clubbing. BACK: No tenderness or back deformities. SKIN: No other petechiae or rashes on inspection and palpation. LABORATORY DATA: We have reviewed the available labs in detail. The patient's hemoglobin , hematocrit is 30, white cell count is 10,000. Creatinine went up to 3.1, BUN of 51, low CO2 of 19, low sodium of 131. Old records reviewed. The patient has toxic urine screen which was negative. Urine has been previously negative for proteinuria. Serological studies have been positive for group A streptococcal infection. COVID influenza was negative. The patient's synovial fluid has been analyzed. Imaging tests have been done and were personally reviewed with echocardiogram reviewed, no acute finding. The underlying ejection fraction 45% to 50%. The patient undergone CT scan. Old records have been reviewed. Vital signs are reviewed. The patient I have discussed with other team members. PROBLEMS: * Acute renal failure. * Underlying chronic kidney disease. * Sepsis. * Knee swelling, suspected septic arthritis. * Acidosis. * Hyponatremia. * Treated for streptococcal pharyngitis. * Underlying history of GI bleeding. * Underlying atrial fibrillation with tachybrady syndrome. * Other electrolyte derangements before. * Metabolic encephalopathy with mental status changes. * Gout before. * The patient has underlying diabetic nephropathy. * The patient has previous pancreatic mass which was biopsied and negative. * Apparently dementia. * Multiple other comorbidities. * The patient is in AFib. * Renal failure is multifactorial. SUGGESTIONS: * To get a urinalysis again. * Intake, output and weight monitoring. * Lab and imaging studies, x-rays were personally reviewed and interpreted. * We will get iron panel and ferritin because of anemia. * We will get TSH and uric acid. * We will monitor renal function, electrolyte. * Nonsteroidal drug and nephrotoxic to be avoided. * Dose of medicine to be adjusted. * IV Dilaudid 0.5 q. 6 can be used for pain. * The patient will get DVT and GI prophylaxis. * We have discussed with other team members. * We have reviewed the old external records in detail and continued close monitoring of renal function will be done. * The patient is on diltiazem drip because of atrial fibrillation. * I will order a renal ultrasound also. CONDITION: Critical, guarded. Thank you for this patient. TID: [id number] RECEIPT: [id number]
[2025-08-17] VITALS (8 sets, daily range): BP systolic 125–155; BP diastolic 57–82; PULSE 63–132; RESP 18–20; TEMP 97.9–98.6; O2SAT 98–100
[2025-08-17 05:32] LABS: IMMATURE GRANULOCYTE ABSOLUTE 0.07 K/uL (0-1); NUCLEATED RED BLOOD CELLS 0.0 % (0.0-0.19); PLATELET COUNT (AUTO) 223 K/uL (130-400); RED BLOOD CELL COUNT(AUTO) 3.40 MIL/uL (4.50-6.20); RED CELL DISTRIBUTION WIDTH 13.1 % (11.0-15.5); WHITE BLOOD COUNT (AUTO) 12.2 K/uL (4.8-10.8)
[2025-08-17 06:11] LABS: ASPARTATE AMINOTRANSFERASE 23.0 U/L (10-37); CREATININE 3.7 mg/dL (0.5-1.3); GLOMERULAR FILTR. RATE CALC 17.0 mL/min (>90); GLUCOSE,RANDOM 111.0 mg/dL (70-105); PHOSPHORUS 4.7 mg/dL (2.5-4.9); SODIUM SERUM 138.0 mmol/L (136-145); TOTAL PROTEIN, SERUM 6.4 g/dL (6.0-8.3); UREA NITROGEN, BLOOD 57.0 mg/dL (7-18)
[2025-08-17 06:22] LABS: % IRON SATURATION 22.2 % (30-44); IRON, SERUM 43.0 mcg/dL (65-175)
[2025-08-17] MEDS: Vitamin B Complex/Vit C/Folic Acid PO SCH (08:31)
--- NOTE | 2025-08-17 09:19 | HMCIMG ---
EXAM: CR Chest, 1 View. CLINICAL HISTORY: decreased air entry COMPARISON: X-ray dated 08/10 FINDINGS: LUNGS: Significantly reduced perihilar opacities compared to the prior radiograph. Persistent and stable nodular opacity in the right upper lobe. PLEURAL SPACES: No pleural effusion or pneumothorax. MEDIASTINUM: The cardiomediastinal silhouette is within normal limits. BONES: No aggressive appearing osseous lesion seen. IMPRESSION: Significantly reduced perihilar opacities compared to the prior radiograph. Persistent and stable nodular opacity in the right upper lobe. /[place]
--- NOTE | 2025-08-17 09:33 | HMCIMG ---
EXAMINATION: ULTRASOUND OF THE RETROPERITONEUM. CLINICAL HISTORY: Acute renal failure. COMPARISON: None. TECHNIQUE: Real-time grayscale ultrasound images of the kidneys. FINDINGS: The kidneys are normal in caliber, the right kidney measures 10.5 x 4.6 x 4.4 cm and the left kidney measures 9.1 x 5.3 x 3.7 cm in its craniocaudal, AP, and transverse dimensions respectively. There is normal renal cortical thickness and increased cortical echogenicity. There is no renal calculus or hydronephrosis. The urinary bladder is normal in caliber and wall thickness (0.18 cm). There are no calculi in the urinary bladder. IMPRESSION: Increased echotexture of both the kidneys, of concern for renal parenchymal disease. Recommend clinical correlation and with laboratory parameters. /[place]ugar
--- NOTE | 2025-08-17 09:55 | PN ---
NEPHROLOGY PROGRESS NOTE Date/Time Patient Seen: Aug 17, 2025 SUBJECTIVE: This patient has been in the hospital for several days. This patient has atrial fibrillation with bradycardia in between. The patient has knee suspected septic arthritis on the left side. The patient has undergone aspiration of the right knee and left knee joint fluid. The patient has rising BUN and creatinine. The patient also has anemia. The patient is generally weak. The patient has been in the hospital for the past several days. The patient has been treated for streptococcal pharyngitis and UTI with underlying CKD reported with underlying diabetes and hypertension. The patient has been treated for sepsis. Vancomycin has been discontinued Renal function remains elevated Electrolytes are stable Renal ultrasound noted He was seen in the medial floor. REVIEW OF SYSTEMS: GENERAL: Negative for any nausea, vomiting, fevers, chills, or weight loss. NEUROLOGIC: Negative for any blurry vision, blind spots, double vision, facial asymmetry, dysphagia, dysarthria, hemiparesis, hemisensory deficits, vertigo, ataxia. HEENT: Negative for any head trauma, neck trauma, neck stiffness, photophobia, phonophobia, sinusitis, rhinitis. CARDIAC: Negative for any chest pain, dyspnea on exertion, paroxysmal nocturnal dyspnea, peripheral edema. PULMONARY: Negative for any shortness of breath, wheezing, COPD, or TB exposure. GASTROINTESTINAL: Negative for any abdominal pain, nausea, vomiting, bright red blood per rectum, melena. GENITOURINARY: Negative for any dysuria, hematuria, incontinence. INTEGUMENTARY: Negative for any rashes, cuts, insect bites. RHEUMATOLOGIC: Negative for any joint pains, photosensitive rashes, history of vasculitis or kidney problems. HEMATOLOGIC: Negative for any abnormal bruising, frequent infections or bleeding. Vital Signs (last 8hr) Date Time Temp Pulse Resp B/P (MAP) Pulse Ox O2 Delivery O2 Flow Rate FiO2 08/17/25 07:00 97.9 132 19 155/82 100 Room Air 08/17/25 04:22 98.6 74 18 125/74 100 Room Air PHYSICAL EXAM: GENERAL: Alert and oriented x 3. No acute distress. Well-nourished. EYES: EOMI. Anicteric. HENT: Moist mucous membranes. No scleral icterus. No cervical lymphadenopathy. LUNGS: Clear to auscultation bilaterally. No accessory muscle use. CARDIOVASCULAR: Regular rate and rhythm. No murmur. No JVD. ABDOMEN: Soft, non-tender and non-distended. No palpable masses. EXTREMITIES: No edema. Non-tender.?SKIN: No rashes or lesions. Warm. NEUROLOGIC: No focal neurological deficits. CN II-XII grossly intact, but not individually tested. PSYCHIATRIC: Cooperative. Appropriate mood and affect. Current Medications Medications (Trade) Dose Ordered Sig/Anish Route PRN Reason Start Time Stop Time Status Last Admin Dose Admin Acetaminophen (TYLenol 325MG TAB) 650 mg Q4H PRN PO MILD PAIN (1-3) 08/03/25 00:30 08/03/25 02:29 DC Acetaminophen (TYLenol 325MG TAB) 650 mg Q6H PRN PO PAIN LEVEL 1 TO 3 08/03/25 00:30 09/02/25 00:29 08/14/25 03:09 650 MG Acetaminophen (TYLenol 650MG ELIXIR) 650 mg Q6H PRN PEG MILD PAIN (1-3) 08/03/25 02:30 08/11/25 08:38 DC 08/08/25 07:04 650 MG Acetaminophen (TYLenol 650MG ELIXIR) 650 mg Q6H PRN PO MILD PAIN (1-3) 08/11/25 14:30 09/10/25 14:29 Al Hydroxide/Mg Hydroxide (MAALox PLUS 30ML) 30 ml Q6H PRN PO INDIGESTION 08/03/25 00:30 09/02/25 00:29 Allopurinol (ZYLOprim 100MG) 100 mg TID PO 08/06/25 14:00 09/05/25 13:59 08/17/25 08:31 100 MG Amiodarone HCl (pacERONE 200MG) 200 mg BID PO 08/13/25 09:00 09/12/25 08:59 08/17/25 08:31 200 MG Amiodarone HCl 150 mg/Dextrose 103 ml @ 618 mls/hr ONCE IV 08/13/25 02:00 08/13/25 02:01 DC Amiodarone HCl 360 mg/Dextrose 207.2 ml @ 33.3 mls/hr AD IV 08/13/25 02:00 08/13/25 02:01 DC Amiodarone HCl 540 mg/Dextrose 310.8 ml @ 16.7 mls/hr [id number] IV 08/13/25 07:00 08/13/25 07:59 DC Amiodarone HCl 540 mg/Dextrose 310.8 ml @ 16.7 mls/hr [id number] IV 08/13/25 11:00 09/12/25 10:59 08/13/25 10:03 16.7 MLS/HR Amiodarone HCL/ Dextrose 100 ml @ 600 mls/hr PROTOCOL IV 08/13/25 02:00 08/13/25 07:06 DC 08/13/25 04:36 600 MLS/HR Amiodarone HCL/ Dextrose 200 ml @ 33.333 mls/ hr PROTOCOL IV 08/13/25 02:00 08/13/25 07:07 DC 08/13/25 05:06 33.333 MLS/HR Atropine Sulfate (Atropine 1mg Syg) 0.5 mg AD PRN IVP HR<30BPM 08/15/25 10:00 Benzocaine (Cepacol Sore Throat Lozenge) 1 each Q4H PRN MM SORE THROAT 08/03/25 10:30 09/02/25 10:29 08/03/25 11:55 1 EACH Cefepime HCl (MAXipime 1 GM vial) 1 gm Q12H IVPB 08/09/25 19:30 08/17/25 07:30 DC 08/16/25 20:12 1 GM Cefepime HCl (MAXipime 1 GM vial) 1 gm Q8H IVPB 08/07/25 07:30 08/09/25 07:17 DC 08/09/25 07:00 1 GM Ceftriaxone Sodium (Rocephin 2gm Inj) 2 gm Q24H IVPB 08/03/25 00:30 08/07/25 07:28 DC 08/07/25 01:39 2 GM Dextrose (D50w) 50 ml AD PRN IV HYPOGLYCEMIA PROTOCOL 08/03/25 00:30 09/02/25 00:29 Diazepam (VALium 5 MG/ML 2 ML SYG) 5 mg AM PRN IV AGITATION/PSYCHOSIS 08/09/25 15:30 08/14/25 17:30 DC 08/12/25 02:59 5 MG Diazepam (VALium 5 MG/ML 2 ML SYG) 5 mg HS IV 08/09/25 21:00 08/14/25 17:30 DC Diltiazem HCl (CARDIzem 25MG INJ) 5 mg AD PRN IVP INCREASED HEART RATE >110 BPM 08/15/25 14:30 08/16/25 15:20 DC 08/16/25 10:56 5 MG Diltiazem HCl (CARDIzem 25MG INJ) 10 mg ONCE PRN IVP CARDIZEM PROTOCOL 08/07/25 15:00 08/07/25 15:00 DC Diltiazem HCl (CARDIzem 60MG TAB) 30 mg Q6H PO 08/08/25 08:00 08/08/25 11:00 DC 08/08/25 07:59 30 MG Diltiazem HCl 125 mg/Sodium Chloride 125 ml @ 0 mls/hr AD PRN IV CARDIZEM PROTOCOL 08/07/25 15:00 08/07/25 14:59 DC Diltiazem HCl 125 mg/Sodium Chloride 125 ml @ 0 mls/hr AD PRN IV CARDIZEM PROTOCOL 08/08/25 11:00 08/12/25 07:58 DC 08/11/25 15:51 15 MLS/HR Diltiazem HCl 125 mg/Sodium Chloride 125 ml @ 0 mls/hr AD PRN IV CARDIZEM PROTOCOL 08/12/25 08:00 08/13/25 01:48 DC Diltiazem HCl 125 mg/Sodium Chloride 125 ml @ 0 mls/hr PROTOCOL IV 08/02/25 22:00 08/04/25 12:58 DC 08/04/25 02:49 0 MLS/HR Diltiazem HCl 125 mg/Sodium Chloride 125 ml @ 0 mls/hr PROTOCOL IV 08/16/25 15:30 09/15/25 15:29 08/16/25 15:59 5 MLS/HR Doxycycline Hyclate 250 ml @ 125 mls/hr Q12H IV 08/08/25 08:00 08/18/25 07:59 08/17/25 08:31 125 MLS/HR Famotidine (Pepcid 20mg Tab) 20 mg DAILY PO 08/03/25 09:00 08/04/25 12:54 DC 08/04/25 09:42 20 MG Glucagon (Glucagon 1mg Kit) 1 mg AD PRN IM HYPOGLYCEMIA PROTOCOL 08/03/25 00:30 09/02/25 00:29 Guaifenesin/ Dextromethorphan (RobiTUSSin DM 200/20MG 10ML) 10 ml Q4H PRN PO COUGH 08/03/25 00:30 09/02/25 00:29 08/05/25 16:31 10 ML Heparin Sodium (Porcine) (HEParin 5,000 UNIT VIAL) 5,000 unit Q12H SQ 08/03/25 00:30 08/03/25 10:08 DC 08/03/25 00:42 5,000 UNIT Insulin Human Regular (humuLIN R 100 UNIT/ML 3ML) INSULIN SLIDING SCAL... ACHS SQ 08/03/25 07:30 09/02/25 07:29 08/15/25 16:22 4 UNIT Lactated Ringer's 1,000 ml @ 50 mls/hr Q20H IV 08/03/25 00:30 08/10/25 10:11 DC 08/09/25 08:47 50 MLS/HR Lactulose (Constulose 20gm/ 30ml Udcup) 20 gm BID PRN PO CONSTIPATION 08/03/25 00:30 09/02/25 00:29 08/11/25 08:38 20 GM Levothyroxine Sodium (SYNTHroid 25MCG TAB) 25 mcg DAILY@0630 PO 08/10/25 06:30 09/09/25 06:29 08/17/25 06:33 25 MCG Lidocaine (Lidocaine Patch 4%) 1 each Q24H TP 08/07/25 16:30 09/06/25 16:29 08/16/25 16:22 1 EACH Magnesium Sulfate 50 ml @ 0 mls/hr PROTOCOL IV 08/08/25 08:00 08/08/25 07:36 DC Magnesium Sulfate 50 ml @ 0 mls/hr PROTOCOL PRN IV MAGNESIUM PROTOCOL 08/04/25 12:00 09/03/25 11:59 08/08/25 06:10 25 MLS/HR Metoprolol Tartrate (loprESSOR) 5 mg ONCE IV 08/07/25 17:00 08/07/25 21:00 DC 08/07/25 16:53 5 MG Metoprolol Tartrate (loprESSOR) 5 mg Q5MIN PRN IV INCREASED HEART RATE >110 BPM 08/11/25 22:00 08/11/25 22:13 DC 08/11/25 22:12 5 MG Metoprolol Tartrate (loprESSOR) 5 mg Q5MIN PRN IV INCREASED HEART RATE >110 BPM 08/12/25 03:30 08/12/25 04:23 DC 08/12/25 04:21 5 MG Metoprolol Tartrate (loprESSOR) 5 mg Q6H PRN IV INCREASED HEART RATE >120 BPM 08/04/25 17:00 08/16/25 12:16 DC 08/16/25 06:39 5 MG Metoprolol Tartrate (loprESSOR) 25 mg BID PO 08/03/25 09:00 08/07/25 15:00 DC 08/07/25 13:10 25 MG Metoprolol Tartrate (loprESSOR) 25 mg TID PO 08/16/25 12:30 08/17/25 08:22 DC 08/16/25 20:13 25 MG Metoprolol Tartrate (loprESSOR) 50 mg ONCE PO 08/07/25 17:00 08/07/25 21:00 DC 08/07/25 16:53 50 MG Metoprolol Tartrate (loprESSOR) 50 mg Q6H PO 08/07/25 19:00 08/11/25 08:04 DC 08/11/25 00:59 50 MG Metoprolol Tartrate (loprESSOR) 50 mg TID PO 08/17/25 08:30 09/16/25 08:29 08/17/25 08:41 50 MG Metoprolol Tartrate (loprESSOR) 75 mg Q6H PO 08/11/25 08:30 08/12/25 07:54 DC 08/12/25 02:58 75 MG Metoprolol Tartrate (loprESSOR) 200 mg Q12H9 PO 08/12/25 09:00 08/15/25 14:24 DC 08/15/25 08:06 200 MG Nitroglycerin (Nitrostat) 0.4 mg PROTOCOL PRN SL CHEST PAIN 08/03/25 00:30 09/02/25 00:29 Olanzapine (ZyPREXA 10MG/ML 1ML Vial) 5 mg DAILY PRN IM AGITATION 08/05/25 17:30 09/04/25 17:29 08/08/25 20:21 5 MG Ondansetron HCl (zoFRAN 4MG INJ) 4 mg Q6H PRN IV NAUSEA/VOMITING 08/03/25 00:30 09/02/25 00:29 Pantoprazole Sodium (PROTonix 40MG INJ) 40 mg BID IVP 08/04/25 21:00 09/03/25 20:59 08/17/25 08:32 40 MG Pantoprazole Sodium (PROTonix 40MG TAB) 40 mg BID PO 08/04/25 21:00 08/04/25 12:57 DC Potassium Chloride 100 ml @ 100 mls/hr AD PRN IV POTASSIUM PROTOCOL 08/04/25 12:00 09/03/25 11:59 08/09/25 17:00 100 MLS/HR Potassium Chloride (K-Dur/Klor-Con 20meq) 20 meq AD PRN PO POTASSIUM PROTOCOL 08/04/25 12:00 09/03/25 11:59 08/15/25 06:35 20 MEQ Potassium Chloride (KCl 10% Elixir 20meq/15ml) 20 meq AD PRN PO POTASSIUM PROTOCOL 08/04/25 12:00 09/03/25 11:59 08/13/25 04:04 20 MEQ Prednisone (deltaSONE/ oraSONE 20MG TAB) 20 mg DAILY PO 08/05/25 17:00 08/10/25 10:08 DC 08/10/25 09:12 20 MG Rivaroxaban (Xarelto) 15 mg DAILY PO 08/04/25 09:00 08/05/25 11:54 DC 08/04/25 09:42 15 MG Sucralfate (Carafate) 1 gm BID PO 08/04/25 21:00 09/03/25 20:59 08/17/25 08:31 1 GM Tramadol HCl (UltRAM) 50 mg Q6H PRN PO MODERATE PAIN (4-6) 08/06/25 19:30 08/10/25 10:33 DC 08/09/25 10:30 50 MG Vancomycin HCl 250 ml @ 125 mls/hr Q12H IV 08/07/25 21:00 08/11/25 17:08 DC 08/11/25 11:14 125 MLS/HR Vancomycin HCl (Vancomycin Protocol) 1 each AD IV 08/07/25 07:30 08/12/25 08:47 DC Vitamin B Complex/ Vit C/Folic Acid (Nephrovite Tablet) 1 cap DAILY PO 08/17/25 09:00 09/16/25 08:59 08/17/25 08:31 1 CAP LABORATORY: [ ] Hematology Labs: Test 08/17/25 05:09 Range/Units White Blood Count 12.2 H 4.8-10.8 K/uL Red Blood Count 3.40 L 4.50-6.20 MIL/uL Hemoglobin 10.8 L 14.0-18.0 g/dL Hematocrit 32.3 L 42-54 % Mean Corpuscular Volume 95.0 79-99 fL Mean Corpuscular Hemoglobin 31.8 27.0-33.0 pg Mean Corpuscular Hemoglobin Concent 33.4 32.0-36.0 g/dL Red Cell Distribution Width 13.1 11.0-15.5 % Platelet Count 223 130-400 K/uL Mean Platelet Volume 10.1 7.5-10.5 fL Immature Granulocyte % (Auto) 0.6 0-1 % Neutrophils (%) (Auto) 84.6 H 40.0-77.0 % Lymphocytes (%) (Auto) 7.8 L 21.0-51.0 % Monocytes (%) (Auto) 6.6 3.0-13.0 % Eosinophils (%) (Auto) 0.2 0.0-8.0 % Basophils (%) (Auto) 0.2 0.0-5.0 % Neutrophils # (Auto) 10.3 H 1.8-7.7 K/uL Lymphocytes # (Auto) 1.0 1.0-4.8 K/uL Monocytes # (Auto) 0.8 0.1-1.0 K/uL Eosinophils # (Auto) 0.03 0.00-0.70 K/uL Basophils # (Auto) 0.02 0.00-0.20 K/uL Absolute Immature Granulocyte (auto 0.07 0-1 K/uL Nucleated Red Blood Cells 0.0 0.0-0.19 % Chemistry Labs: Test 08/17/25 06:26 08/17/25 05:09 Range/Units Whole Blood Glucose 119 H 70-110 MG/DL Sodium Level 138 136-145 mmol/L Potassium Level 3.8 3.5-5.1 mmol/L Chloride Level 106 101-111 mmol/L Carbon Dioxide Level 19 L 21-32 mmol/L Blood Urea Nitrogen 57 H 7-18 mg/dL Creatinine 3.7 H 0.5-1.3 mg/dL Glomerular Filtration Rate Calc 17 >90 mL/min Random Glucose 111 H 70-105 mg/dL Uric Acid 4.8 2.6-7.2 mg/dL Total Calcium 8.8 8.5-10.1 mg/dL Phosphorus Level 4.7 2.5-4.9 mg/dL Magnesium Level 2.20 1.80-2.40 mg/dL Iron Level 43 L 65-175 mcg/dL Total Iron Binding Capacity 193 L 250-450 mcg/dL Percent Iron Saturation 22.2 L 30-44 % Ferritin 463 H 30-400 ng/mL Total Bilirubin 0.7 0.2-1.0 mg/dL Aspartate Amino Transf (AST/SGOT) 23 10-37 U/L Alanine Aminotransferase (ALT/SGPT) 61 12-78 U/L Alkaline Phosphatase 90 50-136 U/L Total Protein 6.4 6.0-8.3 g/dL Albumin 2.4 L 3.5-5.0 g/dL Thyroid Stimulating Hormone (TSH) 4.74 #H 0.36-3.74 uIU/mL DIAGNOSTICS / RADIOLOGY: [place] [address] IMAGING REPORT Signed PATIENT: LADARIUS CARTER MR#: [id number] : 1950 SEX: M AGE: 75 LOCATION: [facility] ORDER 1701 STATUS: ADM IN REPORT#: [id number] SERVICE 1658 REASON: acute renal failure ORDERING PHYSICIAN: KELLEN KIM MD PROCEDURE: RENAL - US RENAL SONOGRAM EXAMINATION: ULTRASOUND OF THE RETROPERITONEUM. CLINICAL HISTORY: Acute renal failure. COMPARISON: None. TECHNIQUE: Real-time grayscale ultrasound images of the kidneys. FINDINGS: The kidneys are normal in caliber, the right kidney measures 10.5 x 4.6 x 4.4 cm and the left kidney measures 9.1 x 5.3 x 3.7 cm in its craniocaudal, AP, and transverse dimensions respectively. There is normal renal cortical thickness and increased cortical echogenicity. There is no renal calculus or hydronephrosis. The urinary bladder is normal in caliber and wall thickness (0.18 cm). There are no calculi in the urinary bladder. IMPRESSION: Increased echotexture of both the kidneys, of concern for renal parenchymal disease. Recommend clinical correlation and with laboratory parameters. /[facility] DICTATED BY: GAVIN MATHEWS Jr., MD DATE: 08/17/25 1032 ELECTRONICALLY SIGNED BY: GAVIN MATHEWS Jr., MD DATE: 08/17/25 1032 PATIENT: LADARIUS CARTER MR#: [id number] : 1950 SEX: M AGE: 75 LOCATION: [facility] ORDER 1536 STATUS: ADM IN REPORT#: [id number] SERVICE 1534 REASON: decreased air entry ORDERING PHYSICIAN: LENIN MAZARIEGOS PAC PROCEDURE: CXR1VW - CHEST 1VW EXAM: CR Chest, 1 View. CLINICAL HISTORY: decreased air entry COMPARISON: X-ray dated 08/10 FINDINGS: LUNGS: Significantly reduced perihilar opacities compared to the prior radiograph. Persistent and stable nodular opacity in the right upper lobe. PLEURAL SPACES: No pleural effusion or pneumothorax. MEDIASTINUM: The cardiomediastinal silhouette is within normal limits. BONES: No aggressive appearing osseous lesion seen. IMPRESSION: Significantly reduced perihilar opacities compared to the prior radiograph. Persistent and stable nodular opacity in the right upper lobe. /[facility] DICTATED BY: GAVIN MATHEWS Jr., MD DATE: 08/17/25 1017 ELECTRONICALLY SIGNED BY: GAVIN MATHEWS Jr., MD DATE: 08/17/25 1017 PATIENT: LADARIUS CARTER MR#: [id number] : 1950 SEX: M AGE: 75 LOCATION: [facility] ORDER 1011 STATUS: ADM IN REPORT#: [id number] SERVICE 1010 REASON: sepsis, chf ORDERING PHYSICIAN: DIONISIO MCINTYRE PROCEDURE: CXR1VW - CHEST 1VW ADDENDUM REPORT ADDENDUM: Results were shared by telephone at 01:48 am on 08/11/25 and acknowledged by Patient's Nurse Mr.Joe Monteiro. /[facility] EXAM: CHEST RADIOGRAPH, 1 VIEW Technique: Single frontal view of the chest. Clinical Information: Sepsis and congestive heart failure. Findings: Lungs and large airways: Bilateral perihilar air-space opacities are present with mild pulmonary vascular congestion. A right upper lobe nodular opacity is present. Pleura: No pleural effusion or pneumothorax is identified. Heart and mediastinum: Cardiac size and mediastinal contours are within normal limits. Bones/joints: No acute osseous abnormality is identified. Impression: * Comparison: Compared with chest radiograph dated 08/07/2025 09:11 EDT, bilateral perihilar air-space opacities and mild pulmonary vascular congestion are unchanged, and the right upper lobe nodular opacity persists. /[facility] DICTATED BY: OTIS GLASS MD DATE: 08/11/25 0149 ELECTRONICALLY SIGNED BY: DATE: EXAM: CHEST RADIOGRAPH, 1 VIEW Technique: Single frontal view of the chest. Clinical Information: Sepsis and congestive heart failure. Findings: Lungs and large airways: Bilateral perihilar air-space opacities are present with mild pulmonary vascular congestion. A right upper lobe nodular opacity is present. Pleura: No pleural effusion or pneumothorax is identified. Heart and mediastinum: Cardiac size and mediastinal contours are within normal limits. Bones/joints: No acute osseous abnormality is identified. Impression: * Comparison: Compared with chest radiograph dated 08/07/2025 09:11 EDT, bilateral perihilar air-space opacities and mild pulmonary vascular congestion are unchanged, and the right upper lobe nodular opacity persists. /[facility] DICTATED BY: OTIS GLASS MD DATE: 08/11/25131 ELECTRONICALLY SIGNED BY: OTIS GLASS MD DATE: 08/11/25131 PATIENT: LADARIUS CARTER MR#: [id number] : 1950 SEX: M AGE: 75 LOCATION: 2CV ORDER 5 STATUS: ADM IN REPORT#: [id number] SERVICE REASON: swelling ORDERING PHYSICIAN: ASHLEY MONTEIRO PROCEDURE: VENOUS WILLIAM - US VENOUS DOPPLER BILATERAL EXAM: ULTRASOUND VENOUS DOPPLER OF BOTH LOWER EXTREMITIES Technique: Real-time grayscale ultrasound with graded transducer compression, color Doppler, and pulsed-wave spectral Doppler performed from the common femoral region through the calf veins in longitudinal and transverse planes; respiratory phasicity and distal augmentation maneuvers were assessed. Clinical Information: Bilateral lower-extremity swelling. Findings: Right lower extremity venous system: The common femoral vein, great saphenous vein at the saphenofemoral junction, femoral vein, popliteal vein, and posterior tibial veins are fully compressible with normal color filling and normal respiratory phasicity and augmentation on spectral Doppler; no intraluminal thrombus is identified. Right knee region: A fluid collection in the suprapatellar region measures 5.4 ??? 4.3 ??? 1.4 cm, most consistent with suprapatellar bursitis. Left lower extremity venous system: The common femoral vein, great saphenous vein at the saphenofemoral junction, femoral vein, popliteal vein, and posterior tibial veins are fully compressible with normal color filling and normal respiratory phasicity and augmentation on spectral Doppler; no intraluminal thrombus is identified. Left knee region: A fluid collection in the suprapatellar region measures 5.6 ??? 5.4 ??? 1.4 cm, most consistent with suprapatellar bursitis. Impression: * No sonographic evidence of deep venous thrombosis in either lower extremity from the common femoral through the posterior tibial veins. * Right suprapatellar bursitis with a fluid collection measuring 5.4 ??? 4.3 ??? 1.4 cm; correlate with symptoms and consider orthopedic evaluation and/or aspiration if clinically indicated. * Left suprapatellar bursitis with a fluid collection measuring 5.6 ??? 5.4 ??? 1.4 cm; correlate with symptoms and consider orthopedic evaluation and/or aspiration if clinically indicated. /[facility] DICTATED BY: OTIS GLASS MD DATE: 08/08/251537 ELECTRONICALLY SIGNED BY: OTIS GLASS MD DATE: 08/08/251537 PATIENT: LADARIUS CARTER MR#: [id number] : 1950 SEX: M AGE: 75 LOCATION: 2DH ORDER 4 STATUS: ADM IN REPORT#: [id number] SERVICE 0 REASON: left knee swelling, fevers ORDERING PHYSICIAN: ASHLEY MONTEIRO TAVERN [employer] ATTENDANT PROCEDURE: LOW EXT WO - CT LOW EXT W/O CONTRAST EXAM: CT left Knee without IV contrast CLINICAL HISTORY: left knee swelling, fevers TECHNIQUE: Axial images were acquired through the left knee without IV contrast. Reformatted images were reviewed. COMPARISON: None provided. FINDINGS: BONES: No acute fracture or aggressive appearing osseous lesion. JOINTS: No dislocation. The joint spaces are narrowed affecting all 3 compartments. SOFT TISSUES: The soft tissues are remarkable for a large joint effusion. No abscess. IMPRESSION: No acute osseous abnormality. Tricompartmental osteoarthritis. No evidence of abscess or osteomyelitis. Moderate joint effusion is seen /[facility] DICTATED BY: YAIMA PEREZ MD DATE: 08/07/251521 ELECTRONICALLY SIGNED BY: YAIMA PEREZ MD DATE: 08/07/251521 PATIENT: LADARIUS CARTER MR#: [id number] : 1950 SEX: M AGE: 75 LOCATION: 2[facility] ORDER 4 STATUS: [facility]M [facility] REPORT#: [id number] SERVICE 0721 REASON: fevers ORDERING PHYSICIAN: ASHLEY MONTEIRO TAVERN [employer] ATTENDANT PROCEDURE: CXR1VW - CHEST 1VW ADDENDUM REPORT ADDENDUM: Results were shared by telephone at 12:52 am on 08-08-25 and acknowledged by House Supervisior Rosey Hayes. /[facility] EXAM: CHEST RADIOGRAPH, 1 VIEW Technique: Single frontal view of the chest was obtained. Clinical Information: Fevers. Findings: Lungs and large airways: Bilateral perihilar air-space opacities with mild pulmonary vascular congestion. A right upper lobe nodular opacity is again seen and appears more conspicuous than on the prior study. Pleura: No pleural effusion or pneumothorax identified. Heart and mediastinum: Cardiac size and mediastinal contours are within normal limits. Bones/joints: No acute osseous abnormality is identified. Impression: * Comparison: Compared with chest radiograph dated 08/02/2025 at 21:01 EDT: the right upper lobe nodular opacity appears increased in conspicuity, and new/greater bilateral perihilar infiltrates with mild pulmonary vascular congestion are present; cardiac and mediastinal contours remain within normal limits. * Bilateral perihilar infiltrates with mild pulmonary vascular congestion???consider infectious process versus edema; correlate clinically and consider short-interval radiographic follow-up to document resolution. /[facility] DICTATED BY: OTIS GLASS MD DATE: 08/08/25 0238 ELECTRONICALLY SIGNED BY: DATE: EXAM: CHEST RADIOGRAPH, 1 VIEW Technique: Single frontal view of the chest was obtained. Clinical Information: Fevers. Findings: Lungs and large airways: Bilateral perihilar air-space opacities with mild pulmonary vascular congestion. A right upper lobe nodular opacity is again seen and appears more conspicuous than on the prior study. Pleura: No pleural effusion or pneumothorax identified. Heart and mediastinum: Cardiac size and mediastinal contours are within normal limits. Bones/joints: No acute osseous abnormality is identified. Impression: * Comparison: Compared with chest radiograph dated 08/02/2025 at 21:01 EDT: the right upper lobe nodular opacity appears increased in conspicuity, and new/greater bilateral perihilar infiltrates with mild pulmonary vascular congestion are present; cardiac and mediastinal contours remain within normal limits. * Bilateral perihilar infiltrates with mild pulmonary vascular congestion???consider infectious process versus edema; correlate clinically and consider short-interval radiographic follow-up to document resolution. /[facility] DICTATED BY: OTIS GLASS MD DATE: 08/07/252324 ELECTRONICALLY SIGNED BY: OTIS GLASS MD DATE: 08/07/252324 PATIENT: LADARIUS CARTER MR#: [id number] : 1950 SEX: M AGE: 75 LOCATION: 2DH ORDER 113 STATUS: ADM IN REPORT#: [id number] SERVICE 112 REASON: altered mental status ORDERING PHYSICIAN: DIONISIO MCINTYRE PROCEDURE: HEAD WO - CT HEAD/BRAIN W/O CONTRAST CT OF THE BRAIN WITHOUT CONTRAST CLINICAL INDICATION: Altered mental status TECHNIQUE: Multiple contiguous axial CT images were obtained through the brain without the administration of intravenous contrast. Coronal and sagittal reconstructions were also obtained. COMPARISON: None available FINDINGS: The ventricular system and cortical sulci demonstrate a normal size and configuration for the patients age. There are no intra- or extra-axial collections, mass effect, or midline shift. The basal cisterns are patent. The cyr-white matter differentiation is preserved. The midline structures and cervicomedullary junction are unremarkable. There is no evidence of acute intracranial hemorrhage or areas of acute infarction. Vascular calcification is present. The calvarium is unremarkable in appearance. No suspicious lytic or sclerotic osseous lesions are seen. The visualized portions of the sinuses are well aerated. The mastoid air cells are well pneumatized and well aerated. The visualized orbital structures are unremarkable in appearance. IMPRESSION: 1. No CT evidence of an acute intracranial process. 2. Age-appropriate involutional changes. /[facility] DICTATED BY: SUDHA DUNNE MD DATE: 08/04/251417 ELECTRONICALLY SIGNED BY: SUDHA DUNNE MD DATE: 08/04/251417 PATIENT: LADARIUS CARTER MR#: [id number] : 1950 SEX: M AGE: 75 LOCATION: [facility] ORDER STATUS: ADM IN REPORT#: [id number] SERVICE REASON: afib with rvr ORDERING PHYSICIAN: TRENTON ALLEN PROCEDURE: ECHO CMP - ECHO 2-D COMPLETE APPROVED REPORT EXAM: Two-dimensional and M-mode echocardiogram with Doppler and color Doppler. Study Details: TDS INDICATION ICD: Atrial fibrillation with rapid ventricular response. 2D Dimensions IVSd 0.6 (0.7-1.1cm) LVEF(%) 44.6 (>50%) LVED Vol(simp.) 40.0 mL LVDd 4.1 (3.8-5.6cm) FS(%) 22 % LVES Vol(simp.) 21.0 mL PWd 0.9 (0.7-1.1cm) LVOT diam 1.9 (1.8-2.4cm) LVEF(%, simp.) 47 % IVSs 0.7 cm IVC diam 1.1 cm LA ESV INDEX (BP) 15.83 mL/m2 LVDs 3.2 (2.5-4.0cm) PWs 1.0 cm Deformation Strain Apical 4 -9.8 % Apical 2 -7.8 % Apical 3 -10.7 % Global Strain -9.5 % Aortic Valve AoV Vmax 1.0 m/s Ao Peak GR 4.3 mmHg LVOT Vmax 0.6 m/s AoV VTI 0.1 m Ao Mean GR 2.3 mmHg LVOT VTI 0.12 m KEVYN (VMAX) 1.64 cm2 KEVYN (VTI) 2.2 cm2 Mitral Valve MV E Vmax 99.6 cm/s DECEL Time 130 ms P 1/2 T 52 ms MVA (PHT) 4.3 cm2 TDI E/E' Medial 9.4 E/E' Lateral 11.0 Medial E' Peak V 10.57 cm/s Lateral E' Peak V 9.02 cm/s Tricuspid Valve RAP (EST) 8 mmHg RVSP 8.0 mmHg Left Ventricle The left ventricle is normal size. GLS -10.0% Suboptimal endocardial definition. There is normal left ventricular wall thickness. LVEF is 45-50%. The LV diastolic function was unable to be assessed due to atrial arrhythmia. Right Ventricle The right ventricle appears normal in size. The right ventricular systolic function is normal. Atria The left atrium size is normal. The right atrium size is normal. Aortic Valve The aortic valve is normal in structure. No aortic regurgitation is present. There is no aortic valvular stenosis. Mitral Valve Mild posterior annular calcification noted. The mitral valve is mildly thickened. There is no mitral valve regurgitation noted. There is no mitral valve stenosis. Tricuspid Valve The tricuspid valve is normal in structure. There is no tricuspid valve regurgitation noted. Pulmonic Valve The pulmonary valve is normal in structure. There is no pulmonic valvular regurgitation. Great Vessels The aortic root is normal in size. The IVC is normal in size and collapses <50% with inspiration. Pericardium There is no pericardial effusion. Other Information Quality : Technically difficult study due to body habitus Rhythm : A-Fib Conclusion LVEF is 45-50%. Suboptimal endocardial definition. The LV diastolic function was unable to be assessed due to atrial arrhythmia. Mild posterior annular calcification noted. DICTATED BY: BETTE ISAACS DO DATE: 08/03/25 0949 ELECTRONICALLY SIGNED BY: BETTE ISAACS DO DATE: 08/03/25 1229 PATIENT: LADARIUS CARTER MR#: [id number] : 1950 SEX: M AGE: 75 LOCATION: ED ORDER 32 STATUS: REG ER REPORT#: [id number] SERVICE 29 REASON: sob ORDERING PHYSICIAN: ILDA JEFFREY PROCEDURE: CXR1VW - CHEST 1VW EXAM: CR Chest, 1 View. CLINICAL HISTORY: sob COMPARISON: None provided. FINDINGS: LUNGS: The lungs show possible right upper lobe lung nodule adjacent to the anterior first rib. PLEURAL SPACES: No evidence of pleural effusion or pneumothorax. MEDIASTINUM: Cardiac size and mediastinal contours within normal limits. BONES: No acute osseous abnormality. IMPRESSION: Possible right upper lobe lung nodule. Recommend CT scan /[place] DICTATED BY: YAIMA PEREZ MD DATE: 08/02/252312 ELECTRONICALLY SIGNED BY: YAIMA PEREZ MD DATE: 08/02/252312 ASSESSMENT: Atrial fibrillation with RVR on Xarelto (on hold), CHADS2-VASc 5 points, HAS- BLED 4 points+ Tachy-javier syndrome Acute streptococcal pharyngitis Acute complicated cystitis Severe sepsis due to above Acute GI bleed (+) melena Acute blood loss anemia Acute rhabdomyolysis, resolved Acute delirium in patient with dementia Acute metabolic encephalopathy in patient with dementia Electrolyte derangement (Hypokalemia) Left knee swelling with moderate joint effusion is seen per CT knee, rule out septic arthritis Febrile illness, not POA GOUT CKD stage III Diabetes mellitus type 2 History of pancreatic cyst since 2021, negative biopsy per family Dementia PLAN: Labs, diagnostic, radiologic exams reviewed and interpreted by myself and supervising physician. We have reviewed external records in detail Obtain UA Require close monitoring of renal function and electrolytes Order CBC, CMP, and electrolytes in am Continue with antibiotics Renal diabetic diet BiPAP as necessary, for respiratory distress Monitor blood pressure adjust medication doses as needed Avoid hypotensive episodes May use Dilaudid 0.5 mg IV every 6 hours as needed for severe pain Monitor blood sugars Strict intake, output, and daily weight should be monitored Please renally adjust medications Avoid nephrotoxic and nonsteroidal drugs Avoid contrast if possible Will continue to monitor renal function, anemia, electrolytes Treatment plan discussed with patient Questions were answered We have discussed with the other team physicians in detail about the care plan We will continue to monitor the patient closely ATTESTATION BY PHYSICIAN I have seen and examined the patient. I reviewed the documentation, medical decision making, and treatment plan as noted by the mid-level provider above. I agree with the findings and plan of care. KELLEN KIM MD, [facility] Aug 17, 2025 09:55
--- NOTE | 2025-08-17 10:10 | PN ---
[facility] PROGRESS NOTE Date Patient Seen: Aug 17, 2025 Time of Visit: 10:02 Supervising Physician: Dr Trung Breaux Primary Care Physician: Dr. Doris Vela Inpatient Consults: [facility], GI, Dr. Anderson (Orthopedic surgeon) PROBLEM LIST: Tachy-javier syndrome Acute on CKD stage 3 Atrial fibrillation with RVR chronically on Xarelto Melena Dementia Acute streptococcal pharyngitis Acute complicated cystitis Severe sepsis due to above Acute rhabdomyolysis, resolved Acute delirium in patient with dementia Acute metabolic encephalopathy in patient with dementia Electrolyte derangement (Hypokalemia) Left knee swelling with moderate joint effusion is seen per CT knee, rule out septic arthritis Febrile illness, not POA GOUT Diabetes mellitus type 2 History of pancreatic cyst since 2021, negative biopsy per family INTERVAL HISTORY: Patient was seen and examined, patient is sitting comfortably in bed, he is watching TV There is a sitter at his bedside Patient's heart rate currently in the 130s, back on the Cardizem drip He is afebrile Good saturations on room air Tolerating diet No complaints PLAN: Follow cardiology recs, telemetry Patient back on Cardizem drip, amiodarone 200 mg b.i.d. and he is on metoprolol 25 t.i.d. Patient's renal function continues to decline, follow nephrology recommendations Following I&Os Total critical care time 42 minutes, patient at a high risk for down decompensation, tachy-javier syndrome. REVIEW OF SYSTEMS: Unable due to mental status PHYSICAL EXAM: GENERAL: 75 year old male on room air. NAD. HEENT: EOMI, Sclera non icteric, moist mucosa NECK: no JVD LUNGS: Clear breath sounds bilaterally. No wheezes HEART: Regular rate and rhythm. Normal S1 and S2, without murmurs ABD: Abdomen soft, nontender. Bowel sounds present EXT: No clubbing cyanosis or edema (+) left knee warm to to touch, swelling noted. NEURO: Alert and oriented to person, follows commands Vital Signs (last 8hr) Date Time Temp Pulse Resp B/P (MAP) Pulse Ox O2 Delivery O2 Flow Rate FiO2 08/17/25 07:00 97.9 132 19 155/82 100 Room Air 08/17/25 04:22 98.6 74 18 125/74 100 Room Air LABS: Hematology Labs: Test 08/17/25 05:09 Range/Units White Blood Count 12.2 H 4.8-10.8 K/uL Red Blood Count 3.40 L 4.50-6.20 MIL/uL Hemoglobin 10.8 L 14.0-18.0 g/dL Hematocrit 32.3 L 42-54 % Mean Corpuscular Volume 95.0 79-99 fL Mean Corpuscular Hemoglobin 31.8 27.0-33.0 pg Mean Corpuscular Hemoglobin Concent 33.4 32.0-36.0 g/dL Red Cell Distribution Width 13.1 11.0-15.5 % Platelet Count 223 130-400 K/uL Mean Platelet Volume 10.1 7.5-10.5 fL Immature Granulocyte % (Auto) 0.6 0-1 % Neutrophils (%) (Auto) 84.6 H 40.0-77.0 % Lymphocytes (%) (Auto) 7.8 L 21.0-51.0 % Monocytes (%) (Auto) 6.6 3.0-13.0 % Eosinophils (%) (Auto) 0.2 0.0-8.0 % Basophils (%) (Auto) 0.2 0.0-5.0 % Neutrophils # (Auto) 10.3 H 1.8-7.7 K/uL Lymphocytes # (Auto) 1.0 1.0-4.8 K/uL Monocytes # (Auto) 0.8 0.1-1.0 K/uL Eosinophils # (Auto) 0.03 0.00-0.70 K/uL Basophils # (Auto) 0.02 0.00-0.20 K/uL Absolute Immature Granulocyte (auto 0.07 0-1 K/uL Nucleated Red Blood Cells 0.0 0.0-0.19 % Chemistry Labs: Test 08/17/25 06:26 08/17/25 05:09 Range/Units Whole Blood Glucose 119 H 70-110 MG/DL Sodium Level 138 136-145 mmol/L Potassium Level 3.8 3.5-5.1 mmol/L Chloride Level 106 101-111 mmol/L Carbon Dioxide Level 19 L 21-32 mmol/L Blood Urea Nitrogen 57 H 7-18 mg/dL Creatinine 3.7 H 0.5-1.3 mg/dL Glomerular Filtration Rate Calc 17 >90 mL/min Random Glucose 111 H 70-105 mg/dL Uric Acid 4.8 2.6-7.2 mg/dL Total Calcium 8.8 8.5-10.1 mg/dL Phosphorus Level 4.7 2.5-4.9 mg/dL Magnesium Level 2.20 1.80-2.40 mg/dL Iron Level 43 L 65-175 mcg/dL Total Iron Binding Capacity 193 L 250-450 mcg/dL Percent Iron Saturation 22.2 L 30-44 % Ferritin 463 H 30-400 ng/mL Total Bilirubin 0.7 0.2-1.0 mg/dL Aspartate Amino Transf (AST/SGOT) 23 10-37 U/L Alanine Aminotransferase (ALT/SGPT) 61 12-78 U/L Alkaline Phosphatase 90 50-136 U/L Total Protein 6.4 6.0-8.3 g/dL Albumin 2.4 L 3.5-5.0 g/dL Thyroid Stimulating Hormone (TSH) 4.74 #H 0.36-3.74 uIU/mL DIAGNOSTICS / RADIOLOGY RESULTS: [ ] PLAN NEURO: Minimize central acting medications as possible. Fall Precautions. Well lighted room through the day and minimize interruptions through the night to prevent acute delirium. PULMONARY: Supplemental 02 as needed Titrate Fio2 to keep Spo2 > or = 90% DuoNebs and CPT as needed IS hourly while awake for pulmonary hygiene Out of bed to chair as tolerated CARDIOVASCULAR: Follow hemodynamics. Titrate vasopressor to keep MAP >65 or systolic blood pressure >95mmHg DRIPS: cardizem LINES: PIV GI & NUTRITION: Continue nutritional support Aspirations precautions Prokinetic agents and laxatives as needed KIDNEYS & ELECTROLYTES: Strict monitoring of intake and output Daily weights Avoid nephrotoxic agents Monitor electrolytes and replace as needed Goal urine output of 30mL/hr or 0.5mL/kg/hr ENDOCRINE: Maintain blood glucose between 100-180 at all times. Insulin sliding scale for blood glucose management INFECTIOUS DISEASE: Trend temperature. Powell-culture if febrile. Micro: [ ] Antibiotics: [ ] cefepime doxy and vanco HEMATOLOGY & COAGULATION: Monitor H&H. Keep Hgb > 7 Transfuse 1 unit of PRBC for Hgb < 7 Transfuse 1 pack of platelets of platelets < 20, 000 Watch for any signs and symptoms of bleeding SKIN: Pressure ulcer prevention per facility protocol Rehab: PT/OT Prophylaxis: GI: [Protonix ] DVT: [SCD ] Code Status: Full Resuscitation Disposition: TBD Case was discussed and seen with my supervising physician. The above plan was formulated and agreed upon. NUSRAT RICK PAC Aug 17, 2025 10:10
--- NOTE | 2025-08-17 11:26 | PN ---
This is a 75-year-old male with history of nonobstructive coronary artery disease, paroxysmal atrial fibrillation, type 2 diabetes mellitus, hypertension, hyperlipidemia, history of pancreatic mass dementia. He was admitted 08/03/2025 with productive cough, sore throat and chills, acute kidney injury, rhabdomyolysis and melena. He is group a strep positive. He is status post aspiration of the right knee joint 08/15/2025. He has recurrent atrial fibrillation and atrial flutter with rapid ventricular response. Yesterday he was started on Cardizem drip due to sustained AF RVR with heart rates in the 120s to 150s. He converted yesterday evening and Cardizem drip was discontinued. He is currently in sinus rhythm with heart rates in the 60s. Overnight he was in atrial fibrillation with ventricular rates in the 70s, rising to the 110s this morning prior to converting to sinus rhythm. Echocardiogram 08/03/2025 shows an ejection fraction of 45-50% with normal-sized left atrium, mild posterior annular calcification and normal pericardium. Chest x-ray 08/16/2025 shows significantly reduced perihilar opacities compared to prior exam, persistent and stable nodular opacity in the right upper lobe. White blood count 12.12, hemoglobin 10.8, hematocrit 32.3, platelets 223, creatinine 3.7 up from 3.1 one potassium 3.8, magnesium 2.20, total iron 43, TIBC 193, iron saturation 22.2, ferritin 463, TSH 4.74. His most recent blood pressure is 155/82. This morning he states that he is doing well. On exam, he is in no acute distress, regular rate and rhythm, lungs are clear to auscultation bilaterally. Assessment: 1. Paroxysmal atrial fibrillation/atrial flutter with rapid ventricular response. 2. Sinus bradycardia. 3. Mild LV dysfunction. 4. Acute renal failure. 5. Melena. 6. Group a strep positive. Plan: 1. He has recurrent atrial fibrillation/atrial flutter with rapid ventricular response. Thankfully his ventricular rates during episodes of atrial fibrillation have improved, from the 120s to 150s down to the 70s to 110s. These rates are acceptable during episodes of atrial fibrillation as he continues his oral load of amiodarone. 2. We will continue with amiodarone 200 mg twice daily and metoprolol tartrate 50 mg 3 times daily 3. Xarelto was held on admission due to melena. EGD was canceled due to his atrial arrhythmias. He is currently not a candidate for oral anticoagulation until he undergoes GI workup. Consider recalling GI to proceed with the EGD now that his arrhythmias are better controlled. 4. Nephrology has been consulted due to worsening renal failure. 5. We will follow the patient. Vitals/Labs Vital Signs Date Time Temp Pulse Resp B/P (MAP) Pulse Ox O2 Delivery O2 Flow Rate FiO2 08/17/25 08:00 100 Room Air* 0 21 08/17/25 07:00 97.9 132 19 155/82 Laboratory Tests 08/17/25 05:09 LENIN MAZARIEGOS PAC Aug 17, 2025 11:26
--- NOTE | 2025-08-17 14:48 | NUR ---
LAST BOWEL MOVEMENT 08/12/25...MEDICATED WITH LACTULOSE 30 MLS PO.
[2025-08-18] VITALS (8 sets, daily range): BP systolic 112–141; BP diastolic 52–78; PULSE 59–114; RESP 18–20; TEMP 97.8–98; O2SAT 96–98
[2025-08-18 05:21] LABS: IMMATURE GRANULOCYTE ABSOLUTE 0.06 K/uL (0-1); NUCLEATED RED BLOOD CELLS 0.0 % (0.0-0.19); PLATELET COUNT (AUTO) 224 K/uL (130-400); RED BLOOD CELL COUNT(AUTO) 3.41 MIL/uL (4.50-6.20); RED CELL DISTRIBUTION WIDTH 13.2 % (11.0-15.5); WHITE BLOOD COUNT (AUTO) 11.6 K/uL (4.8-10.8)
[2025-08-18 05:54] LABS: ASPARTATE AMINOTRANSFERASE 26.0 U/L (10-37); CREATININE 3.5 mg/dL (0.5-1.3); GLOMERULAR FILTR. RATE CALC 18.0 mL/min (>90); GLUCOSE,RANDOM 122.0 mg/dL (70-105); PHOSPHORUS 4.2 mg/dL (2.5-4.9); SODIUM SERUM 138.0 mmol/L (136-145); TOTAL PROTEIN, SERUM 6.4 g/dL (6.0-8.3); UREA NITROGEN, BLOOD 57.0 mg/dL (7-18)
[2025-08-18] MEDS ORDERED: AMIODARONE 360MG/200ML BAG 200 ML IV SCH (09:00)
--- NOTE | 2025-08-18 09:14 | PN ---
This is a 75-year-old male with history of nonobstructive coronary artery disease, paroxysmal atrial fibrillation, type 2 diabetes mellitus, hypertension, hyperlipidemia, history of pancreatic mass dementia. He was admitted 08/03/2025 with productive cough, sore throat and chills, acute kidney injury, rhabdomyolysis and anemia. He is group a strep positive. He is status post aspiration of the right knee joint 08/15/2025. He has recurrent atrial fibrillation and atrial flutter with rapid ventricular response. He developed AF RVR overnight from midnight to 3:00 a.m. and converted to sinus rhythm. He is currently in sinus rhythm with heart rates in the 60s. Echocardiogram 08/03/2025 shows an ejection fraction of 45-50% with normal-sized left atrium, mild posterior annular calcification and normal pericardium. His most recent blood pressure is 130/69. White blood count 11.6, hemoglobin 10.9, hematocrit 32.5, platelets 224, creatinine 3.5 down from 3.7, potassium 4.3, magnesium 2.20. He offers up no new cardiac complaints this morning. On exam, he is in no acute distress, regular rate and rhythm, lungs are clear too auscultation bilaterally. Assessment: 1. Paroxysmal atrial fibrillation/atrial flutter with rapid ventricular response. 2. Sinus bradycardia. 3. Mild LV dysfunction. 4. Acute renal failure. 5. Anemia. 6. Group a strep positive. Plan: Discussed with Dr. Alejandro. 1. He has recurrent atrial fibrillation/atrial flutter with rapid ventricular response. Overnight he had 3 hour episode of atrial fibrillation with rapid ventricular response and converted around 3:00 a.m.. He continues to have recurrent atrial fibrillation as he is not fully loaded with amiodarone. 2. We will start a 6 hour loading infusion of amiodarone. Your orally amiodarone 200 mg twice daily. 3. Hold morning dose of metoprolol tartrate due to episodic sinus bradycardia. 4. He was scheduled for EGD due to a significant drop in his hemoglobin from 16.1 On admission down to 10.9. Apparently there were no complaints of melena, hematemesis or hematochezia. At this time we will proceed with a stool guaiac to determine if he has blood in the stool. If he is not found to have blood in the stool, we will recommend reduced dose Eliquis 2.5 mg twice daily which is appropriate based on his weight and renal function. Vitals/Labs Vital Signs Date Time Temp Pulse Resp B/P (MAP) Pulse Ox O2 Delivery O2 Flow Rate FiO2 08/18/25 07:00 97.9 65 18 130/69 100 Room Air 08/17/25 20:00 0 21 Laboratory Tests 08/18/25 04:35 LENIN MAZARIEGOS PAC Aug 18, 2025 09:14
[2025-08-18] MEDS: AMIODARONE 360MG/200ML BAG 200 ML ONE (09:50)
--- NOTE | 2025-08-18 10:19 | PN ---
GASTROENTEROLOGY PROGRESS NOTE Date of Visit: Aug 18, 2025 Time of Visit: 10:18 Events / Notes: No acute events overnight. Hgb 10.9. EGD aborted due to arrhythmia. Plan of care discussed. Denies fever, chills, abdominal pain, N/V, hematemesis, bloating, constipation, diarrhea, melena or hematochezia. Review of Systems: CONSTITUTIONAL: No malaise or change in sensation of wellbeing. ENMT: No rhinorrhea, otorrhea, sinus pain, ear ache. CARDIOVASCULAR: No angina, palpitations, orthopnea or paroxysmal dyspnea. RESPIRATORY: No SOB. GASTROINTESTINAL: No abdominal pain, nausea, vomiting, diarrhea, hematemesis, melena or change in the patient's habitual bowel movements consistency/number. GENITOURINARY: No dysuria, hematuria or change in bladder continence. MUSCULOSKELETAL: No new muscle pain or decrease in muscular strength. No new joint swelling, redness or tenderness. SKIN: No new rash. Physical Exam: GEN: Awake, alert, oriented in person, time and place, and in no acute distress. HEENT: No rhinorrhea. Oral mucosa is pink, moist and within normal limits. CHEST: Lung auscultation revealed normal breath sounds bilaterally. CARDIAC:Heart sounds are regular. ABD: Soft, non-tender and not distended. No peritoneal signs on palpation. Normal bowel sounds. Last bm 08/06/25. EXT: No cyanosis or clubbing. No edema. SKIN: Intact. No rashes. NEURO: Alert and oriented to name, place and person.No focal motor deficits. Normal speech. Vital Signs (last 8hr) Date Time Temp Pulse Resp B/P (MAP) Pulse Ox O2 Delivery O2 Flow Rate FiO2 08/18/25 07:00 97.9 65 18 130/69 100 Room Air 08/18/25 03:19 98.1 77 20 141/71 97 Room Air Laboratory: [ ] Laboratory: Test 08/18/25 05:41 08/18/25 04:35 08/17/25 05:09 Range/Units Whole Blood Glucose 114 H 70-110 MG/DL White Blood Count 11.6 H 4.8-10.8 K/uL Red Blood Count 3.41 L 4.50-6.20 MIL/uL Hemoglobin 10.9 L 14.0-18.0 g/dL Hematocrit 32.5 L 42-54 % Mean Corpuscular Volume 95.3 79-99 fL Mean Corpuscular Hemoglobin 32.0 27.0-33.0 pg Mean Corpuscular Hemoglobin Concent 33.5 32.0-36.0 g/dL Red Cell Distribution Width 13.2 11.0-15.5 % Platelet Count 224 130-400 K/uL Mean Platelet Volume 10.6 H 7.5-10.5 fL Immature Granulocyte % (Auto) 0.5 0-1 % Neutrophils (%) (Auto) 85.7 H 40.0-77.0 % Lymphocytes (%) (Auto) 7.7 L 21.0-51.0 % Monocytes (%) (Auto) 5.4 3.0-13.0 % Eosinophils (%) (Auto) 0.4 0.0-8.0 % Basophils (%) (Auto) 0.3 0.0-5.0 % Neutrophils # (Auto) 9.9 H 1.8-7.7 K/uL Lymphocytes # (Auto) 0.9 L 1.0-4.8 K/uL Monocytes # (Auto) 0.6 0.1-1.0 K/uL Eosinophils # (Auto) 0.05 0.00-0.70 K/uL Basophils # (Auto) 0.03 0.00-0.20 K/uL Absolute Immature Granulocyte (auto 0.06 0-1 K/uL Nucleated Red Blood Cells 0.0 0.0-0.19 % Sodium Level 138 136-145 mmol/L Potassium Level 4.3 3.5-5.1 mmol/L Chloride Level 107 101-111 mmol/L Carbon Dioxide Level 19 L 21-32 mmol/L Blood Urea Nitrogen 57 H 7-18 mg/dL Creatinine 3.5 H 0.5-1.3 mg/dL Glomerular Filtration Rate Calc 18 >90 mL/min Random Glucose 122 H 70-105 mg/dL Total Calcium 8.9 8.5-10.1 mg/dL Phosphorus Level 4.2 2.5-4.9 mg/dL Magnesium Level 2.20 1.80-2.40 mg/dL Total Bilirubin 0.6 0.2-1.0 mg/dL Aspartate Amino Transf (AST/SGOT) 26 10-37 U/L Alanine Aminotransferase (ALT/SGPT) 55 12-78 U/L Alkaline Phosphatase 88 50-136 U/L Total Protein 6.4 6.0-8.3 g/dL Albumin 2.4 L 3.5-5.0 g/dL Uric Acid 4.8 2.6-7.2 mg/dL Iron Level 43 L 65-175 mcg/dL Total Iron Binding Capacity 193 L 250-450 mcg/dL Percent Iron Saturation 22.2 L 30-44 % Ferritin 463 H 30-400 ng/mL Thyroid Stimulating Hormone (TSH) 4.74 #H 0.36-3.74 uIU/mL Current Medications Medications (Trade) Dose Ordered Sig/Anish Route PRN Reason Start Time Stop Time Status Last Admin Dose Admin Acetaminophen (TYLenol 325MG TAB) 650 mg Q4H PRN PO MILD PAIN (1-3) 08/03/25 00:30 08/03/25 02:29 DC Acetaminophen (TYLenol 325MG TAB) 650 mg Q6H PRN PO PAIN LEVEL 1 TO 3 08/03/25 00:30 09/02/25 00:29 08/14/25 03:09 650 MG Acetaminophen (TYLenol 650MG ELIXIR) 650 mg Q6H PRN PEG MILD PAIN (1-3) 08/03/25 02:30 08/11/25 08:38 DC 08/08/25 07:04 650 MG Acetaminophen (TYLenol 650MG ELIXIR) 650 mg Q6H PRN PO MILD PAIN (1-3) 08/11/25 14:30 09/10/25 14:29 Al Hydroxide/Mg Hydroxide (MAALox PLUS 30ML) 30 ml Q6H PRN PO INDIGESTION 08/03/25 00:30 09/02/25 00:29 Allopurinol (ZYLOprim 100MG) 100 mg TID PO 08/06/25 14:00 09/05/25 13:59 08/18/25 09:36 100 MG Amiodarone HCl (pacERONE 200MG) 200 mg BID PO 08/13/25 09:00 09/12/25 08:59 08/18/25 09:35 200 MG Amiodarone HCl 150 mg/Dextrose 103 ml @ 618 mls/hr ONCE IV 08/13/25 02:00 08/13/25 02:01 DC Amiodarone HCl 360 mg/Dextrose 207.2 ml @ 33.3 mls/hr AD IV 08/18/25 08:30 08/18/25 08:33 DC Amiodarone HCl 360 mg/Dextrose 207.2 ml @ 33.3 mls/hr AD IV 08/13/25 02:00 08/13/25 02:01 DC Amiodarone HCl 540 mg/Dextrose 310.8 ml @ 16.7 mls/hr [id number] IV 08/13/25 07:00 08/13/25 07:59 DC Amiodarone HCl 540 mg/Dextrose 310.8 ml @ 16.7 mls/hr [id number] IV 08/13/25 11:00 08/18/25 08:37 DC 08/13/25 10:03 16.7 MLS/HR Amiodarone HCL/ Dextrose 100 ml @ 600 mls/hr PROTOCOL IV 08/13/25 02:00 08/13/25 07:06 DC 08/13/25 04:36 600 MLS/HR Amiodarone HCL/ Dextrose 200 ml @ 33.333 mls/ hr PROTOCOL IV 08/18/25 09:00 08/18/25 08:36 DC Amiodarone HCL/ Dextrose 200 ml @ 33.333 mls/ hr PROTOCOL IV 08/13/25 02:00 08/13/25 07:07 DC 08/13/25 05:06 33.333 MLS/HR Atropine Sulfate (Atropine 1mg Syg) 0.5 mg AD PRN IVP HR<30BPM 08/15/25 10:00 Benzocaine (Cepacol Sore Throat Lozenge) 1 each Q4H PRN MM SORE THROAT 08/03/25 10:30 09/02/25 10:29 08/03/25 11:55 1 EACH Cefepime HCl (MAXipime 1 GM vial) 1 gm Q12H IVPB 08/09/25 19:30 08/17/25 07:30 DC 08/16/25 20:12 1 GM Cefepime HCl (MAXipime 1 GM vial) 1 gm Q8H IVPB 08/07/25 07:30 08/09/25 07:17 DC 08/09/25 07:00 1 GM Ceftriaxone Sodium (Rocephin 2gm Inj) 2 gm Q24H IVPB 08/03/25 00:30 08/07/25 07:28 DC 08/07/25 01:39 2 GM Dextrose (D50w) 50 ml AD PRN IV HYPOGLYCEMIA PROTOCOL 08/03/25 00:30 09/02/25 00:29 Diazepam (VALium 5 MG/ML 2 ML SYG) 5 mg AM PRN IV AGITATION/PSYCHOSIS 08/09/25 15:30 08/14/25 17:30 DC 08/12/25 02:59 5 MG Diazepam (VALium 5 MG/ML 2 ML SYG) 5 mg HS IV 08/09/25 21:00 08/14/25 17:30 DC Diltiazem HCl (CARDIzem 25MG INJ) 5 mg AD PRN IVP INCREASED HEART RATE >110 BPM 08/15/25 14:30 08/16/25 15:20 DC 08/16/25 10:56 5 MG Diltiazem HCl (CARDIzem 25MG INJ) 10 mg ONCE PRN IVP CARDIZEM PROTOCOL 08/07/25 15:00 08/07/25 15:00 DC Diltiazem HCl (CARDIzem 60MG TAB) 30 mg Q6H PO 08/08/25 08:00 08/08/25 11:00 DC 08/08/25 07:59 30 MG Diltiazem HCl 125 mg/Sodium Chloride 125 ml @ 0 mls/hr AD PRN IV CARDIZEM PROTOCOL 08/07/25 15:00 08/07/25 14:59 DC Diltiazem HCl 125 mg/Sodium Chloride 125 ml @ 0 mls/hr AD PRN IV CARDIZEM PROTOCOL 08/08/25 11:00 08/12/25 07:58 DC 08/11/25 15:51 15 MLS/HR Diltiazem HCl 125 mg/Sodium Chloride 125 ml @ 0 mls/hr AD PRN IV CARDIZEM PROTOCOL 08/12/25 08:00 08/13/25 01:48 DC Diltiazem HCl 125 mg/Sodium Chloride 125 ml @ 0 mls/hr PROTOCOL IV 08/02/25 22:00 08/04/25 12:58 DC 08/04/25 02:49 0 MLS/HR Diltiazem HCl 125 mg/Sodium Chloride 125 ml @ 0 mls/hr PROTOCOL IV 08/16/25 15:30 09/15/25 15:29 08/16/25 15:59 5 MLS/HR Doxycycline Hyclate 250 ml @ 125 mls/hr Q12H IV 08/08/25 08:00 08/18/25 07:59 DC 08/17/25 20:59 125 MLS/HR Famotidine (Pepcid 20mg Tab) 20 mg DAILY PO 08/03/25 09:00 08/04/25 12:54 DC 08/04/25 09:42 20 MG Glucagon (Glucagon 1mg Kit) 1 mg AD PRN IM HYPOGLYCEMIA PROTOCOL 08/03/25 00:30 09/02/25 00:29 Guaifenesin/ Dextromethorphan (RobiTUSSin DM 200/20MG 10ML) 10 ml Q4H PRN PO COUGH 08/03/25 00:30 09/02/25 00:29 08/05/25 16:31 10 ML Heparin Sodium (Porcine) (HEParin 5,000 UNIT VIAL) 5,000 unit Q12H SQ 08/03/25 00:30 08/03/25 10:08 DC 08/03/25 00:42 5,000 UNIT Insulin Human Regular (humuLIN R 100 UNIT/ML 3ML) INSULIN SLIDING SCAL... ACHS SQ 08/03/25 07:30 09/02/25 07:29 08/15/25 16:22 4 UNIT Lactated Ringer's 1,000 ml @ 50 mls/hr Q20H IV 08/03/25 00:30 08/10/25 10:11 DC 08/09/25 08:47 50 MLS/HR Lactulose (Constulose 20gm/ 30ml Udcup) 20 gm BID PRN PO CONSTIPATION 08/03/25 00:30 09/02/25 00:29 08/17/25 14:45 20 GM Levothyroxine Sodium (SYNTHroid 25MCG TAB) 25 mcg DAILY@0630 PO 08/10/25 06:30 09/09/25 06:29 08/18/25 06:04 25 MCG Lidocaine (Lidocaine Patch 4%) 1 each Q24H TP 08/07/25 16:30 09/06/25 16:29 08/17/25 17:23 1 EACH Magnesium Sulfate 50 ml @ 0 mls/hr PROTOCOL IV 08/08/25 08:00 08/08/25 07:36 DC Magnesium Sulfate 50 ml @ 0 mls/hr PROTOCOL PRN IV MAGNESIUM PROTOCOL 08/04/25 12:00 09/03/25 11:59 08/08/25 06:10 25 MLS/HR Metoprolol Tartrate (loprESSOR) 5 mg ONCE IV 08/07/25 17:00 08/07/25 21:00 DC 08/07/25 16:53 5 MG Metoprolol Tartrate (loprESSOR) 5 mg Q5MIN PRN IV INCREASED HEART RATE >110 BPM 08/11/25 22:00 08/11/25 22:13 DC 08/11/25 22:12 5 MG Metoprolol Tartrate (loprESSOR) 5 mg Q5MIN PRN IV INCREASED HEART RATE >110 BPM 08/12/25 03:30 08/12/25 04:23 DC 08/12/25 04:21 5 MG Metoprolol Tartrate (loprESSOR) 5 mg Q6H PRN IV INCREASED HEART RATE >120 BPM 08/04/25 17:00 08/16/25 12:16 DC 08/16/25 06:39 5 MG Metoprolol Tartrate (loprESSOR) 25 mg BID PO 08/03/25 09:00 08/07/25 15:00 DC 08/07/25 13:10 25 MG Metoprolol Tartrate (loprESSOR) 25 mg TID PO 08/16/25 12:30 08/17/25 08:22 DC 08/16/25 20:13 25 MG Metoprolol Tartrate (loprESSOR) 50 mg ONCE PO 08/07/25 17:00 08/07/25 21:00 DC 08/07/25 16:53 50 MG Metoprolol Tartrate (loprESSOR) 50 mg Q6H PO 08/07/25 19:00 08/11/25 08:04 DC 08/11/25 00:59 50 MG Metoprolol Tartrate (loprESSOR) 50 mg TID PO 08/18/25 09:00 09/16/25 08:29 08/18/25 09:35 50 MG Metoprolol Tartrate (loprESSOR) 50 mg TID PO 08/17/25 08:30 08/18/25 08:38 DC 08/17/25 21:07 50 MG Metoprolol Tartrate (loprESSOR) 75 mg Q6H PO 08/11/25 08:30 08/12/25 07:54 DC 08/12/25 02:58 75 MG Metoprolol Tartrate (loprESSOR) 200 mg Q12H9 PO 08/12/25 09:00 08/15/25 14:24 DC 08/15/25 08:06 200 MG Nitroglycerin (Nitrostat) 0.4 mg PROTOCOL PRN SL CHEST PAIN 08/03/25 00:30 09/02/25 00:29 Olanzapine (ZyPREXA 10MG/ML 1ML Vial) 5 mg DAILY PRN IM AGITATION 08/05/25 17:30 09/04/25 17:29 08/08/25 20:21 5 MG Ondansetron HCl (zoFRAN 4MG INJ) 4 mg Q6H PRN IV NAUSEA/VOMITING 08/03/25 00:30 09/02/25 00:29 Pantoprazole Sodium (PROTonix 40MG INJ) 40 mg BID IVP 08/04/25 21:00 09/03/25 20:59 08/18/25 09:35 40 MG Pantoprazole Sodium (PROTonix 40MG TAB) 40 mg BID PO 08/04/25 21:00 08/04/25 12:57 DC Potassium Chloride 100 ml @ 100 mls/hr AD PRN IV POTASSIUM PROTOCOL 08/04/25 12:00 09/03/25 11:59 08/09/25 17:00 100 MLS/HR Potassium Chloride (K-Dur/Klor-Con 20meq) 20 meq AD PRN PO POTASSIUM PROTOCOL 08/04/25 12:00 09/03/25 11:59 08/15/25 06:35 20 MEQ Potassium Chloride (KCl 10% Elixir 20meq/15ml) 20 meq AD PRN PO POTASSIUM PROTOCOL 08/04/25 12:00 09/03/25 11:59 08/13/25 04:04 20 MEQ Prednisone (deltaSONE/ oraSONE 20MG TAB) 20 mg DAILY PO 08/05/25 17:00 08/10/25 10:08 DC 08/10/25 09:12 20 MG Rivaroxaban (Xarelto) 15 mg DAILY PO 08/04/25 09:00 08/05/25 11:54 DC 08/04/25 09:42 15 MG Sucralfate (Carafate) 1 gm BID PO 08/04/25 21:00 09/03/25 20:59 08/18/25 09:36 1 GM Tramadol HCl (UltRAM) 50 mg Q6H PRN PO MODERATE PAIN (4-6) 08/06/25 19:30 08/10/25 10:33 DC 08/09/25 10:30 50 MG Vancomycin HCl 250 ml @ 125 mls/hr Q12H IV 08/07/25 21:00 08/11/25 17:08 DC 08/11/25 11:14 125 MLS/HR Vancomycin HCl (Vancomycin Protocol) 1 each AD IV 08/07/25 07:30 08/12/25 08:47 DC Vitamin B Complex/ Vit C/Folic Acid (Nephrovite Tablet) 1 cap DAILY PO 08/17/25 09:00 09/16/25 08:59 08/18/25 09:36 1 CAP Diagnostics / Radiology: [COPY/PASTE HERE IF NO REPORTS PLEASE DELETE SECTION] Assessment: [ Melena Acute Gi blood loss Afib on xarelto STrep A positive] Plan: Continue GI prophylaxis Advance diet as tolerated Avoid NSAIDs Antireflux measures Monitor H&H and transfuse as needed Call with questions, concerns or change in clinical status Patient to follow-up at clinic post discharge Thank you for this consult DEBBIE [employer]IM[employer]OUGH [employer] Aug 18, 2025 10:19
--- NOTE | 2025-08-18 12:49 | PN ---
NEPHROLOGY PROGRESS NOTE Date/Time Patient Seen: Aug 18, 2025 SUBJECTIVE: This patient has been in the hospital for several days. This patient has atrial fibrillation with bradycardia in between. The patient has knee suspected septic arthritis on the left side. The patient has undergone aspiration of the right knee and left knee joint fluid. The patient has rising BUN and creatinine. The patient also has anemia. The patient is generally weak. The patient has been in the hospital for the past several days. The patient has been treated for streptococcal pharyngitis and UTI with underlying CKD reported with underlying diabetes and hypertension. Cardiology work-up is going for A FIb, continues on amiodarone, pending further recommendations for anticoagulation EGD as aborted due to arrhythmias The patient has been treated for sepsis. Vancomycin has been discontinued Renal function remains elevated Electrolytes are stable Repeat UA was noted Renal ultrasound noted Iron panel was noted. He was seen in the medial floor. REVIEW OF SYSTEMS: GENERAL: Negative for any nausea, vomiting, fevers, chills, or weight loss. NEUROLOGIC: Negative for any blurry vision, blind spots, double vision, facial asymmetry, dysphagia, dysarthria, hemiparesis, hemisensory deficits, vertigo, ataxia. HEENT: Negative for any head trauma, neck trauma, neck stiffness, photophobia, phonophobia, sinusitis, rhinitis. CARDIAC: Negative for any chest pain, dyspnea on exertion, paroxysmal nocturnal dyspnea, peripheral edema. PULMONARY: Negative for any shortness of breath, wheezing, COPD, or TB exposure. GASTROINTESTINAL: Negative for any abdominal pain, nausea, vomiting, bright red blood per rectum, melena. GENITOURINARY: Negative for any dysuria, hematuria, incontinence. INTEGUMENTARY: Negative for any rashes, cuts, insect bites. RHEUMATOLOGIC: Negative for any joint pains, photosensitive rashes, history of vasculitis or kidney problems. HEMATOLOGIC: Negative for any abnormal bruising, frequent infections or bleeding. Vital Signs (last 8hr) Date Time Temp Pulse Resp B/P (MAP) Pulse Ox O2 Delivery O2 Flow Rate FiO2 08/18/25 12:02 97.9 71 20 124/65 100 Room Air 08/18/25 07:25 98 Room Air* 0 21 08/18/25 07:00 97.9 65 18 130/69 100 Room Air PHYSICAL EXAM: GENERAL: Alert and oriented x 3. No acute distress. Well-nourished. EYES: EOMI. Anicteric. HENT: Moist mucous membranes. No scleral icterus. No cervical lymphadenopathy. LUNGS: Clear to auscultation bilaterally. No accessory muscle use. CARDIOVASCULAR: Regular rate and rhythm. No murmur. No JVD. ABDOMEN: Soft, non-tender and non-distended. No palpable masses. EXTREMITIES: No edema. Non-tender.?SKIN: No rashes or lesions. Warm. NEUROLOGIC: No focal neurological deficits. CN II-XII grossly intact, but not individually tested. PSYCHIATRIC: Cooperative. Appropriate mood and affect. Current Medications Medications (Trade) Dose Ordered Sig/Anish Route PRN Reason Start Time Stop Time Status Last Admin Dose Admin Acetaminophen (TYLenol 325MG TAB) 650 mg Q4H PRN PO MILD PAIN (1-3) 08/03/25 00:30 08/03/25 02:29 DC Acetaminophen (TYLenol 325MG TAB) 650 mg Q6H PRN PO PAIN LEVEL 1 TO 3 08/03/25 00:30 09/02/25 00:29 08/14/25 03:09 650 MG Acetaminophen (TYLenol 650MG ELIXIR) 650 mg Q6H PRN PEG MILD PAIN (1-3) 08/03/25 02:30 08/11/25 08:38 DC 08/08/25 07:04 650 MG Acetaminophen (TYLenol 650MG ELIXIR) 650 mg Q6H PRN PO MILD PAIN (1-3) 08/11/25 14:30 09/10/25 14:29 Al Hydroxide/Mg Hydroxide (MAALox PLUS 30ML) 30 ml Q6H PRN PO INDIGESTION 08/03/25 00:30 09/02/25 00:29 Allopurinol (ZYLOprim 100MG) 100 mg TID PO 08/06/25 14:00 09/05/25 13:59 08/17/25 08:31 100 MG Amiodarone HCl (pacERONE 200MG) 200 mg BID PO 08/13/25 09:00 09/12/25 08:59 08/17/25 08:31 200 MG Amiodarone HCl 150 mg/Dextrose 103 ml @ 618 mls/hr ONCE IV 08/13/25 02:00 08/13/25 02:01 DC Amiodarone HCl 360 mg/Dextrose 207.2 ml @ 33.3 mls/hr AD IV 08/13/25 02:00 08/13/25 02:01 DC Amiodarone HCl 540 mg/Dextrose 310.8 ml @ 16.7 mls/hr [id number] IV 08/13/25 07:00 08/13/25 07:59 DC Amiodarone HCl 540 mg/Dextrose 310.8 ml @ 16.7 mls/hr [id number] IV 08/13/25 11:00 09/12/25 10:59 08/13/25 10:03 16.7 MLS/HR Amiodarone HCL/ Dextrose 100 ml @ 600 mls/hr PROTOCOL IV 08/13/25 02:00 08/13/25 07:06 DC 08/13/25 04:36 600 MLS/HR Amiodarone HCL/ Dextrose 200 ml @ 33.333 mls/ hr PROTOCOL IV 08/13/25 02:00 08/13/25 07:07 DC 08/13/25 05:06 33.333 MLS/HR Atropine Sulfate (Atropine 1mg Syg) 0.5 mg AD PRN IVP HR<30BPM 08/15/25 10:00 Benzocaine (Cepacol Sore Throat Lozenge) 1 each Q4H PRN MM SORE THROAT 08/03/25 10:30 09/02/25 10:29 08/03/25 11:55 1 EACH Cefepime HCl (MAXipime 1 GM vial) 1 gm Q12H IVPB 08/09/25 19:30 08/17/25 07:30 DC 08/16/25 20:12 1 GM Cefepime HCl (MAXipime 1 GM vial) 1 gm Q8H IVPB 08/07/25 07:30 08/09/25 07:17 DC 08/09/25 07:00 1 GM Ceftriaxone Sodium (Rocephin 2gm Inj) 2 gm Q24H IVPB 08/03/25 00:30 08/07/25 07:28 DC 08/07/25 01:39 2 GM Dextrose (D50w) 50 ml AD PRN IV HYPOGLYCEMIA PROTOCOL 08/03/25 00:30 09/02/25 00:29 Diazepam (VALium 5 MG/ML 2 ML SYG) 5 mg AM PRN IV AGITATION/PSYCHOSIS 08/09/25 15:30 08/14/25 17:30 DC 08/12/25 02:59 5 MG Diazepam (VALium 5 MG/ML 2 ML SYG) 5 mg HS IV 08/09/25 21:00 08/14/25 17:30 DC Diltiazem HCl (CARDIzem 25MG INJ) 5 mg AD PRN IVP INCREASED HEART RATE >110 BPM 08/15/25 14:30 08/16/25 15:20 DC 08/16/25 10:56 5 MG Diltiazem HCl (CARDIzem 25MG INJ) 10 mg ONCE PRN IVP CARDIZEM PROTOCOL 08/07/25 15:00 08/07/25 15:00 DC Diltiazem HCl (CARDIzem 60MG TAB) 30 mg Q6H PO 08/08/25 08:00 08/08/25 11:00 DC 08/08/25 07:59 30 MG Diltiazem HCl 125 mg/Sodium Chloride 125 ml @ 0 mls/hr AD PRN IV CARDIZEM PROTOCOL 08/07/25 15:00 08/07/25 14:59 DC Diltiazem HCl 125 mg/Sodium Chloride 125 ml @ 0 mls/hr AD PRN IV CARDIZEM PROTOCOL 08/08/25 11:00 08/12/25 07:58 DC 08/11/25 15:51 15 MLS/HR Diltiazem HCl 125 mg/Sodium Chloride 125 ml @ 0 mls/hr AD PRN IV CARDIZEM PROTOCOL 08/12/25 08:00 08/13/25 01:48 DC Diltiazem HCl 125 mg/Sodium Chloride 125 ml @ 0 mls/hr PROTOCOL IV 08/02/25 22:00 08/04/25 12:58 DC 08/04/25 02:49 0 MLS/HR Diltiazem HCl 125 mg/Sodium Chloride 125 ml @ 0 mls/hr PROTOCOL IV 08/16/25 15:30 09/15/25 15:29 08/16/25 15:59 5 MLS/HR Doxycycline Hyclate 250 ml @ 125 mls/hr Q12H IV 08/08/25 08:00 08/18/25 07:59 08/17/25 08:31 125 MLS/HR Famotidine (Pepcid 20mg Tab) 20 mg DAILY PO 10/26/25 09:00 08/04/25 12:54 DC 08/04/25 09:42 20 MG Glucagon (Glucagon 1mg Kit) 1 mg AD PRN IM HYPOGLYCEMIA PROTOCOL 08/03/25 00:30 09/02/25 00:29 Guaifenesin/ Dextromethorphan (RobiTUSSin DM 200/20MG 10ML) 10 ml Q4H PRN PO COUGH 08/03/25 00:30 09/02/25 00:29 08/05/25 16:31 10 ML Heparin Sodium (Porcine) (HEParin 5,000 UNIT VIAL) 5,000 unit Q12H SQ 08/03/25 00:30 08/03/25 10:08 DC 08/03/25 00:42 5,000 UNIT Insulin Human Regular (humuLIN R 100 UNIT/ML 3ML) INSULIN SLIDING SCAL... ACHS SQ 08/03/25 07:30 09/02/25 07:29 08/15/25 16:22 4 UNIT Lactated Ringer's 1,000 ml @ 50 mls/hr Q20H IV 08/03/25 00:30 08/10/25 10:11 DC 08/09/25 08:47 50 MLS/HR Lactulose (Constulose 20gm/ 30ml Udcup) 20 gm BID PRN PO CONSTIPATION 08/03/25 00:30 09/02/25 00:29 08/11/25 08:38 20 GM Levothyroxine Sodium (SYNTHroid 25MCG TAB) 25 mcg DAILY@0630 PO 08/10/25 06:30 09/09/25 06:29 08/17/25 06:33 25 MCG Lidocaine (Lidocaine Patch 4%) 1 each Q24H TP 08/07/25 16:30 09/06/25 16:29 08/16/25 16:22 1 EACH Magnesium Sulfate 50 ml @ 0 mls/hr PROTOCOL IV 08/08/25 08:00 08/08/25 07:36 DC Magnesium Sulfate 50 ml @ 0 mls/hr PROTOCOL PRN IV MAGNESIUM PROTOCOL 08/04/25 12:00 09/03/25 11:59 08/08/25 06:10 25 MLS/HR Metoprolol Tartrate (loprESSOR) 5 mg ONCE IV 08/07/25 17:00 08/07/25 21:00 DC 08/07/25 16:53 5 MG Metoprolol Tartrate (loprESSOR) 5 mg Q5MIN PRN IV INCREASED HEART RATE >110 BPM 08/11/25 22:00 08/11/25 22:13 DC 08/11/25 22:12 5 MG Metoprolol Tartrate (loprESSOR) 5 mg Q5MIN PRN IV INCREASED HEART RATE >110 BPM 08/12/25 03:30 08/12/25 04:23 DC 08/12/25 04:21 5 MG Metoprolol Tartrate (loprESSOR) 5 mg Q6H PRN IV INCREASED HEART RATE >120 BPM 08/04/25 17:00 08/16/25 12:16 DC 08/16/25 06:39 5 MG Metoprolol Tartrate (loprESSOR) 25 mg BID PO 08/03/25 09:00 08/07/25 15:00 DC 08/07/25 13:10 25 MG Metoprolol Tartrate (loprESSOR) 25 mg TID PO 08/16/25 12:30 08/17/25 08:22 DC 08/16/25 20:13 25 MG Metoprolol Tartrate (loprESSOR) 50 mg ONCE PO 08/07/25 17:00 08/07/25 21:00 DC 08/07/25 16:53 50 MG Metoprolol Tartrate (loprESSOR) 50 mg Q6H PO 08/07/25 19:00 08/11/25 08:04 DC 08/11/25 00:59 50 MG Metoprolol Tartrate (loprESSOR) 50 mg TID PO 08/17/25 08:30 09/16/25 08:29 08/17/25 08:41 50 MG Metoprolol Tartrate (loprESSOR) 75 mg Q6H PO 08/11/25 08:30 08/12/25 07:54 DC 08/12/25 02:58 75 MG Metoprolol Tartrate (loprESSOR) 200 mg Q12H9 PO 08/12/25 09:00 08/15/25 14:24 DC 08/15/25 08:06 200 MG Nitroglycerin (Nitrostat) 0.4 mg PROTOCOL PRN SL CHEST PAIN 08/03/25 00:30 09/02/25 00:29 Olanzapine (ZyPREXA 10MG/ML 1ML Vial) 5 mg DAILY PRN IM AGITATION 08/05/25 17:30 09/04/25 17:29 08/08/25 20:21 5 MG Ondansetron HCl (zoFRAN 4MG INJ) 4 mg Q6H PRN IV NAUSEA/VOMITING 08/03/25 00:30 09/02/25 00:29 Pantoprazole Sodium (PROTonix 40MG INJ) 40 mg BID IVP 08/04/25 21:00 09/03/25 20:59 08/17/25 08:32 40 MG Pantoprazole Sodium (PROTonix 40MG TAB) 40 mg BID PO 08/04/25 21:00 08/04/25 12:57 DC Potassium Chloride 100 ml @ 100 mls/hr AD PRN IV POTASSIUM PROTOCOL 08/04/25 12:00 09/03/25 11:59 08/09/25 17:00 100 MLS/HR Potassium Chloride (K-Dur/Klor-Con 20meq) 20 meq AD PRN PO POTASSIUM PROTOCOL 08/04/25 12:00 09/03/25 11:59 08/15/25 06:35 20 MEQ Potassium Chloride (KCl 10% Elixir 20meq/15ml) 20 meq AD PRN PO POTASSIUM PROTOCOL 08/04/25 12:00 09/03/25 11:59 08/13/25 04:04 20 MEQ Prednisone (deltaSONE/ oraSONE 20MG TAB) 20 mg DAILY PO 08/05/25 17:00 08/10/25 10:08 DC 08/10/25 09:12 20 MG Rivaroxaban (Xarelto) 15 mg DAILY PO 08/04/25 09:00 08/05/25 11:54 DC 08/04/25 09:42 15 MG Sucralfate (Carafate) 1 gm BID PO 08/04/25 21:00 09/03/25 20:59 08/17/25 08:31 1 GM Tramadol HCl (UltRAM) 50 mg Q6H PRN PO MODERATE PAIN (4-6) 08/06/25 19:30 08/10/25 10:33 DC 08/09/25 10:30 50 MG Vancomycin HCl 250 ml @ 125 mls/hr Q12H IV 08/07/25 21:00 08/11/25 17:08 DC 08/11/25 11:14 125 MLS/HR Vancomycin HCl (Vancomycin Protocol) 1 each AD IV 08/07/25 07:30 08/12/25 08:47 DC Vitamin B Complex/ Vit C/Folic Acid (Nephrovite Tablet) 1 cap DAILY PO 08/17/25 09:00 09/16/25 08:59 08/17/25 08:31 1 CAP LABORATORY: [ ] Hematology Labs: Test 08/18/25 04:35 Range/Units White Blood Count 11.6 H 4.8-10.8 K/uL Red Blood Count 3.41 L 4.50-6.20 MIL/uL Hemoglobin 10.9 L 14.0-18.0 g/dL Hematocrit 32.5 L 42-54 % Mean Corpuscular Volume 95.3 79-99 fL Mean Corpuscular Hemoglobin 32.0 27.0-33.0 pg Mean Corpuscular Hemoglobin Concent 33.5 32.0-36.0 g/dL Red Cell Distribution Width 13.2 11.0-15.5 % Platelet Count 224 130-400 K/uL Mean Platelet Volume 10.6 H 7.5-10.5 fL Immature Granulocyte % (Auto) 0.5 0-1 % Neutrophils (%) (Auto) 85.7 H 40.0-77.0 % Lymphocytes (%) (Auto) 7.7 L 21.0-51.0 % Monocytes (%) (Auto) 5.4 3.0-13.0 % Eosinophils (%) (Auto) 0.4 0.0-8.0 % Basophils (%) (Auto) 0.3 0.0-5.0 % Neutrophils # (Auto) 9.9 H 1.8-7.7 K/uL Lymphocytes # (Auto) 0.9 L 1.0-4.8 K/uL Monocytes # (Auto) 0.6 0.1-1.0 K/uL Eosinophils # (Auto) 0.05 0.00-0.70 K/uL Basophils # (Auto) 0.03 0.00-0.20 K/uL Absolute Immature Granulocyte (auto 0.06 0-1 K/uL Nucleated Red Blood Cells 0.0 0.0-0.19 % Chemistry Labs: Test 08/18/25 10:57 08/18/25 04:35 08/17/25 05:09 Range/Units Whole Blood Glucose 130 H 70-110 MG/DL Sodium Level 138 136-145 mmol/L Potassium Level 4.3 3.5-5.1 mmol/L Chloride Level 107 101-111 mmol/L Carbon Dioxide Level 19 L 21-32 mmol/L Blood Urea Nitrogen 57 H 7-18 mg/dL Creatinine 3.5 H 0.5-1.3 mg/dL Glomerular Filtration Rate Calc 18 >90 mL/min Random Glucose 122 H 70-105 mg/dL Total Calcium 8.9 8.5-10.1 mg/dL Phosphorus Level 4.2 2.5-4.9 mg/dL Magnesium Level 2.20 1.80-2.40 mg/dL Total Bilirubin 0.6 0.2-1.0 mg/dL Aspartate Amino Transf (AST/SGOT) 26 10-37 U/L Alanine Aminotransferase (ALT/SGPT) 55 12-78 U/L Alkaline Phosphatase 88 50-136 U/L Total Protein 6.4 6.0-8.3 g/dL Albumin 2.4 L 3.5-5.0 g/dL Uric Acid 4.8 2.6-7.2 mg/dL Iron Level 43 L 65-175 mcg/dL Total Iron Binding Capacity 193 L 250-450 mcg/dL Percent Iron Saturation 22.2 L 30-44 % Ferritin 463 H 30-400 ng/mL Thyroid Stimulating Hormone (TSH) 4.74 #H 0.36-3.74 uIU/mL DIAGNOSTICS / RADIOLOGY: [address] [address] IMAGING REPORT Signed PATIENT: LADARIUS CARTER MR#: [id number] : 1950 SEX: M AGE: 75 LOCATION: H ORDER 1701 STATUS: ADM IN REPORT#: [id number] SERVICE 57 REASON: acute renal failure ORDERING PHYSICIAN: KELLEN KIM MD PROCEDURE: RENAL - US RENAL SONOGRAM EXAMINATION: ULTRASOUND OF THE RETROPERITONEUM. CLINICAL HISTORY: Acute renal failure. COMPARISON: None. TECHNIQUE: Real-time grayscale ultrasound images of the kidneys. FINDINGS: The kidneys are normal in caliber, the right kidney measures 10.5 x 4.6 x 4.4 cm and the left kidney measures 9.1 x 5.3 x 3.7 cm in its craniocaudal, AP, and transverse dimensions respectively. There is normal renal cortical thickness and increased cortical echogenicity. There is no renal calculus or hydronephrosis. The urinary bladder is normal in caliber and wall thickness (0.18 cm). There are no calculi in the urinary bladder. IMPRESSION: Increased echotexture of both the kidneys, of concern for renal parenchymal disease. Recommend clinical correlation and with laboratory parameters. /[facility] DICTATED BY: GAVIN MATHEWS Jr., MD DATE: 08/17/25 1032 ELECTRONICALLY SIGNED BY: GAVIN MATHEWS Jr., MD DATE: 08/17/25 103 PATIENT: LADARIUS CARTER MR#: [id number] : 1950 SEX: M AGE: 75 LOCATION: [facility] ORDER 153 STATUS: ADM IN REPORT#: [id number] SERVICE 1534 REASON: decreased air entry ORDERING PHYSICIAN: LENIN MAZARIEGOS PAC PROCEDURE: CXR1VW - CHEST 1VW EXAM: CR Chest, 1 View. CLINICAL HISTORY: decreased air entry COMPARISON: X-ray dated 08/10 FINDINGS: LUNGS: Significantly reduced perihilar opacities compared to the prior radiograph. Persistent and stable nodular opacity in the right upper lobe. PLEURAL SPACES: No pleural effusion or pneumothorax. MEDIASTINUM: The cardiomediastinal silhouette is within normal limits. BONES: No aggressive appearing osseous lesion seen. IMPRESSION: Significantly reduced perihilar opacities compared to the prior radiograph. Persistent and stable nodular opacity in the right upper lobe. /[facility] DICTATED BY: GAVIN MATHEWS Jr., MD DATE: 08/17/25 1017 ELECTRONICALLY SIGNED BY: GAVIN MATHEWS Jr., MD DATE: 08/17/25 1017 PATIENT: LADARIUS CARTER MR#: [id number] : 1950 SEX: M AGE: 75 LOCATION: 2AH ORDER 1011 STATUS: ADM IN REPORT#: [id number] SERVICE 1010 REASON: sepsis, chf ORDERING PHYSICIAN: DIONISIO MCINTYRE PROCEDURE: CXR1VW - CHEST 1VW ADDENDUM REPORT ADDENDUM: Results were shared by telephone at 01:48 am on 08/11/25 and acknowledged by Patient's Nurse Mr.Joe Monteiro. /[facility] EXAM: CHEST RADIOGRAPH, 1 VIEW Technique: Single frontal view of the chest. Clinical Information: Sepsis and congestive heart failure. Findings: Lungs and large airways: Bilateral perihilar air-space opacities are present with mild pulmonary vascular congestion. A right upper lobe nodular opacity is present. Pleura: No pleural effusion or pneumothorax is identified. Heart and mediastinum: Cardiac size and mediastinal contours are within normal limits. Bones/joints: No acute osseous abnormality is identified. Impression: * Comparison: Compared with chest radiograph dated 08/07/2025 09:11 EDT, bilateral perihilar air-space opacities and mild pulmonary vascular congestion are unchanged, and the right upper lobe nodular opacity persists. /[facility] DICTATED BY: OTIS GLASS MD DATE: 08/11/25 0149 ELECTRONICALLY SIGNED BY: DATE: EXAM: CHEST RADIOGRAPH, 1 VIEW Technique: Single frontal view of the chest. Clinical Information: Sepsis and congestive heart failure. Findings: Lungs and large airways: Bilateral perihilar air-space opacities are present with mild pulmonary vascular congestion. A right upper lobe nodular opacity is present. Pleura: No pleural effusion or pneumothorax is identified. Heart and mediastinum: Cardiac size and mediastinal contours are within normal limits. Bones/joints: No acute osseous abnormality is identified. Impression: * Comparison: Compared with chest radiograph dated 08/07/2025 09:11 EDT, bilateral perihilar air-space opacities and mild pulmonary vascular congestion are unchanged, and the right upper lobe nodular opacity persists. /[facility] DICTATED BY: OTIS GLASS MD DATE: 08/11/25131 ELECTRONICALLY SIGNED BY: OTIS GLASS MD DATE: 08/11/25131 PATIENT: LADARIUS CARTER MR#: [id number] : 1950 SEX: M AGE: 75 LOCATION: 2CV ORDER 5 STATUS: ADM IN REPORT#: [id number] SERVICE 4 REASON: swelling ORDERING PHYSICIAN: ASHLEY MONTEIRO [employer] FAB[employer]ICATOR PROCEDURE: VENOUS WILLIAM - US VENOUS DOPPLER BILATERAL EXAM: ULTRASOUND VENOUS DOPPLER OF BOTH LOWER EXTREMITIES Technique: Real-time grayscale ultrasound with graded transducer compression, color Doppler, and pulsed-wave spectral Doppler performed from the common femoral region through the calf veins in longitudinal and transverse planes; respiratory phasicity and distal augmentation maneuvers were assessed. Clinical Information: Bilateral lower-extremity swelling. Findings: Right lower extremity venous system: The common femoral vein, great saphenous vein at the saphenofemoral junction, femoral vein, popliteal vein, and posterior tibial veins are fully compressible with normal color filling and normal respiratory phasicity and augmentation on spectral Doppler; no intraluminal thrombus is identified. Right knee region: A fluid collection in the suprapatellar region measures 5.4 ??? 4.3 ??? 1.4 cm, most consistent with suprapatellar bursitis. Left lower extremity venous system: The common femoral vein, great saphenous vein at the saphenofemoral junction, femoral vein, popliteal vein, and posterior tibial veins are fully compressible with normal color filling and normal respiratory phasicity and augmentation on spectral Doppler; no intraluminal thrombus is identified. Left knee region: A fluid collection in the suprapatellar region measures 5.6 ??? 5.4 ??? 1.4 cm, most consistent with suprapatellar bursitis. Impression: * No sonographic evidence of deep venous thrombosis in either lower extremity from the common femoral through the posterior tibial veins. * Right suprapatellar bursitis with a fluid collection measuring 5.4 ??? 4.3 ??? 1.4 cm; correlate with symptoms and consider orthopedic evaluation and/or aspiration if clinically indicated. * Left suprapatellar bursitis with a fluid collection measuring 5.6 ??? 5.4 ??? 1.4 cm; correlate with symptoms and consider orthopedic evaluation and/or aspiration if clinically indicated. /[facility] DICTATED BY: OTIS GLASS MD DATE: 08/08/251537 ELECTRONICALLY SIGNED BY: OTIS GLASS MD DATE: 08/08/251537 PATIENT: LADARIUS CARTER MR#: [id number] : 1950 SEX: M AGE: 75 LOCATION: [facility] ORDER 4 STATUS: ADM IN REPORT#: [id number] SERVICE 0 REASON: left knee swelling, fevers ORDERING PHYSICIAN: ASHLEY MONTEIRO PROCEDURE: LOW EXT WO - CT LOW EXT W/O CONTRAST EXAM: CT left Knee without IV contrast CLINICAL HISTORY: left knee swelling, fevers TECHNIQUE: Axial images were acquired through the left knee without IV contrast. Reformatted images were reviewed. COMPARISON: None provided. FINDINGS: BONES: No acute fracture or aggressive appearing osseous lesion. JOINTS: No dislocation. The joint spaces are narrowed affecting all 3 compartments. SOFT TISSUES: The soft tissues are remarkable for a large joint effusion. No abscess. IMPRESSION: No acute osseous abnormality. Tricompartmental osteoarthritis. No evidence of abscess or osteomyelitis. Moderate joint effusion is seen /[facility] DICTATED BY: YAIMA PEREZ MD DATE: 08/07/251521 ELECTRONICALLY SIGNED BY: YAIMA PEREZ MD DATE: 08/07/251521 PATIENT: LADARIUS CARTER MR#: [id number] : 1950 SEX: M AGE: 75 LOCATION: 2DH ORDER 4 [facility]: [facility] REPORT#: [id number] SERVICE 0 REASON: fevers ORDERING PHYSICIAN: ASHLEY MONTEIRO [employer] FABRICATOR PROCEDURE: CXR1VW - CHEST 1VW ADDENDUM REPORT ADDENDUM: Results were shared by telephone at 12:52 am on 08-08-25 and acknowledged by House Supervisior Rosey Hayes. /[facility] EXAM: CHEST RADIOGRAPH, 1 VIEW Technique: Single frontal view of the chest was obtained. Clinical Information: Fevers. Findings: Lungs and large airways: Bilateral perihilar air-space opacities with mild pulmonary vascular congestion. A right upper lobe nodular opacity is again seen and appears more conspicuous than on the prior study. Pleura: No pleural effusion or pneumothorax identified. Heart and mediastinum: Cardiac size and mediastinal contours are within normal limits. Bones/joints: No acute osseous abnormality is identified. Impression: * Comparison: Compared with chest radiograph dated 08/02/2025 at 21:01 EDT: the right upper lobe nodular opacity appears increased in conspicuity, and new/greater bilateral perihilar infiltrates with mild pulmonary vascular congestion are present; cardiac and mediastinal contours remain within normal limits. * Bilateral perihilar infiltrates with mild pulmonary vascular congestion???consider infectious process versus edema; correlate clinically and consider short-interval radiographic follow-up to document resolution. /[facility] DICTATED BY: OTIS GLASS MD DATE: 08/08/25237 ELECTRONICALLY SIGNED BY: DATE: EXAM: CHEST RADIOGRAPH, 1 VIEW Technique: Single frontal view of the chest was obtained. Clinical Information: Fevers. Findings: Lungs and large airways: Bilateral perihilar air-space opacities with mild pulmonary vascular congestion. A right upper lobe nodular opacity is again seen and appears more conspicuous than on the prior study. Pleura: No pleural effusion or pneumothorax identified. Heart and mediastinum: Cardiac size and mediastinal contours are within normal limits. Bones/joints: No acute osseous abnormality is identified. Impression: * Comparison: Compared with chest radiograph dated 08/02/2025 at 21:01 EDT: the right upper lobe nodular opacity appears increased in conspicuity, and new/greater bilateral perihilar infiltrates with mild pulmonary vascular congestion are present; cardiac and mediastinal contours remain within normal limits. * Bilateral perihilar infiltrates with mild pulmonary vascular congestion???consider infectious process versus edema; correlate clinically and consider short-interval radiographic follow-up to document resolution. /[place] DICTATED BY: OTIS GLASS MD DATE: 08/07/252324 ELECTRONICALLY SIGNED BY: OTIS GLASS MD DATE: 08/07/252324 PATIENT: LADARIUS CARTER MR#: [id number] : 1950 SEX: M AGE: 75 LOCATION: 2DH ORDER 1132 STATUS: ADM IN REPORT#: [id number] SERVICE 1127 REASON: altered mental status ORDERING PHYSICIAN: DIONISIO MCINTYRE PROCEDURE: HEAD WO - CT HEAD/BRAIN W/O CONTRAST CT OF THE BRAIN WITHOUT CONTRAST CLINICAL INDICATION: Altered mental status TECHNIQUE: Multiple contiguous axial CT images were obtained through the brain without the administration of intravenous contrast. Coronal and sagittal reconstructions were also obtained. COMPARISON: None available FINDINGS: The ventricular system and cortical sulci demonstrate a normal size and configuration for the patients age. There are no intra- or extra-axial collections, mass effect, or midline shift. The basal cisterns are patent. The cyr-white matter differentiation is preserved. The midline structures and cervicomedullary junction are unremarkable. There is no evidence of acute intracranial hemorrhage or areas of acute infarction. Vascular calcification is present. The calvarium is unremarkable in appearance. No suspicious lytic or sclerotic osseous lesions are seen. The visualized portions of the sinuses are well aerated. The mastoid air cells are well pneumatized and well aerated. The visualized orbital structures are unremarkable in appearance. IMPRESSION: 1. No CT evidence of an acute intracranial process. 2. Age-appropriate involutional changes. /[place] DICTATED BY: SUDHA DUNNE MD DATE: 08/04/251417 ELECTRONICALLY SIGNED BY: SUDHA DUNNE MD DATE: 08/04/251417 PATIENT: LADARIUS CARTER MR#: [id number] : 1950 SEX: M AGE: 75 LOCATION: [facility] ORDER STATUS: ADM IN REPORT#: [id number] SERVICE REASON: afib with rvr ORDERING PHYSICIAN: TRENTON ALLEN PROCEDURE: ECHO CMP - ECHO 2-D COMPLETE APPROVED REPORT EXAM: Two-dimensional and M-mode echocardiogram with Doppler and color Doppler. Study Details: TDS INDICATION ICD: Atrial fibrillation with rapid ventricular response. 2D Dimensions IVSd 0.6 (0.7-1.1cm) LVEF(%) 44.6 (>50%) LVED Vol(simp.) 40.0 mL LVDd 4.1 (3.8-5.6cm) FS(%) 22 % LVES Vol(simp.) 21.0 mL PWd 0.9 (0.7-1.1cm) LVOT diam 1.9 (1.8-2.4cm) LVEF(%, simp.) 47 % IVSs 0.7 cm IVC diam 1.1 cm LA ESV INDEX (BP) 15.83 mL/m2 LVDs 3.2 (2.5-4.0cm) PWs 1.0 cm Deformation Strain Apical 4 -9.8 % Apical 2 -7.8 % Apical 3 -10.7 % Global Strain -9.5 % Aortic Valve AoV Vmax 1.0 m/s Ao Peak GR 4.3 mmHg LVOT Vmax 0.6 m/s AoV VTI 0.1 m Ao Mean GR 2.3 mmHg LVOT VTI 0.12 m KEVYN (VMAX) 1.64 cm2 KEVYN (VTI) 2.2 cm2 Mitral Valve MV E Vmax 99.6 cm/s DECEL Time 130 ms P 1/2 T 52 ms MVA (PHT) 4.3 cm2 TDI E/E' Medial 9.4 E/E' Lateral 11.0 Medial E' Peak V 10.57 cm/s Lateral E' Peak V 9.02 cm/s Tricuspid Valve RAP (EST) 8 mmHg RVSP 8.0 mmHg Left Ventricle The left ventricle is normal size. GLS -10.0% Suboptimal endocardial definition. There is normal left ventricular wall thickness. LVEF is 45-50%. The LV diastolic function was unable to be assessed due to atrial arrhythmia. Right Ventricle The right ventricle appears normal in size. The right ventricular systolic function is normal. Atria The left atrium size is normal. The right atrium size is normal. Aortic Valve The aortic valve is normal in structure. No aortic regurgitation is present. There is no aortic valvular stenosis. Mitral Valve Mild posterior annular calcification noted. The mitral valve is mildly thickened. There is no mitral valve regurgitation noted. There is no mitral valve stenosis. Tricuspid Valve The tricuspid valve is normal in structure. There is no tricuspid valve regurgitation noted. Pulmonic Valve The pulmonary valve is normal in structure. There is no pulmonic valvular regurgitation. Great Vessels The aortic root is normal in size. The IVC is normal in size and collapses <50% with inspiration. Pericardium There is no pericardial effusion. Other Information Quality : Technically difficult study due to body habitus Rhythm : A-Fib Conclusion LVEF is 45-50%. Suboptimal endocardial definition. The LV diastolic function was unable to be assessed due to atrial arrhythmia. Mild posterior annular calcification noted. DICTATED BY: BETTE ISAACS DO DATE: 08/03/25 0949 ELECTRONICALLY SIGNED BY: BETTE ISAACS DO DATE: 08/03/25 1229 PATIENT: LADARIUS CARTER MR#: [id number] : 1950 SEX: M AGE: 75 LOCATION: [facility] ORDER 32 STATUS: REG REPORT#: [id number] SERVICE 29 REASON: sob ORDERING PHYSICIAN: ILDA JEFFREY TUBULAR PRODUCTS FABRICATOR PROCEDURE: CXR1VW - CHEST 1VW EXAM: CR Chest, 1 View. CLINICAL HISTORY: sob COMPARISON: None provided. FINDINGS: LUNGS: The lungs show possible right upper lobe lung nodule adjacent to the anterior first rib. PLEURAL SPACES: No evidence of pleural effusion or pneumothorax. MEDIASTINUM: Cardiac size and mediastinal contours within normal limits. BONES: No acute osseous abnormality. IMPRESSION: Possible right upper lobe lung nodule. Recommend CT scan /[place] DICTATED BY: YAIMA PEREZ MD DATE: 08/02/252312 ELECTRONICALLY SIGNED BY: YAIMA PEREZ MD DATE: 08/02/252312 ASSESSMENT: Atrial fibrillation with RVR on Xarelto (on hold), CHADS2-VASc 5 points, HAS- BLED 4 points+ Tachy-javier syndrome Acute streptococcal pharyngitis Acute complicated cystitis Severe sepsis due to above Acute GI bleed (+) melena Acute blood loss anemia Acute rhabdomyolysis, resolved Acute delirium in patient with dementia Acute metabolic encephalopathy in patient with dementia Electrolyte derangement (Hypokalemia) Left knee swelling with moderate joint effusion is seen per CT knee, rule out septic arthritis Febrile illness, not POA GOUT CKD stage III Diabetes mellitus type 2 History of pancreatic cyst since 2021, negative biopsy per family Dementia PLAN: Labs, diagnostic, radiologic exams reviewed and interpreted by myself and supervising physician. We have reviewed external records in detail Cardiology work-up is ongoing There is on need for emergent renal replacement therapy. No IV iron at this time Require close monitoring of renal function and electrolytes Order CBC, CMP, and electrolytes in am Continue with antibiotics Renal diabetic diet BiPAP as necessary, for respiratory distress Monitor blood pressure adjust medication doses as needed Avoid hypotensive episodes May use Dilaudid 0.5 mg IV every 6 hours as needed for severe pain Monitor blood sugars Strict intake, output, and daily weight should be monitored Please renally adjust medications Avoid nephrotoxic and nonsteroidal drugs Avoid contrast if possible Will continue to monitor renal function, anemia, electrolytes Treatment plan discussed with patient Questions were answered We have discussed with the other team physicians in detail about the care plan We will continue to monitor the patient closely ATTESTATION BY PHYSICIAN I have seen and examined the patient. I reviewed the documentation, medical decision making, and treatment plan as noted by the mid-level provider above. I agree with the findings and plan of care. KELLEN KIM MD, [facility] Aug 18, 2025 12:49
--- NOTE | 2025-08-18 17:36 | NUR ---
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 As per nurse, when patient wakes up, he refuses to eat. Unable to report if patient is tolerating diet recommendations of SOFT & BITE SIZED SOLIDS, THIN LIQUIDS. If patient continues to refuse oral intake, consult director of music therapy to follow up on nutrition/hydration. Please re-consult speech therapy services if patient presents with any s/s of aspirations. All questions answered. Addendum: 08/18/[address] ABIGAIL JACKSON Amended: Links added.
--- NOTE | 2025-08-18 17:52 | PN ---
[facility] PROGRESS NOTE Date Patient Seen: Aug 18, 2025 Time of Visit: 11:00 Supervising Physician: Trung Breaux MD Primary Care Physician: Dr. Doris Vela Inpatient Consults: [facility], GI, Dr. Anderson (Orthopedic surgeon) PROBLEM LIST: Tachy-javier syndrome Acute on CKD stage 3 Atrial fibrillation with RVR chronically on Xarelto Melena Dementia Acute streptococcal pharyngitis Acute complicated cystitis Severe sepsis due to above Acute rhabdomyolysis, resolved Acute delirium in patient with dementia Acute metabolic encephalopathy in patient with dementia Electrolyte derangement (Hypokalemia) Left knee swelling with moderate joint effusion is seen per CT knee, rule out septic arthritis Febrile illness, not POA GOUT Diabetes mellitus type 2 History of pancreatic cyst since 2021, negative biopsy per family INTERVAL HISTORY: Pt had a 3 hour episode of afib w/ RVR per cardiology amiodarone gtt was started for loading dose and amiodarone 200mg po BID. We will continue to follow recommendations. Pt sleeping bu tt awake to voice. He is in NAD. there is no family at the bedside . Currently Afib HR 101 BPM. Hemodynamically stable and afebrile. Cr 3.5 sightly improved. PLAN: Follow cardiology recs, telemetry amiodarone gtt, amiodarone 200 mg b.i.d. per cardiology recs. Patient's renal function continues to decline, follow nephrology recommendations Following I&Os multimodal pain management. REVIEW OF SYSTEMS: Unable due to mental status PHYSICAL EXAM: GENERAL: 75 year old male on room air. NAD. HEENT: EOMI, Sclera non icteric, moist mucosa NECK: no JVD LUNGS: Clear breath sounds bilaterally. No wheezes HEART: Regular rate and rhythm. Normal S1 and S2, without murmurs ABD: Abdomen soft, nontender. Bowel sounds present EXT: No clubbing cyanosis or edema (+) left knee warm to to touch, swelling noted. NEURO: Alert and oriented to person, follows commands Vital Signs (last 8hr) Date Time Temp Pulse Resp B/P (MAP) Pulse Ox O2 Delivery O2 Flow Rate FiO2 08/18/25 16:00 98.1 59 20 112/52 99 Room Air 08/18/25 12:02 97.9 71 20 124/65 100 Room Air LABS: Hematology Labs: Test 08/18/25 04:35 Range/Units White Blood Count 11.6 H 4.8-10.8 K/uL Red Blood Count 3.41 L 4.50-6.20 MIL/uL Hemoglobin 10.9 L 14.0-18.0 g/dL Hematocrit 32.5 L 42-54 % Mean Corpuscular Volume 95.3 79-99 fL Mean Corpuscular Hemoglobin 32.0 27.0-33.0 pg Mean Corpuscular Hemoglobin Concent 33.5 32.0-36.0 g/dL Red Cell Distribution Width 13.2 11.0-15.5 % Platelet Count 224 130-400 K/uL Mean Platelet Volume 10.6 H 7.5-10.5 fL Immature Granulocyte % (Auto) 0.5 0-1 % Neutrophils (%) (Auto) 85.7 H 40.0-77.0 % Lymphocytes (%) (Auto) 7.7 L 21.0-51.0 % Monocytes (%) (Auto) 5.4 3.0-13.0 % Eosinophils (%) (Auto) 0.4 0.0-8.0 % Basophils (%) (Auto) 0.3 0.0-5.0 % Neutrophils # (Auto) 9.9 H 1.8-7.7 K/uL Lymphocytes # (Auto) 0.9 L 1.0-4.8 K/uL Monocytes # (Auto) 0.6 0.1-1.0 K/uL Eosinophils # (Auto) 0.05 0.00-0.70 K/uL Basophils # (Auto) 0.03 0.00-0.20 K/uL Absolute Immature Granulocyte (auto 0.06 0-1 K/uL Nucleated Red Blood Cells 0.0 0.0-0.19 % Chemistry Labs: Test 08/18/25 15:24 08/18/25 04:35 08/17/25 05:09 Range/Units Whole Blood Glucose 127 H 70-110 MG/DL Sodium Level 138 136-145 mmol/L Potassium Level 4.3 3.5-5.1 mmol/L Chloride Level 107 101-111 mmol/L Carbon Dioxide Level 19 L 21-32 mmol/L Blood Urea Nitrogen 57 H 7-18 mg/dL Creatinine 3.5 H 0.5-1.3 mg/dL Glomerular Filtration Rate Calc 18 >90 mL/min Random Glucose 122 H 70-105 mg/dL Total Calcium 8.9 8.5-10.1 mg/dL Phosphorus Level 4.2 2.5-4.9 mg/dL Magnesium Level 2.20 1.80-2.40 mg/dL Total Bilirubin 0.6 0.2-1.0 mg/dL Aspartate Amino Transf (AST/SGOT) 26 10-37 U/L Alanine Aminotransferase (ALT/SGPT) 55 12-78 U/L Alkaline Phosphatase 88 50-136 U/L Total Protein 6.4 6.0-8.3 g/dL Albumin 2.4 L 3.5-5.0 g/dL Uric Acid 4.8 2.6-7.2 mg/dL Iron Level 43 L 65-175 mcg/dL Total Iron Binding Capacity 193 L 250-450 mcg/dL Percent Iron Saturation 22.2 L 30-44 % Ferritin 463 H 30-400 ng/mL Thyroid Stimulating Hormone (TSH) 4.74 #H 0.36-3.74 uIU/mL DIAGNOSTICS / RADIOLOGY RESULTS: [ ] Plan: NEURO: Minimize central acting medications as possible. Maintain fall precautions, adequate lighting during the day PULMONARY: Supplemental 02 as needed. Maintain aspiration precautions at all times CARDIOVASCULAR: Follow hemodynamics. Vital signs per facility protocol Cardiology consult pending anticipation for further recommendations GI & NUTRITION: Continue with nutritional support. Continue stool softeners and laxatives as needed. KIDNEYS & ELECTROLYTES: Strict monitoring of intake, output and overall fluid balance. Avoid nephrotoxic medications to the extent possible. Medications to be dosed according to renal function. Monitor electrolytes and replace as needed ENDOCRINE: Maintain blood glucose between 100-180 at all times. Hypoglycemia protocol in place INFECTIOUS DISEASE: Trend temperature, WBC and procalcitonin level Follow cultures, deescalate antibiotics as soon as possible. Panculture if new onset fever ONCOLOGY/HEMATOLOGY/COAGULATION: Monitor for s/s of bleeding Monitor hemoglobin, coagulation studies as needed SKIN: Pressure ulcer prevention per facility protocol Specialty mattress ORTHO/REHAB: Continue PT/OT Prophylaxis: Continue GI and DVT prophylaxis Code Status: Full Resuscitation Disposition: TBD ATTESTATION BY PHYSICIAN I have evaluated the patient chart, medical records, and spoke with appropriate staff. I reviewed the documentation, medical decision making, and treatment plan as noted by the mid-level provider above. I agree with the findings and plan of care. Trung Breaux MD, NELLY J AGACNP Aug 18, 2025 17:52
[2025-08-19] VITALS (8 sets, daily range): BP systolic 97–146; BP diastolic 49–76; PULSE 62–121; RESP 16–18; TEMP 98–98.3; O2SAT 96–97
[2025-08-19 03:46] LABS: IMMATURE GRANULOCYTE ABSOLUTE 0.07 K/uL (0-1); NUCLEATED RED BLOOD CELLS 0.0 % (0.0-0.19); PLATELET COUNT (AUTO) 261 K/uL (130-400); RED BLOOD CELL COUNT(AUTO) 3.52 MIL/uL (4.50-6.20); RED CELL DISTRIBUTION WIDTH 13.4 % (11.0-15.5); WHITE BLOOD COUNT (AUTO) 13.9 K/uL (4.8-10.8)
[2025-08-19 04:08] LABS: ASPARTATE AMINOTRANSFERASE 24.0 U/L (10-37); CREATININE 2.7 mg/dL (0.5-1.3); GLOMERULAR FILTR. RATE CALC 24.0 mL/min (>90); GLUCOSE,RANDOM 146.0 mg/dL (70-105); SODIUM SERUM 140.0 mmol/L (136-145); TOTAL PROTEIN, SERUM 6.7 g/dL (6.0-8.3); UREA NITROGEN, BLOOD 46.0 mg/dL (7-18)
--- NOTE | 2025-08-19 10:40 | PN ---
[facility] PROGRESS NOTE Date Patient Seen: Aug 19, 2025 Time of Visit: 10:40 Supervising Physician: Esther Sanchez MD Primary Care Physician: Dr. Doris Vela Inpatient Consults: [facility], GI, Dr. Anderson (Orthopedic surgeon) PROBLEM LIST: Extensive Large left DVT not POA Tachy-javier syndrome Acute on CKD stage 3 Atrial fibrillation with RVR chronically on Xarelto Melena Dementia Acute streptococcal pharyngitis Acute complicated cystitis Severe sepsis due to above Acute rhabdomyolysis, resolved Acute delirium in patient with dementia Acute metabolic encephalopathy in patient with dementia Electrolyte derangement (Hypokalemia) Left knee swelling with moderate joint effusion is seen per CT knee, rule out septic arthritis Febrile illness, not POA GOUT Diabetes mellitus type 2 History of pancreatic cyst since 2021, negative biopsy per family INTERVAL HISTORY: Pt is awake alert and oriented x person and place. He is sitting on recliner today. He reports extensive pain to LLE. Leg swelling has increased from knee to left foot. We will repeat Venous and arterial US of left leg. White count trensing down HH stable. Per GI ok to Anticoagulate. Cr 2.7 has improved. BUN 46. Glucose within goals. Pt's son at the bedside and informed him of POC. Cardiology following pt. we will continue to follow cardiology recs. PLAN: Follow cardiology recs, telemetry amiodarone 200 mg b.i.d. per cardiology recs. Patient's renal function continues to decline, follow nephrology recommendations Following I&Os multimodal pain management. Venous and Arterial US of LLE 2D echo VQ scan to rule out PE PTT Heparin gtt per protocol no bolus. monitor for GI BLeed. REVIEW OF SYSTEMS: Unable due to mental status PHYSICAL EXAM: GENERAL: 75 year old male on room air. NAD. HEENT: EOMI, Sclera non icteric, moist mucosa NECK: no JVD LUNGS: Clear breath sounds bilaterally. No wheezes HEART: Regular rate and rhythm. Normal S1 and S2, without murmurs ABD: Abdomen soft, nontender. Bowel sounds present EXT: No clubbing cyanosis, LLE edema and tenderness NEURO: Alert and oriented to person, follows commands Vital Signs (last 8hr) Date Time Temp Pulse Resp B/P (MAP) Pulse Ox O2 Delivery O2 Flow Rate FiO2 08/19/25 08:00 98.1 64 16 146/76 98 Room Air 08/19/25 04:57 144 132/78 08/19/25 04:00 98.2 69 18 129/65 97 Room Air LABS: Hematology Labs: Test 08/19/25 03:38 Range/Units White Blood Count 13.9 H 4.8-10.8 K/uL Red Blood Count 3.52 L 4.50-6.20 MIL/uL Hemoglobin 11.5 L 14.0-18.0 g/dL Hematocrit 33.9 L 42-54 % Mean Corpuscular Volume 96.3 79-99 fL Mean Corpuscular Hemoglobin 32.7 27.0-33.0 pg Mean Corpuscular Hemoglobin Concent 33.9 32.0-36.0 g/dL Red Cell Distribution Width 13.4 11.0-15.5 % Platelet Count 261 130-400 K/uL Mean Platelet Volume 10.3 7.5-10.5 fL Immature Granulocyte % (Auto) 0.5 0-1 % Neutrophils (%) (Auto) 87.4 H 40.0-77.0 % Lymphocytes (%) (Auto) 5.5 L 21.0-51.0 % Monocytes (%) (Auto) 6.0 3.0-13.0 % Eosinophils (%) (Auto) 0.4 0.0-8.0 % Basophils (%) (Auto) 0.2 0.0-5.0 % Neutrophils # (Auto) 12.2 H 1.8-7.7 K/uL Lymphocytes # (Auto) 0.8 L 1.0-4.8 K/uL Monocytes # (Auto) 0.8 0.1-1.0 K/uL Eosinophils # (Auto) 0.05 0.00-0.70 K/uL Basophils # (Auto) 0.03 0.00-0.20 K/uL Absolute Immature Granulocyte (auto 0.07 0-1 K/uL Nucleated Red Blood Cells 0.0 0.0-0.19 % Chemistry Labs: Test 08/19/25 06:31 08/19/25 03:38 08/18/25 04:35 Range/Units Whole Blood Glucose 123 H 70-110 MG/DL Sodium Level 140 136-145 mmol/L Potassium Level 3.5 3.5-5.1 mmol/L Chloride Level 107 101-111 mmol/L Carbon Dioxide Level 22 21-32 mmol/L Blood Urea Nitrogen 46 H 7-18 mg/dL Creatinine 2.7 H 0.5-1.3 mg/dL Glomerular Filtration Rate Calc 24 >90 mL/min Random Glucose 146 H 70-105 mg/dL Total Calcium 9.1 8.5-10.1 mg/dL Magnesium Level 2.30 1.80-2.40 mg/dL Total Bilirubin 0.6 0.2-1.0 mg/dL Aspartate Amino Transf (AST/SGOT) 24 10-37 U/L Alanine Aminotransferase (ALT/SGPT) 46 12-78 U/L Alkaline Phosphatase 90 50-136 U/L Total Protein 6.7 6.0-8.3 g/dL Albumin 2.6 L 3.5-5.0 g/dL Phosphorus Level 4.2 2.5-4.9 mg/dL DIAGNOSTICS / RADIOLOGY RESULTS: [ [facility] [id number] [place] [address] IMAGING REPORT Addendum PATIENT: LADARIUS CARTER MR#: [id number] : 1950 SEX: M AGE: 75 LOCATION: [facility] ORDER 1231 STATUS: ADM IN REPORT#: [id number] SERVICE 1230 REASON: SWELLING ORDERING PHYSICIAN: DIONISIO MCINTYRE PROCEDURE: VENOUS UNI - US VENOUS DOPPLER UNILATERAL ADDENDUM REPORT ADDENDUM: EXAM: US for Deep Venous Thrombosis, left Lower Extremity. CLINICAL HISTORY: Leg Pain and Swelling TECHNIQUE: Real-time ultrasound scan of the veins of the left lower extremity with color Doppler flow, spectral waveform analysis and compression. COMPARISON: None provided. FINDINGS: DVT within the left common femoral, superficial femoral, popliteal, and posterior tibial veins. 1.3 x 3.4 x 2.2 cm Campos's cyst. IMPRESSION: 1. Deep venous thrombosis in the left common femoral, superficial femoral, popliteal, and posterior tibial veins. The clinical team was made aware at the time of the examination. /[place] EXAM: US for Deep Venous Thrombosis, left Lower Extremity. CLINICAL HISTORY: Leg Pain and Swelling TECHNIQUE: Real-time ultrasound scan of the veins of the left lower extremity with color Doppler flow, spectral waveform analysis and compression. COMPARISON: None provided. FINDINGS: DVT within the left common femoral, superficial femoral, popliteal, and posterior tibial veins. IMPRESSION: 1. Deep venous thrombosis in the left common femoral, superficial femoral, popliteal, and posterior tibial veins. The clinical team was made aware at the time of the examination. /[place] DICTATED BY: GAVIN MATHEWS Jr., MD DATE: 08/19/251840 ELECTRONICALLY SIGNED BY: DATE: EXAM: US for Deep Venous Thrombosis, left Lower Extremity. CLINICAL HISTORY: Leg Pain and Swelling TECHNIQUE: Real-time ultrasound scan of the veins of the left lower extremity with color Doppler flow, spectral waveform analysis and compression. COMPARISON: None provided. FINDINGS: DVT within the left common femoral, superficial femoral, popliteal, and posterior tibial veins. IMPRESSION: 1. Deep venous thrombosis in the left common femoral, superficial femoral, popliteal, and posterior tibial veins. The clinical team was made aware at the time of the examination. /[place] DICTATED BY: GAVIN MATHEWS Jr., MD DATE: 08/19/251840 ELECTRONICALLY SIGNED BY: GAVIN MATHEWS Jr., MD DATE: 08/19/251840 [place] [address] IMAGING REPORT Signed PATIENT: LADARIUS CARTER MR#: [id number] : 1950 SEX: M AGE: 75 LOCATION: [facility] ORDER 30 [facility]US: [facility] REPORT#: [id number] SERVICE 1230 REASON: SWELLING ORDERING PHYSICIAN: DIONISIO MCINTYRE PROCEDURE: ART U LE - US ARTERIAL UNILA LOW EXT DUPL EXAM: US Duplex left Lower Extremity Arteries. CLINICAL HISTORY: SWELLING TECHNIQUE: Real-time ultrasound scan of the arteries of the left lower extremity with 2-D cyr scale, color Doppler flow and spectral waveform analysis. COMPARISON: None provided. FINDINGS: COMMON FEMORAL ARTERY: No occlusion or significant stenosis. Biphasic waveforms. SUPERFICIAL FEMORAL ARTERY: No occlusion or significant stenosis. Biphasic waveforms. POPLITEAL ARTERY: No occlusion or significant stenosis. Biphasic waveforms. CALF ARTERIES: No occlusion or significant stenosis. Monophasic waveforms within the dorsalis pedis and posterior tibial arteries. IMPRESSION: 1. No acute arterial occlusion or significant stenosis in the left lower extremity. 2. Monophasic waveforms in the dorsalis pedis and posterior tibial arteries. /[place] DICTATED BY: GAVIN MATHEWS Jr., MD DATE: 08/19/251841 ELECTRONICALLY SIGNED BY: GAVIN MATHEWS Jr., MD DATE: 08/19/251841 ] Plan: NEURO: Minimize central acting medications as possible. Maintain fall precautions, adequate lighting during the day PULMONARY: Supplemental 02 as needed. Maintain aspiration precautions at all times CARDIOVASCULAR: Follow hemodynamics. Vital signs per facility protocol Cardiology consult pending anticipation for further recommendations GI & NUTRITION: Continue with nutritional support. Continue stool softeners and laxatives as needed. KIDNEYS & ELECTROLYTES: Strict monitoring of intake, output and overall fluid balance. Avoid nephrotoxic medications to the extent possible. Medications to be dosed according to renal function. Monitor electrolytes and replace as needed ENDOCRINE: Maintain blood glucose between 100-180 at all times. Hypoglycemia protocol in place INFECTIOUS DISEASE: Trend temperature, WBC and procalcitonin level Follow cultures, deescalate antibiotics as soon as possible. Panculture if new onset fever ONCOLOGY/HEMATOLOGY/COAGULATION: Monitor for s/s of bleeding Monitor hemoglobin, coagulation studies as needed SKIN: Pressure ulcer prevention per facility protocol Specialty mattress ORTHO/REHAB: Continue PT/OT Prophylaxis: Continue GI and DVT prophylaxis Code Status: Full Resuscitation Disposition: D Critical care time 35 mins. ATTESTATION BY PHYSICIAN I have evaluated the patient chart, medical records, and spoke with appropriate staff. I reviewed the documentation, medical decision making, and treatment plan as noted by the mid-level provider above. I agree with the findings and plan of care. DIONISIO Talavera MD AGACNP Aug 19, 2025 10:40
[2025-08-19 15:55] LABS: NUCLEATED RED BLOOD CELLS 0.0 % (0.0-0.19); PLATELET COUNT (AUTO) 213 K/uL (130-400); RED BLOOD CELL COUNT(AUTO) 3.24 MIL/uL (4.50-6.20); RED CELL DISTRIBUTION WIDTH 13.5 % (11.0-15.5); WHITE BLOOD COUNT (AUTO) 11.5 K/uL (4.8-10.8)
[2025-08-19 16:37] LABS: EOSINOPHILS % (MANUAL) 1 % (1-6); LYMPHOCYTES % (MANUAL) 9 % (22-44); MAN.DIFF COMMENT-IMPRESSION MANUAL DIFFERENTIAL; MONOCYTES % (MANUAL) 4 % (2-9); SEGMENTED NEUTROPHILS % 86 % (40-70); WBC MORPHOLOGY HYPERSEGMENT NEUT 1+
[2025-08-19 16:38] LABS: PLATELET MORPHOLOGY COMMENT ADEQUATE
--- NOTE | 2025-08-19 16:47 | PN ---
GASTROENTEROLOGY PROGRESS NOTE Date of Visit: Aug 19, 2025 Time of Visit: 16:46 Events / Notes: No acute events overnight. Hgb 10.9. EGD aborted due to arrhythmia. Plan of care discussed. Denies fever, chills, abdominal pain, N/V, hematemesis, bloating, constipation, diarrhea, melena or hematochezia. Patient with DVT. FOBT negative. Review of Systems: CONSTITUTIONAL: No malaise or change in sensation of wellbeing. ENMT: No rhinorrhea, otorrhea, sinus pain, ear ache. CARDIOVASCULAR: No angina, palpitations, orthopnea or paroxysmal dyspnea. RESPIRATORY: No SOB. GASTROINTESTINAL: No abdominal pain, nausea, vomiting, diarrhea, hematemesis, melena or change in the patient's habitual bowel movements consistency/number. GENITOURINARY: No dysuria, hematuria or change in bladder continence. MUSCULOSKELETAL: No new muscle pain or decrease in muscular strength. No new joint swelling, redness or tenderness. SKIN: No new rash. Physical Exam: GEN: Awake, alert, oriented in person, time and place, and in no acute distress. HEENT: No rhinorrhea. Oral mucosa is pink, moist and within normal limits. CHEST: Lung auscultation revealed normal breath sounds bilaterally. CARDIAC:Heart sounds are regular. ABD: Soft, non-tender and not distended. No peritoneal signs on palpation. Normal bowel sounds. Last bm 08/06/25. EXT: No cyanosis or clubbing. No edema. SKIN: Intact. No rashes. NEURO: Alert and oriented to name, place and person.No focal motor deficits. Normal speech. Vital Signs (last 8hr) Date Time Temp Pulse Resp B/P (MAP) Pulse Ox O2 Delivery O2 Flow Rate FiO2 08/19/25 16:20 98.1 62 16 97/49 100 Room Air 08/19/25 13:28 96 Room Air* 0 21 08/19/25 12:16 98.2 121 16 124/68 96 Room Air Laboratory: [ ] Laboratory: Test 08/19/25 15:55 08/19/25 15:49 08/19/25 05:30 08/19/25 03:38 Range/Units Whole Blood Glucose 187 H 70-110 MG/DL White Blood Count 11.5 H 4.8-10.8 K/uL Red Blood Count 3.24 L 4.50-6.20 MIL/uL Hemoglobin 10.5 L 14.0-18.0 g/dL Hematocrit 31.3 L 42-54 % Mean Corpuscular Volume 96.6 79-99 fL Mean Corpuscular Hemoglobin 32.4 27.0-33.0 pg Mean Corpuscular Hemoglobin Concent 33.5 32.0-36.0 g/dL Red Cell Distribution Width 13.5 11.0-15.5 % Platelet Count 213 130-400 K/uL Mean Platelet Volume 10.3 7.5-10.5 fL Segmented Neutrophils % 86 H 40-70 % Lymphocytes % (Manual) 9 L 22-44 % Monocytes % (Manual) 4 2-9 % Eosinophils % (Manual) 1 1-6 % Nucleated Red Blood Cells 0.0 0.0-0.19 % Differential Comment MANUAL DIFFERENTIAL White Cell Morphology Comment HYPERSEGMENT NEUT 1+ Platelet Morphology Comment ADEQUATE Red Blood Cell Morphology POIKILOCYTOSIS 1+ Activated Partial Thromboplast Time 30.8 26.3-35.5 SEC Stool Occult Blood NEGATIVE NEGATIVE Immature Granulocyte % (Auto) 0.5 0-1 % Neutrophils (%) (Auto) 87.4 H 40.0-77.0 % Lymphocytes (%) (Auto) 5.5 L 21.0-51.0 % Monocytes (%) (Auto) 6.0 3.0-13.0 % Eosinophils (%) (Auto) 0.4 0.0-8.0 % Basophils (%) (Auto) 0.2 0.0-5.0 % Neutrophils # (Auto) 12.2 H 1.8-7.7 K/uL Lymphocytes # (Auto) 0.8 L 1.0-4.8 K/uL Monocytes # (Auto) 0.8 0.1-1.0 K/uL Eosinophils # (Auto) 0.05 0.00-0.70 K/uL Basophils # (Auto) 0.03 0.00-0.20 K/uL Absolute Immature Granulocyte (auto 0.07 0-1 K/uL Sodium Level 140 136-145 mmol/L Potassium Level 3.5 3.5-5.1 mmol/L Chloride Level 107 101-111 mmol/L Carbon Dioxide Level 22 21-32 mmol/L Blood Urea Nitrogen 46 H 7-18 mg/dL Creatinine 2.7 H 0.5-1.3 mg/dL Glomerular Filtration Rate Calc 24 >90 mL/min Random Glucose 146 H 70-105 mg/dL Total Calcium 9.1 8.5-10.1 mg/dL Magnesium Level 2.30 1.80-2.40 mg/dL Total Bilirubin 0.6 0.2-1.0 mg/dL Aspartate Amino Transf (AST/SGOT) 24 10-37 U/L Alanine Aminotransferase (ALT/SGPT) 46 12-78 U/L Alkaline Phosphatase 90 50-136 U/L Total Protein 6.7 6.0-8.3 g/dL Albumin 2.6 L 3.5-5.0 g/dL Test 08/18/25 04:35 Range/Units Phosphorus Level 4.2 2.5-4.9 mg/dL Current Medications Medications (Trade) Dose Ordered Sig/Anish Route PRN Reason Start Time Stop Time Status Last Admin Dose Admin Acetaminophen (TYLenol 325MG TAB) 650 mg Q4H PRN PO MILD PAIN (1-3) 08/03/25 00:30 08/03/25 02:29 DC Acetaminophen (TYLenol 325MG TAB) 650 mg Q6H PRN PO PAIN LEVEL 1 TO 3 08/03/25 00:30 09/02/25 00:29 08/14/25 03:09 650 MG Acetaminophen (TYLenol 650MG ELIXIR) 650 mg Q6H PRN PEG MILD PAIN (1-3) 08/03/25 02:30 08/11/25 08:38 DC 08/08/25 07:04 650 MG Acetaminophen (TYLenol 650MG ELIXIR) 650 mg Q6H PRN PO MILD PAIN (1-3) 08/11/25 14:30 09/10/25 14:29 Al Hydroxide/Mg Hydroxide (MAALox PLUS 30ML) 30 ml Q6H PRN PO INDIGESTION 08/03/25 00:30 09/02/25 00:29 Allopurinol (ZYLOprim 100MG) 100 mg TID PO 08/06/25 14:00 09/05/25 13:59 08/19/25 15:24 100 MG Amiodarone HCl (pacERONE 200MG) 200 mg BID PO 08/13/25 09:00 09/12/25 08:59 08/19/25 08:36 200 MG Amiodarone HCl 150 mg/Dextrose 103 ml @ 618 mls/hr ONCE IV 08/13/25 02:00 08/13/25 02:01 DC Amiodarone HCl 360 mg/Dextrose 207.2 ml @ 33.3 mls/hr AD IV 08/18/25 08:30 08/18/25 08:33 DC Amiodarone HCl 360 mg/Dextrose 207.2 ml @ 33.3 mls/hr AD IV 08/13/25 02:00 08/13/25 02:01 DC Amiodarone HCl 540 mg/Dextrose 310.8 ml @ 16.7 mls/hr [id number] IV 08/13/25 07:00 08/13/25 07:59 DC Amiodarone HCl 540 mg/Dextrose 310.8 ml @ 16.7 mls/hr [id number] IV 08/13/25 11:00 08/18/25 08:37 DC 08/13/25 10:03 16.7 MLS/HR Amiodarone HCL/ Dextrose 100 ml @ 600 mls/hr PROTOCOL IV 08/13/25 02:00 08/13/25 07:06 DC 08/13/25 04:36 600 MLS/HR Amiodarone HCL/ Dextrose 200 ml @ 33.333 mls/ hr PROTOCOL IV 08/18/25 09:00 08/18/25 08:36 DC Amiodarone HCL/ Dextrose 200 ml @ 33.333 mls/ hr PROTOCOL IV 08/13/25 02:00 08/13/25 07:07 DC 08/13/25 05:06 33.333 MLS/HR Atropine Sulfate (Atropine 1mg Syg) 0.5 mg AD PRN IVP HR<30BPM 08/15/25 10:00 08/19/25 16:17 DC Benzocaine (Cepacol Sore Throat Lozenge) 1 each Q4H PRN MM SORE THROAT 08/03/25 10:30 09/02/25 10:29 08/03/25 11:55 1 EACH Cefepime HCl (MAXipime 1 GM vial) 1 gm Q12H IVPB 08/09/25 19:30 08/17/25 07:30 DC 08/16/25 20:12 1 GM Cefepime HCl (MAXipime 1 GM vial) 1 gm Q8H IVPB 08/07/25 07:30 08/09/25 07:17 DC 08/09/25 07:00 1 GM Ceftriaxone Sodium (Rocephin 2gm Inj) 2 gm Q24H IVPB 08/03/25 00:30 08/07/25 07:28 DC 08/07/25 01:39 2 GM Dextrose (D50w) 50 ml AD PRN IV HYPOGLYCEMIA PROTOCOL 08/03/25 00:30 09/02/25 00:29 Diazepam (VALium 5 MG/ML 2 ML SYG) 5 mg AM PRN IV AGITATION/PSYCHOSIS 08/09/25 15:30 08/14/25 17:30 DC 08/12/25 02:59 5 MG Diazepam (VALium 5 MG/ML 2 ML SYG) 5 mg HS IV 08/09/25 21:00 08/14/25 17:30 DC Diltiazem HCl (CARDIzem 25MG INJ) 5 mg AD PRN IVP INCREASED HEART RATE >110 BPM 08/15/25 14:30 08/16/25 15:20 DC 08/16/25 10:56 5 MG Diltiazem HCl (CARDIzem 25MG INJ) 10 mg ONCE PRN IVP CARDIZEM PROTOCOL 08/07/25 15:00 08/07/25 15:00 DC Diltiazem HCl (CARDIzem 60MG TAB) 30 mg Q6H PO 08/08/25 08:00 08/08/25 11:00 DC 08/08/25 07:59 30 MG Diltiazem HCl 125 mg/Sodium Chloride 125 ml @ 0 mls/hr AD PRN IV CARDIZEM PROTOCOL 08/07/25 15:00 08/07/25 14:59 DC Diltiazem HCl 125 mg/Sodium Chloride 125 ml @ 0 mls/hr AD PRN IV CARDIZEM PROTOCOL 08/08/25 11:00 08/12/25 07:58 DC 08/11/25 15:51 15 MLS/HR Diltiazem HCl 125 mg/Sodium Chloride 125 ml @ 0 mls/hr AD PRN IV CARDIZEM PROTOCOL 08/12/25 08:00 08/13/25 01:48 DC Diltiazem HCl 125 mg/Sodium Chloride 125 ml @ 0 mls/hr PROTOCOL IV 08/02/25 22:00 08/04/25 12:58 DC 08/04/25 02:49 0 MLS/HR Diltiazem HCl 125 mg/Sodium Chloride 125 ml @ 0 mls/hr PROTOCOL IV 08/16/25 15:30 09/15/25 15:29 08/19/25 04:57 5 MLS/HR Docusate Sodium (COLace 100MG CAP) 100 mg BID PO 08/19/25 21:00 09/18/25 20:59 Doxycycline Hyclate 250 ml @ 125 mls/hr Q12H IV 08/08/25 08:00 08/18/25 07:59 DC 08/17/25 20:59 125 MLS/HR Famotidine (Pepcid 20mg Tab) 20 mg DAILY PO 08/03/25 09:00 08/04/25 12:54 DC 08/04/25 09:42 20 MG Glucagon (Glucagon 1mg Kit) 1 mg AD PRN IM HYPOGLYCEMIA PROTOCOL 08/03/25 00:30 09/02/25 00:29 Guaifenesin/ Dextromethorphan (RobiTUSSin DM 200/20MG 10ML) 10 ml Q4H PRN PO COUGH 08/03/25 00:30 09/02/25 00:29 08/05/25 16:31 10 ML Heparin Sodium (Porcine) (HEParin 5,000 UNIT VIAL) 5,000 unit Q12H SQ 08/03/25 00:30 08/03/25 10:08 DC 08/03/25 00:42 5,000 UNIT Heparin Sodium/ Dextrose 250 ml @ 0 mls/hr PROTOCOL IV 08/19/25 15:30 09/18/25 15:29 Hydromorphone HCl (DiLAUDid 1MG INJ) 0.5 mg Q6H PRN IVP SEVERE PAIN (7-10) 08/18/25 11:30 08/23/25 11:29 08/19/25 12:39 0.5 MG Insulin Human Regular (humuLIN R 100 UNIT/ML 3ML) INSULIN SLIDING SCAL... ACHS SQ 08/03/25 07:30 09/02/25 07:29 08/15/25 16:22 4 UNIT Lactated Ringer's 1,000 ml @ 50 mls/hr Q20H IV 08/03/25 00:30 08/10/25 10:11 DC 08/09/25 08:47 50 MLS/HR Lactulose (Constulose 20gm/ 30ml Udcup) 20 gm BID PRN PO CONSTIPATION 08/03/25 00:30 09/02/25 00:29 08/19/25 02:56 20 GM Levothyroxine Sodium (SYNTHroid 25MCG TAB) 25 mcg DAILY@0630 PO 08/10/25 06:30 09/09/25 06:29 08/19/25 06:10 25 MCG Lidocaine (Lidocaine Patch 4%) 1 each Q24H TP 08/07/25 16:30 09/06/25 16:29 08/17/25 17:23 1 EACH Magnesium Sulfate 50 ml @ 0 mls/hr PROTOCOL IV 08/08/25 08:00 08/08/25 07:36 DC Magnesium Sulfate 50 ml @ 0 mls/hr PROTOCOL PRN IV MAGNESIUM PROTOCOL 08/04/25 12:00 09/03/25 11:59 08/08/25 06:10 25 MLS/HR Metoprolol Tartrate (loprESSOR) 5 mg ONCE IV 08/07/25 17:00 08/07/25 21:00 DC 08/07/25 16:53 5 MG Metoprolol Tartrate (loprESSOR) 5 mg Q5MIN PRN IV INCREASED HEART RATE >110 BPM 08/11/25 22:00 08/11/25 22:13 DC 08/11/25 22:12 5 MG Metoprolol Tartrate (loprESSOR) 5 mg Q5MIN PRN IV INCREASED HEART RATE >110 BPM 08/12/25 03:30 08/12/25 04:23 DC 08/12/25 04:21 5 MG Metoprolol Tartrate (loprESSOR) 5 mg Q6H PRN IV INCREASED HEART RATE >120 BPM 08/04/25 17:00 08/16/25 12:16 DC 08/16/25 06:39 5 MG Metoprolol Tartrate (loprESSOR) 25 mg BID PO 08/03/25 09:00 08/07/25 15:00 DC 08/07/25 13:10 25 MG Metoprolol Tartrate (loprESSOR) 25 mg TID PO 08/16/25 12:30 08/17/25 08:22 DC 08/16/25 20:13 25 MG Metoprolol Tartrate (loprESSOR) 50 mg ONCE PO 08/07/25 17:00 08/07/25 21:00 DC 08/07/25 16:53 50 MG Metoprolol Tartrate (loprESSOR) 50 mg Q6H PO 08/07/25 19:00 08/11/25 08:04 DC 08/11/25 00:59 50 MG Metoprolol Tartrate (loprESSOR) 50 mg TID PO 08/18/25 09:00 09/16/25 08:29 08/19/25 15:24 50 MG Metoprolol Tartrate (loprESSOR) 50 mg TID PO 08/17/25 08:30 08/18/25 08:38 DC 08/17/25 21:07 50 MG Metoprolol Tartrate (loprESSOR) 75 mg Q6H PO 08/11/25 08:30 08/12/25 07:54 DC 08/12/25 02:58 75 MG Metoprolol Tartrate (loprESSOR) 200 mg Q12H9 PO 08/12/25 09:00 08/15/25 14:24 DC 08/15/25 08:06 200 MG Nitroglycerin (Nitrostat) 0.4 mg PROTOCOL PRN SL CHEST PAIN 08/03/25 00:30 09/02/25 00:29 Olanzapine (ZyPREXA 10MG/ML 1ML Vial) 5 mg DAILY PRN IM AGITATION 08/05/25 17:30 09/04/25 17:29 08/08/25 20:21 5 MG Ondansetron HCl (zoFRAN 4MG INJ) 4 mg Q6H PRN IV NAUSEA/VOMITING 08/03/25 00:30 09/02/25 00:29 Pantoprazole Sodium (PROTonix 40MG INJ) 40 mg BID IVP 08/04/25 21:00 09/03/25 20:59 08/19/25 08:36 40 MG Pantoprazole Sodium (PROTonix 40MG TAB) 40 mg BID PO 08/04/25 21:00 08/04/25 12:57 DC Polyethylene Glycol (MIRalax 3350 17 GM POWD.PACK) 17 gm DAILY PO 08/19/25 16:30 09/18/25 16:29 Potassium Chloride 100 ml @ 100 mls/hr AD PRN IV POTASSIUM PROTOCOL 08/04/25 12:00 09/03/25 11:59 08/09/25 17:00 100 MLS/HR Potassium Chloride (K-Dur/Klor-Con 20meq) 20 meq AD PRN PO POTASSIUM PROTOCOL 08/04/25 12:00 09/03/25 11:59 08/15/25 06:35 20 MEQ Potassium Chloride (KCl 10% Elixir 20meq/15ml) 20 meq AD PRN PO POTASSIUM PROTOCOL 08/04/25 12:00 09/03/25 11:59 08/13/25 04:04 20 MEQ Prednisone (deltaSONE/ oraSONE 20MG TAB) 20 mg DAILY PO 08/05/25 17:00 08/10/25 10:08 DC 08/10/25 09:12 20 MG Rivaroxaban (Xarelto) 15 mg DAILY PO 08/04/25 09:00 08/05/25 11:54 DC 08/04/25 09:42 15 MG Sucralfate (Carafate) 1 gm BID PO 08/04/25 21:00 09/03/25 20:59 08/19/25 08:37 1 GM Tramadol HCl (UltRAM) 50 mg Q6H PRN PO MODERATE PAIN (4-6) 08/06/25 19:30 08/10/25 10:33 DC 08/09/25 10:30 50 MG Vancomycin HCl 250 ml @ 125 mls/hr Q12H IV 08/07/25 21:00 08/11/25 17:08 DC 08/11/25 11:14 125 MLS/HR Vancomycin HCl (Vancomycin Protocol) 1 each AD IV 08/07/25 07:30 08/12/25 08:47 DC Verapamil HCl (Calan/Isoptin) 40 mg Q8H5 PO 08/19/25 21:00 09/18/25 20:59 Vitamin B Complex/ Vit C/Folic Acid (Nephrovite Tablet) 1 cap DAILY PO 08/17/25 09:00 09/16/25 08:59 08/19/25 08:36 1 CAP Diagnostics / Radiology: [COPY/PASTE HERE IF NO REPORTS PLEASE DELETE SECTION] Assessment: [ Melena Acute Gi blood loss Afib on xarelto STrep A positive] Plan: May start anticoagulation in conjunction with high dose PPI Continue GI prophylaxis Advance diet as tolerated Avoid NSAIDs Antireflux measures Monitor H&H and transfuse as needed Call with questions, concerns or change in clinical status Patient to follow-up at clinic post discharge Thank you for this consult DEBBIE [facility] Aug 19, 2025 16:47
--- NOTE | 2025-08-19 17:41 | HMCIMG ---
EXAM: US for Deep Venous Thrombosis, left Lower Extremity. CLINICAL HISTORY: Leg Pain and Swelling TECHNIQUE: Real-time ultrasound scan of the veins of the left lower extremity with color Doppler flow, spectral waveform analysis and compression. COMPARISON: None provided. FINDINGS: DVT within the left common femoral, superficial femoral, popliteal, and posterior tibial veins. IMPRESSION: 1. Deep venous thrombosis in the left common femoral, superficial femoral, popliteal, and posterior tibial veins. The clinical team was made aware at the time of the examination. /[place]
--- NOTE | 2025-08-19 17:43 | HMCIMG ---
EXAM: US Duplex left Lower Extremity Arteries. CLINICAL HISTORY: SWELLING TECHNIQUE: Real-time ultrasound scan of the arteries of the left lower extremity with 2-D cyr scale, color Doppler flow and spectral waveform analysis. COMPARISON: None provided. FINDINGS: COMMON FEMORAL ARTERY: No occlusion or significant stenosis. Biphasic waveforms. SUPERFICIAL FEMORAL ARTERY: No occlusion or significant stenosis. Biphasic waveforms. POPLITEAL ARTERY: No occlusion or significant stenosis. Biphasic waveforms. CALF ARTERIES: No occlusion or significant stenosis. Monophasic waveforms within the dorsalis pedis and posterior tibial arteries. IMPRESSION: 1. No acute arterial occlusion or significant stenosis in the left lower extremity. 2. Monophasic waveforms in the dorsalis pedis and posterior tibial arteries. /[place]
--- NOTE | 2025-08-19 20:31 | HMCIMG ---
EXAM: NM Lung Perfusion and Ventilation Scan. CLINICAL HISTORY: DVT with PE Suspected. TECHNIQUE: Radiolabeled MAA was administered intravenously and planar images of the lungs were obtained in multiple projections. RADIOPHARMACEUTICAL: Perfusion: 4.5 mCi technetium 99m MAA. COMPARISON: None. FINDINGS: PERFUSION: No segmental perfusion defect. IMPRESSION: Normal perfusion scan. /[place]
[2025-08-19] MEDS: VERAPAMIL HCL 80 MG TABLET PO SCH (20:43)
[2025-08-20] VITALS (7 sets, daily range): BP systolic 101–118; BP diastolic 45–57; PULSE 41–73; RESP 18–20; TEMP 97.2–98.6; O2SAT 97–98
--- NOTE | 2025-08-20 05:42 | HMCIMG ---
EXAM: CR Chest, 1 views. CLINICAL HISTORY: Cough. COMPARISON: None provided. FINDINGS: The lungs show no infiltrate or other acute findings. No pleural effusion or pneumothorax. The cardiomediastinal silhouette is within normal limits. No acute osseous abnormality. IMPRESSION: 1. No acute cardiopulmonary pathology is evident. /[place]
[2025-08-20 05:54] LABS: IMMATURE GRANULOCYTE ABSOLUTE 0.07 K/uL (0-1); NUCLEATED RED BLOOD CELLS 0.0 % (0.0-0.19); PLATELET COUNT (AUTO) 219 K/uL (130-400); RED BLOOD CELL COUNT(AUTO) 3.33 MIL/uL (4.50-6.20); RED CELL DISTRIBUTION WIDTH 13.9 % (11.0-15.5); WHITE BLOOD COUNT (AUTO) 9.2 K/uL (4.8-10.8)
[2025-08-20 06:31] LABS: ASPARTATE AMINOTRANSFERASE 23 U/L (10-37); CREATINE KINASE, TOTAL 33 U/L (21-232); CREATININE 2.4 mg/dL (0.5-1.3); GLOMERULAR FILTR. RATE CALC 28 mL/min (>90); GLUCOSE,RANDOM 113 mg/dL (70-105); PHOSPHORUS 3.2 mg/dL (2.5-4.9); SODIUM SERUM 142 mmol/L (136-145); TOTAL PROTEIN, SERUM 6.3 g/dL (6.0-8.3); UREA NITROGEN, BLOOD 39 mg/dL (7-18)
--- NOTE | 2025-08-20 10:25 | PN ---
NEPHROLOGY PROGRESS NOTE Date/Time Patient Seen: Aug 20, 2025 SUBJECTIVE: This patient has been in the hospital for several days. This patient has atrial fibrillation with bradycardia in between. The patient has knee suspected septic arthritis on the left side. The patient has undergone aspiration of the right knee and left knee joint fluid. The patient has rising BUN/creatinine and anemia. The patient has been in the hospital for the past several days. The patient has been treated for streptococcal pharyngitis and UTI with underlying CKD reported with underlying diabetes and hypertension. Cardiology work-up is going for A FIb, continues on amiodarone, pending further recommendations for anticoagulation Venous Doppler showed deep venous thrombosis in the left common femoral, superficial femoral, popliteal, and posterior tibial veins. Continues on heparin drip. The patient has been treated for sepsis. Vancomycin has been discontinued Renal function is improving Electrolytes are stable Iron panel was noted. He was seen in the medial floor. REVIEW OF SYSTEMS: GENERAL: Negative for any nausea, vomiting, fevers, chills, or weight loss. NEUROLOGIC: Negative for any blurry vision, blind spots, double vision, facial asymmetry, dysphagia, dysarthria, hemiparesis, hemisensory deficits, vertigo, ataxia. HEENT: Negative for any head trauma, neck trauma, neck stiffness, photophobia, phonophobia, sinusitis, rhinitis. CARDIAC: Negative for any chest pain, dyspnea on exertion, paroxysmal nocturnal dyspnea, peripheral edema. PULMONARY: Negative for any shortness of breath, wheezing, COPD, or TB exposure. GASTROINTESTINAL: Negative for any abdominal pain, nausea, vomiting, bright red blood per rectum, melena. GENITOURINARY: Negative for any dysuria, hematuria, incontinence. INTEGUMENTARY: Negative for any rashes, cuts, insect bites. RHEUMATOLOGIC: Negative for any joint pains, photosensitive rashes, history of vasculitis or kidney problems. HEMATOLOGIC: Negative for any abnormal bruising, frequent infections or bleeding. Vital Signs (last 8hr) Date Time Temp Pulse Resp B/P (MAP) Pulse Ox O2 Delivery O2 Flow Rate FiO2 08/18/25 12:02 97.9 71 20 124/65 100 Room Air 08/18/25 07:25 98 Room Air* 0 21 08/18/25 07:00 97.9 65 18 130/69 100 Room Air PHYSICAL EXAM: GENERAL: Alert and oriented x 3. No acute distress. Well-nourished. EYES: EOMI. Anicteric. HENT: Moist mucous membranes. No scleral icterus. No cervical lymphadenopathy. LUNGS: Clear to auscultation bilaterally. No accessory muscle use. CARDIOVASCULAR: Regular rate and rhythm. No murmur. No JVD. ABDOMEN: Soft, non-tender and non-distended. No palpable masses. EXTREMITIES: No edema. Non-tender.?SKIN: No rashes or lesions. Warm. NEUROLOGIC: No focal neurological deficits. CN II-XII grossly intact, but not individually tested. PSYCHIATRIC: Cooperative. Appropriate mood and affect. Current Medications Medications (Trade) Dose Ordered Sig/Anish Route PRN Reason Start Time Stop Time Status Last Admin Dose Admin Acetaminophen (TYLenol 325MG TAB) 650 mg Q4H PRN PO MILD PAIN (1-3) 08/03/25 00:30 08/03/25 02:29 DC Acetaminophen (TYLenol 325MG TAB) 650 mg Q6H PRN PO PAIN LEVEL 1 TO 3 08/03/25 00:30 09/02/25 00:29 08/14/25 03:09 650 MG Acetaminophen (TYLenol 650MG ELIXIR) 650 mg Q6H PRN PEG MILD PAIN (1-3) 08/03/25 02:30 08/11/25 08:38 DC 08/08/25 07:04 650 MG Acetaminophen (TYLenol 650MG ELIXIR) 650 mg Q6H PRN PO MILD PAIN (1-3) 08/11/25 14:30 09/10/25 14:29 Al Hydroxide/Mg Hydroxide (MAALox PLUS 30ML) 30 ml Q6H PRN PO INDIGESTION 08/03/25 00:30 09/02/25 00:29 Allopurinol (ZYLOprim 100MG) 100 mg TID PO 08/06/25 14:00 09/05/25 13:59 08/17/25 08:31 100 MG Amiodarone HCl (pacERONE 200MG) 200 mg BID PO 08/13/25 09:00 09/12/25 08:59 08/17/25 08:31 200 MG Amiodarone HCl 150 mg/Dextrose 103 ml @ 618 mls/hr ONCE IV 08/13/25 02:00 08/13/25 02:01 DC Amiodarone HCl 360 mg/Dextrose 207.2 ml @ 33.3 mls/hr AD IV 08/13/25 02:00 08/13/25 02:01 DC Amiodarone HCl 540 mg/Dextrose 310.8 ml @ 16.7 mls/hr [id number] IV 08/13/25 07:00 08/13/25 07:59 DC Amiodarone HCl 540 mg/Dextrose 310.8 ml @ 16.7 mls/hr [id number] IV 08/13/25 11:00 09/12/25 10:59 08/13/25 10:03 16.7 MLS/HR Amiodarone HCL/ Dextrose 100 ml @ 600 mls/hr PROTOCOL IV 08/13/25 02:00 08/13/25 07:06 DC 08/13/25 04:36 600 MLS/HR Amiodarone HCL/ Dextrose 200 ml @ 33.333 mls/ hr PROTOCOL IV 08/13/25 02:00 08/13/25 07:07 DC 08/13/25 05:06 33.333 MLS/HR Atropine Sulfate (Atropine 1mg Syg) 0.5 mg AD PRN IVP HR<30BPM 08/15/25 10:00 Benzocaine (Cepacol Sore Throat Lozenge) 1 each Q4H PRN MM SORE THROAT 08/03/25 10:30 09/02/25 10:29 08/03/25 11:55 1 EACH Cefepime HCl (MAXipime 1 GM vial) 1 gm Q12H IVPB 08/09/25 19:30 08/17/25 07:30 DC 08/16/25 20:12 1 GM Cefepime HCl (MAXipime 1 GM vial) 1 gm Q8H IVPB 08/07/25 07:30 08/09/25 07:17 DC 08/09/25 07:00 1 GM Ceftriaxone Sodium (Rocephin 2gm Inj) 2 gm Q24H IVPB 08/03/25 00:30 08/07/25 07:28 DC 08/07/25 01:39 2 GM Dextrose (D50w) 50 ml AD PRN IV HYPOGLYCEMIA PROTOCOL 08/03/25 00:30 09/02/25 00:29 Diazepam (VALium 5 MG/ML 2 ML SYG) 5 mg AM PRN IV AGITATION/PSYCHOSIS 08/09/25 15:30 08/14/25 17:30 DC 08/12/25 02:59 5 MG Diazepam (VALium 5 MG/ML 2 ML SYG) 5 mg HS IV 08/09/25 21:00 08/14/25 17:30 DC Diltiazem HCl (CARDIzem 25MG INJ) 5 mg AD PRN IVP INCREASED HEART RATE >110 BPM 08/15/25 14:30 08/16/25 15:20 DC 08/16/25 10:56 5 MG Diltiazem HCl (CARDIzem 25MG INJ) 10 mg ONCE PRN IVP CARDIZEM PROTOCOL 08/07/25 15:00 08/07/25 15:00 DC Diltiazem HCl (CARDIzem 60MG TAB) 30 mg Q6H PO 08/08/25 08:00 08/08/25 11:00 DC 08/08/25 07:59 30 MG Diltiazem HCl 125 mg/Sodium Chloride 125 ml @ 0 mls/hr AD PRN IV CARDIZEM PROTOCOL 08/07/25 15:00 08/07/25 14:59 DC Diltiazem HCl 125 mg/Sodium Chloride 125 ml @ 0 mls/hr AD PRN IV CARDIZEM PROTOCOL 08/08/25 11:00 08/12/25 07:58 DC 08/11/25 15:51 15 MLS/HR Diltiazem HCl 125 mg/Sodium Chloride 125 ml @ 0 mls/hr AD PRN IV CARDIZEM PROTOCOL 08/12/25 08:00 08/13/25 01:48 DC Diltiazem HCl 125 mg/Sodium Chloride 125 ml @ 0 mls/hr PROTOCOL IV 08/02/25 22:00 08/04/25 12:58 DC 08/04/25 02:49 0 MLS/HR Diltiazem HCl 125 mg/Sodium Chloride 125 ml @ 0 mls/hr PROTOCOL IV 08/16/25 15:30 09/15/25 15:29 08/16/25 15:59 5 MLS/HR Doxycycline Hyclate 250 ml @ 125 mls/hr Q12H IV 08/08/25 08:00 08/18/25 07:59 08/17/25 08:31 125 MLS/HR Famotidine (Pepcid 20mg Tab) 20 mg DAILY PO 08/03/25 09:00 08/04/25 12:54 DC 08/04/25 09:42 20 MG Glucagon (Glucagon 1mg Kit) 1 mg AD PRN IM HYPOGLYCEMIA PROTOCOL 08/03/25 00:30 09/02/25 00:29 Guaifenesin/ Dextromethorphan (RobiTUSSin DM 200/20MG 10ML) 10 ml Q4H PRN PO COUGH 08/03/25 00:30 09/02/25 00:29 08/05/25 16:31 10 ML Heparin Sodium (Porcine) (HEParin 5,000 UNIT VIAL) 5,000 unit Q12H SQ 08/03/25 00:30 08/03/25 10:08 DC 08/03/25 00:42 5,000 UNIT Insulin Human Regular (humuLIN R 100 UNIT/ML 3ML) INSULIN SLIDING SCAL... ACHS SQ 08/03/25 07:30 09/02/25 07:29 08/15/25 16:22 4 UNIT Lactated Ringer's 1,000 ml @ 50 mls/hr Q20H IV 08/03/25 00:30 08/10/25 10:11 DC 08/09/25 08:47 50 MLS/HR Lactulose (Constulose 20gm/ 30ml Udcup) 20 gm BID PRN PO CONSTIPATION 08/03/25 00:30 09/02/25 00:29 08/11/25 08:38 20 GM Levothyroxine Sodium (SYNTHroid 25MCG TAB) 25 mcg DAILY@0630 PO 08/10/25 06:30 09/09/25 06:29 08/17/25 06:33 25 MCG Lidocaine (Lidocaine Patch 4%) 1 each Q24H TP 08/07/25 16:30 09/06/25 16:29 08/16/25 16:22 1 EACH Magnesium Sulfate 50 ml @ 0 mls/hr PROTOCOL IV 08/08/25 08:00 08/08/25 07:36 DC Magnesium Sulfate 50 ml @ 0 mls/hr PROTOCOL PRN IV MAGNESIUM PROTOCOL 08/04/25 12:00 09/03/25 11:59 08/08/25 06:10 25 MLS/HR Metoprolol Tartrate (loprESSOR) 5 mg ONCE IV 08/07/25 17:00 08/07/25 21:00 DC 08/07/25 16:53 5 MG Metoprolol Tartrate (loprESSOR) 5 mg Q5MIN PRN IV INCREASED HEART RATE >110 BPM 08/11/25 22:00 08/11/25 22:13 DC 08/11/25 22:12 5 MG Metoprolol Tartrate (loprESSOR) 5 mg Q5MIN PRN IV INCREASED HEART RATE >110 BPM 08/12/25 03:30 08/12/25 04:23 DC 08/12/25 04:21 5 MG Metoprolol Tartrate (loprESSOR) 5 mg Q6H PRN IV INCREASED HEART RATE >120 BPM 08/04/25 17:00 08/16/25 12:16 DC 08/16/25 06:39 5 MG Metoprolol Tartrate (loprESSOR) 25 mg BID PO 08/03/25 09:00 08/07/25 15:00 DC 08/07/25 13:10 25 MG Metoprolol Tartrate (loprESSOR) 25 mg TID PO 08/16/25 12:30 08/17/25 08:22 DC 08/16/25 20:13 25 MG Metoprolol Tartrate (loprESSOR) 50 mg ONCE PO 08/07/25 17:00 08/07/25 21:00 DC 08/07/25 16:53 50 MG Metoprolol Tartrate (loprESSOR) 50 mg Q6H PO 08/07/25 19:00 08/11/25 08:04 DC 08/11/25 00:59 50 MG Metoprolol Tartrate (loprESSOR) 50 mg TID PO 08/17/25 08:30 09/16/25 08:29 08/17/25 08:41 50 MG Metoprolol Tartrate (loprESSOR) 75 mg Q6H PO 08/11/25 08:30 08/12/25 07:54 DC 08/12/25 02:58 75 MG Metoprolol Tartrate (loprESSOR) 200 mg Q12H9 PO 08/12/25 09:00 08/15/25 14:24 DC 08/15/25 08:06 200 MG Nitroglycerin (Nitrostat) 0.4 mg PROTOCOL PRN SL CHEST PAIN 08/03/25 00:30 09/02/25 00:29 Olanzapine (ZyPREXA 10MG/ML 1ML Vial) 5 mg DAILY PRN IM AGITATION 08/05/25 17:30 09/04/25 17:29 08/08/25 20:21 5 MG Ondansetron HCl (zoFRAN 4MG INJ) 4 mg Q6H PRN IV NAUSEA/VOMITING 08/03/25 00:30 09/02/25 00:29 Pantoprazole Sodium (PROTonix 40MG INJ) 40 mg BID IVP 08/04/25 21:00 09/03/25 20:59 08/17/25 08:32 40 MG Pantoprazole Sodium (PROTonix 40MG TAB) 40 mg BID PO 08/04/25 21:00 08/04/25 12:57 DC Potassium Chloride 100 ml @ 100 mls/hr AD PRN IV POTASSIUM PROTOCOL 08/04/25 12:00 09/03/25 11:59 08/09/25 17:00 100 MLS/HR Potassium Chloride (K-Dur/Klor-Con 20meq) 20 meq AD PRN PO POTASSIUM PROTOCOL 08/04/25 12:00 09/03/25 11:59 08/15/25 06:35 20 MEQ Potassium Chloride (KCl 10% Elixir 20meq/15ml) 20 meq AD PRN PO POTASSIUM PROTOCOL 08/04/25 12:00 09/03/25 11:59 08/13/25 04:04 20 MEQ Prednisone (deltaSONE/ oraSONE 20MG TAB) 20 mg DAILY PO 08/05/25 17:00 08/10/25 10:08 DC 08/10/25 09:12 20 MG Rivaroxaban (Xarelto) 15 mg DAILY PO 08/04/25 09:00 08/05/25 11:54 DC 08/04/25 09:42 15 MG Sucralfate (Carafate) 1 gm BID PO 08/04/25 21:00 09/03/25 20:59 08/17/25 08:31 1 GM Tramadol HCl (UltRAM) 50 mg Q6H PRN PO MODERATE PAIN (4-6) 08/06/25 19:30 08/10/25 10:33 DC 08/09/25 10:30 50 MG Vancomycin HCl 250 ml @ 125 mls/hr Q12H IV 08/07/25 21:00 08/11/25 17:08 DC 08/11/25 11:14 125 MLS/HR Vancomycin HCl (Vancomycin Protocol) 1 each AD IV 08/07/25 07:30 08/12/25 08:47 DC Vitamin B Complex/ Vit C/Folic Acid (Nephrovite Tablet) 1 cap DAILY PO 08/17/25 09:00 09/16/25 08:59 08/17/25 08:31 1 CAP LABORATORY: [ ] Hematology Labs: Test 08/20/25 05:43 08/19/25 15:49 Range/Units White Blood Count 9.2 4.8-10.8 K/uL Red Blood Count 3.33 L 4.50-6.20 MIL/uL Hemoglobin 10.6 L 14.0-18.0 g/dL Hematocrit 31.8 L 42-54 % Mean Corpuscular Volume 95.5 79-99 fL Mean Corpuscular Hemoglobin 31.8 27.0-33.0 pg Mean Corpuscular Hemoglobin Concent 33.3 32.0-36.0 g/dL Red Cell Distribution Width 13.9 11.0-15.5 % Platelet Count 219 130-400 K/uL Mean Platelet Volume 10.6 H 7.5-10.5 fL Immature Granulocyte % (Auto) 0.8 0-1 % Neutrophils (%) (Auto) 79.9 H 40.0-77.0 % Lymphocytes (%) (Auto) 11.2 L 21.0-51.0 % Monocytes (%) (Auto) 7.0 3.0-13.0 % Eosinophils (%) (Auto) 0.9 0.0-8.0 % Basophils (%) (Auto) 0.2 0.0-5.0 % Neutrophils # (Auto) 7.3 1.8-7.7 K/uL Lymphocytes # (Auto) 1.0 1.0-4.8 K/uL Monocytes # (Auto) 0.6 0.1-1.0 K/uL Eosinophils # (Auto) 0.08 0.00-0.70 K/uL Basophils # (Auto) 0.02 0.00-0.20 K/uL Absolute Immature Granulocyte (auto 0.07 0-1 K/uL Nucleated Red Blood Cells 0.0 0.0-0.19 % Segmented Neutrophils % 86 H 40-70 % Lymphocytes % (Manual) 9 L 22-44 % Monocytes % (Manual) 4 2-9 % Eosinophils % (Manual) 1 1-6 % Differential Comment MANUAL DIFFERENTIAL White Cell Morphology Comment HYPERSEGMENT NEUT 1+ Platelet Morphology Comment ADEQUATE Red Blood Cell Morphology POIKILOCYTOSIS 1+ Chemistry Labs: Test 08/20/25 05:50 08/20/25 05:43 Range/Units Whole Blood Glucose 106 70-110 MG/DL Sodium Level 142 136-145 mmol/L Potassium Level 3.4 L 3.5-5.1 mmol/L Chloride Level 109 101-111 mmol/L Carbon Dioxide Level 22 21-32 mmol/L Blood Urea Nitrogen 39 H 7-18 mg/dL Creatinine 2.4 H 0.5-1.3 mg/dL Glomerular Filtration Rate Calc 28 >90 mL/min Random Glucose 113 H 70-105 mg/dL Uric Acid 3.5 2.6-7.2 mg/dL Total Calcium 8.9 8.5-10.1 mg/dL Phosphorus Level 3.2 2.5-4.9 mg/dL Magnesium Level 2.30 1.80-2.40 mg/dL Total Bilirubin 0.6 0.2-1.0 mg/dL Aspartate Amino Transf (AST/SGOT) 23 10-37 U/L Alanine Aminotransferase (ALT/SGPT) 38 12-78 U/L Alkaline Phosphatase 83 50-136 U/L Ammonia < 10 L 11-32 umol/L Total Creatine Kinase 33 # 21-232 U/L Total Protein 6.3 6.0-8.3 g/dL Albumin 2.5 L 3.5-5.0 g/dL Coagulation Labs: Test 08/20/25 05:43 Range/Units Activated Partial Thromboplast Time > 139.0 *H 26.3-35.5 [facility]OLOGY: [place] [id number] [address] IMAGING REPORT Signed PATIENT: LADARIUS CARETR MR#: [id number] : 1950 SEX: M AGE: 75 LOCATION: 2AH ORDER 16 STATUS: ADM IN [facility] REPORT#: [id number] SERVICE 13 REASON: EXTENSIVE DVT TO LEFT LEG ORDERING PHYSICIAN: DIONISIO MCINTYRE PROCEDURE: PULM VQ - NM PULMONARY/LUNG VQ SCAN EXAM: NM Lung Perfusion and Ventilation Scan. CLINICAL HISTORY: DVT with PE Suspected. TECHNIQUE: Radiolabeled MAA was administered intravenously and planar images of the lungs were obtained in multiple projections. RADIOPHARMACEUTICAL: Perfusion: 4.5 mCi technetium 99m MAA. COMPARISON: None. FINDINGS: PERFUSION: No segmental perfusion defect. IMPRESSION: Normal perfusion scan. /[place] DICTATED BY: GAVIN MATHEWS Jr., MD DATE: 08/19/252130 ELECTRONICALLY SIGNED BY: GAVIN MATHEWS Jr., MD DATE: 08/19/252130 PATIENT: LADARIUS CARTER MR#: [id number] : 1950 SEX: M AGE: 75 LOCATION: [facility] ORDER 1231 STATUS: ADM IN REPORT#: [id number] SERVICE 1230 REASON: SWELLING ORDERING PHYSICIAN: DIONISIO MCINTYRE PROCEDURE: VENOUS UNI - US VENOUS DOPPLER UNILATERAL ADDENDUM REPORT ADDENDUM: EXAM: US for Deep Venous Thrombosis, left Lower Extremity. CLINICAL HISTORY: Leg Pain and Swelling TECHNIQUE: Real-time ultrasound scan of the veins of the left lower extremity with color Doppler flow, spectral waveform analysis and compression. COMPARISON: None provided. FINDINGS: DVT within the left common femoral, superficial femoral, popliteal, and posterior tibial veins. 1.3 x 3.4 x 2.2 cm Campos's cyst. IMPRESSION: 1. Deep venous thrombosis in the left common femoral, superficial femoral, popliteal, and posterior tibial veins. The clinical team was made aware at the time of the examination. /[place] EXAM: US for Deep Venous Thrombosis, left Lower Extremity. CLINICAL HISTORY: Leg Pain and Swelling TECHNIQUE: Real-time ultrasound scan of the veins of the left lower extremity with color Doppler flow, spectral waveform analysis and compression. COMPARISON: None provided. FINDINGS: DVT within the left common femoral, superficial femoral, popliteal, and posterior tibial veins. IMPRESSION: 1. Deep venous thrombosis in the left common femoral, superficial femoral, popliteal, and posterior tibial veins. The clinical team was made aware at the time of the examination. /[place] DICTATED BY: GAVIN MATHEWS Jr., MD DATE: 08/19/251840 ELECTRONICALLY SIGNED BY: DATE: EXAM: US for Deep Venous Thrombosis, left Lower Extremity. CLINICAL HISTORY: Leg Pain and Swelling TECHNIQUE: Real-time ultrasound scan of the veins of the left lower extremity with color Doppler flow, spectral waveform analysis and compression. COMPARISON: None provided. FINDINGS: DVT within the left common femoral, superficial femoral, popliteal, and posterior tibial veins. IMPRESSION: 1. Deep venous thrombosis in the left common femoral, superficial femoral, popliteal, and posterior tibial veins. The clinical team was made aware at the time of the examination. /[place] DICTATED BY: GAVIN MATHEWS Jr., MD DATE: 08/19/251840 ELECTRONICALLY SIGNED BY: GAVIN MATHEWS Jr., MD DATE: 08/19/251840 PATIENT: LADARIUS CARTER MR#: [id number] : 1950 SEX: M AGE: 75 LOCATION: 2AH ORDER 1231 STATUS: ADM IN [facility] REPORT#: [id number] SERVICE 1230 REASON: SWELLING ORDERING PHYSICIAN: DIONISIO MCINTYRE PROCEDURE: ART U LE - US ARTERIAL UNILA LOW EXT DUPL EXAM: US Duplex left Lower Extremity Arteries. CLINICAL HISTORY: SWELLING TECHNIQUE: Real-time ultrasound scan of the arteries of the left lower extremity with 2-D cyr scale, color Doppler flow and spectral waveform analysis. COMPARISON: None provided. FINDINGS: COMMON FEMORAL ARTERY: No occlusion or significant stenosis. Biphasic waveforms. SUPERFICIAL FEMORAL ARTERY: No occlusion or significant stenosis. Biphasic waveforms. POPLITEAL ARTERY: No occlusion or significant stenosis. Biphasic waveforms. CALF ARTERIES: No occlusion or significant stenosis. Monophasic waveforms within the dorsalis pedis and posterior tibial arteries. IMPRESSION: 1. No acute arterial occlusion or significant stenosis in the left lower extremity. 2. Monophasic waveforms in the dorsalis pedis and posterior tibial arteries. /[place] DICTATED BY: GVAIN MATHEWS Jr., MD DATE: 08/19/251841 ELECTRONICALLY SIGNED BY: GAVIN MATHEWS Jr., MD DATE: 08/19/251841 PATIENT: LADARIUS CARTER MR#: [id number] : 1950 SEX: M AGE: 75 LOCATION: 2AH ORDER 41 STATUS: ADM IN REPORT#: [id number] SERVICE 104 REASON: SEPSIS ORDERING PHYSICIAN: DIONISIO MCINTYRE PROCEDURE: CXR1VW - CHEST 1VW EXAM: CR Chest, 1 views. CLINICAL HISTORY: Cough. COMPARISON: None provided. FINDINGS: The lungs show no infiltrate or other acute findings. No pleural effusion or pneumothorax. The cardiomediastinal silhouette is within normal limits. No acute osseous abnormality. IMPRESSION: 1. No acute cardiopulmonary pathology is evident. /[place] DICTATED BY: GAVIN MATHEWS Jr., MD DATE: 08/20/25641 ELECTRONICALLY SIGNED BY: GAVIN MATHEWS Jr., MD DATE: 08/20/25641 PATIENT: LADARIUS CARTER MR#: [id number] : 1950 SEX: M AGE: 75 LOCATION: 2AH ORDER 170 STATUS: ADM IN REPORT#: [id number] SERVICE 57 REASON: acute renal failure ORDERING PHYSICIAN: KELLEN KIM MD PROCEDURE: RENAL - US RENAL SONOGRAM EXAMINATION: ULTRASOUND OF THE RETROPERITONEUM. CLINICAL HISTORY: Acute renal failure. COMPARISON: None. TECHNIQUE: Real-time grayscale ultrasound images of the kidneys. FINDINGS: The kidneys are normal in caliber, the right kidney measures 10.5 x 4.6 x 4.4 cm and the left kidney measures 9.1 x 5.3 x 3.7 cm in its craniocaudal, AP, and transverse dimensions respectively. There is normal renal cortical thickness and increased cortical echogenicity. There is no renal calculus or hydronephrosis. The urinary bladder is normal in caliber and wall thickness (0.18 cm). There are no calculi in the urinary bladder. IMPRESSION: Increased echotexture of both the kidneys, of concern for renal parenchymal disease. Recommend clinical correlation and with laboratory parameters. /[place] DICTATED BY: GAVIN MATHEWS Jr., MD DATE: 08/17/25 103 ELECTRONICALLY SIGNED BY: GAVIN MATHEWS Jr., MD DATE: 08/17/25 103 PATIENT: LADARIUS CARTER MR#: [id number] : 1950 SEX: M AGE: 75 LOCATION: 2AH ORDER 35 STATUS: ADM IN REPORT#: [id number] SERVICE 1534 REASON: decreased air entry ORDERING PHYSICIAN: LENIN MAZARIEGOS PAC PROCEDURE: CXR1VW - CHEST 1VW EXAM: CR Chest, 1 View. CLINICAL HISTORY: decreased air entry COMPARISON: X-ray dated 08/10 FINDINGS: LUNGS: Significantly reduced perihilar opacities compared to the prior radiograph. Persistent and stable nodular opacity in the right upper lobe. PLEURAL SPACES: No pleural effusion or pneumothorax. MEDIASTINUM: The cardiomediastinal silhouette is within normal limits. BONES: No aggressive appearing osseous lesion seen. IMPRESSION: Significantly reduced perihilar opacities compared to the prior radiograph. Persistent and stable nodular opacity in the right upper lobe. /[place] DICTATED BY: GAVIN MATHEWS Jr., MD DATE: 08/17/257 ELECTRONICALLY SIGNED BY: GAVIN MATHEWS Jr., MD DATE: 08/17/257 PATIENT: LADARIUS CARTER MR#: [id number] : 1950 SEX: M AGE: 75 LOCATION: 2A ORDER 1011 STATUS: ADM IN REPORT#: [id number] SERVICE 1010 REASON: sepsis, chf ORDERING PHYSICIAN: DIONISIO MCINTYRE PROCEDURE: CXR1VW - CHEST 1VW ADDENDUM REPORT ADDENDUM: Results were shared by telephone at 01:48 am on 08/11/25 and acknowledged by Patient's Nurse Mr.Joe Monteiro. /[place] EXAM: CHEST RADIOGRAPH, 1 VIEW Technique: Single frontal view of the chest. Clinical Information: Sepsis and congestive heart failure. Findings: Lungs and large airways: Bilateral perihilar air-space opacities are present with mild pulmonary vascular congestion. A right upper lobe nodular opacity is present. Pleura: No pleural effusion or pneumothorax is identified. Heart and mediastinum: Cardiac size and mediastinal contours are within normal limits. Bones/joints: No acute osseous abnormality is identified. Impression: * Comparison: Compared with chest radiograph dated 08/07/2025 09:11 EDT, bilateral perihilar air-space opacities and mild pulmonary vascular congestion are unchanged, and the right upper lobe nodular opacity persists. /[place] DICTATED BY: OTIS GLASS MD DATE: 08/11/25 0149 ELECTRONICALLY SIGNED BY: DATE: EXAM: CHEST RADIOGRAPH, 1 VIEW Technique: Single frontal view of the chest. Clinical Information: Sepsis and congestive heart failure. Findings: Lungs and large airways: Bilateral perihilar air-space opacities are present with mild pulmonary vascular congestion. A right upper lobe nodular opacity is present. Pleura: No pleural effusion or pneumothorax is identified. Heart and mediastinum: Cardiac size and mediastinal contours are within normal limits. Bones/joints: No acute osseous abnormality is identified. Impression: * Comparison: Compared with chest radiograph dated 08/07/2025 09:11 EDT, bilateral perihilar air-space opacities and mild pulmonary vascular congestion are unchanged, and the right upper lobe nodular opacity persists. /[place] DICTATED BY: OTIS GLASS MD DATE: 08/11/25131 ELECTRONICALLY SIGNED BY: OTIS GLASS MD DATE: 08/11/25131 PATIENT: LADARIUS CARTER MR#: [id number] : 1950 SEX: M AGE: 75 LOCATION: 2CV ORDER 5 STATUS: ADM IN REPORT#: [id number] SERVICE REASON: swelling ORDERING PHYSICIAN: ASHLEY MONTEIRO [employer] PROCEDURE: VENOUS WILLIAM - US VENOUS DOPPLER BILATERAL EXAM: ULTRASOUND VENOUS DOPPLER OF BOTH LOWER EXTREMITIES Technique: Real-time grayscale ultrasound with graded transducer compression, color Doppler, and pulsed-wave spectral Doppler performed from the common femoral region through the calf veins in longitudinal and transverse planes; respiratory phasicity and distal augmentation maneuvers were assessed. Clinical Information: Bilateral lower-extremity swelling. Findings: Right lower extremity venous system: The common femoral vein, great saphenous vein at the saphenofemoral junction, femoral vein, popliteal vein, and posterior tibial veins are fully compressible with normal color filling and normal respiratory phasicity and augmentation on spectral Doppler; no intraluminal thrombus is identified. Right knee region: A fluid collection in the suprapatellar region measures 5.4 ??? 4.3 ??? 1.4 cm, most consistent with suprapatellar bursitis. Left lower extremity venous system: The common femoral vein, great saphenous vein at the saphenofemoral junction, femoral vein, popliteal vein, and posterior tibial veins are fully compressible with normal color filling and normal respiratory phasicity and augmentation on spectral Doppler; no intraluminal thrombus is identified. Left knee region: A fluid collection in the suprapatellar region measures 5.6 ??? 5.4 ??? 1.4 cm, most consistent with suprapatellar bursitis. Impression: * No sonographic evidence of deep venous thrombosis in either lower extremity from the common femoral through the posterior tibial veins. * Right suprapatellar bursitis with a fluid collection measuring 5.4 ??? 4.3 ??? 1.4 cm; correlate with symptoms and consider orthopedic evaluation and/or aspiration if clinically indicated. * Left suprapatellar bursitis with a fluid collection measuring 5.6 ??? 5.4 ??? 1.4 cm; correlate with symptoms and consider orthopedic evaluation and/or aspiration if clinically indicated. /[place] DICTATED BY: OTIS GLASS MD DATE: 08/08/251537 ELECTRONICALLY SIGNED BY: OTIS GLASS MD DATE: 08/08/251537 PATIENT: LADARIUS CARTER MR#: [id number] : 1950 SEX: M AGE: 75 [facility] ORDER 4 STATUS: ADM IN REPORT#: [id number] SERVICE 0 REASON: left knee swelling, fevers ORDERING PHYSICIAN: ASHLEY MONTEIRO PROCEDURE: LOW EXT WO - CT LOW EXT W/O CONTRAST EXAM: CT left Knee without IV contrast CLINICAL HISTORY: left knee swelling, fevers TECHNIQUE: Axial images were acquired through the left knee without IV contrast. Reformatted images were reviewed. COMPARISON: None provided. FINDINGS: BONES: No acute fracture or aggressive appearing osseous lesion. JOINTS: No dislocation. The joint spaces are narrowed affecting all 3 compartments. SOFT TISSUES: The soft tissues are remarkable for a large joint effusion. No abscess. IMPRESSION: No acute osseous abnormality. Tricompartmental osteoarthritis. No evidence of abscess or osteomyelitis. Moderate joint effusion is seen /[place] DICTATED BY: YAIMA PEREZ MD DATE: 08/07/251521 ELECTRONICALLY SIGNED BY: YAIMA PEREZ MD DATE: 08/07/251521 PATIENT: LADARIUS CARTER MR#: [id number] : 1950 SEX: M AGE: 75 LOCATION: 2DH ORDER 4 STATUS: ADM IN [facility] REPORT#: [id number] SERVICE 0 REASON: fevers ORDERING PHYSICIAN: ASHLEY MONTEIRO [employer]ER PROCEDURE: CXR1VW - CHEST 1VW ADDENDUM REPORT ADDENDUM: Results were shared by telephone at 12:52 am on 08-08-25 and acknowledged by House Supervisior Rosey Hayes. /[place] EXAM: CHEST RADIOGRAPH, 1 VIEW Technique: Single frontal view of the chest was obtained. Clinical Information: Fevers. Findings: Lungs and large airways: Bilateral perihilar air-space opacities with mild pulmonary vascular congestion. A right upper lobe nodular opacity is again seen and appears more conspicuous than on the prior study. Pleura: No pleural effusion or pneumothorax identified. Heart and mediastinum: Cardiac size and mediastinal contours are within normal limits. Bones/joints: No acute osseous abnormality is identified. Impression: * Comparison: Compared with chest radiograph dated 08/02/2025 at 21:01 EDT: the right upper lobe nodular opacity appears increased in conspicuity, and new/greater bilateral perihilar infiltrates with mild pulmonary vascular congestion are present; cardiac and mediastinal contours remain within normal limits. * Bilateral perihilar infiltrates with mild pulmonary vascular congestion???consider infectious process versus edema; correlate clinically and consider short-interval radiographic follow-up to document resolution. /[place] DICTATED BY: OTIS GLASS MD DATE: 08/08/25 0238 ELECTRONICALLY SIGNED BY: DATE: EXAM: CHEST RADIOGRAPH, 1 VIEW Technique: Single frontal view of the chest was obtained. Clinical Information: Fevers. Findings: Lungs and large airways: Bilateral perihilar air-space opacities with mild pulmonary vascular congestion. A right upper lobe nodular opacity is again seen and appears more conspicuous than on the prior study. Pleura: No pleural effusion or pneumothorax identified. Heart and mediastinum: Cardiac size and mediastinal contours are within normal limits. Bones/joints: No acute osseous abnormality is identified. Impression: * Comparison: Compared with chest radiograph dated 08/02/2025 at 21:01 EDT: the right upper lobe nodular opacity appears increased in conspicuity, and new/greater bilateral perihilar infiltrates with mild pulmonary vascular congestion are present; cardiac and mediastinal contours remain within normal limits. * Bilateral perihilar infiltrates with mild pulmonary vascular congestion???consider infectious process versus edema; correlate clinically and consider short-interval radiographic follow-up to document resolution. /[place] DICTATED BY: OTIS GLASS MD DATE: 08/07/252324 ELECTRONICALLY SIGNED BY: OTIS GLASS MD DATE: 08/07/252324 PATIENT: LADARIUS CARTER MR#: [id number] : 1950 SEX: M AGE: 75 LOCATION: 2DH ORDER 113 STATUS: ADM IN REPORT#: [id number] SERVICE 112 REASON: altered mental status ORDERING PHYSICIAN: DIONISIO MCINTYRE PROCEDURE: HEAD WO - CT HEAD/BRAIN W/O CONTRAST CT OF THE BRAIN WITHOUT CONTRAST CLINICAL INDICATION: Altered mental status TECHNIQUE: Multiple contiguous axial CT images were obtained through the brain without the administration of intravenous contrast. Coronal and sagittal reconstructions were also obtained. COMPARISON: None available FINDINGS: The ventricular system and cortical sulci demonstrate a normal size and configuration for the patients age. There are no intra- or extra-axial collections, mass effect, or midline shift. The basal cisterns are patent. The cyr-white matter differentiation is preserved. The midline structures and cervicomedullary junction are unremarkable. There is no evidence of acute intracranial hemorrhage or areas of acute infarction. Vascular calcification is present. The calvarium is unremarkable in appearance. No suspicious lytic or sclerotic osseous lesions are seen. The visualized portions of the sinuses are well aerated. The mastoid air cells are well pneumatized and well aerated. The visualized orbital structures are unremarkable in appearance. IMPRESSION: 1. No CT evidence of an acute intracranial process. 2. Age-appropriate involutional changes. /[place] DICTATED BY: SUDHA DUNNE MD DATE: 08/04/251417 ELECTRONICALLY SIGNED BY: SUDHA DUNNE MD DATE: 08/04/251417 PATIENT: LADARIUS CARTER MR#: [id number] : 1950 SEX: M AGE: 75 [facility] ORDER STATUS: ADM IN REPORT#: [id number] SERVICE REASON: afib with rvr ORDERING PHYSICIAN: TRENTON ALLEN PROCEDURE: ECHO CMP - ECHO 2-D COMPLETE APPROVED REPORT EXAM: Two-dimensional and M-mode echocardiogram with Doppler and color Doppler. Study Details: TDS INDICATION ICD: Atrial fibrillation with rapid ventricular response. 2D Dimensions IVSd 0.6 (0.7-1.1cm) LVEF(%) 44.6 (>50%) LVED Vol(simp.) 40.0 mL LVDd 4.1 (3.8-5.6cm) FS(%) 22 % LVES Vol(simp.) 21.0 mL PWd 0.9 (0.7-1.1cm) LVOT diam 1.9 (1.8-2.4cm) LVEF(%, simp.) 47 % IVSs 0.7 cm IVC diam 1.1 cm LA ESV INDEX (BP) 15.83 mL/m2 LVDs 3.2 (2.5-4.0cm) PWs 1.0 cm Deformation Strain Apical 4 -9.8 % Apical 2 -7.8 % Apical 3 -10.7 % Global Strain -9.5 % Aortic Valve AoV Vmax 1.0 m/s Ao Peak GR 4.3 mmHg LVOT Vmax 0.6 m/s AoV VTI 0.1 m Ao Mean GR 2.3 mmHg LVOT VTI 0.12 m KEVYN (VMAX) 1.64 cm2 KEVYN (VTI) 2.2 cm2 Mitral Valve MV E Vmax 99.6 cm/s DECEL Time 130 ms P 1/2 T 52 ms MVA (PHT) 4.3 cm2 TDI E/E' Medial 9.4 E/E' Lateral 11.0 Medial E' Peak V 10.57 cm/s Lateral E' Peak V 9.02 cm/s Tricuspid Valve RAP (EST) 8 mmHg RVSP 8.0 mmHg Left Ventricle The left ventricle is normal size. GLS -10.0% Suboptimal endocardial definition. There is normal left ventricular wall thickness. LVEF is 45-50%. The LV d iastolic function was unable to be assessed due to atrial arrhythmia. Right Ventricle The right ventricle appears normal in size. The right ventricular systolic function is normal. Atria The left atrium size is normal. The right atrium size is normal. Aortic Valve The aortic valve is normal in structure. No aortic regurgitation is present. There is no aortic valvular stenosis. Mitral Valve Mild posterior annular calcification noted. The mitral valve is mildly thickened. There is no mitral valve regurgitation noted. There is no mitral valve stenosis. Tricuspid Valve The tricuspid valve is normal in structure. There is no tricuspid valve regurgitation noted. Pulmonic Valve The pulmonary valve is normal in structure. There is no pulmonic valvular regurgitation. Great Vessels The aortic root is normal in size. The IVC is normal in size and collapses <50% with inspiration. Pericardium There is no pericardial effusion. Other Information Quality : Technically difficult study due to body habitus Rhythm : A-Fib Conclusion LVEF is 45-50%. Suboptimal endocardial definition. The LV diastolic function was unable to be assessed due to atrial arrhythmia. Mild posterior annular calcification noted. DICTATED BY: BETTE ISAACS DO DATE: 08/03/25 0949 ELECTRONICALLY SIGNED BY: BETTE ISAACS DO DATE: 08/03/25 1228 PATIENT: LADARIUS CARTER MR#: [id number] : 1950 SEX: M AGE: 75 LOCATION: [facility] ORDER 32 STATUS: REG ER REPORT#: [id number] SERVICE 29 REASON: sob ORDERING PHYSICIAN: ILDA JEFFREY PROCEDURE: CXR1VW - CHEST 1VW EXAM: CR Chest, 1 View. CLINICAL HISTORY: sob COMPARISON: None provided. FINDINGS: LUNGS: The lungs show possible right upper lobe lung nodule adjacent to the anterior first rib. PLEURAL SPACES: No evidence of pleural effusion or pneumothorax. MEDIASTINUM: Cardiac size and mediastinal contours within normal limits. BONES: No acute osseous abnormality. IMPRESSION: Possible right upper lobe lung nodule. Recommend CT scan /[place] DICTATED BY: YAIMA PEREZ MD DATE: 08/02/252312 ELECTRONICALLY SIGNED BY: YAIMA PEREZ MD DATE: 08/02/252312 ASSESSMENT: Atrial fibrillation with RVR on Xarelto (on hold), CHADS2-VASc 5 points, HAS- BLED 4 points+ Tachy-javier syndrome Acute streptococcal pharyngitis Acute complicated cystitis Severe sepsis due to above Acute GI bleed (+) melena Acute blood loss anemia Acute rhabdomyolysis, resolved Acute delirium in patient with dementia Acute metabolic encephalopathy in patient with dementia Electrolyte derangement (Hypokalemia) Left knee swelling with moderate joint effusion is seen per CT knee, rule out septic arthritis Febrile illness, not POA GOUT CKD stage III Diabetes mellitus type 2 History of pancreatic cyst since 2021, negative biopsy per family Dementia PLAN: Labs, diagnostic, radiologic exams reviewed and interpreted by myself and supervising physician. We have reviewed external records in detail Cardiology work-up is ongoing There is on need for emergent renal replacement therapy. Pending further cardiology recommendation Require close monitoring of renal function and electrolytes Order CBC, CMP, and electrolytes in am Continue with antibiotics Renal diabetic diet BiPAP as necessary, for respiratory distress Monitor blood pressure adjust medication doses as needed Avoid hypotensive episodes May use Dilaudid 0.5 mg IV every 6 hours as needed for severe pain Monitor blood sugars Strict intake, output, and daily weight should be monitored Please renally adjust medications Avoid nephrotoxic and nonsteroidal drugs Avoid contrast if possible Will continue to monitor renal function, anemia, electrolytes Treatment plan discussed with patient Questions were answered We have discussed with the other team physicians in detail about the care plan We will continue to monitor the patient closely ATTESTATION BY PHYSICIAN I have seen and examined the patient. I reviewed the documentation, medical decision making, and treatment plan as noted by the mid-level provider above. I agree with the findings and plan of care. KELLEN KIM MD, [facility] Aug 20, 2025 10:25
--- NOTE | 2025-08-20 11:49 | PN ---
[facility] PROGRESS NOTE Date Patient Seen: Aug 20, 2025 Time of Visit: 11:49 Supervising Physician: Sabino Williamson MD Primary Care Physician: Dr. Doris Vela Inpatient Consults: [facility], GI, Dr. Anderson (Orthopedic surgeon) PROBLEM LIST: Extensive Large left DVT not POA Tachy-javier syndrome Acute on CKD stage 3 Atrial fibrillation with RVR chronically on Xarelto Melena Dementia Acute streptococcal pharyngitis Acute complicated cystitis Severe sepsis due to above Acute rhabdomyolysis, resolved Acute delirium in patient with dementia Acute metabolic encephalopathy in patient with dementia Electrolyte derangement (Hypokalemia) Left knee swelling with moderate joint effusion is seen per CT knee, rule out septic arthritis Febrile illness, not POA GOUT Diabetes mellitus type 2 History of pancreatic cyst since 2021, negative biopsy per family INTERVAL HISTORY: Patient is awake alert on heparin drip for DVT to left lower extremity. No obvious signs of bleeding. Per RN patient has been more confused and a attempted to remove IV lines and getting out of bed with the risk for falls. 1- 1 sitter ordered. Awaiting further Cardiology recommendations. Dr Anatoly flores will evaluate pt tomorrow for possible DVT thrombectomy. For now we are continuing with Heaprin gtt. Pt currently afib but HR controlled in the 60's. PLAN: Follow cardiology recs, telemetry amiodarone 200 mg b.i.d., metoprolol 50mg po tid, and verapamil 40 mg tid for arrhythmia management per cardiology recs. Per cardiology DR Anatoly flores to eval for DVT Thrombectomy. Pt may also benefit from IVC filter given that he has recent HX of melena. (This could be done by cardiology or IR will wait for further cardiology recs by DR Anatoly flores) Bladder scan > 1 L -insert FC Following I&Os multimodal pain management. monitor for bleedings heparin gtt per protocol one to one sitter REVIEW OF SYSTEMS: Unable due to mental status PHYSICAL EXAM: GENERAL: 75 year old male on room air. NAD. HEENT: EOMI, Sclera non icteric, moist mucosa NECK: no JVD LUNGS: Clear breath sounds bilaterally. No wheezes HEART: Regular rate and rhythm. Normal S1 and S2, without murmurs ABD: Abdomen soft, nontender. Bowel sounds present EXT: No clubbing cyanosis, LLE edema and tenderness NEURO: Alert and oriented to person, follows commands Vital Signs (last 8hr) Date Time Temp Pulse Resp B/P (MAP) Pulse Ox O2 Delivery O2 Flow Rate FiO2 08/20/25 11:42 98.1 73 20 116/57 100 Room Air 08/20/25 10:41 97 Room Air* 0 21 08/20/25 07:00 97.9 58 20 118/56 100 Room Air 08/20/25 04:46 98.6 53 18 107/57 96 Room Air LABS: Hematology Labs: Test 08/20/25 05:43 08/19/25 15:49 Range/Units White Blood Count 9.2 4.8-10.8 K/uL Red Blood Count 3.33 L 4.50-6.20 MIL/uL Hemoglobin 10.6 L 14.0-18.0 g/dL Hematocrit 31.8 L 42-54 % Mean Corpuscular Volume 95.5 79-99 fL Mean Corpuscular Hemoglobin 31.8 27.0-33.0 pg Mean Corpuscular Hemoglobin Concent 33.3 32.0-36.0 g/dL Red Cell Distribution Width 13.9 11.0-15.5 % Platelet Count 219 130-400 K/uL Mean Platelet Volume 10.6 H 7.5-10.5 fL Immature Granulocyte % (Auto) 0.8 0-1 % Neutrophils (%) (Auto) 79.9 H 40.0-77.0 % Lymphocytes (%) (Auto) 11.2 L 21.0-51.0 % Monocytes (%) (Auto) 7.0 3.0-13.0 % Eosinophils (%) (Auto) 0.9 0.0-8.0 % Basophils (%) (Auto) 0.2 0.0-5.0 % Neutrophils # (Auto) 7.3 1.8-7.7 K/uL Lymphocytes # (Auto) 1.0 1.0-4.8 K/uL Monocytes # (Auto) 0.6 0.1-1.0 K/uL Eosinophils # (Auto) 0.08 0.00-0.70 K/uL Basophils # (Auto) 0.02 0.00-0.20 K/uL Absolute Immature Granulocyte (auto 0.07 0-1 K/uL Nucleated Red Blood Cells 0.0 0.0-0.19 % Segmented Neutrophils % 86 H 40-70 % Lymphocytes % (Manual) 9 L 22-44 % Monocytes % (Manual) 4 2-9 % Eosinophils % (Manual) 1 1-6 % Differential Comment MANUAL DIFFERENTIAL White Cell Morphology Comment HYPERSEGMENT NEUT 1+ Platelet Morphology Comment ADEQUATE Red Blood Cell Morphology POIKILOCYTOSIS 1+ Chemistry Labs: Test 08/20/25 10:55 08/20/25 05:43 Range/Units Whole Blood Glucose 140 H 70-110 MG/DL Sodium Level 142 136-145 mmol/L Potassium Level 3.4 L 3.5-5.1 mmol/L Chloride Level 109 101-111 mmol/L Carbon Dioxide Level 22 21-32 mmol/L Blood Urea Nitrogen 39 H 7-18 mg/dL Creatinine 2.4 H 0.5-1.3 mg/dL Glomerular Filtration Rate Calc 28 >90 mL/min Random Glucose 113 H 70-105 mg/dL Uric Acid 3.5 2.6-7.2 mg/dL Total Calcium 8.9 8.5-10.1 mg/dL Phosphorus Level 3.2 2.5-4.9 mg/dL Magnesium Level 2.30 1.80-2.40 mg/dL Total Bilirubin 0.6 0.2-1.0 mg/dL Aspartate Amino Transf (AST/SGOT) 23 10-37 U/L Alanine Aminotransferase (ALT/SGPT) 38 12-78 U/L Alkaline Phosphatase 83 50-136 U/L Ammonia < 10 L 11-32 umol/L Total Creatine Kinase 33 # 21-232 U/L Total Protein 6.3 6.0-8.3 g/dL Albumin 2.5 L 3.5-5.0 g/dL Coagulation Labs: Test 08/20/25 11:00 Range/Units Activated Partial Thromboplast Time 102.1 #*H 26.3-35.5 [facility] / RADIOLOGY RESULTS: [ ][place] [address] [id number] IMAGING REPORT Signed PATIENT: LADARIUS CARTER MR#: [id number] : 1950 SEX: M AGE: 75 LOCATION: 2A ORDER [id number] STATUS: ADM IN [facility] REPORT#: [id number] SERVICE 1714 REASON: EXTENSIVE DVT TO LEFT LEG ORDERING PHYSICIAN: DIONISIO MCINTYRE PROCEDURE: PULM VQ - NM PULMONARY/LUNG VQ SCAN EXAM: NM Lung Perfusion and Ventilation Scan. CLINICAL HISTORY: DVT with PE Suspected. TECHNIQUE: Radiolabeled MAA was administered intravenously and planar images of the lungs were obtained in multiple projections. RADIOPHARMACEUTICAL: Perfusion: 4.5 mCi technetium 99m MAA. COMPARISON: None. FINDINGS: PERFUSION: No segmental perfusion defect. IMPRESSION: Normal perfusion scan. /[place] DICTATED BY: GAVIN MATHEWS Jr., MD DATE: 08/19/252130 ELECTRONICALLY SIGNED BY: GAVIN MATHEWS Jr., MD DATE: 08/19/252130 [place] [id number] IMAGING REPORT Addendum PATIENT: LADARIUS CARTER MR#: [id number] : 1950 SEX: M AGE: 75 LOCATION: 2AH ORDER 123 STATUS: ADM IN REPORT#: [id number] SERVICE 1230 REASON: SWELLING ORDERING PHYSICIAN: DIONISIO MCINTYRE PROCEDURE: VENOUS UNI - US VENOUS DOPPLER UNILATERAL ADDENDUM REPORT ADDENDUM: EXAM: US for Deep Venous Thrombosis, left Lower Extremity. CLINICAL HISTORY: Leg Pain and Swelling TECHNIQUE: Real-time ultrasound scan of the veins of the left lower extremity with color Doppler flow, spectral waveform analysis and compression. COMPARISON: None provided. FINDINGS: DVT within the left common femoral, superficial femoral, popliteal, and posterior tibial veins. 1.3 x 3.4 x 2.2 cm Campos's cyst. IMPRESSION: 1. Deep venous thrombosis in the left common femoral, superficial femoral, popliteal, and posterior tibial veins. The clinical team was made aware at the time of the examination. /[place] EXAM: US for Deep Venous Thrombosis, left Lower Extremity. CLINICAL HISTORY: Leg Pain and Swelling TECHNIQUE: Real-time ultrasound scan of the veins of the left lower extremity with color Doppler flow, spectral waveform analysis and compression. COMPARISON: None provided. FINDINGS: DVT within the left common femoral, superficial femoral, popliteal, and posterior tibial veins. IMPRESSION: 1. Deep venous thrombosis in the left common femoral, superficial femoral, popliteal, and posterior tibial veins. The clinical team was made aware at the time of the examination. /[place] DICTATED BY: GAVIN MATHEWS Jr., MD DATE: 08/19/251840 ELECTRONICALLY SIGNED BY: DATE: EXAM: US for Deep Venous Thrombosis, left Lower Extremity. CLINICAL HISTORY: Leg Pain and Swelling TECHNIQUE: Real-time ultrasound scan of the veins of the left lower extremity with color Doppler flow, spectral waveform analysis and compression. COMPARISON: None provided. FINDINGS: DVT within the left common femoral, superficial femoral, popliteal, and posterior tibial veins. IMPRESSION: 1. Deep venous thrombosis in the left common femoral, superficial femoral, popliteal, and posterior tibial veins. The clinical team was made aware at the time of the examination. /[place] DICTATED BY: GAVIN MATHEWS Jr., MD DATE: 08/19/251840 ELECTRONICALLY SIGNED BY: GAVIN MATHEWS Jr., MD DATE: 08/19/251840 Plan: NEURO: Minimize central acting medications as possible. Maintain fall precautions, adequate lighting during the day PULMONARY: Supplemental 02 as needed. Maintain aspiration precautions at all times CARDIOVASCULAR: Follow hemodynamics. Vital signs per facility protocol Cardiology consult pending anticipation for further recommendations GI & NUTRITION: Continue with nutritional support. Continue stool softeners and laxatives as needed. KIDNEYS & ELECTROLYTES: Strict monitoring of intake, output and overall fluid balance. Avoid nephrotoxic medications to the extent possible. Medications to be dosed according to renal function. Monitor electrolytes and replace as needed ENDOCRINE: Maintain blood glucose between 100-180 at all times. Hypoglycemia protocol in place INFECTIOUS DISEASE: Trend temperature, WBC and procalcitonin level Follow cultures, deescalate antibiotics as soon as possible. Panculture if new onset fever ONCOLOGY/HEMATOLOGY/COAGULATION: Monitor for s/s of bleeding Monitor hemoglobin, coagulation studies as needed SKIN: Pressure ulcer prevention per facility protocol Specialty mattress ORTHO/REHAB: Continue PT/OT Prophylaxis: Continue GI and DVT prophylaxis Code Status: Full Resuscitation Disposition: TBD Critical care time 35 mins. ATTESTATION BY PHYSICIAN I reviewed the documentation, medical decision making, and treatment plan as noted by the mid-level provider above. I agree with the findings and plan of care. Sabino Williamson MD, [facility] Aug 20, 2025 11:49
--- NOTE | 2025-08-20 12:34 | PN ---
SUBJECTIVE: This patient has multiple problems including renal failure, anemia, rhabdomyolysis and multiple other comorbidities. The patient has no fevers, chills, or rigors. The patient has no abdominal pain, nausea or vomiting. No chest pain, orthopnea, or PND. No other associated finding. The patient has GI bleeding, atrial fibrillation, and streptococcal infection. Other systemic review is unchanged. No fevers, chills, or rigors. No cough, expectoration, or hemoptysis. No abdominal pain, nausea, or vomiting. PHYSICAL EXAMINATION: GENERAL: Pale, no other distress. VITAL SIGNS: Blood pressure 115/74, pulse 79. HEENT: Head is atraumatic, normocephalic. Pupils are round and reactive to light. Sclerae are anicteric. Conjunctivae not pale. Oral mucosa is not dry. NECK: Supple. No masses or bruits. Thyroid is palpable. CHEST: Shows equal thoracic percussion note being resonant in all areas. CARDIAC: Regular rhythm. No rubs. No S3, S4. No murmur. BACK: No tenderness. No back deformity. LABORATORY DATA: We have reviewed the available labs in detail with a low hemoglobin of 10.5. White cell count is elevated. Creatinine is elevated up to 2.7 and yesterday was 3.5. Old records reviewed. IMAGING STUDIES: Imaging studies are personally reviewed. V/Q scan has been negative. DVT detected in the lower extremities. PROBLEMS: Multiple. * Acute renal failure. * Deep vein thrombosis detected. * Gastrointestinal bleeding. * Multiple other comorbidities . * Underlying atrial fibrillation. * Tachybrady syndrome. * Melena. * Streptococcal pharyngitis. * Rhabdomyolysis. * Sepsis. * Urinary tract infection. * Electrolyte derangement. PLAN: Continued monitoring. Follow up on renal function. Follow up on electrolytes and overall status. Avoid nonsteroidal drugs and nephrotoxics. Overall status will be monitored. Condition remains guarded. The patient was seen several times today. I have discussed with other team members. TID: [id number] RECEIPT: [id number]
[2025-08-20] MEDS: PoTASSium chloRIDE 20MEQ ER 20 MEQ ERTAB PO ONE (12:58)
--- NOTE | 2025-08-20 13:02 | PN ---
This is a 75-year-old male with history of nonobstructive coronary artery disease, paroxysmal atrial fibrillation, type 2 diabetes mellitus, hypertension, hyperlipidemia, history of pancreatic mass dementia. He was admitted 08/03/2025 with productive cough, sore throat and chills, acute kidney injury, rhabdomyolysis and anemia. He is group a strep positive. He is status post aspiration of the right knee joint 08/15/2025. He has recurrent atrial fibrillation and atrial flutter with rapid ventricular response. On 08/18/2025 he received a 6-hour amiodarone infusion and yesterday he was started on verapamil 40 mg every 8 hours due to his recurrent atrial arrhythmias. This morning he developed atrial flutter with ventricular rates in the 90s to 100s and converted to sinus rhythm with heart rates in the 70s after receiving verapamil. His most recent blood pressure was 116/57. Due to complaints of increased left lower extremity edema he underwent venous Doppler of the left lower extremity 08/19/2025 which shows deep vein thrombosis of the left common femoral, superficial femoral, popliteal and posterior tibial veins. This is in contrast to a negative venous Doppler of the bilateral lower extremities 08/08/2025. He has been started on IV heparin which was cleared through GI. Of note is that he had a negative stool guaiac yesterday. White blood count 9.2, hemoglobin 10.6, hematocrit 31.8, platelets 219, creatinine 2.4, potassium 3.4, magnesium 2.30. Assessment: 1. Paroxysmal atrial fibrillation/atrial flutter with rapid ventricular response. 2. Left lower extremity DVT. 3. Mild LV dysfunction. 4. Acute renal failure. 5. Anemia. 6. Group a strep positive. Plan: Discussed with Dr. Alejandro. 1. We will continue amiodarone 200 mg twice daily, metoprolol tartrate 50 mg 3 times daily and verapamil 40 mg 3 times daily for management of his atrial arrhythmias. 2. Regarding the left lower extremity DVT, we have consulted Dr. Anatoly Elise to evaluate for possible DVT thrombectomy. He will assess the patient tomorrow morning. 3. For now continue IV heparin. 4. We will follow the patient. Vitals/Labs Vital Signs Date Time Temp Pulse Resp B/P (MAP) Pulse Ox O2 Delivery O2 Flow Rate FiO2 08/20/25 11:42 98.1 73 20 116/57 100 Room Air 08/20/25 10:41 0 21 Laboratory Tests 08/19/25 15:49 08/20/25 05:43 LENIN MAZARIEGOS PAC Aug 20, 2025 13:02
--- NOTE | 2025-08-20 15:45 | PN ---
GASTROENTEROLOGY PROGRESS NOTE Date of Visit: Aug 20, 2025 Time of Visit: 15:45 Events / Notes: No acute events overnight. Hgb 10.9. EGD aborted due to arrhythmia. Plan of care discussed. Denies fever, chills, abdominal pain, N/V, hematemesis, bloating, constipation, diarrhea, melena or hematochezia. Patient with DVT. FOBT negative. Review of Systems: CONSTITUTIONAL: No malaise or change in sensation of wellbeing. ENMT: No rhinorrhea, otorrhea, sinus pain, ear ache. CARDIOVASCULAR: No angina, palpitations, orthopnea or paroxysmal dyspnea. RESPIRATORY: No SOB. GASTROINTESTINAL: No abdominal pain, nausea, vomiting, diarrhea, hematemesis, melena or change in the patient's habitual bowel movements consistency/number. GENITOURINARY: No dysuria, hematuria or change in bladder continence. MUSCULOSKELETAL: No new muscle pain or decrease in muscular strength. No new joint swelling, redness or tenderness. SKIN: No new rash. Physical Exam: GEN: Awake, alert, oriented in person, time and place, and in no acute distress. HEENT: No rhinorrhea. Oral mucosa is pink, moist and within normal limits. CHEST: Lung auscultation revealed normal breath sounds bilaterally. CARDIAC:Heart sounds are regular. ABD: Soft, non-tender and not distended. No peritoneal signs on palpation. Normal bowel sounds. Last bm 08/06/25. EXT: No cyanosis or clubbing. No edema. SKIN: Intact. No rashes. NEURO: Alert and oriented to name, place and person.No focal motor deficits. Normal speech. Vital Signs (last 8hr) Date Time Temp Pulse Resp B/P (MAP) Pulse Ox O2 Delivery O2 Flow Rate FiO2 08/20/25 11:42 98.1 73 20 116/57 100 Room Air 08/20/25 10:41 97 Room Air* 0 21 Laboratory: [ ] Laboratory: Test 08/20/25 11:00 08/20/25 10:55 08/20/25 05:43 08/19/25 15:49 Range/Units Activated Partial Thromboplast Time 102.1 #*H 26.3-35.5 SEC Whole Blood Glucose 140 H 70-110 MG/DL White Blood Count 9.2 4.8-10.8 K/uL Red Blood Count 3.33 L 4.50-6.20 MIL/uL Hemoglobin 10.6 L 14.0-18.0 g/dL Hematocrit 31.8 L 42-54 % Mean Corpuscular Volume 95.5 79-99 fL Mean Corpuscular Hemoglobin 31.8 27.0-33.0 pg Mean Corpuscular Hemoglobin Concent 33.3 32.0-36.0 g/dL Red Cell Distribution Width 13.9 11.0-15.5 % Platelet Count 219 130-400 K/uL Mean Platelet Volume 10.6 H 7.5-10.5 fL Immature Granulocyte % (Auto) 0.8 0-1 % Neutrophils (%) (Auto) 79.9 H 40.0-77.0 % Lymphocytes (%) (Auto) 11.2 L 21.0-51.0 % Monocytes (%) (Auto) 7.0 3.0-13.0 % Eosinophils (%) (Auto) 0.9 0.0-8.0 % Basophils (%) (Auto) 0.2 0.0-5.0 % Neutrophils # (Auto) 7.3 1.8-7.7 K/uL Lymphocytes # (Auto) 1.0 1.0-4.8 K/uL Monocytes # (Auto) 0.6 0.1-1.0 K/uL Eosinophils # (Auto) 0.08 0.00-0.70 K/uL Basophils # (Auto) 0.02 0.00-0.20 K/uL Absolute Immature Granulocyte (auto 0.07 0-1 K/uL Nucleated Red Blood Cells 0.0 0.0-0.19 % Sodium Level 142 136-145 mmol/L Potassium Level 3.4 L 3.5-5.1 mmol/L Chloride Level 109 101-111 mmol/L Carbon Dioxide Level 22 21-32 mmol/L Blood Urea Nitrogen 39 H 7-18 mg/dL Creatinine 2.4 H 0.5-1.3 mg/dL Glomerular Filtration Rate Calc 28 >90 mL/min Random Glucose 113 H 70-105 mg/dL Uric Acid 3.5 2.6-7.2 mg/dL Total Calcium 8.9 8.5-10.1 mg/dL Phosphorus Level 3.2 2.5-4.9 mg/dL Magnesium Level 2.30 1.80-2.40 mg/dL Total Bilirubin 0.6 0.2-1.0 mg/dL Aspartate Amino Transf (AST/SGOT) 23 10-37 U/L Alanine Aminotransferase (ALT/SGPT) 38 12-78 U/L Alkaline Phosphatase 83 50-136 U/L Ammonia < 10 L 11-32 umol/L Total Creatine Kinase 33 # 21-232 U/L Total Protein 6.3 6.0-8.3 g/dL Albumin 2.5 L 3.5-5.0 g/dL Segmented Neutrophils % 86 H 40-70 % Lymphocytes % (Manual) 9 L 22-44 % Monocytes % (Manual) 4 2-9 % Eosinophils % (Manual) 1 1-6 % Differential Comment MANUAL DIFFERENTIAL White Cell Morphology Comment HYPERSEGMENT NEUT 1+ Platelet Morphology Comment ADEQUATE Red Blood Cell Morphology POIKILOCYTOSIS 1+ Test 08/19/25 05:30 Range/Units Stool Occult Blood NEGATIVE NEGATIVE Current Medications Medications (Trade) Dose Ordered Sig/Anish Route PRN Reason Start Time Stop Time Status Last Admin Dose Admin Acetaminophen (TYLenol 325MG TAB) 650 mg Q4H PRN PO MILD PAIN (1-3) 08/03/25 00:30 08/03/25 02:29 DC Acetaminophen (TYLenol 325MG TAB) 650 mg Q6H PRN PO PAIN LEVEL 1 TO 3 08/03/25 00:30 09/02/25 00:29 08/14/25 03:09 650 MG Acetaminophen (TYLenol 650MG ELIXIR) 650 mg Q6H PRN PEG MILD PAIN (1-3) 08/03/25 02:30 08/11/25 08:38 DC 08/08/25 07:04 650 MG Acetaminophen (TYLenol 650MG ELIXIR) 650 mg Q6H PRN PO MILD PAIN (1-3) 08/11/25 14:30 09/10/25 14:29 Al Hydroxide/Mg Hydroxide (MAALox PLUS 30ML) 30 ml Q6H PRN PO INDIGESTION 08/03/25 00:30 09/02/25 00:29 Allopurinol (ZYLOprim 100MG) 50 mg QODAY PO 08/21/25 09:00 09/05/25 13:59 Allopurinol (ZYLOprim 100MG) 100 mg TID PO 08/06/25 14:00 08/20/25 07:28 DC 08/19/25 20:42 100 MG Amiodarone HCl (pacERONE 200MG) 200 mg BID PO 08/13/25 09:00 09/12/25 08:59 08/20/25 08:52 200 MG Amiodarone HCl 150 mg/Dextrose 103 ml @ 618 mls/hr ONCE IV 08/13/25 02:00 08/13/25 02:01 DC Amiodarone HCl 360 mg/Dextrose 207.2 ml @ 33.3 mls/hr AD IV 08/18/25 08:30 08/18/25 08:33 DC Amiodarone HCl 360 mg/Dextrose 207.2 ml @ 33.3 mls/hr AD IV 08/13/25 02:00 08/13/25 02:01 DC Amiodarone HCl 540 mg/Dextrose 310.8 ml @ 16.7 mls/hr [id number] IV 08/13/25 07:00 08/13/25 07:59 DC Amiodarone HCl 540 mg/Dextrose 310.8 ml @ 16.7 mls/hr [id number] IV 08/13/25 11:00 08/18/25 08:37 DC 08/13/25 10:03 16.7 MLS/HR Amiodarone HCL/ Dextrose 100 ml @ 600 mls/hr PROTOCOL IV 08/13/25 02:00 08/13/25 07:06 DC 08/13/25 04:36 600 MLS/HR Amiodarone HCL/ Dextrose 200 ml @ 33.333 mls/ hr PROTOCOL IV 08/18/25 09:00 08/18/25 08:36 DC Amiodarone HCL/ Dextrose 200 ml @ 33.333 mls/ hr PROTOCOL IV 08/13/25 02:00 08/13/25 07:07 DC 08/13/25 05:06 33.333 MLS/HR Atropine Sulfate (Atropine 1mg Syg) 0.5 mg AD PRN IVP HR<30BPM 08/15/25 10:00 08/19/25 16:17 DC Benzocaine (Cepacol Sore Throat Lozenge) 1 each Q4H PRN MM SORE THROAT 08/03/25 10:30 09/02/25 10:29 08/03/25 11:55 1 EACH Cefepime HCl (MAXipime 1 GM vial) 1 gm Q12H IVPB 08/09/25 19:30 08/17/25 07:30 DC 08/16/25 20:12 1 GM Cefepime HCl (MAXipime 1 GM vial) 1 gm Q8H IVPB 08/07/25 07:30 08/09/25 07:17 DC 08/09/25 07:00 1 GM Ceftriaxone Sodium (Rocephin 2gm Inj) 2 gm Q24H IVPB 08/03/25 00:30 08/07/25 07:28 DC 08/07/25 01:39 2 GM Dextrose (D50w) 50 ml AD PRN IV HYPOGLYCEMIA PROTOCOL 08/03/25 00:30 09/02/25 00:29 Diazepam (VALium 5 MG/ML 2 ML SYG) 5 mg AM PRN IV AGITATION/PSYCHOSIS 08/09/25 15:30 08/14/25 17:30 DC 08/12/25 02:59 5 MG Diazepam (VALium 5 MG/ML 2 ML SYG) 5 mg HS IV 08/09/25 21:00 08/14/25 17:30 DC Diltiazem HCl (CARDIzem 25MG INJ) 5 mg AD PRN IVP INCREASED HEART RATE >110 BPM 08/15/25 14:30 08/16/25 15:20 DC 08/16/25 10:56 5 MG Diltiazem HCl (CARDIzem 25MG INJ) 10 mg ONCE PRN IVP CARDIZEM PROTOCOL 08/07/25 15:00 08/07/25 15:00 DC Diltiazem HCl (CARDIzem 60MG TAB) 30 mg Q6H PO 08/08/25 08:00 08/08/25 11:00 DC 08/08/25 07:59 30 MG Diltiazem HCl 125 mg/Sodium Chloride 125 ml @ 0 mls/hr AD PRN IV CARDIZEM PROTOCOL 08/07/25 15:00 08/07/25 14:59 DC Diltiazem HCl 125 mg/Sodium Chloride 125 ml @ 0 mls/hr AD PRN IV CARDIZEM PROTOCOL 08/08/25 11:00 08/12/25 07:58 DC 08/11/25 15:51 15 MLS/HR Diltiazem HCl 125 mg/Sodium Chloride 125 ml @ 0 mls/hr AD PRN IV CARDIZEM PROTOCOL 08/12/25 08:00 08/13/25 01:48 DC Diltiazem HCl 125 mg/Sodium Chloride 125 ml @ 0 mls/hr PROTOCOL IV 08/02/25 22:00 08/04/25 12:58 DC 08/04/25 02:49 0 MLS/HR Diltiazem HCl 125 mg/Sodium Chloride 125 ml @ 0 mls/hr PROTOCOL IV 08/16/25 15:30 09/15/25 15:29 08/19/25 04:57 5 MLS/HR Docusate Sodium (COLace 100MG CAP) 100 mg BID PO 08/19/25 21:00 09/18/25 20:59 08/20/25 08:52 100 MG Doxycycline Hyclate 250 ml @ 125 mls/hr Q12H IV 08/08/25 08:00 08/18/25 07:59 DC 08/17/25 20:59 125 MLS/HR Famotidine (Pepcid 20mg Tab) 20 mg DAILY PO 08/03/25 09:00 08/04/25 12:54 DC 08/04/25 09:42 20 MG Glucagon (Glucagon 1mg Kit) 1 mg AD PRN IM HYPOGLYCEMIA PROTOCOL 08/03/25 00:30 09/02/25 00:29 Guaifenesin/ Dextromethorphan (RobiTUSSin DM 200/20MG 10ML) 10 ml Q4H PRN PO COUGH 08/03/25 00:30 09/02/25 00:29 08/05/25 16:31 10 ML Heparin Sodium (Porcine) (HEParin 5,000 UNIT VIAL) 5,000 unit Q12H SQ 08/03/25 00:30 08/03/25 10:08 DC 08/03/25 00:42 5,000 UNIT Heparin Sodium/ Dextrose 250 ml @ 0 mls/hr PROTOCOL IV 08/19/25 15:30 09/18/25 15:29 Hydromorphone HCl (DiLAUDid 1MG INJ) 0.5 mg Q6H PRN IVP SEVERE PAIN (7-10) 08/18/25 11:30 08/23/25 11:29 08/20/25 12:56 0.5 MG Insulin Human Regular (humuLIN R 100 UNIT/ML 3ML) INSULIN SLIDING SCAL... ACHS SQ 08/03/25 07:30 09/02/25 07:29 08/15/25 16:22 4 UNIT Lactated Ringer's 1,000 ml @ 50 mls/hr Q20H IV 08/03/25 00:30 08/10/25 10:11 DC 08/09/25 08:47 50 MLS/HR Lactulose (Constulose 20gm/ 30ml Udcup) 20 gm BID PRN PO CONSTIPATION 08/03/25 00:30 09/02/25 00:29 08/19/25 21:03 20 GM Levothyroxine Sodium (SYNTHroid 25MCG TAB) 25 mcg DAILY@0630 PO 08/10/25 06:30 09/09/25 06:29 08/20/25 06:16 25 MCG Lidocaine (Lidocaine Patch 4%) 1 each Q24H TP 08/07/25 16:30 09/06/25 16:29 08/19/25 17:04 1 EACH Magnesium Sulfate 50 ml @ 0 mls/hr PROTOCOL IV 08/08/25 08:00 08/08/25 07:36 DC Magnesium Sulfate 50 ml @ 0 mls/hr PROTOCOL PRN IV MAGNESIUM PROTOCOL 08/04/25 12:00 09/03/25 11:59 08/08/25 06:10 25 MLS/HR Metoprolol Tartrate (loprESSOR) 5 mg ONCE IV 08/07/25 17:00 08/07/25 21:00 DC 08/07/25 16:53 5 MG Metoprolol Tartrate (loprESSOR) 5 mg Q5MIN PRN IV INCREASED HEART RATE >110 BPM 08/11/25 22:00 08/11/25 22:13 DC 08/11/25 22:12 5 MG Metoprolol Tartrate (loprESSOR) 5 mg Q5MIN PRN IV INCREASED HEART RATE >110 BPM 08/12/25 03:30 08/12/25 04:23 DC 08/12/25 04:21 5 MG Metoprolol Tartrate (loprESSOR) 5 mg Q6H PRN IV INCREASED HEART RATE >120 BPM 08/04/25 17:00 08/16/25 12:16 DC 08/16/25 06:39 5 MG Metoprolol Tartrate (loprESSOR) 25 mg BID PO 08/03/25 09:00 08/07/25 15:00 DC 08/07/25 13:10 25 MG Metoprolol Tartrate (loprESSOR) 25 mg TID PO 08/16/25 12:30 08/17/25 08:22 DC 08/16/25 20:13 25 MG Metoprolol Tartrate (loprESSOR) 50 mg ONCE PO 08/07/25 17:00 08/07/25 21:00 DC 08/07/25 16:53 50 MG Metoprolol Tartrate (loprESSOR) 50 mg Q6H PO 08/07/25 19:00 08/11/25 08:04 DC 08/11/25 00:59 50 MG Metoprolol Tartrate (loprESSOR) 50 mg TID PO 08/18/25 09:00 09/16/25 08:29 08/20/25 08:52 50 MG Metoprolol Tartrate (loprESSOR) 50 mg TID PO 08/17/25 08:30 08/18/25 08:38 DC 08/17/25 21:07 50 MG Metoprolol Tartrate (loprESSOR) 75 mg Q6H PO 08/11/25 08:30 08/12/25 07:54 DC 08/12/25 02:58 75 MG Metoprolol Tartrate (loprESSOR) 200 mg Q12H9 PO 08/12/25 09:00 08/15/25 14:24 DC 08/15/25 08:06 200 MG Nitroglycerin (Nitrostat) 0.4 mg PROTOCOL PRN SL CHEST PAIN 08/03/25 00:30 09/02/25 00:29 Olanzapine (ZyPREXA 10MG/ML 1ML Vial) 5 mg DAILY PRN IM AGITATION 08/05/25 17:30 09/04/25 17:29 08/08/25 20:21 5 MG Ondansetron HCl (zoFRAN 4MG INJ) 4 mg Q6H PRN IV NAUSEA/VOMITING 08/03/25 00:30 09/02/25 00:29 Pantoprazole Sodium (PROTonix 40MG INJ) 40 mg BID IVP 08/04/25 21:00 08/20/25 08:19 DC 08/19/25 20:42 40 MG Pantoprazole Sodium (PROTonix 40MG TAB) 40 mg BID PO 08/04/25 21:00 08/04/25 12:57 DC Pantoprazole Sodium (PROTonix 40MG TAB) 40 mg BID PO 08/20/25 09:00 09/19/25 08:59 08/20/25 08:52 40 MG Polyethylene Glycol (MIRalax 3350 17 GM POWD.PACK) 17 gm DAILY PO 08/19/25 16:30 09/18/25 16:29 08/20/25 08:54 17 GM Potassium Chloride 100 ml @ 100 mls/hr AD PRN IV POTASSIUM PROTOCOL 08/04/25 12:00 09/03/25 11:59 08/09/25 17:00 100 MLS/HR Potassium Chloride (K-Dur/Klor-Con 20meq) 20 meq AD PRN PO POTASSIUM PROTOCOL 08/04/25 12:00 09/03/25 11:59 08/15/25 06:35 20 MEQ Potassium Chloride (KCl 10% Elixir 20meq/15ml) 20 meq AD PRN PO POTASSIUM PROTOCOL 08/04/25 12:00 09/03/25 11:59 08/13/25 04:04 20 MEQ Prednisone (deltaSONE/ oraSONE 20MG TAB) 20 mg DAILY PO 08/05/25 17:00 08/10/25 10:08 DC 08/10/25 09:12 20 MG Rivaroxaban (Xarelto) 15 mg DAILY PO 08/04/25 09:00 08/05/25 11:54 DC 08/04/25 09:42 15 MG Sucralfate (Carafate) 1 gm BID PO 08/04/25 21:00 09/03/25 20:59 08/20/25 08:52 1 GM Tramadol HCl (UltRAM) 50 mg Q6H PRN PO MODERATE PAIN (4-6) 08/06/25 19:30 08/10/25 10:33 DC 08/09/25 10:30 50 MG Vancomycin HCl 250 ml @ 125 mls/hr Q12H IV 08/07/25 21:00 08/11/25 17:08 DC 08/11/25 11:14 125 MLS/HR Vancomycin HCl (Vancomycin Protocol) 1 each AD IV 08/07/25 07:30 08/12/25 08:47 DC Verapamil HCl (Calan/Isoptin) 40 mg Q8H5 PO 08/19/25 21:00 09/18/25 20:59 08/20/25 12:56 40 MG Vitamin B Complex/ Vit C/Folic Acid (Nephrovite Tablet) 1 cap DAILY PO 08/17/25 09:00 09/16/25 08:59 08/20/25 08:52 1 CAP Diagnostics / Radiology: [COPY/PASTE HERE IF NO REPORTS PLEASE DELETE SECTION] Assessment: [ Melena Acute Gi blood loss Afib on xarelto STrep A positive] Plan: May start anticoagulation in conjunction with high dose PPI Continue GI prophylaxis Advance diet as tolerated Avoid NSAIDs Antireflux measures Monitor H&H and transfuse as needed Call with questions, concerns or change in clinical status Patient to follow-up at clinic post discharge Thank you for this consult DEBBIE KIMBROUGH [employer] BENDER Aug 20, 2025 15:45
--- NOTE | 2025-08-20 17:06 | HMCSR ---
APPROVED REPORT EXAM: LIMITED Two-dimensional and M-mode echocardiogram. INDICATION ICD: r/o clot in atrium 2D Dimensions RVDd 2.9 cm LVED Vol(simp.) 70.2 mL LVES Vol(simp.) 32.4 mL LVEF(%, simp.) 54 % LA ESV INDEX (BP) 31.73 mL/m2 Left Ventricle Left ventricular cavity size is normal. LVEF is 50-55%. Right Ventricle The right ventricle is normal size. Atria The left atrium size is normal. No clot is visualized in the left atrium. The right atrium size is normal. No clot is visualized in the right atrium. Aortic Valve The aortic valve is not well visualized. Mitral Valve Mitral valve leaflets open well. Mild posterior mitral annular calcification. Tricuspid Valve Tricuspid valve leaflets open well. Pulmonic Valve Pulmonic valve is not visualized. Pericardium No pericardial effusion. Other Information Technically limited study due to body habitus, alteed mental status Conclusion LVEF is 50-55%. Mitral valve leaflets open well. Mild posterior mitral annular calcification. No pericardial effusion. No intracardiac masses or thrombus visualized.
[2025-08-21] VITALS (9 sets, daily range): BP systolic 90–120; BP diastolic 50–84; PULSE 56–78; RESP 16–21; TEMP 97–99; O2SAT 96–97
[2025-08-21 05:40] LABS: NUCLEATED RED BLOOD CELLS 0.0 % (0.0-0.19); PLATELET COUNT (AUTO) 207.0 K/uL (130-400); RED BLOOD CELL COUNT(AUTO) 3.12 MIL/uL (4.50-6.20); RED CELL DISTRIBUTION WIDTH 14.0 % (11.0-15.5); WHITE BLOOD COUNT (AUTO) 12.9 K/uL (4.8-10.8)
[2025-08-21 05:48] LABS: CREATININE 1.2 mg/dL (0.5-1.3); GLOMERULAR FILTR. RATE CALC 64.0 mL/min (>90); GLUCOSE,RANDOM 105.0 mg/dL (70-105); SODIUM SERUM 144.0 mmol/L (136-145); UREA NITROGEN, BLOOD 23.0 mg/dL (7-18)
--- NOTE | 2025-08-21 08:49 | PN ---
[facility] CARDIOLOGY PROGRESS NOTE Cardiology note dictated for Anatoly Elise MD Date Patient Seen: Aug 21, 2025 Time of Visit: 08:32 Interval History: Overnight telemetry demonstrated SB/NSR hr 50-70's Physical Examination: GENERAL: No acute distress. HEAD: Normal with no signs of head trauma. EYES: conjunctiva and sclera normal. NECK: Supple without JVD. LUNGS: Clear breath sounds bilaterally. No wheezes, or rhonchi. HEART: Normal rate and rhythm. Normal S1 and S2 without murmurs, gallop or rub. VASC: Peripheral pulses +2 bilaterally. EXT: No clubbing, cyanosis or edema. Tenderness to the knees bilaterally with warmth noted NEURO: Awake, alert, and oriented x2. No focal neurological deficits noted. Laboratory: Hematology Labs: Test 08/21/25 05:33 08/20/25 05:43 08/19/25 15:49 Range/Units White Blood Count 12.9 #H 4.8-10.8 K/uL Red Blood Count 3.12 L 4.50-6.20 MIL/uL Hemoglobin 10.1 L 14.0-18.0 g/dL Hematocrit 30.0 L 42-54 % Mean Corpuscular Volume 96.2 79-99 fL Mean Corpuscular Hemoglobin 32.4 27.0-33.0 pg Mean Corpuscular Hemoglobin Concent 33.7 32.0-36.0 g/dL Red Cell Distribution Width 14.0 11.0-15.5 % Platelet Count 207 130-400 K/uL Mean Platelet Volume 10.5 7.5-10.5 fL Nucleated Red Blood Cells 0.0 0.0-0.19 % Immature Granulocyte % (Auto) 0.8 0-1 % Neutrophils (%) (Auto) 79.9 H 40.0-77.0 % Lymphocytes (%) (Auto) 11.2 L 21.0-51.0 % Monocytes (%) (Auto) 7.0 3.0-13.0 % Eosinophils (%) (Auto) 0.9 0.0-8.0 % Basophils (%) (Auto) 0.2 0.0-5.0 % Neutrophils # (Auto) 7.3 1.8-7.7 K/uL Lymphocytes # (Auto) 1.0 1.0-4.8 K/uL Monocytes # (Auto) 0.6 0.1-1.0 K/uL Eosinophils # (Auto) 0.08 0.00-0.70 K/uL Basophils # (Auto) 0.02 0.00-0.20 K/uL Absolute Immature Granulocyte (auto 0.07 0-1 K/uL Segmented Neutrophils % 86 H 40-70 % Lymphocytes % (Manual) 9 L 22-44 % Monocytes % (Manual) 4 2-9 % Eosinophils % (Manual) 1 1-6 % Differential Comment MANUAL DIFFERENTIAL White Cell Morphology Comment HYPERSEGMENT NEUT 1+ Platelet Morphology Comment ADEQUATE Red Blood Cell Morphology POIKILOCYTOSIS 1+ Chemistry Labs: Test 08/21/25 05:33 08/20/25 05:43 Range/Units Sodium Level 144 136-145 mmol/L Potassium Level 3.9 3.5-5.1 mmol/L Chloride Level 111 101-111 mmol/L Carbon Dioxide Level 26 21-32 mmol/L Blood Urea Nitrogen 23 H 7-18 mg/dL Creatinine 1.2 0.5-1.3 mg/dL Glomerular Filtration Rate Calc 64 >90 mL/min Whole Blood Glucose 97 70-110 MG/DL Random Glucose 105 70-105 mg/dL Total Calcium 8.6 8.5-10.1 mg/dL Uric Acid 3.5 2.6-7.2 mg/dL Phosphorus Level 3.2 2.5-4.9 mg/dL Magnesium Level 2.30 1.80-2.40 mg/dL Total Bilirubin 0.6 0.2-1.0 mg/dL Aspartate Amino Transf (AST/SGOT) 23 10-37 U/L Alanine Aminotransferase (ALT/SGPT) 38 12-78 U/L Alkaline Phosphatase 83 50-136 U/L Ammonia < 10 L 11-32 umol/L Total Creatine Kinase 33 # 21-232 U/L Total Protein 6.3 6.0-8.3 g/dL Albumin 2.5 L 3.5-5.0 g/dL Coagulation Labs: Test 08/21/25 05:33 Range/Units Activated Partial Thromboplast Time 61.4 H 26.3-35.5 SEC Diagnostics / Radiology: Limited 2D echocardiogram Conclusion LVEF is 50-55%. Mitral valve leaflets open well. Mild posterior mitral annular calcification. No pericardial effusion. No intracardiac masses or thrombus visualized. DICTATED BY: BETTE ISAACS DO DATE: 08/20/25909 2D echo: Conclusion LVEF is 45-50%. Suboptimal endocardial definition. The LV diastolic function was unable to be assessed due to atrial arrhythmia. Mild posterior annular calcification noted. DICTATED BY: BETTE ISAACS DO DATE: 08/03/25948 Impression and Plan: LLE DVT Paroxysmal atrial fibrillation/atrial flutter with rapid ventricular response Acute streptococcal pharyngitis Acute complicated cystitis Severe sepsis Acute renal failure, resolved Left knee swelling with moderate joint effusion s/p aspiration 08/15 Acute GI bleed (+) melena, upper endoscopy aborted due to AFib with RVR 08/08/2025: Long-term Xarelto 20 mg daily for permanent atrial fibrillation, on hold given history of GI bleed on admission Nonobstructive coronary artery disease by cardiac catheterization August 2013 with 20% mid and distal LAD stenosis, 50% diagonal branch stenosis, and otherwise normal coronaries with LVEF of 70% Limited 2D echo with an LVEF of 50-55% on 08/20/2025 Essential hypertension Hyperlipidemia History of hypothyroidism Acute rhabdomyolysis, resolved Acute delirium in patient with dementia Acute metabolic encephalopathy in patient with dementia GOUT CKD stage III Diabetes mellitus type 2 History of pancreatic cyst since 2021, negative biopsy per family Dementia Paroxysmal atrial fibrillation/atrial flutter with rapid ventricular response -Continue amiodarone 200 mg twice daily, metoprolol tartrate 50 mg 3 times daily and verapamil 40 mg 3 times daily for management of his atrial arrhythmias. -Anticoagulation by Heparin infusion for now, plans to transition to oral NOAC prior to discharge. -EP Dr. Alejandro will sign-off on current medication regimen Left lower extremity DVT Venous Doppler on 08/19/2025 with deep venous thrombosis in the left common femoral, superficial femoral, popliteal, and posterior tibial veins. -No circulatory compromise noted to the LLE. The patient is not a candidate for DVT thrombectomy as he is not able to follow commands and has dementia. -Continue on Heparin infusion until PTT has been therapeutic for 48 hrs. The patient became therapeutic on 08/20/2025 at 2300. NERY VERGARA RECREATION LEADER Aug 21, 2025 08:48
--- NOTE | 2025-08-21 09:38 | PN ---
This is a 75-year-old male with history of nonobstructive coronary artery disease, paroxysmal atrial fibrillation, type 2 diabetes mellitus, hypertension, hyperlipidemia, history of pancreatic mass dementia. He was admitted 08/03/2025 with productive cough, sore throat and chills, acute kidney injury, rhabdomyolysis and anemia. He is group a strep positive. He is status post aspiration of the right knee joint 08/15/2025. He has recurrent atrial fibrillation and atrial flutter with rapid ventricular response. He is currently in sinus rhythm with heart rates in the 70s. He has paroxysmal atrial fibrillation with a maximum ventricular rate of 120 beats per minute. These episodes have become much shorter in duration. He underwent repeat echocardiogram 08/20/2025 which shows an ejection fraction of 50-55%, normal left atrium, mild posterior mitral annular calcification. Venous Doppler of the left lower extremity 08/19/2025 which shows deep vein thrombosis of the left common femoral, superficial femoral, popliteal and posterior tibial veins. This is in contrast to a negative venous Doppler of the bilateral lower extremities 08/08/2025. He is on IV heparin. White blood count 12.9 up from 9.2, hemoglobin 10.1, hematocrit 30.0, platelets 207, creatinine 1.2, potassium 3.9. On exam he is in no acute distress, regular rate and rhythm, lungs are clear to auscultation bilaterally, trace edema to left lower extremity is noted. Assessment: 1. Paroxysmal atrial fibrillation/atrial flutter with rapid ventricular response. 2. Left lower extremity DVT. 3. Mild LV dysfunction. 4. Acute renal failure. 5. Anemia. 6. Group a strep positive. Plan: Discussed with Dr. Alejandro. 1. We will continue amiodarone 200 mg twice daily, metoprolol tartrate 50 mg 3 times daily and verapamil 40 mg 3 times daily for management of his atrial arrhythmias. 2. His atrial arrhythmia burden has improved on current therapy. Additionally, his ventricular rates during episodes of paroxysmal atrial fibrillation have improved, i.e. 110s-120s compared to 160s. These rates are acceptable while he continues the oral load of amiodarone. 3. Regarding the left lower extremity DVT, he is pending consultation with Dr. Anatoly Elise to evaluate for possible DVT thrombectomy. 4. Continue IV heparin. He will require transition to oral anticoagulation for his atrial arrhythmias, as well as the left lower extremity DVT. 5. Electrophysiology will sign off at this time. 6. We will schedule a follow up visit with Dr. Alejandro in 2-3 weeks. Vitals/Labs Vital Signs Date Time Temp Pulse Resp B/P (MAP) Pulse Ox O2 Delivery O2 Flow Rate FiO2 08/21/25 07:52 99.0 61 16 111/84 98 Room Air 08/20/25 10:41 0 21 Laboratory Tests 08/21/25 05:33 LENIN MAZARIEGOS PAC Aug 21, 2025 09:38
--- NOTE | 2025-08-21 11:22 | PN ---
[facility] PROGRESS NOTE Date Patient Seen: Aug 21, 2025 Time of Visit: 11:22 Supervising Physician: Dru Soliman MD Primary Care Physician: Dr. Doris Vela Inpatient Consults: [facility], GI, Dr. Anderson (Orthopedic surgeon) PROBLEM LIST: Extensive Large left DVT not POA Tachy-javier syndrome Acute on CKD stage 3 Atrial fibrillation with RVR chronically on Xarelto Melena Dementia Acute streptococcal pharyngitis Acute complicated cystitis Severe sepsis due to above Acute rhabdomyolysis, resolved Acute delirium in patient with dementia Acute metabolic encephalopathy in patient with dementia Electrolyte derangement (Hypokalemia) Left knee swelling with moderate joint effusion is seen per CT knee, rule out septic arthritis Febrile illness, not POA GOUT Diabetes mellitus type 2 History of pancreatic cyst since 2021, negative biopsy per family INTERVAL HISTORY: Patient is awake alert to name pleasantly confused. This is appears to be his baseline due to dementia. He denies any pain at this time to left lower extremity. As per patient's nurse he has been comfortable and cooperative. He continues on heparin drip per protocol for now for left lower extremity DVT. Awaiting recommendations by Dr. Anatoly flores for possible thrombectomy of DVT. We will have him also evaluate for IVC filter placement by Cardiology team or IR. PLAN: Follow cardiology recs, telemetry amiodarone 200 mg b.i.d., metoprolol 50mg po tid, and verapamil 40 mg tid for arrhythmia management per cardiology recs. Per cardiology DR Anatoly flores to eval for DVT Thrombectomy. Pt may also benefit from IVC filter given that he has recent HX of melena. (This could be done by cardiology or IR will wait for further cardiology recs by DR Anatoly flores) Bladder scan > 1 L -insert FC Following I&Os multimodal pain management. monitor for bleedings heparin gtt per protocol one to one sitter REVIEW OF SYSTEMS: Unable due to mental status PHYSICAL EXAM: GENERAL: 75 year old male on room air. NAD. HEENT: EOMI, Sclera non icteric, moist mucosa NECK: no JVD LUNGS: Clear breath sounds bilaterally. No wheezes HEART: Regular rate and rhythm. Normal S1 and S2, without murmurs ABD: Abdomen soft, nontender. Bowel sounds present EXT: No clubbing cyanosis, LLE edema and tenderness NEURO: Alert and oriented to person, follows commands Vital Signs (last 8hr) Date Time Temp Pulse Resp B/P (MAP) Pulse Ox O2 Delivery O2 Flow Rate FiO2 08/21/25 10:30 97 Room Air* 0 21 08/21/25 07:52 99.0 61 16 111/84 98 Room Air 08/21/25 03:34 97.2 60 20 120/59 94 Room Air LABS: Hematology Labs: Test 08/21/25 05:33 08/20/25 05:43 08/19/25 15:49 Range/Units White Blood Count 12.9 #H 4.8-10.8 K/uL Red Blood Count 3.12 L 4.50-6.20 MIL/uL Hemoglobin 10.1 L 14.0-18.0 g/dL Hematocrit 30.0 L 42-54 % Mean Corpuscular Volume 96.2 79-99 fL Mean Corpuscular Hemoglobin 32.4 27.0-33.0 pg Mean Corpuscular Hemoglobin Concent 33.7 32.0-36.0 g/dL Red Cell Distribution Width 14.0 11.0-15.5 % Platelet Count 207 130-400 K/uL Mean Platelet Volume 10.5 7.5-10.5 fL Nucleated Red Blood Cells 0.0 0.0-0.19 % Immature Granulocyte % (Auto) 0.8 0-1 % Neutrophils (%) (Auto) 79.9 H 40.0-77.0 % Lymphocytes (%) (Auto) 11.2 L 21.0-51.0 % Monocytes (%) (Auto) 7.0 3.0-13.0 % Eosinophils (%) (Auto) 0.9 0.0-8.0 % Basophils (%) (Auto) 0.2 0.0-5.0 % Neutrophils # (Auto) 7.3 1.8-7.7 K/uL Lymphocytes # (Auto) 1.0 1.0-4.8 K/uL Monocytes # (Auto) 0.6 0.1-1.0 K/uL Eosinophils # (Auto) 0.08 0.00-0.70 K/uL Basophils # (Auto) 0.02 0.00-0.20 K/uL Absolute Immature Granulocyte (auto 0.07 0-1 K/uL Segmented Neutrophils % 86 H 40-70 % Lymphocytes % (Manual) 9 L 22-44 % Monocytes % (Manual) 4 2-9 % Eosinophils % (Manual) 1 1-6 % Differential Comment MANUAL DIFFERENTIAL White Cell Morphology Comment HYPERSEGMENT NEUT 1+ Platelet Morphology Comment ADEQUATE Red Blood Cell Morphology POIKILOCYTOSIS 1+ Chemistry Labs: Test 08/21/25 11:18 08/21/25 05:33 08/20/25 05:43 Range/Units Whole Blood Glucose 118 H 70-110 MG/DL Sodium Level 144 136-145 mmol/L Potassium Level 3.9 3.5-5.1 mmol/L Chloride Level 111 101-111 mmol/L Carbon Dioxide Level 26 21-32 mmol/L Blood Urea Nitrogen 23 H 7-18 mg/dL Creatinine 1.2 0.5-1.3 mg/dL Glomerular Filtration Rate Calc 64 >90 mL/min Random Glucose 105 70-105 mg/dL Total Calcium 8.6 8.5-10.1 mg/dL Uric Acid 3.5 2.6-7.2 mg/dL Phosphorus Level 3.2 2.5-4.9 mg/dL Magnesium Level 2.30 1.80-2.40 mg/dL Total Bilirubin 0.6 0.2-1.0 mg/dL Aspartate Amino Transf (AST/SGOT) 23 10-37 U/L Alanine Aminotransferase (ALT/SGPT) 38 12-78 U/L Alkaline Phosphatase 83 50-136 U/L Ammonia < 10 L 11-32 umol/L Total Creatine Kinase 33 # 21-232 U/L Total Protein 6.3 6.0-8.3 g/dL Albumin 2.5 L 3.5-5.0 g/dL Coagulation Labs: Test 08/21/25 05:33 Range/Units Activated Partial Thromboplast Time 61.4 H 26.3-35.5 [facility] / RADIOLOGY RESULTS: [ [facility] [address] [place] [address] IMAGING REPORT Signed PATIENT: LADARIUS CARTER MR#: [id number] : 1950 SEX: M AGE: 75 LOCATION: 2AH ORDER [id number] STATUS: ADM IN REPORT#: [id number] SERVICE 0000 REASON: R/O CLOT IN ATRIUM ORDERING PHYSICIAN: DIONISIO MCINTYRECNP PROCEDURE: ECHO FU LD - ECHO 2-D F/U-LTD APPROVED REPORT EXAM: LIMITED Two-dimensional and M-mode echocardiogram. INDICATION ICD: r/o clot in atrium 2D Dimensions RVDd 2.9 cm LVED Vol(simp.) 70.2 mL LVES Vol(simp.) 32.4 mL LVEF(%, simp.) 54 % LA ESV INDEX (BP) 31.73 mL/m2 Left Ventricle Left ventricular cavity size is normal. LVEF is 50-55%. Right Ventricle The right ventricle is normal size. Atria The left atrium size is normal. No clot is visualized in the left atrium. The right atrium size is normal. No clot is visualized in the right atrium. Aortic Valve The aortic valve is not well visualized. Mitral Valve Mitral valve leaflets open well. Mild posterior mitral annular calcification. Tricuspid Valve Tricuspid valve leaflets open well. Pulmonic Valve Pulmonic valve is not visualized. Pericardium No pericardial effusion. Other Information Technically limited study due to body habitus, alteed mental status Conclusion LVEF is 50-55%. Mitral valve leaflets open well. Mild posterior mitral annular calcification. No pericardial effusion. No intracardiac masses or thrombus visualized. DICTATED BY: BETTE ISAACS DO DATE: 08/20/25909 ELECTRONICALLY SIGNED BY: BETTE ISAACS DO DATE: 08/20/25 [id number] ] Plan: NEURO: Minimize central acting medications as possible. Maintain fall precautions, adequate lighting during the day PULMONARY: Supplemental 02 as needed. Maintain aspiration precautions at all times CARDIOVASCULAR: Follow hemodynamics. Vital signs per facility protocol Cardiology consult pending anticipation for further recommendations GI & NUTRITION: Continue with nutritional support. Continue stool softeners and laxatives as needed. KIDNEYS & ELECTROLYTES: Strict monitoring of intake, output and overall fluid balance. Avoid nephrotoxic medications to the extent possible. Medications to be dosed according to renal function. Monitor electrolytes and replace as needed ENDOCRINE: Maintain blood glucose between 100-180 at all times. Hypoglycemia protocol in place INFECTIOUS DISEASE: Trend temperature, WBC and procalcitonin level Follow cultures, deescalate antibiotics as soon as possible. Panculture if new onset fever ONCOLOGY/HEMATOLOGY/COAGULATION: Monitor for s/s of bleeding Monitor hemoglobin, coagulation studies as needed SKIN: Pressure ulcer prevention per facility protocol Specialty mattress ORTHO/REHAB: Continue PT/OT Prophylaxis: Continue GI and DVT prophylaxis Code Status: Full Resuscitation Disposition: TBD Critical care time 35 mins. ATTESTATION BY PHYSICIAN I reviewed the documentation, medical decision making, and treatment plan as noted by the mid-level provider above. I agree with the findings and plan of care. Dru Soliman MD, [facility] Aug 21, 2025 11:22
--- NOTE | 2025-08-21 14:56 | PN ---
NEPHROLOGY PROGRESS NOTE Date/Time Patient Seen: Aug 21, 2025 SUBJECTIVE: This patient has been in the hospital for several days. This patient has atrial fibrillation with bradycardia in between. The patient has knee suspected septic arthritis on the left side. The patient has undergone aspiration of the right knee and left knee joint fluid. The patient has rising BUN/creatinine and anemia. The patient has been in the hospital for the past several days. The patient has been treated for streptococcal pharyngitis and UTI with underlying CKD reported with underlying diabetes and hypertension. Cardiology work-up is going for A FIb, continues on amiodarone, pending further recommendations for anticoagulation Venous Doppler showed deep venous thrombosis in the left common femoral, superficial femoral, popliteal, and posterior tibial veins. Continues on heparin drip. The patient has been treated for sepsis. Vancomycin has been discontinued Renal function is improving Electrolytes are stable Rodríguez catheter in place Iron panel was noted. He was seen in the medial floor. REVIEW OF SYSTEMS: GENERAL: Negative for any nausea, vomiting, fevers, chills, or weight loss. NEUROLOGIC: Negative for any blurry vision, blind spots, double vision, facial a symmetry, dysphagia, dysarthria, hemiparesis, hemisensory deficits, vertigo, ataxia. HEENT: Negative for any head trauma, neck trauma, neck stiffness, photophobia, phonophobia, sinusitis, rhinitis. CARDIAC: Negative for any chest pain, dyspnea on exertion, paroxysmal nocturnal dyspnea, peripheral edema. PULMONARY: Negative for any shortness of breath, wheezing, COPD, or TB exposure. GASTROINTESTINAL: Negative for any abdominal pain, nausea, vomiting, bright red blood per rectum, melena. GENITOURINARY: Negative for any dysuria, hematuria, incontinence. INTEGUMENTARY: Negative for any rashes, cuts, insect bites. RHEUMATOLOGIC: Negative for any joint pains, photosensitive rashes, history of vasculitis or kidney problems. HEMATOLOGIC: Negative for any abnormal bruising, frequent infections or bleeding. Vital Signs (last 8hr) Date Time Temp Pulse Resp B/P (MAP) Pulse Ox O2 Delivery O2 Flow Rate FiO2 08/21/25 11:51 98.8 67 16 118/61 100 Room Air 08/21/25 10:30 97 Room Air* 0 21 08/21/25 07:52 99.0 61 16 111/84 98 Room Air PHYSICAL EXAM: GENERAL: Alert and oriented x 3. No acute distress. Well-nourished. EYES: EOMI. Anicteric. HENT: Moist mucous membranes. No scleral icterus. No cervical lymphadenopathy. LUNGS: Clear to auscultation bilaterally. No accessory muscle use. CARDIOVASCULAR: Regular rate and rhythm. No murmur. No JVD. ABDOMEN: Soft, non-tender and non-distended. No palpable masses. EXTREMITIES: No edema. Non-tender. SKIN: No rashes or lesions. Warm. NEUROLOGIC: No focal neurological deficits. CN II-XII grossly intact, but not individually tested. PSYCHIATRIC: Cooperative. Appropriate mood and affect. Current Medications Medications (Trade) Dose Ordered Sig/Anish Route PRN Reason Start Time Stop Time Status Last Admin Dose Admin Acetaminophen (TYLenol 325MG TAB) 650 mg Q4H PRN PO MILD PAIN (1-3) 08/03/25 00:30 08/03/25 02:29 DC Acetaminophen (TYLenol 325MG TAB) 650 mg Q6H PRN PO PAIN LEVEL 1 TO 3 08/03/25 00:30 09/02/25 00:29 08/14/25 03:09 650 MG Acetaminophen (TYLenol 650MG ELIXIR) 650 mg Q6H PRN PEG MILD PAIN (1-3) 08/03/25 02:30 08/11/25 08:38 DC 08/08/25 07:04 650 MG Acetaminophen (TYLenol 650MG ELIXIR) 650 mg Q6H PRN PO MILD PAIN (1-3) 08/11/25 14:30 09/10/25 14:29 Al Hydroxide/Mg Hydroxide (MAALox PLUS 30ML) 30 ml Q6H PRN PO INDIGESTION 08/03/25 00:30 09/02/25 00:29 Allopurinol (ZYLOprim 100MG) 100 mg TID PO 08/06/25 14:00 09/05/25 13:59 08/17/25 08:31 100 MG Amiodarone HCl (pacERONE 200MG) 200 mg BID PO 08/13/25 09:00 09/12/25 08:59 08/17/25 08:31 200 MG Amiodarone HCl 150 mg/Dextrose 103 ml @ 618 mls/hr ONCE IV 08/13/25 02:00 08/13/25 02:01 DC Amiodarone HCl 360 mg/Dextrose 207.2 ml @ 33.3 mls/hr AD IV 08/13/25 02:00 08/13/25 02:01 DC Amiodarone HCl 540 mg/Dextrose 310.8 ml @ 16.7 mls/hr [id number] IV 08/13/25 07:00 08/13/25 07:59 DC Amiodarone HCl 540 mg/Dextrose 310.8 ml @ 16.7 mls/hr [id number] IV 08/13/25 11:00 09/12/25 10:59 08/13/25 10:03 16.7 MLS/HR Amiodarone HCL/ Dextrose 100 ml @ 600 mls/hr PROTOCOL IV 08/13/25 02:00 08/13/25 07:06 DC 08/13/25 04:36 600 MLS/HR Amiodarone HCL/ Dextrose 200 ml @ 33.333 mls/ hr PROTOCOL IV 08/13/25 02:00 08/13/25 07:07 DC 08/13/25 05:06 33.333 MLS/HR Atropine Sulfate (Atropine 1mg Syg) 0.5 mg AD PRN IVP HR<30BPM 08/15/25 10:00 Benzocaine (Cepacol Sore Throat Lozenge) 1 each Q4H PRN MM SORE THROAT 08/03/25 10:30 09/02/25 10:29 08/03/25 11:55 1 EACH Cefepime HCl (MAXipime 1 GM vial) 1 gm Q12H IVPB 08/09/25 19:30 08/17/25 07:30 DC 08/16/25 20:12 1 GM Cefepime HCl (MAXipime 1 GM vial) 1 gm Q8H IVPB 08/07/25 07:30 08/09/25 07:17 DC 08/09/25 07:00 1 GM Ceftriaxone Sodium (Rocephin 2gm Inj) 2 gm Q24H IVPB 08/03/25 00:30 08/07/25 07:28 DC 08/07/25 01:39 2 GM Dextrose (D50w) 50 ml AD PRN IV HYPOGLYCEMIA PROTOCOL 08/03/25 00:30 09/02/25 00:29 Diazepam (VALium 5 MG/ML 2 ML SYG) 5 mg AM PRN IV AGITATION/PSYCHOSIS 08/09/25 15:30 08/14/25 17:30 DC 08/12/25 02:59 5 MG Diazepam (VALium 5 MG/ML 2 ML SYG) 5 mg HS IV 08/09/25 21:00 08/14/25 17:30 DC Diltiazem HCl (CARDIzem 25MG INJ) 5 mg AD PRN IVP INCREASED HEART RATE >110 BPM 08/15/25 14:30 08/16/25 15:20 DC 08/16/25 10:56 5 MG Diltiazem HCl (CARDIzem 25MG INJ) 10 mg ONCE PRN IVP CARDIZEM PROTOCOL 08/07/25 15:00 08/07/25 15:00 DC Diltiazem HCl (CARDIzem 60MG TAB) 30 mg Q6H PO 08/08/25 08:00 08/08/25 11:00 DC 08/08/25 07:59 30 MG Diltiazem HCl 125 mg/Sodium Chloride 125 ml @ 0 mls/hr AD PRN IV CARDIZEM PROTOCOL 08/07/25 15:00 08/07/25 14:59 DC Diltiazem HCl 125 mg/Sodium Chloride 125 ml @ 0 mls/hr AD PRN IV CARDIZEM PROTOCOL 08/08/25 11:00 08/12/25 07:58 DC 08/11/25 15:51 15 MLS/HR Diltiazem HCl 125 mg/Sodium Chloride 125 ml @ 0 mls/hr AD PRN IV CARDIZEM PROTOCOL 08/12/25 08:00 08/13/25 01:48 DC Diltiazem HCl 125 mg/Sodium Chloride 125 ml @ 0 mls/hr PROTOCOL IV 08/02/25 22:00 08/04/25 12:58 DC 08/04/25 02:49 0 MLS/HR Diltiazem HCl 125 mg/Sodium Chloride 125 ml @ 0 mls/hr PROTOCOL IV 08/16/25 15:30 09/15/25 15:29 08/16/25 15:59 5 MLS/HR Doxycycline Hyclate 250 ml @ 125 mls/hr Q12H IV 08/08/25 08:00 08/18/25 07:59 08/17/25 08:31 125 MLS/HR Famotidine (Pepcid 20mg Tab) 20 mg DAILY PO 08/03/25 09:00 08/04/25 12:54 DC 08/04/25 09:42 20 MG Glucagon (Glucagon 1mg Kit) 1 mg AD PRN IM HYPOGLYCEMIA PROTOCOL 08/03/25 00:30 09/02/25 00:29 Guaifenesin/ Dextromethorphan (RobiTUSSin DM 200/20MG 10ML) 10 ml Q4H PRN PO COUGH 08/03/25 00:30 09/02/25 00:29 08/05/25 16:31 10 ML Heparin Sodium (Porcine) (HEParin 5,000 UNIT VIAL) 5,000 unit Q12H SQ 08/03/25 00:30 08/03/25 10:08 DC 08/03/25 00:42 5,000 UNIT Insulin Human Regular (humuLIN R 100 UNIT/ML 3ML) INSULIN SLIDING SCAL... ACHS SQ 08/03/25 07:30 09/02/25 07:29 08/15/25 16:22 4 UNIT Lactated Ringer's 1,000 ml @ 50 mls/hr Q20H IV 08/03/25 00:30 08/10/25 10:11 DC 08/09/25 08:47 50 MLS/HR Lactulose (Constulose 20gm/ 30ml Udcup) 20 gm BID PRN PO CONSTIPATION 08/03/25 00:30 09/02/25 00:29 08/11/25 08:38 20 GM Levothyroxine Sodium (SYNTHroid 25MCG TAB) 25 mcg DAILY@0630 PO 08/10/25 06:30 09/09/25 06:29 08/17/25 06:33 25 MCG Lidocaine (Lidocaine Patch 4%) 1 each Q24H TP 08/07/25 16:30 09/06/25 16:29 08/16/25 16:22 1 EACH Magnesium Sulfate 50 ml @ 0 mls/hr PROTOCOL IV 08/08/25 08:00 08/08/25 07:36 DC Magnesium Sulfate 50 ml @ 0 mls/hr PROTOCOL PRN IV MAGNESIUM PROTOCOL 08/04/25 12:00 09/03/25 11:59 08/08/25 06:10 25 MLS/HR Metoprolol Tartrate (loprESSOR) 5 mg ONCE IV 08/07/25 17:00 08/07/25 21:00 DC 08/07/25 16:53 5 MG Metoprolol Tartrate (loprESSOR) 5 mg Q5MIN PRN IV INCREASED HEART RATE >110 BPM 08/11/25 22:00 08/11/25 22:13 DC 08/11/25 22:12 5 MG Metoprolol Tartrate (loprESSOR) 5 mg Q5MIN PRN IV INCREASED HEART RATE >110 BPM 08/12/25 03:30 08/12/25 04:23 DC 08/12/25 04:21 5 MG Metoprolol Tartrate (loprESSOR) 5 mg Q6H PRN IV INCREASED HEART RATE >120 BPM 08/04/25 17:00 08/16/25 12:16 DC 08/16/25 06:39 5 MG Metoprolol Tartrate (loprESSOR) 25 mg BID PO 08/03/25 09:00 08/07/25 15:00 DC 08/07/25 13:10 25 MG Metoprolol Tartrate (loprESSOR) 25 mg TID PO 08/16/25 12:30 08/17/25 08:22 DC 08/16/25 20:13 25 MG Metoprolol Tartrate (loprESSOR) 50 mg ONCE PO 08/07/25 17:00 08/07/25 21:00 DC 08/07/25 16:53 50 MG Metoprolol Tartrate (loprESSOR) 50 mg Q6H PO 08/07/25 19:00 08/11/25 08:04 DC 08/11/25 00:59 50 MG Metoprolol Tartrate (loprESSOR) 50 mg TID PO 08/17/25 08:30 09/16/25 08:29 08/17/25 08:41 50 MG Metoprolol Tartrate (loprESSOR) 75 mg Q6H PO 08/11/25 08:30 08/12/25 07:54 DC 08/12/25 02:58 75 MG Metoprolol Tartrate (loprESSOR) 200 mg Q12H9 PO 08/12/25 09:00 08/15/25 14:24 DC 08/15/25 08:06 200 MG Nitroglycerin (Nitrostat) 0.4 mg PROTOCOL PRN SL CHEST PAIN 08/03/25 00:30 09/02/25 00:29 Olanzapine (ZyPREXA 10MG/ML 1ML Vial) 5 mg DAILY PRN IM AGITATION 08/05/25 17:30 09/04/25 17:29 08/08/25 20:21 5 MG Ondansetron HCl (zoFRAN 4MG INJ) 4 mg Q6H PRN IV NAUSEA/VOMITING 08/03/25 00:30 09/02/25 00:29 Pantoprazole Sodium (PROTonix 40MG INJ) 40 mg BID IVP 08/04/25 21:00 09/03/25 20:59 08/17/25 08:32 40 MG Pantoprazole Sodium (PROTonix 40MG TAB) 40 mg BID PO 08/04/25 21:00 08/04/25 12:57 DC Potassium Chloride 100 ml @ 100 mls/hr AD PRN IV POTASSIUM PROTOCOL 08/04/25 12:00 09/03/25 11:59 08/09/25 17:00 100 MLS/HR Potassium Chloride (K-Dur/Klor-Con 20meq) 20 meq AD PRN PO POTASSIUM PROTOCOL 08/04/25 12:00 09/03/25 11:59 08/15/25 06:35 20 MEQ Potassium Chloride (KCl 10% Elixir 20meq/15ml) 20 meq AD PRN PO POTASSIUM PROTOCOL 08/04/25 12:00 09/03/25 11:59 08/13/25 04:04 20 MEQ Prednisone (deltaSONE/ oraSONE 20MG TAB) 20 mg DAILY PO 08/05/25 17:00 08/10/25 10:08 DC 08/10/25 09:12 20 MG Rivaroxaban (Xarelto) 15 mg DAILY PO 08/04/25 09:00 08/05/25 11:54 DC 08/04/25 09:42 15 MG Sucralfate (Carafate) 1 gm BID PO 08/04/25 21:00 09/03/25 20:59 08/17/25 08:31 1 GM Tramadol HCl (UltRAM) 50 mg Q6H PRN PO MODERATE PAIN (4-6) 08/06/25 19:30 08/10/25 10:33 DC 08/09/25 10:30 50 MG Vancomycin HCl 250 ml @ 125 mls/hr Q12H IV 08/07/25 21:00 08/11/25 17:08 DC 08/11/25 11:14 125 MLS/HR Vancomycin HCl (Vancomycin Protocol) 1 each AD IV 08/07/25 07:30 08/12/25 08:47 DC Vitamin B Complex/ Vit C/Folic Acid (Nephrovite Tablet) 1 cap DAILY PO 08/17/25 09:00 09/16/25 08:59 08/17/25 08:31 1 CAP LABORATORY: [ ] Hematology Labs: Test 08/21/25 05:33 08/20/25 05:43 08/19/25 15:49 Range/Units White Blood Count 12.9 #H 4.8-10.8 K/uL Red Blood Count 3.12 L 4.50-6.20 MIL/uL Hemoglobin 10.1 L 14.0-18.0 g/dL Hematocrit 30.0 L 42-54 % Mean Corpuscular Volume 96.2 79-99 fL Mean Corpuscular Hemoglobin 32.4 27.0-33.0 pg Mean Corpuscular Hemoglobin Concent 33.7 32.0-36.0 g/dL Red Cell Distribution Width 14.0 11.0-15.5 % Platelet Count 207 130-400 K/uL Mean Platelet Volume 10.5 7.5-10.5 fL Nucleated Red Blood Cells 0.0 0.0-0.19 % Immature Granulocyte % (Auto) 0.8 0-1 % Neutrophils (%) (Auto) 79.9 H 40.0-77.0 % Lymphocytes (%) (Auto) 11.2 L 21.0-51.0 % Monocytes (%) (Auto) 7.0 3.0-13.0 % Eosinophils (%) (Auto) 0.9 0.0-8.0 % Basophils (%) (Auto) 0.2 0.0-5.0 % Neutrophils # (Auto) 7.3 1.8-7.7 K/uL Lymphocytes # (Auto) 1.0 1.0-4.8 K/uL Monocytes # (Auto) 0.6 0.1-1.0 K/uL Eosinophils # (Auto) 0.08 0.00-0.70 K/uL Basophils # (Auto) 0.02 0.00-0.20 K/uL Absolute Immature Granulocyte (auto 0.07 0-1 K/uL Segmented Neutrophils % 86 H 40-70 % Lymphocytes % (Manual) 9 L 22-44 % Monocytes % (Manual) 4 2-9 % Eosinophils % (Manual) 1 1-6 % Differential Comment MANUAL DIFFERENTIAL White Cell Morphology Comment HYPERSEGMENT NEUT 1+ Platelet Morphology Comment ADEQUATE Red Blood Cell Morphology POIKILOCYTOSIS 1+ Chemistry Labs: Test 08/21/25 11:18 08/21/25 05:33 08/20/25 05:43 Range/Units Whole Blood Glucose 118 H 70-110 MG/DL Sodium Level 144 136-145 mmol/L Potassium Level 3.9 3.5-5.1 mmol/L Chloride Level 111 101-111 mmol/L Carbon Dioxide Level 26 21-32 mmol/L Blood Urea Nitrogen 23 H 7-18 mg/dL Creatinine 1.2 0.5-1.3 mg/dL Glomerular Filtration Rate Calc 64 >90 mL/min Random Glucose 105 70-105 mg/dL Total Calcium 8.6 8.5-10.1 mg/dL Uric Acid 3.5 2.6-7.2 mg/dL Phosphorus Level 3.2 2.5-4.9 mg/dL Magnesium Level 2.30 1.80-2.40 mg/dL Total Bilirubin 0.6 0.2-1.0 mg/dL Aspartate Amino Transf (AST/SGOT) 23 10-37 U/L Alanine Aminotransferase (ALT/SGPT) 38 12-78 U/L Alkaline Phosphatase 83 50-136 U/L Ammonia < 10 L 11-32 umol/L Total Creatine Kinase 33 # 21-232 U/L Total Protein 6.3 6.0-8.3 g/dL Albumin 2.5 L 3.5-5.0 g/dL Coagulation Labs: Test 08/21/25 05:33 Range/Units Activated Partial Thromboplast Time 61.4 H 26.3-35.5 [facility]: [address] [id number] [place] [address] IMAGING REPORT Signed PATIENT: LADARIUS CARTER MR#: [id number] : 1950 SEX: M AGE: 75 LOCATION: 2A ORDER 2760 STATUS: ADM IN REPORT#: [id number] SERVICE 0000 REASON: R/O CLOT IN ATRIUM ORDERING PHYSICIAN: DIONISIO MCINTYRE PROCEDURE: ECHO FU LD - ECHO 2-D F/U-LTD APPROVED REPORT EXAM: LIMITED Two-dimensional and M-mode echocardiogram. INDICATION ICD: r/o clot in atrium 2D Dimensions RVDd 2.9 cm LVED Vol(simp.) 70.2 mL LVES Vol(simp.) 32.4 mL LVEF(%, simp.) 54 % LA ESV INDEX (BP) 31.73 mL/m2 Left Ventricle Left ventricular cavity size is normal. LVEF is 50-55%. Right Ventricle The right ventricle is normal size. Atria The left atrium size is normal. No clot is visualized in the left atrium. The right atrium size is normal. No clot is visualized in the right atrium. Aortic Valve The aortic valve is not well visualized. Mitral Valve Mitral valve leaflets open well. Mild posterior mitral annular calcification. Tricuspid Valve Tricuspid valve leaflets open well. Pulmonic Valve Pulmonic valve is not visualized. Pericardium No pericardial effusion. Other Information Technically limited study due to body habitus, alteed mental status Conclusion LVEF is 50-55%. Mitral valve leaflets open well. Mild posterior mitral annular calcification. No pericardial effusion. No intracardiac masses or thrombus visualized. DICTATED BY: BETTE ISAACS DO DATE: 08/20/25 0910 ELECTRONICALLY SIGNED BY: BETTE ISAACS DO DATE: 08/20/251705 PATIENT: LADARIUS CARTER MR#: [id number] : 1950 SEX: M AGE: 75 LOCATION: 2AH ORDER 16 STATUS: ADM IN [facility] REPORT#: [id number] SERVICE 13 REASON: EXTENSIVE DVT TO LEFT LEG ORDERING PHYSICIAN: DIONISIO MCINTYRE PROCEDURE: PULM VQ - NM PULMONARY/LUNG VQ SCAN EXAM: NM Lung Perfusion and Ventilation Scan. CLINICAL HISTORY: DVT with PE Suspected. TECHNIQUE: Radiolabeled MAA was administered intravenously and planar images of the lungs were obtained in multiple projections. RADIOPHARMACEUTICAL: Perfusion: 4.5 mCi technetium 99m MAA. COMPARISON: None. FINDINGS: PERFUSION: No segmental perfusion defect. IMPRESSION: Normal perfusion scan. /[place] DICTATED BY: GAVIN MATHEWS Jr., MD DATE: 08/19/252130 ELECTRONICALLY SIGNED BY: GAVIN MATHEWS Jr., MD DATE: 08/19/252130 PATIENT: LADARIUS CARTER MR#: [id number] : 1950 SEX: M AGE: 75 LOCATION: [facility] ORDER 30 STATUS: ADM IN REPORT#: [id number] SERVICE 29 REASON: SWELLING ORDERING PHYSICIAN: DIONISIO MCINTYRE PROCEDURE: VENOUS UNI - US VENOUS DOPPLER UNILATERAL ADDENDUM REPORT ADDENDUM: EXAM: US for Deep Venous Thrombosis, left Lower Extremity. CLINICAL HISTORY: Leg Pain and Swelling TECHNIQUE: Real-time ultrasound scan of the veins of the left lower extremity with color Doppler flow, spectral waveform analysis and compression. COMPARISON: None provided. FINDINGS: DVT within the left common femoral, superficial femoral, popliteal, and posterior tibial veins. 1.3 x 3.4 x 2.2 cm Campos's cyst. IMPRESSION: 1. Deep venous thrombosis in the left common femoral, superficial femoral, popliteal, and posterior tibial veins. The clinical team was made aware at the time of the examination. /[place] EXAM: US for Deep Venous Thrombosis, left Lower Extremity. CLINICAL HISTORY: Leg Pain and Swelling TECHNIQUE: Real-time ultrasound scan of the veins of the left lower extremity with color Doppler flow, spectral waveform analysis and compression. COMPARISON: None provided. FINDINGS: DVT within the left common femoral, superficial femoral, popliteal, and posterior tibial veins. IMPRESSION: 1. Deep venous thrombosis in the left common femoral, superficial femoral, popliteal, and posterior tibial veins. The clinical team was made aware at the time of the examination. /[place] DICTATED BY: GAVIN MATHEWS Jr., MD DATE: 08/19/251840 ELECTRONICALLY SIGNED BY: DATE: EXAM: US for Deep Venous Thrombosis, left Lower Extremity. CLINICAL HISTORY: Leg Pain and Swelling TECHNIQUE: Real-time ultrasound scan of the veins of the left lower extremity with color Doppler flow, spectral waveform analysis and compression. COMPARISON: None provided. FINDINGS: DVT within the left common femoral, superficial femoral, popliteal, and posterior tibial veins. IMPRESSION: 1. Deep venous thrombosis in the left common femoral, superficial femoral, popliteal, and posterior tibial veins. The clinical team was made aware at the time of the examination. /[place] DICTATED BY: GAVIN MATHEWS Jr., MD DATE: 08/19/251840 ELECTRONICALLY SIGNED BY: GAVIN MATHEWS Jr., MD DATE: 08/19/251840 PATIENT: LADARIUS CARTER MR#: [id number] : 1950 SEX: M AGE: 75 LOCATION: 2AH ORDER 123 STATUS: ADM IN [facility] REPORT#: [id number] SERVICE 1230 REASON: SWELLING ORDERING PHYSICIAN: DIONISIO MCINTYRE PROCEDURE: ART U LE - US ARTERIAL UNILA LOW EXT DUPL EXAM: US Duplex left Lower Extremity Arteries. CLINICAL HISTORY: SWELLING TECHNIQUE: Real-time ultrasound scan of the arteries of the left lower extremity with 2-D cyr scale, color Doppler flow and spectral waveform analysis. COMPARISON: None provided. FINDINGS: COMMON FEMORAL ARTERY: No occlusion or significant stenosis. Biphasic waveforms. SUPERFICIAL FEMORAL ARTERY: No occlusion or significant stenosis. Biphasic waveforms. POPLITEAL ARTERY: No occlusion or significant stenosis. Biphasic waveforms. CALF ARTERIES: No occlusion or significant stenosis. Monophasic waveforms within the dorsalis pedis and posterior tibial arteries. IMPRESSION: 1. No acute arterial occlusion or significant stenosis in the left lower extremity. 2. Monophasic waveforms in the dorsalis pedis and posterior tibial arteries. /[place] DICTATED BY: GAVIN MATHEWS Jr., MD DATE: 08/19/251841 ELECTRONICALLY SIGNED BY: GAVIN MATHEWS Jr., MD DATE: 08/19/251841 PATIENT: LADARIUS CARTER MR#: [id number] : 1950 SEX: M AGE: 75 LOCATION: 2AH ORDER 41 STATUS: ADM IN REPORT#: [id number] SERVICE 40 REASON: SEPSIS ORDERING PHYSICIAN: DIONISIO MCINTYRE PROCEDURE: CXR1VW - CHEST 1VW EXAM: CR Chest, 1 views. CLINICAL HISTORY: Cough. COMPARISON: None provided. FINDINGS: The lungs show no infiltrate or other acute findings. No pleural effusion or pneumothorax. The cardiomediastinal silhouette is within normal limits. No acute osseous abnormality. IMPRESSION: 1. No acute cardiopulmonary pathology is evident. /[place] DICTATED BY: GAVIN MATHEWS Jr., MD DATE: 08/20/25641 ELECTRONICALLY SIGNED BY: GAVIN MATHEWS Jr., MD DATE: 08/20/25641 PATIENT: LADARIUS CARTER MR#: [id number] : 1950 SEX: M AGE: 75 LOCATION: 2AH ORDER 170 STATUS: ADM IN REPORT#: [id number] SERVICE 57 REASON: acute renal failure ORDERING PHYSICIAN: KELLEN KIM MD PROCEDURE: RENAL - US RENAL SONOGRAM EXAMINATION: ULTRASOUND OF THE RETROPERITONEUM. CLINICAL HISTORY: Acute renal failure. COMPARISON: None. TECHNIQUE: Real-time grayscale ultrasound images of the kidneys. FINDINGS: The kidneys are normal in caliber, the right kidney measures 10.5 x 4.6 x 4.4 cm and the left kidney measures 9.1 x 5.3 x 3.7 cm in its craniocaudal, AP, and transverse dimensions respectively. There is normal renal cortical thickness and increased cortical echogenicity. There is no renal calculus or hydronephrosis. The urinary bladder is normal in caliber and wall thickness (0.18 cm). There are no calculi in the urinary bladder. IMPRESSION: Increased echotexture of both the kidneys, of concern for renal parenchymal disease. Recommend clinical correlation and with laboratory parameters. /[place] DICTATED BY: GAVIN MATHEWS Jr., MD DATE: 08/17/25 1032 ELECTRONICALLY SIGNED BY: GAVIN MATHEWS Jr., MD DATE: 08/17/25 103 PATIENT: LADARIUS CARTER MR#: [id number] : 1950 SEX: M AGE: 75 LOCATION: [facility] ORDER 153 STATUS: ADM IN REPORT#: [id number] SERVICE 1534 REASON: decreased air entry ORDERING PHYSICIAN: LENIN MAZARIEGOS PAC PROCEDURE: CXR1VW - CHEST 1VW EXAM: CR Chest, 1 View. CLINICAL HISTORY: decreased air entry COMPARISON: X-ray dated 08/10 FINDINGS: LUNGS: Significantly reduced perihilar opacities compared to the prior radiograph. Persistent and stable nodular opacity in the right upper lobe. PLEURAL SPACES: No pleural effusion or pneumothorax. MEDIASTINUM: The cardiomediastinal silhouette is within normal limits. BONES: No aggressive appearing osseous lesion seen. IMPRESSION: Significantly reduced perihilar opacities compared to the prior radiograph. Persistent and stable nodular opacity in the right upper lobe. /[place] DICTATED BY: GAVIN MATHEWS Jr., MD DATE: 08/17/25 1017 ELECTRONICALLY SIGNED BY: GAVIN MATHEWS Jr., MD DATE: 08/17/25 1017 PATIENT: LADARIUS CARTER MR#: [id number] : 1950 SEX: M AGE: 75 LOCATION: 2AH ORDER 1011 STATUS: ADM IN REPORT#: [id number] SERVICE 1010 REASON: sepsis, chf ORDERING PHYSICIAN: DIONISIO MCINTYRE PROCEDURE: CXR1VW - CHEST 1VW ADDENDUM REPORT ADDENDUM: Results were shared by telephone at 01:48 am on 08/11/25 and acknowledged by Patient's Nurse Mr.Joe Monteiro. /[place] EXAM: CHEST RADIOGRAPH, 1 VIEW Technique: Single frontal view of the chest. Clinical Information: Sepsis and congestive heart failure. Findings: Lungs and large airways: Bilateral perihilar air-space opacities are present with mild pulmonary vascular congestion. A right upper lobe nodular opacity is present. Pleura: No pleural effusion or pneumothorax is identified. Heart and mediastinum: Cardiac size and mediastinal contours are within normal limits. Bones/joints: No acute osseous abnormality is identified. Impression: * Comparison: Compared with chest radiograph dated 08/07/2025 09:11 EDT, bilateral perihilar air-space opacities and mild pulmonary vascular congestion are unchanged, and the right upper lobe nodular opacity persists. /[place] DICTATED BY: OTIS GLASS MD DATE: 08/11/25 0149 ELECTRONICALLY SIGNED BY: DATE: EXAM: CHEST RADIOGRAPH, 1 VIEW Technique: Single frontal view of the chest. Clinical Information: Sepsis and congestive heart failure. Findings: Lungs and large airways: Bilateral perihilar air-space opacities are present with mild pulmonary vascular congestion. A right upper lobe nodular opacity is present. Pleura: No pleural effusion or pneumothorax is identified. Heart and mediastinum: Cardiac size and mediastinal contours are within normal limits. Bones/joints: No acute osseous abnormality is identified. Impression: * Comparison: Compared with chest radiograph dated 08/07/2025 09:11 EDT, bilateral perihilar air-space opacities and mild pulmonary vascular congestion are unchanged, and the right upper lobe nodular opacity persists. 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 Clinical Information: Bilateral lower-extremity swelling. Findings: Right lower extremity venous system: The common femoral vein, great saphenous vein at the saphenofemoral junction, femoral vein, popliteal vein, and posterior tibial veins are fully compressible with normal color filling and normal respiratory phasicity and augmentation on spectral Doppler; no intraluminal thrombus is identified. Right knee region: A fluid collection in the suprapatellar region measures 5.4 ??? 4.3 ??? 1.4 cm, most consistent with suprapatellar bursitis. Left lower extremity venous system: The common femoral vein, great saphenous vein at the saphenofemoral junction, femoral vein, popliteal vein, and posterior tibial veins are fully compressible with normal color filling and normal respiratory phasicity and augmentation on spectral Doppler; no intraluminal thrombus is identified. Left knee region: A fluid collection in the suprapatellar region measures 5.6 ??? 5.4 ??? 1.4 cm, most consistent with suprapatellar bursitis. Impression: * No sonographic evidence of deep venous thrombosis in either lower extremity from the common femoral through the posterior tibial veins. * Right suprapatellar bursitis with a fluid collection measuring 5.4 ??? 4.3 ??? 1.4 cm; correlate with symptoms and consider orthopedic evaluation and/or aspiration if clinically indicated. * Left suprapatellar bursitis with a fluid collection measuring 5.6 ??? 5.4 ??? 1.4 cm; correlate with symptoms and consider orthopedic evaluation and/or aspiration if clinically indicated. /[place] DICTATED BY: OTIS GLASS MD DATE: 08/08/251537 ELECTRONICALLY SIGNED BY: OTIS GLASS MD DATE: 08/08/251537 PATIENT: LADARIUS CARTER MR#: [id number] : 1950 SEX: M AGE: 75 LOCATION: [facility] ORDER 4 STATUS: ADM IN REPORT#: [id number] SERVICE 0 REASON: left knee swelling, fevers ORDERING PHYSICIAN: ASHLEY MONTEIRO PROCEDURE: LOW EXT WO - CT LOW EXT W/O CONTRAST EXAM: CT left Knee without IV contrast CLINICAL HISTORY: left knee swelling, fevers TECHNIQUE: Axial images were acquired through the left knee without IV contrast. Reformatted images were reviewed. COMPARISON: None provided. FINDINGS: BONES: No acute fracture or aggressive appearing osseous lesion. JOINTS: No dislocation. The joint spaces are narrowed affecting all 3 compartments. SOFT TISSUES: The soft tissues are remarkable for a large joint effusion. No abscess. IMPRESSION: No acute osseous abnormality. Tricompartmental osteoarthritis. No evidence of abscess or osteomyelitis. Moderate joint effusion is seen /[place] DICTATED BY: YAIMA PEREZ MD DATE: 08/07/251521 ELECTRONICALLY SIGNED BY: YAIMA PEREZ MD DATE: 08/07/251521 PATIENT: LADARIUS CARTER MR#: [id number] : 1950 SEX: M AGE: 75 LOCATION: [facility] ORDER 4 STATUS: ADM IN [facility] REPORT#: [id number] SERVICE 0 REASON: fevers ORDERING PHYSICIAN: ASHLEY MONTEIRO HONING MACHINE SET UP OPERATOR PROCEDURE: CXR1VW - CHEST 1VW ADDENDUM REPORT ADDENDUM: Results were shared by telephone at 12:52 am on 08-08-25 and acknowledged by House Supervisior Rosey Hayes. /[place] EXAM: CHEST RADIOGRAPH, 1 VIEW Technique: Single frontal view of the chest was obtained. Clinical Information: Fevers. Findings: Lungs and large airways: Bilateral perihilar air-space opacities with mild pulmonary vascular congestion. A right upper lobe nodular opacity is again seen and appears more conspicuous than on the prior study. Pleura: No pleural effusion or pneumothorax identified. Heart and mediastinum: Cardiac size and mediastinal contours are within normal limits. Bones/joints: No acute osseous abnormality is identified. Impression: * Comparison: Compared with chest radiograph dated 08/02/2025 at 21:01 EDT: the right upper lobe nodular opacity appears increased in conspicuity, and new/greater bilateral perihilar infiltrates with mild pulmonary vascular congestion are present; cardiac and mediastinal contours remain within normal limits. * Bilateral perihilar infiltrates with mild pulmonary vascular congestion???consider infectious process versus edema; correlate clinically and consider short-interval radiographic follow-up to document resolution. /[place] DICTATED BY: OTIS GLASS MD DATE: 08/08/25237 ELECTRONICALLY SIGNED BY: DATE: EXAM: CHEST RADIOGRAPH, 1 VIEW Technique: Single frontal view of the chest was obtained. Clinical Information: Fevers. Findings: Lungs and large airways: Bilateral perihilar air-space opacities with mild pulmonary vascular congestion. A right upper lobe nodular opacity is again seen and appears more conspicuous than on the prior study. Pleura: No pleural effusion or pneumothorax identified. Heart and mediastinum: Cardiac size and mediastinal contours are within normal limits. Bones/joints: No acute osseous abnormality is identified. Impression: * Comparison: Compared with chest radiograph dated 08/02/2025 at 21:01 EDT: the right upper lobe nodular opacity appears increased in conspicuity, and new/greater bilateral perihilar infiltrates with mild pulmonary vascular congestion are present; cardiac and mediastinal contours remain within normal limits. * Bilateral perihilar infiltrates with mild pulmonary vascular congestion???consider infectious process versus edema; correlate clinically and consider short-interval radiographic follow-up to document resolution. /[place] DICTATED BY: OTIS GLASS MD DATE: 08/07/252324 ELECTRONICALLY SIGNED BY: OTIS GLASS MD DATE: 08/07/252324 PATIENT: LADARIUS CARTER MR#: [id number] : 1950 SEX: M AGE: 75 LOCATION: [facility] ORDER 1132 STATUS: ADM IN REPORT#: [id number] SERVICE 1127 REASON: altered mental status ORDERING PHYSICIAN: DIONISIO MCINTYRE PROCEDURE: HEAD WO - CT HEAD/BRAIN W/O CONTRAST CT OF THE BRAIN WITHOUT CONTRAST CLINICAL INDICATION: Altered mental status TECHNIQUE: Multiple contiguous axial CT images were obtained through the brain without the administration of intravenous contrast. Coronal and sagittal reconstructions were also obtained. COMPARISON: None available FINDINGS: The ventricular system and cortical sulci demonstrate a normal size and configuration for the patients age. There are no intra- or extra-axial collections, mass effect, or midline shift. The basal cisterns are patent. The cyr-white matter differentiation is preserved. The midline structures and cervicomedullary junction are unremarkable. There is no evidence of acute intracranial hemorrhage or areas of acute infarction. Vascular calcification is present. The calvarium is unremarkable in appearance. No suspicious lytic or sclerotic osseous lesions are seen. The visualized portions of the sinuses are well aerated. The mastoid air cells are well pneumatized and well aerated. The visualized orbital structures are unremarkable in appearance. IMPRESSION: 1. No CT evidence of an acute intracranial process. 2. Age-appropriate involutional changes. /[place] DICTATED BY: SUDHA DUNNE MD DATE: 08/04/251417 ELECTRONICALLY SIGNED BY: SUDHA DUNNE MD DATE: 08/04/251417 PATIENT: LADARIUS CARTER MR#: [id number] : 1950 SEX: M AGE: 75 LOCATION: [facility] ORDER STATUS: ADM IN REPORT#: [id number] SERVICE REASON: afib with rvr ORDERING PHYSICIAN: TRENTON ALLEN PROCEDURE: ECHO CMP - ECHO 2-D COMPLETE APPROVED REPORT EXAM: Two-dimensional and M-mode echocardiogram with Doppler and color Doppler. Study Details: TDS INDICATION ICD: Atrial fibrillation with rapid ventricular response. 2D Dimensions IVSd 0.6 (0.7-1.1cm) LVEF(%) 44.6 (>50%) LVED Vol(simp.) 40.0 mL LVDd 4.1 (3.8-5.6cm) FS(%) 22 % LVES Vol(simp.) 21.0 mL PWd 0.9 (0.7-1.1cm) LVOT diam 1.9 (1.8-2.4cm) LVEF(%, simp.) 47 % IVSs 0.7 cm IVC diam 1.1 cm LA ESV INDEX (BP) 15.83 mL/m2 LVDs 3.2 (2.5-4.0cm) PWs 1.0 cm Deformation Strain Apical 4 -9.8 % Apical 2 -7.8 % Apical 3 -10.7 % Global Strain -9.5 % Aortic Valve AoV Vmax 1.0 m/s Ao Peak GR 4.3 mmHg LVOT Vmax 0.6 m/s AoV VTI 0.1 m Ao Mean GR 2.3 mmHg LVOT VTI 0.12 m KEVYN (VMAX) 1.64 cm2 KEVYN (VTI) 2.2 cm2 Mitral Valve MV E Vmax 99.6 cm/s DECEL Time 130 ms P 1/2 T 52 ms MVA (PHT) 4.3 cm2 TDI E/E' Medial 9.4 E/E' Lateral 11.0 Medial E' Peak V 10.57 cm/s Lateral E' Peak V 9.02 cm/s Tricuspid Valve RAP (EST) 8 mmHg RVSP 8.0 mmHg Left Ventricle The left ventricle is normal size. GLS -10.0% Suboptimal endocardial definition. There is normal left ventricular wall thickness. LVEF is 45-50%. The LV diastolic function was unable to be assessed due to atrial arrhythmia. Right Ventricle The right ventricle appears normal in size. The right ventricular systolic function is normal. Atria The left atrium size is normal. The right atrium size is normal. Aortic Valve The aortic valve is normal in structure. No aortic regurgitation is present. There is no aortic valvular stenosis. Mitral Valve Mild posterior annular calcification noted. The mitral valve is mildly thickened. There is no mitral valve regurgitation noted. There is no mitral valve stenosis. Tricuspid Valve The tricuspid valve is normal in structure. There is no tricuspid valve regurgitation noted. Pulmonic Valve The pulmonary valve is normal in structure. There is no pulmonic valvular regurgitation. Great Vessels The aortic root is normal in size. The IVC is normal in size and collapses <50% with inspiration. Pericardium There is no pericardial effusion. Other Information Quality : Technically difficult study due to body habitus Rhythm : A-Fib Conclusion LVEF is 45-50%. Suboptimal endocardial definition. The LV diastolic function was unable to be assessed due to atrial arrhythmia. Mild posterior annular calcification noted. DICTATED BY: BETTE ISAACS DO DATE: 08/03/25 0949 ELECTRONICALLY SIGNED BY: BETTE ISAACS DO DATE: 08/03/25 1229 PATIENT: LADARIUS CARTER MR#: [id number] : 1950 SEX: M AGE: 75 LOCATION: [facility] ORDER 32 STATUS: REG REPORT#: [id number] SERVICE 29 REASON: sob ORDERING PHYSICIAN: JEFFREY,ILDA HONING MACHINE SET UP OPERATOR PROCEDURE: CXR1VW - CHEST 1VW EXAM: CR Chest, 1 View. CLINICAL HISTORY: sob COMPARISON: None provided. FINDINGS: LUNGS: The lungs show possible right upper lobe lung nodule adjacent to the anterior first rib. PLEURAL SPACES: No evidence of pleural effusion or pneumothorax. MEDIASTINUM: Cardiac size and mediastinal contours within normal limits. BONES: No acute osseous abnormality. IMPRESSION: Possible right upper lobe lung nodule. Recommend CT scan /[place] DICTATED BY: YAIMA PEREZ MD DATE: 08/02/252312 ELECTRONICALLY SIGNED BY: YAIMA PEREZ MD DATE: 08/02/252312 ASSESSMENT: Atrial fibrillation with RVR on Xarelto (on hold), CHADS2-VASc 5 points, HAS- BLED 4 points+ Tachy-javier syndrome Acute streptococcal pharyngitis Acute complicated cystitis Severe sepsis due to above Acute GI bleed (+) melena Acute blood loss anemia Acute rhabdomyolysis, resolved Acute delirium in patient with dementia Acute metabolic encephalopathy in patient with dementia Electrolyte derangement (Hypokalemia) Left knee swelling with moderate joint effusion is seen per CT knee, rule out septic arthritis Febrile illness, not POA GOUT CKD stage III Diabetes mellitus type 2 History of pancreatic cyst since 2021, negative biopsy per family Dementia PLAN: Labs, diagnostic, radiologic exams reviewed and interpreted by myself and supervising physician. We have reviewed external records in detail Cardiology work-up is ongoing . Require close monitoring of renal function and electrolytes Order CBC, CMP, and electrolytes in am Continue with antibiotics Renal diabetic diet BiPAP as necessary, for respiratory distress Monitor blood pressure adjust medication doses as needed Avoid hypotensive episodes May use Dilaudid 0.5 mg IV every 6 hours as needed for severe pain Monitor blood sugars Strict intake, output, and daily weight should be monitored Please renally adjust medications Avoid nephrotoxic and nonsteroidal drugs Avoid contrast if possible Will continue to monitor renal function, anemia, electrolytes Treatment plan discussed with patient Questions were answered We have discussed with the other team physicians in detail about the care plan We will continue to monitor the patient closely ATTESTATION BY PHYSICIAN I have seen and examined the patient. I reviewed the documentation, medical deci elisabeth making, and treatment plan as noted by the mid-level provider above. I agree with the findings and plan of care. KELLEN KIM MD, [facility] Aug 21, 2025 14:56
--- NOTE | 2025-08-21 16:44 | PN ---
GASTROENTEROLOGY PROGRESS NOTE Date of Visit: Aug 21, 2025 Time of Visit: 16:44 Events / Notes: No acute events overnight. Hgb 10.9. EGD aborted due to arrhythmia. Plan of care discussed. Denies fever, chills, abdominal pain, N/V, hematemesis, bloating, constipation, diarrhea, melena or hematochezia. Patient with DVT. FOBT negative. Review of Systems: CONSTITUTIONAL: No malaise or change in sensation of wellbeing. ENMT: No rhinorrhea, otorrhea, sinus pain, ear ache. CARDIOVASCULAR: No angina, palpitations, orthopnea or paroxysmal dyspnea. RESPIRATORY: No SOB. GASTROINTESTINAL: No abdominal pain, nausea, vomiting, diarrhea, hematemesis, melena or change in the patient's habitual bowel movements consistency/number. GENITOURINARY: No dysuria, hematuria or change in bladder continence. MUSCULOSKELETAL: No new muscle pain or decrease in muscular strength. No new joint swelling, redness or tenderness. SKIN: No new rash. Physical Exam: GEN: Awake, alert, oriented in person, time and place, and in no acute distress. HEENT: No rhinorrhea. Oral mucosa is pink, moist and within normal limits. CHEST: Lung auscultation revealed normal breath sounds bilaterally. CARDIAC:Heart sounds are regular. ABD: Soft, non-tender and not distended. No peritoneal signs on palpation. Normal bowel sounds. Last bm 08/06/25. EXT: No cyanosis or clubbing. No edema. SKIN: Intact. No rashes. NEURO: Alert and oriented to name, place and person.No focal motor deficits. Normal speech. Vital Signs (last 8hr) Date Time Temp Pulse Resp B/P (MAP) Pulse Ox O2 Delivery O2 Flow Rate FiO2 08/21/25 16:01 98.8 64 16 90/50 100 Room Air 08/21/25 11:51 98.8 67 16 118/61 100 Room Air 08/21/25 10:30 97 Room Air* 0 21 Laboratory: [ ] Laboratory: Test 08/21/25 15:32 08/21/25 05:33 08/20/25 05:43 Range/Units Whole Blood Glucose 143 H 70-110 MG/DL White Blood Count 12.9 #H 4.8-10.8 K/uL Red Blood Count 3.12 L 4.50-6.20 MIL/uL Hemoglobin 10.1 L 14.0-18.0 g/dL Hematocrit 30.0 L 42-54 % Mean Corpuscular Volume 96.2 79-99 fL Mean Corpuscular Hemoglobin 32.4 27.0-33.0 pg Mean Corpuscular Hemoglobin Concent 33.7 32.0-36.0 g/dL Red Cell Distribution Width 14.0 11.0-15.5 % Platelet Count 207 130-400 K/uL Mean Platelet Volume 10.5 7.5-10.5 fL Nucleated Red Blood Cells 0.0 0.0-0.19 % Activated Partial Thromboplast Time 61.4 H 26.3-35.5 SEC Sodium Level 144 136-145 mmol/L Potassium Level 3.9 3.5-5.1 mmol/L Chloride Level 111 101-111 mmol/L Carbon Dioxide Level 26 21-32 mmol/L Blood Urea Nitrogen 23 H 7-18 mg/dL Creatinine 1.2 0.5-1.3 mg/dL Glomerular Filtration Rate Calc 64 >90 mL/min Random Glucose 105 70-105 mg/dL Total Calcium 8.6 8.5-10.1 mg/dL Immature Granulocyte % (Auto) 0.8 0-1 % Neutrophils (%) (Auto) 79.9 H 40.0-77.0 % Lymphocytes (%) (Auto) 11.2 L 21.0-51.0 % Monocytes (%) (Auto) 7.0 3.0-13.0 % Eosinophils (%) (Auto) 0.9 0.0-8.0 % Basophils (%) (Auto) 0.2 0.0-5.0 % Neutrophils # (Auto) 7.3 1.8-7.7 K/uL Lymphocytes # (Auto) 1.0 1.0-4.8 K/uL Monocytes # (Auto) 0.6 0.1-1.0 K/uL Eosinophils # (Auto) 0.08 0.00-0.70 K/uL Basophils # (Auto) 0.02 0.00-0.20 K/uL Absolute Immature Granulocyte (auto 0.07 0-1 K/uL Uric Acid 3.5 2.6-7.2 mg/dL Phosphorus Level 3.2 2.5-4.9 mg/dL Magnesium Level 2.30 1.80-2.40 mg/dL Total Bilirubin 0.6 0.2-1.0 mg/dL Aspartate Amino Transf (AST/SGOT) 23 10-37 U/L Alanine Aminotransferase (ALT/SGPT) 38 12-78 U/L Alkaline Phosphatase 83 50-136 U/L Ammonia < 10 L 11-32 umol/L Total Creatine Kinase 33 # 21-232 U/L Total Protein 6.3 6.0-8.3 g/dL Albumin 2.5 L 3.5-5.0 g/dL Current Medications Medications (Trade) Dose Ordered Sig/Anish Route PRN Reason Start Time Stop Time Status Last Admin Dose Admin Acetaminophen (TYLenol 325MG TAB) 650 mg Q4H PRN PO MILD PAIN (1-3) 08/03/25 00:30 08/03/25 02:29 DC Acetaminophen (TYLenol 325MG TAB) 650 mg Q6H PRN PO PAIN LEVEL 1 TO 3 08/03/25 00:30 09/02/25 00:29 08/14/25 03:09 650 MG Acetaminophen (TYLenol 650MG ELIXIR) 650 mg Q6H PRN PEG MILD PAIN (1-3) 08/03/25 02:30 08/11/25 08:38 DC 08/08/25 07:04 650 MG Acetaminophen (TYLenol 650MG ELIXIR) 650 mg Q6H PRN PO MILD PAIN (1-3) 08/11/25 14:30 09/10/25 14:29 Al Hydroxide/Mg Hydroxide (MAALox PLUS 30ML) 30 ml Q6H PRN PO INDIGESTION 08/03/25 00:30 09/02/25 00:29 Allopurinol (ZYLOprim 100MG) 50 mg QODAY PO 08/21/25 09:00 09/05/25 13:59 08/21/25 08:55 50 MG Allopurinol (ZYLOprim 100MG) 100 mg TID PO 08/06/25 14:00 08/20/25 07:28 DC 08/19/25 20:42 100 MG Amiodarone HCl (pacERONE 200MG) 200 mg BID PO 08/13/25 09:00 09/12/25 08:59 08/21/25 08:54 200 MG Amiodarone HCl 150 mg/Dextrose 103 ml @ 618 mls/hr ONCE IV 08/13/25 02:00 08/13/25 02:01 DC Amiodarone HCl 360 mg/Dextrose 207.2 ml @ 33.3 mls/hr AD IV 08/18/25 08:30 08/18/25 08:33 DC Amiodarone HCl 360 mg/Dextrose 207.2 ml @ 33.3 mls/hr AD IV 08/13/25 02:00 08/13/25 02:01 DC Amiodarone HCl 540 mg/Dextrose 310.8 ml @ 16.7 mls/hr [id number] IV 08/13/25 07:00 08/13/25 07:59 DC Amiodarone HCl 540 mg/Dextrose 310.8 ml @ 16.7 mls/hr [id number] IV 08/13/25 11:00 08/18/25 08:37 DC 08/13/25 10:03 16.7 MLS/HR Amiodarone HCL/ Dextrose 100 ml @ 600 mls/hr PROTOCOL IV 08/13/25 02:00 08/13/25 07:06 DC 08/13/25 04:36 600 MLS/HR Amiodarone HCL/ Dextrose 200 ml @ 33.333 mls/ hr PROTOCOL IV 08/18/25 09:00 08/18/25 08:36 DC Amiodarone HCL/ Dextrose 200 ml @ 33.333 mls/ hr PROTOCOL IV 08/13/25 02:00 08/13/25 07:07 DC 08/13/25 05:06 33.333 MLS/HR Atropine Sulfate (Atropine 1mg Syg) 0.5 mg AD PRN IVP HR<30BPM 08/15/25 10:00 08/19/25 16:17 DC Benzocaine (Cepacol Sore Throat Lozenge) 1 each Q4H PRN MM SORE THROAT 08/03/25 10:30 09/02/25 10:29 08/03/25 11:55 1 EACH Cefepime HCl (MAXipime 1 GM vial) 1 gm Q12H IVPB 08/09/25 19:30 08/17/25 07:30 DC 08/16/25 20:12 1 GM Cefepime HCl (MAXipime 1 GM vial) 1 gm Q8H IVPB 08/07/25 07:30 08/09/25 07:17 DC 08/09/25 07:00 1 GM Ceftriaxone Sodium (Rocephin 2gm Inj) 2 gm Q24H IVPB 08/03/25 00:30 08/07/25 07:28 DC 08/07/25 01:39 2 GM Dextrose (D50w) 50 ml AD PRN IV HYPOGLYCEMIA PROTOCOL 08/03/25 00:30 09/02/25 00:29 Diazepam (VALium 5 MG/ML 2 ML SYG) 5 mg AM PRN IV AGITATION/PSYCHOSIS 08/09/25 15:30 08/14/25 17:30 DC 08/12/25 02:59 5 MG Diazepam (VALium 5 MG/ML 2 ML SYG) 5 mg HS IV 08/09/25 21:00 08/14/25 17:30 DC Diltiazem HCl (CARDIzem 25MG INJ) 5 mg AD PRN IVP INCREASED HEART RATE >110 BPM 08/15/25 14:30 08/16/25 15:20 DC 08/16/25 10:56 5 MG Diltiazem HCl (CARDIzem 25MG INJ) 10 mg ONCE PRN IVP CARDIZEM PROTOCOL 08/07/25 15:00 08/07/25 15:00 DC Diltiazem HCl (CARDIzem 60MG TAB) 30 mg Q6H PO 08/08/25 08:00 08/08/25 11:00 DC 08/08/25 07:59 30 MG Diltiazem HCl 125 mg/Sodium Chloride 125 ml @ 0 mls/hr AD PRN IV CARDIZEM PROTOCOL 08/07/25 15:00 08/07/25 14:59 DC Diltiazem HCl 125 mg/Sodium Chloride 125 ml @ 0 mls/hr AD PRN IV CARDIZEM PROTOCOL 08/08/25 11:00 08/12/25 07:58 DC 08/11/25 15:51 15 MLS/HR Diltiazem HCl 125 mg/Sodium Chloride 125 ml @ 0 mls/hr AD PRN IV CARDIZEM PROTOCOL 08/12/25 08:00 08/13/25 01:48 DC Diltiazem HCl 125 mg/Sodium Chloride 125 ml @ 0 mls/hr PROTOCOL IV 08/02/25 22:00 08/04/25 12:58 DC 08/04/25 02:49 0 MLS/HR Diltiazem HCl 125 mg/Sodium Chloride 125 ml @ 0 mls/hr PROTOCOL IV 08/16/25 15:30 09/15/25 15:29 08/19/25 04:57 5 MLS/HR Docusate Sodium (COLace 100MG CAP) 100 mg BID PO 08/19/25 21:00 09/18/25 20:59 08/21/25 08:54 100 MG Doxycycline Hyclate 250 ml @ 125 mls/hr Q12H IV 08/08/25 08:00 08/18/25 07:59 DC 08/17/25 20:59 125 MLS/HR Famotidine (Pepcid 20mg Tab) 20 mg DAILY PO 08/03/25 09:00 08/04/25 12:54 DC 08/04/25 09:42 20 MG Glucagon (Glucagon 1mg Kit) 1 mg AD PRN IM HYPOGLYCEMIA PROTOCOL 08/03/25 00:30 09/02/25 00:29 Guaifenesin/ Dextromethorphan (RobiTUSSin DM 200/20MG 10ML) 10 ml Q4H PRN PO COUGH 08/03/25 00:30 09/02/25 00:29 08/05/25 16:31 10 ML Heparin Sodium (Porcine) (HEParin 5,000 UNIT VIAL) 5,000 unit Q12H SQ 08/03/25 00:30 08/03/25 10:08 DC 08/03/25 00:42 5,000 UNIT Heparin Sodium/ Dextrose 250 ml @ 0 mls/hr PROTOCOL IV 08/19/25 15:30 09/18/25 15:29 08/21/25 00:55 5.11 MLS/HR Hydromorphone HCl (DiLAUDid 1MG INJ) 0.5 mg Q6H PRN IVP SEVERE PAIN (7-10) 08/18/25 11:30 08/23/25 11:29 08/21/25 02:52 0.5 MG Insulin Human Regular (humuLIN R 100 UNIT/ML 3ML) INSULIN SLIDING SCAL... ACHS SQ 08/03/25 07:30 09/02/25 07:29 08/15/25 16:22 4 UNIT Lactated Ringer's 1,000 ml @ 50 mls/hr Q20H IV 08/03/25 00:30 08/10/25 10:11 DC 08/09/25 08:47 50 MLS/HR Lactulose (Constulose 20gm/ 30ml Udcup) 20 gm BID PRN PO CONSTIPATION 08/03/25 00:30 09/02/25 00:29 08/21/25 08:55 20 GM Levothyroxine Sodium (SYNTHroid 25MCG TAB) 25 mcg DAILY@0630 PO 08/10/25 06:30 09/09/25 06:29 08/21/25 06:16 25 MCG Lidocaine (Lidocaine Patch 4%) 1 each Q24H TP 08/07/25 16:30 09/06/25 16:29 08/20/25 17:24 1 EACH Magnesium Sulfate 50 ml @ 0 mls/hr PROTOCOL IV 08/08/25 08:00 08/08/25 07:36 DC Magnesium Sulfate 50 ml @ 0 mls/hr PROTOCOL PRN IV MAGNESIUM PROTOCOL 08/04/25 12:00 09/03/25 11:59 08/08/25 06:10 25 MLS/HR Metoprolol Tartrate (loprESSOR) 5 mg ONCE IV 08/07/25 17:00 08/07/25 21:00 DC 08/07/25 16:53 5 MG Metoprolol Tartrate (loprESSOR) 5 mg Q5MIN PRN IV INCREASED HEART RATE >110 BPM 08/11/25 22:00 08/11/25 22:13 DC 08/11/25 22:12 5 MG Metoprolol Tartrate (loprESSOR) 5 mg Q5MIN PRN IV INCREASED HEART RATE >110 BPM 08/12/25 03:30 08/12/25 04:23 DC 08/12/25 04:21 5 MG Metoprolol Tartrate (loprESSOR) 5 mg Q6H PRN IV INCREASED HEART RATE >120 BPM 08/04/25 17:00 08/16/25 12:16 DC 08/16/25 06:39 5 MG Metoprolol Tartrate (loprESSOR) 25 mg BID PO 08/03/25 09:00 08/07/25 15:00 DC 08/07/25 13:10 25 MG Metoprolol Tartrate (loprESSOR) 25 mg TID PO 08/16/25 12:30 08/17/25 08:22 DC 08/16/25 20:13 25 MG Metoprolol Tartrate (loprESSOR) 50 mg ONCE PO 08/07/25 17:00 08/07/25 21:00 DC 08/07/25 16:53 50 MG Metoprolol Tartrate (loprESSOR) 50 mg Q6H PO 08/07/25 19:00 08/11/25 08:04 DC 08/11/25 00:59 50 MG Metoprolol Tartrate (loprESSOR) 50 mg TID PO 08/18/25 09:00 09/16/25 08:29 08/21/25 08:54 50 MG Metoprolol Tartrate (loprESSOR) 50 mg TID PO 08/17/25 08:30 08/18/25 08:38 DC 08/17/25 21:07 50 MG Metoprolol Tartrate (loprESSOR) 75 mg Q6H PO 08/11/25 08:30 08/12/25 07:54 DC 08/12/25 02:58 75 MG Metoprolol Tartrate (loprESSOR) 200 mg Q12H9 PO 08/12/25 09:00 08/15/25 14:24 DC 08/15/25 08:06 200 MG Nitroglycerin (Nitrostat) 0.4 mg PROTOCOL PRN SL CHEST PAIN 08/03/25 00:30 09/02/25 00:29 Olanzapine (ZyPREXA 10MG/ML 1ML Vial) 5 mg DAILY PRN IM AGITATION 08/05/25 17:30 09/04/25 17:29 08/08/25 20:21 5 MG Ondansetron HCl (zoFRAN 4MG INJ) 4 mg Q6H PRN IV NAUSEA/VOMITING 08/03/25 00:30 09/02/25 00:29 Pantoprazole Sodium (PROTonix 40MG INJ) 40 mg BID IVP 08/04/25 21:00 08/20/25 08:19 DC 08/19/25 20:42 40 MG Pantoprazole Sodium (PROTonix 40MG TAB) 40 mg BID PO 08/04/25 21:00 08/04/25 12:57 DC Pantoprazole Sodium (PROTonix 40MG TAB) 40 mg BID PO 08/20/25 09:00 09/19/25 08:59 08/21/25 08:55 40 MG Polyethylene Glycol (MIRalax 3350 17 GM POWD.PACK) 17 gm DAILY PO 08/19/25 16:30 09/18/25 16:29 08/21/25 08:55 17 GM Potassium Chloride 100 ml @ 100 mls/hr AD PRN IV POTASSIUM PROTOCOL 08/04/25 12:00 09/03/25 11:59 08/09/25 17:00 100 MLS/HR Potassium Chloride (K-Dur/Klor-Con 20meq) 20 meq AD PRN PO POTASSIUM PROTOCOL 08/04/25 12:00 09/03/25 11:59 08/15/25 06:35 20 MEQ Potassium Chloride (KCl 10% Elixir 20meq/15ml) 20 meq AD PRN PO POTASSIUM PROTOCOL 08/04/25 12:00 09/03/25 11:59 08/13/25 04:04 20 MEQ Prednisone (deltaSONE/ oraSONE 20MG TAB) 20 mg DAILY PO 08/05/25 17:00 08/10/25 10:08 DC 08/10/25 09:12 20 MG Rivaroxaban (Xarelto) 15 mg DAILY PO 08/04/25 09:00 08/05/25 11:54 DC 08/04/25 09:42 15 MG Sucralfate (Carafate) 1 gm BID PO 08/04/25 21:00 09/03/25 20:59 08/21/25 08:54 1 GM Tramadol HCl (UltRAM) 50 mg Q6H PRN PO MODERATE PAIN (4-6) 08/06/25 19:30 08/10/25 10:33 DC 08/09/25 10:30 50 MG Vancomycin HCl 250 ml @ 125 mls/hr Q12H IV 08/07/25 21:00 08/11/25 17:08 DC 08/11/25 11:14 125 MLS/HR Vancomycin HCl (Vancomycin Protocol) 1 each AD IV 08/07/25 07:30 08/12/25 08:47 DC Verapamil HCl (Calan/Isoptin) 40 mg Q8H5 PO 08/19/25 21:00 09/18/25 20:59 08/21/25 13:50 40 MG Vitamin B Complex/ Vit C/Folic Acid (Nephrovite Tablet) 1 cap DAILY PO 08/17/25 09:00 09/16/25 08:59 08/21/25 08:54 1 CAP Diagnostics / Radiology: [COPY/PASTE HERE IF NO REPORTS PLEASE DELETE SECTION] Assessment: [ Melena Acute Gi blood loss Afib on xarelto STrep A positive] Plan: May start anticoagulation in conjunction with high dose PPI Continue GI prophylaxis Advance diet as tolerated Avoid NSAIDs Antireflux measures Monitor H&H and transfuse as needed Call with questions, concerns or change in clinical status Patient to follow-up at clinic post discharge Thank you for this consult 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
[2025-08-22] VITALS (8 sets, daily range): BP systolic 95–147; BP diastolic 40–78; PULSE 55–97; RESP 16–21; TEMP 97.5–98.6; O2SAT 97–100
[2025-08-22 06:17] LABS: NUCLEATED RED BLOOD CELLS 0.0 % (0.0-0.19); PLATELET COUNT (AUTO) 233.0 K/uL (130-400); RED BLOOD CELL COUNT(AUTO) 3.04 MIL/uL (4.50-6.20); RED CELL DISTRIBUTION WIDTH 13.8 % (11.0-15.5); WHITE BLOOD COUNT (AUTO) 10.4 K/uL (4.8-10.8)
[2025-08-22 06:46] LABS: ASPARTATE AMINOTRANSFERASE 24.0 U/L (10-37); CREATININE 0.9 mg/dL (0.5-1.3); GLOMERULAR FILTR. RATE CALC 90.0 mL/min (>90); GLUCOSE,RANDOM 128.0 mg/dL (70-105); SODIUM SERUM 141.0 mmol/L (136-145); TOTAL PROTEIN, SERUM 5.7 g/dL (6.0-8.3); UREA NITROGEN, BLOOD 12.0 mg/dL (7-18)
--- NOTE | 2025-08-22 08:54 | PN ---
[facility] CARDIOLOGY PROGRESS NOTE Date Patient Seen: Aug 22, 2025 Time of Visit: 08:49 Interval History: no acute events overnight , left lower extremity continue to improve the patient is not endorsing any pain , he has been therapeutic for the past 48 hrs . Physical Examination: GENERAL: No acute distress. HEAD: Normal with no signs of head trauma. EYES: conjunctiva and sclera normal. NECK: Supple without JVD. LUNGS: Clear breath sounds bilaterally. No wheezes, or rhonchi. HEART: Normal rate and rhythm. Normal S1 and S2 without murmurs, gallop or rub. VASC: Peripheral pulses +2 bilaterally. EXT: No clubbing, cyanosis or edema. Tenderness to the knees bilaterally with warmth noted NEURO: Awake, alert, and oriented x2. No focal neurological deficits noted. Laboratory: [ ] Hematology Labs: Test 08/22/25 05:58 Range/Units White Blood Count 10.4 4.8-10.8 K/uL Red Blood Count 3.04 L 4.50-6.20 MIL/uL Hemoglobin 9.8 L 14.0-18.0 g/dL Hematocrit 28.8 L 42-54 % Mean Corpuscular Volume 94.7 79-99 fL Mean Corpuscular Hemoglobin 32.2 27.0-33.0 pg Mean Corpuscular Hemoglobin Concent 34.0 32.0-36.0 g/dL Red Cell Distribution Width 13.8 11.0-15.5 % Platelet Count 233 130-400 K/uL Mean Platelet Volume 10.7 H 7.5-10.5 fL Nucleated Red Blood Cells 0.0 0.0-0.19 % Chemistry Labs: Test 08/22/25 05:58 08/22/25 05:35 Range/Units Sodium Level 141 136-145 mmol/L Potassium Level 3.4 L 3.5-5.1 mmol/L Chloride Level 107 101-111 mmol/L Carbon Dioxide Level 27 21-32 mmol/L Blood Urea Nitrogen 12 7-18 mg/dL Creatinine 0.9 0.5-1.3 mg/dL Glomerular Filtration Rate Calc 90 >90 mL/min Random Glucose 128 H 70-105 mg/dL Total Calcium 8.6 8.5-10.1 mg/dL Total Bilirubin 0.8 0.2-1.0 mg/dL Aspartate Amino Transf (AST/SGOT) 24 10-37 U/L Alanine Aminotransferase (ALT/SGPT) 30 12-78 U/L Alkaline Phosphatase 75 50-136 U/L Total Protein 5.7 L 6.0-8.3 g/dL Albumin 2.3 L 3.5-5.0 g/dL Whole Blood Glucose 133 H 70-110 MG/DL Coagulation Labs: Test 08/22/25 05:58 Range/Units Activated Partial Thromboplast Time 46.6 H 26.3-35.5 SEC Diagnostics / Radiology: [Copy/Paste Echos/Imaging Report here] Impression and Plan: LLE DVT Paroxysmal atrial fibrillation/atrial flutter with rapid ventricular response Acute streptococcal pharyngitis Acute complicated cystitis Severe sepsis Acute renal failure, resolved Left knee swelling with moderate joint effusion s/p aspiration 08/15 Acute GI bleed (+) melena, upper endoscopy aborted due to AFib with RVR 08/08/2025: Long-term Xarelto 20 mg daily for permanent atrial fibrillation, on hold given history of GI bleed on admission Nonobstructive coronary artery disease by cardiac catheterization August 2013 with 20% mid and distal LAD stenosis, 50% diagonal branch stenosis, and otherwise normal coronaries with LVEF of 70% Limited 2D echo with an LVEF of 50-55% on 08/20/2025 Essential hypertension Hyperlipidemia History of hypothyroidism Acute rhabdomyolysis, resolved Acute delirium in patient with dementia Acute metabolic encephalopathy in patient with dementia GOUT CKD stage III Diabetes mellitus type 2 History of pancreatic cyst since 2021, negative biopsy per family Dementia Paroxysmal atrial fibrillation/atrial flutter with rapid ventricular response -Continue amiodarone 200 mg twice daily, metoprolol tartrate 50 mg 3 times daily and verapamil 40 mg 3 times daily for management of his atrial arrhythmias. -Anticoagulation by Heparin infusion for now, plans to transition to oral NOAC prior to discharge. -EP Dr. Alejandro will sign-off on current medication regimen Left lower extremity DVT Venous Doppler on 08/19/2025 with deep venous thrombosis in the left common femoral, superficial femoral, popliteal, and posterior tibial veins. -No circulatory compromise noted to the LLE. The patient is not a candidate for DVT thrombectomy as he is not able to follow commands and has dementia. -We will DC Heparin infusion until PTT has been therapeutic for 48 hrs. -Currently denies any left lower extremity pain -We will initiate loading dose of Eliquis 10 BID x 7 days , followed by Eliquis 5 mg every 12 hrs after that Thank you for this consult , cardiology will sign off at this time , the patient will follow up in cardiology clinic 1-2 weeks after discharge Anatoly Elise MD ATTESTATION BY PHYSICIAN I have seen and examined the patient, reviewed the above documentation, participated in medical decision making, made necessary modifications, and agree with the treatment plan as documented by my mid-level provider above. MD HERMELINDO Nash JAMES R MD Aug 22, 2025 08:54
--- NOTE | 2025-08-22 12:55 | PN ---
GASTROENTEROLOGY PROGRESS NOTE Date of Visit: Aug 22, 2025 Time of Visit: 12:55 Events / Notes: No acute events overnight. Hgb 10.9. EGD aborted due to arrhythmia. Plan of care discussed. Denies fever, chills, abdominal pain, N/V, hematemesis, bloating, constipation, diarrhea, melena or hematochezia. Patient with DVT. FOBT negative. Review of Systems: CONSTITUTIONAL: No malaise or change in sensation of wellbeing. ENMT: No rhinorrhea, otorrhea, sinus pain, ear ache. CARDIOVASCULAR: No angina, palpitations, orthopnea or paroxysmal dyspnea. RESPIRATORY: No SOB. GASTROINTESTINAL: No abdominal pain, nausea, vomiting, diarrhea, hematemesis, melena or change in the patient's habitual bowel movements consistency/number. GENITOURINARY: No dysuria, hematuria or change in bladder continence. MUSCULOSKELETAL: No new muscle pain or decrease in muscular strength. No new joint swelling, redness or tenderness. SKIN: No new rash. Physical Exam: GEN: Awake, alert, oriented in person, time and place, and in no acute distress. HEENT: No rhinorrhea. Oral mucosa is pink, moist and within normal limits. CHEST: Lung auscultation revealed normal breath sounds bilaterally. CARDIAC:Heart sounds are regular. ABD: Soft, non-tender and not distended. No peritoneal signs on palpation. Normal bowel sounds. Last bm 08/06/25. EXT: No cyanosis or clubbing. No edema. SKIN: Intact. No rashes. NEURO: Alert and oriented to name, place and person.No focal motor deficits. Normal speech. Vital Signs (last 8hr) Date Time Temp Pulse Resp B/P (MAP) Pulse Ox O2 Delivery O2 Flow Rate FiO2 08/22/25 12:16 98.6 57 16 99/58 99 Room Air 08/22/25 07:55 98.2 63 16 99/51 98 Room Air 08/22/25 06:45 101/53 Laboratory: [ ] Laboratory: Test 08/22/25 11:09 08/22/25 05:58 Range/Units Whole Blood Glucose 93 70-110 MG/DL White Blood Count 10.4 4.8-10.8 K/uL Red Blood Count 3.04 L 4.50-6.20 MIL/uL Hemoglobin 9.8 L 14.0-18.0 g/dL Hematocrit 28.8 L 42-54 % Mean Corpuscular Volume 94.7 79-99 fL Mean Corpuscular Hemoglobin 32.2 27.0-33.0 pg Mean Corpuscular Hemoglobin Concent 34.0 32.0-36.0 g/dL Red Cell Distribution Width 13.8 11.0-15.5 % Platelet Count 233 130-400 K/uL Mean Platelet Volume 10.7 H 7.5-10.5 fL Nucleated Red Blood Cells 0.0 0.0-0.19 % Activated Partial Thromboplast Time 46.6 H 26.3-35.5 SEC Sodium Level 141 136-145 mmol/L Potassium Level 3.4 L 3.5-5.1 mmol/L Chloride Level 107 101-111 mmol/L Carbon Dioxide Level 27 21-32 mmol/L Blood Urea Nitrogen 12 7-18 mg/dL Creatinine 0.9 0.5-1.3 mg/dL Glomerular Filtration Rate Calc 90 >90 mL/min Random Glucose 128 H 70-105 mg/dL Total Calcium 8.6 8.5-10.1 mg/dL Total Bilirubin 0.8 0.2-1.0 mg/dL Aspartate Amino Transf (AST/SGOT) 24 10-37 U/L Alanine Aminotransferase (ALT/SGPT) 30 12-78 U/L Alkaline Phosphatase 75 50-136 U/L Total Protein 5.7 L 6.0-8.3 g/dL Albumin 2.3 L 3.5-5.0 g/dL Current Medications Medications (Trade) Dose Ordered Sig/Anish Route PRN Reason Start Time Stop Time Status Last Admin Dose Admin Acetaminophen (TYLenol 325MG TAB) 650 mg Q4H PRN PO MILD PAIN (1-3) 08/03/25 00:30 08/03/25 02:29 DC Acetaminophen (TYLenol 325MG TAB) 650 mg Q6H PRN PO PAIN LEVEL 1 TO 3 08/03/25 00:30 09/02/25 00:29 08/14/25 03:09 650 MG Acetaminophen (TYLenol 650MG ELIXIR) 650 mg Q6H PRN PEG MILD PAIN (1-3) 08/03/25 02:30 08/11/25 08:38 DC 08/08/25 07:04 650 MG Acetaminophen (TYLenol 650MG ELIXIR) 650 mg Q6H PRN PO MILD PAIN (1-3) 08/11/25 14:30 09/10/25 14:29 Al Hydroxide/Mg Hydroxide (MAALox PLUS 30ML) 30 ml Q6H PRN PO INDIGESTION 08/03/25 00:30 09/02/25 00:29 Allopurinol (ZYLOprim 100MG) 50 mg QODAY PO 08/21/25 09:00 09/05/25 13:59 08/22/25 09:21 50 MG Allopurinol (ZYLOprim 100MG) 100 mg TID PO 08/06/25 14:00 08/20/25 07:28 DC 08/19/25 20:42 100 MG Amiodarone HCl (pacERONE 200MG) 200 mg BID PO 08/13/25 09:00 09/12/25 08:59 08/22/25 09:21 200 MG Amiodarone HCl 150 mg/Dextrose 103 ml @ 618 mls/hr ONCE IV 08/13/25 02:00 08/13/25 02:01 DC Amiodarone HCl 360 mg/Dextrose 207.2 ml @ 33.3 mls/hr AD IV 08/18/25 08:30 08/18/25 08:33 DC Amiodarone HCl 360 mg/Dextrose 207.2 ml @ 33.3 mls/hr AD IV 08/13/25 02:00 08/13/25 02:01 DC Amiodarone HCl 540 mg/Dextrose 310.8 ml @ 16.7 mls/hr [id number] IV 08/13/25 07:00 08/13/25 07:59 DC Amiodarone HCl 540 mg/Dextrose 310.8 ml @ 16.7 mls/hr [id number] IV 08/13/25 11:00 08/18/25 08:37 DC 08/13/25 10:03 16.7 MLS/HR Amiodarone HCL/ Dextrose 100 ml @ 600 mls/hr PROTOCOL IV 08/13/25 02:00 08/13/25 07:06 DC 08/13/25 04:36 600 MLS/HR Amiodarone HCL/ Dextrose 200 ml @ 33.333 mls/ hr PROTOCOL IV 08/18/25 09:00 08/18/25 08:36 DC Amiodarone HCL/ Dextrose 200 ml @ 33.333 mls/ hr PROTOCOL IV 08/13/25 02:00 08/13/25 07:07 DC 08/13/25 05:06 33.333 MLS/HR Apixaban (EliquIS) 10 mg BID PO 08/22/25 09:00 08/28/25 21:01 08/22/25 09:20 10 MG Atropine Sulfate (Atropine 1mg Syg) 0.5 mg AD PRN IVP HR<30BPM 08/15/25 10:00 08/19/25 16:17 DC Benzocaine (Cepacol Sore Throat Lozenge) 1 each Q4H PRN MM SORE THROAT 08/03/25 10:30 09/02/25 10:29 08/03/25 11:55 1 EACH Cefepime HCl (MAXipime 1 GM vial) 1 gm Q12H IVPB 08/09/25 19:30 08/17/25 07:30 DC 08/16/25 20:12 1 GM Cefepime HCl (MAXipime 1 GM vial) 1 gm Q8H IVPB 08/07/25 07:30 08/09/25 07:17 DC 08/09/25 07:00 1 GM Ceftriaxone Sodium (Rocephin 2gm Inj) 2 gm Q24H IVPB 08/03/25 00:30 08/07/25 07:28 DC 08/07/25 01:39 2 GM Dextrose (D50w) 50 ml AD PRN IV HYPOGLYCEMIA PROTOCOL 08/03/25 00:30 09/02/25 00:29 Diazepam (VALium 5 MG/ML 2 ML SYG) 5 mg AM PRN IV AGITATION/PSYCHOSIS 08/09/25 15:30 08/14/25 17:30 DC 08/12/25 02:59 5 MG Diazepam (VALium 5 MG/ML 2 ML SYG) 5 mg HS IV 08/09/25 21:00 08/14/25 17:30 DC Diltiazem HCl (CARDIzem 25MG INJ) 5 mg AD PRN IVP INCREASED HEART RATE >110 BPM 08/15/25 14:30 08/16/25 15:20 DC 08/16/25 10:56 5 MG Diltiazem HCl (CARDIzem 25MG INJ) 10 mg ONCE PRN IVP CARDIZEM PROTOCOL 08/07/25 15:00 08/07/25 15:00 DC Diltiazem HCl (CARDIzem 60MG TAB) 30 mg Q6H PO 08/08/25 08:00 08/08/25 11:00 DC 08/08/25 07:59 30 MG Diltiazem HCl 125 mg/Sodium Chloride 125 ml @ 0 mls/hr AD PRN IV CARDIZEM PROTOCOL 08/07/25 15:00 08/07/25 14:59 DC Diltiazem HCl 125 mg/Sodium Chloride 125 ml @ 0 mls/hr AD PRN IV CARDIZEM PROTOCOL 08/08/25 11:00 08/12/25 07:58 DC 08/11/25 15:51 15 MLS/HR Diltiazem HCl 125 mg/Sodium Chloride 125 ml @ 0 mls/hr AD PRN IV CARDIZEM PROTOCOL 08/12/25 08:00 08/13/25 01:48 DC Diltiazem HCl 125 mg/Sodium Chloride 125 ml @ 0 mls/hr PROTOCOL IV 08/02/25 22:00 08/04/25 12:58 DC 08/04/25 02:49 0 MLS/HR Diltiazem HCl 125 mg/Sodium Chloride 125 ml @ 0 mls/hr PROTOCOL IV 08/16/25 15:30 09/15/25 15:29 08/19/25 04:57 5 MLS/HR Docusate Sodium (COLace 100MG CAP) 100 mg BID PO 08/19/25 21:00 09/18/25 20:59 08/22/25 09:20 100 MG Doxycycline Hyclate 250 ml @ 125 mls/hr Q12H IV 08/08/25 08:00 08/18/25 07:59 DC 08/17/25 20:59 125 MLS/HR Famotidine (Pepcid 20mg Tab) 20 mg DAILY PO 08/03/25 09:00 08/04/25 12:54 DC 08/04/25 09:42 20 MG Glucagon (Glucagon 1mg Kit) 1 mg AD PRN IM HYPOGLYCEMIA PROTOCOL 08/03/25 00:30 09/02/25 00:29 Guaifenesin/ Dextromethorphan (RobiTUSSin DM 200/20MG 10ML) 10 ml Q4H PRN PO COUGH 08/03/25 00:30 09/02/25 00:29 08/05/25 16:31 10 ML Heparin Sodium (Porcine) (HEParin 5,000 UNIT VIAL) 5,000 unit Q12H SQ 08/03/25 00:30 08/03/25 10:08 DC 08/03/25 00:42 5,000 UNIT Heparin Sodium/ Dextrose 250 ml @ 0 mls/hr PROTOCOL IV 08/19/25 15:30 08/22/25 08:01 DC 08/21/25 00:55 5.11 MLS/HR Hydromorphone HCl (DiLAUDid 1MG INJ) 0.5 mg Q6H PRN IVP SEVERE PAIN (7-10) 08/18/25 11:30 08/23/25 11:29 08/21/25 02:52 0.5 MG Insulin Human Regular (humuLIN R 100 UNIT/ML 3ML) INSULIN SLIDING SCAL... ACHS SQ 08/03/25 07:30 09/02/25 07:29 08/15/25 16:22 4 UNIT Lactated Ringer's 1,000 ml @ 50 mls/hr Q20H IV 08/03/25 00:30 08/10/25 10:11 DC 08/09/25 08:47 50 MLS/HR Lactulose (Constulose 20gm/ 30ml Udcup) 20 gm BID PRN PO CONSTIPATION 08/03/25 00:30 09/02/25 00:29 08/21/25 08:55 20 GM Levothyroxine Sodium (SYNTHroid 25MCG TAB) 25 mcg DAILY@0630 PO 08/10/25 06:30 09/09/25 06:29 08/22/25 06:42 25 MCG Lidocaine (Lidocaine Patch 4%) 1 each Q24H TP 08/07/25 16:30 09/06/25 16:29 08/21/25 17:00 1 EACH Magnesium Sulfate 50 ml @ 0 mls/hr PROTOCOL IV 08/08/25 08:00 08/08/25 07:36 DC Magnesium Sulfate 50 ml @ 0 mls/hr PROTOCOL PRN IV MAGNESIUM PROTOCOL 08/04/25 12:00 09/03/25 11:59 08/08/25 06:10 25 MLS/HR Metoprolol Tartrate (loprESSOR) 5 mg ONCE IV 08/07/25 17:00 08/07/25 21:00 DC 08/07/25 16:53 5 MG Metoprolol Tartrate (loprESSOR) 5 mg Q5MIN PRN IV INCREASED HEART RATE >110 BPM 08/11/25 22:00 08/11/25 22:13 DC 08/11/25 22:12 5 MG Metoprolol Tartrate (loprESSOR) 5 mg Q5MIN PRN IV INCREASED HEART RATE >110 BPM 08/12/25 03:30 08/12/25 04:23 DC 08/12/25 04:21 5 MG Metoprolol Tartrate (loprESSOR) 5 mg Q6H PRN IV INCREASED HEART RATE >120 BPM 08/04/25 17:00 08/16/25 12:16 DC 08/16/25 06:39 5 MG Metoprolol Tartrate (loprESSOR) 25 mg BID PO 08/03/25 09:00 08/07/25 15:00 DC 08/07/25 13:10 25 MG Metoprolol Tartrate (loprESSOR) 25 mg TID PO 08/16/25 12:30 08/17/25 08:22 DC 08/16/25 20:13 25 MG Metoprolol Tartrate (loprESSOR) 50 mg ONCE PO 08/07/25 17:00 08/07/25 21:00 DC 08/07/25 16:53 50 MG Metoprolol Tartrate (loprESSOR) 50 mg Q6H PO 08/07/25 19:00 08/11/25 08:04 DC 08/11/25 00:59 50 MG Metoprolol Tartrate (loprESSOR) 50 mg TID PO 08/18/25 09:00 09/16/25 08:29 08/22/25 09:21 50 MG Metoprolol Tartrate (loprESSOR) 50 mg TID PO 08/17/25 08:30 08/18/25 08:38 DC 08/17/25 21:07 50 MG Metoprolol Tartrate (loprESSOR) 75 mg Q6H PO 08/11/25 08:30 08/12/25 07:54 DC 08/12/25 02:58 75 MG Metoprolol Tartrate (loprESSOR) 200 mg Q12H9 PO 08/12/25 09:00 08/15/25 14:24 DC 08/15/25 08:06 200 MG Nitroglycerin (Nitrostat) 0.4 mg PROTOCOL PRN SL CHEST PAIN 08/03/25 00:30 09/02/25 00:29 Olanzapine (ZyPREXA 10MG/ML 1ML Vial) 5 mg DAILY PRN IM AGITATION 08/05/25 17:30 09/04/25 17:29 08/08/25 20:21 5 MG Ondansetron HCl (zoFRAN 4MG INJ) 4 mg Q6H PRN IV NAUSEA/VOMITING 08/03/25 00:30 09/02/25 00:29 Pantoprazole Sodium (PROTonix 40MG INJ) 40 mg BID IVP 08/04/25 21:00 08/20/25 08:19 DC 08/19/25 20:42 40 MG Pantoprazole Sodium (PROTonix 40MG TAB) 40 mg BID PO 08/04/25 21:00 08/04/25 12:57 DC Pantoprazole Sodium (PROTonix 40MG TAB) 40 mg BID PO 08/20/25 09:00 09/19/25 08:59 08/22/25 09:21 40 MG Polyethylene Glycol (MIRalax 3350 17 GM POWD.PACK) 17 gm DAILY PO 08/19/25 16:30 09/18/25 16:29 08/22/25 09:21 17 GM Potassium Chloride 100 ml @ 100 mls/hr AD PRN IV POTASSIUM PROTOCOL 08/04/25 12:00 09/03/25 11:59 08/09/25 17:00 100 MLS/HR Potassium Chloride (K-Dur/Klor-Con 20meq) 20 meq AD PRN PO POTASSIUM PROTOCOL 08/04/25 12:00 09/03/25 11:59 08/15/25 06:35 20 MEQ Potassium Chloride (KCl 10% Elixir 20meq/15ml) 20 meq AD PRN PO POTASSIUM PROTOCOL 08/04/25 12:00 09/03/25 11:59 08/22/25 08:08 20 MEQ Prednisone (deltaSONE/ oraSONE 20MG TAB) 20 mg DAILY PO 08/05/25 17:00 08/10/25 10:08 DC 08/10/25 09:12 20 MG Rivaroxaban (Xarelto) 15 mg DAILY PO 08/04/25 09:00 08/05/25 11:54 DC 08/04/25 09:42 15 MG Sucralfate (Carafate) 1 gm BID PO 08/04/25 21:00 09/03/25 20:59 08/22/25 09:20 1 GM Tramadol HCl (UltRAM) 50 mg Q6H PRN PO MODERATE PAIN (4-6) 08/06/25 19:30 08/10/25 10:33 DC 08/09/25 10:30 50 MG Vancomycin HCl 250 ml @ 125 mls/hr Q12H IV 08/07/25 21:00 08/11/25 17:08 DC 08/11/25 11:14 125 MLS/HR Vancomycin HCl (Vancomycin Protocol) 1 each AD IV 08/07/25 07:30 08/12/25 08:47 DC Verapamil HCl (Calan/Isoptin) 40 mg Q8H5 PO 08/19/25 21:00 09/18/25 20:59 08/22/25 06:42 40 MG Vitamin B Complex/ Vit C/Folic Acid (Nephrovite Tablet) 1 cap DAILY PO 08/17/25 09:00 09/16/25 08:59 08/22/25 09:20 1 CAP Diagnostics / Radiology: [COPY/PASTE HERE IF NO REPORTS PLEASE DELETE SECTION] Assessment: [ Melena Acute Gi blood loss Afib on xarelto STrep A positive] Plan: May start anticoagulation in conjunction with high dose PPI Continue GI prophylaxis Advance diet as tolerated Avoid NSAIDs Antireflux measures Monitor H&H and transfuse as needed Call with questions, concerns or change in clinical status Patient to follow-up at clinic post discharge Thank you for this consult DEBBIE KIMBROUGH [employer] Aug 22, 2025 12:55
--- NOTE | 2025-08-22 14:53 | PN ---
NEPHROLOGY PROGRESS NOTE Date/Time Patient Seen: Aug 22, 2025 SUBJECTIVE: This patient has been in the hospital for several days. This patient has atrial fibrillation with bradycardia in between. The patient has knee suspected septic arthritis on the left side. The patient has undergone aspiration of the right knee and left knee joint fluid. The patient has rising BUN/creatinine and anemia. The patient has been in the hospital for the past several days. The patient has been treated for streptococcal pharyngitis and UTI with underlying CKD reported with underlying diabetes and hypertension. Cardiology work-up is going for A FIb, continues on amiodarone, pending further recommendations for anticoagulation Venous Doppler showed deep venous thrombosis in the left common femoral, superficial femoral, popliteal, and posterior tibial veins. The patient has been treated for sepsis. Vancomycin has been discontinued Renal function and electrolytes are stable Rodríguez catheter in place due to urinary retention Case management coordinating SNF placement He was seen in the medial floor, in no acute distress REVIEW OF SYSTEMS: GENERAL: Negative for any nausea, vomiting, fevers, chills, or weight loss. NEUROLOGIC: Negative for any blurry vision, blind spots, double vision, facial asymmetry, dysphagia, dysarthria, hemiparesis, hemisensory deficits, vertigo, ataxia. HEENT: Negative for any head trauma, neck trauma, neck stiffness, photophobia, phonophobia, sinusitis, rhinitis. CARDIAC: Negative for any chest pain, dyspnea on exertion, paroxysmal nocturnal dyspnea, peripheral edema. PULMONARY: Negative for any shortness of breath, wheezing, COPD, or TB exposure. GASTROINTESTINAL: Negative for any abdominal pain, nausea, vomiting, bright red blood per rectum, melena. GENITOURINARY: Negative for any dysuria, hematuria, incontinence. INTEGUMENTARY: Negative for any rashes, cuts, insect bites. RHEUMATOLOGIC: Negative for any joint pains, photosensitive rashes, history of vasculitis or kidney problems. HEMATOLOGIC: Negative for any abnormal bruising, frequent infections or bleeding. Intake and Output 08/22/25 07:00 Output Total 1900 ml Balance -1900 ml Output Urine Total 1900 ml Vital Signs (last 8hr) Date Time Temp Pulse Resp B/P (MAP) Pulse Ox O2 Delivery O2 Flow Rate FiO2 08/22/25 12:16 98.6 57 16 99/58 99 Room Air 08/22/25 07:55 98.2 63 16 99/51 98 Room Air PHYSICAL EXAM: GENERAL: Alert and oriented x 3. No acute distress. Well-nourished. EYES: EOMI. Anicteric. HENT: Moist mucous membranes. No scleral icterus. No cervical lymphadenopathy. LUNGS: Clear to auscultation bilaterally. No accessory muscle use. CARDIOVASCULAR: Regular rate and rhythm. No murmur. No JVD. ABDOMEN: Soft, non-tender and non-distended. No palpable masses. EXTREMITIES: No edema. Non-tender. SKIN: No rashes or lesions. Warm. NEUROLOGIC: No focal neurological deficits. CN II-XII grossly intact, but not individually tested. PSYCHIATRIC: Cooperative. Appropriate mood and affect. Current Medications Medications (Trade) Dose Ordered Sig/Anish Route PRN Reason Start Time Stop Time Status Last Admin Dose Admin Acetaminophen (TYLenol 325MG TAB) 650 mg Q4H PRN PO MILD PAIN (1-3) 08/03/25 00:30 08/03/25 02:29 DC Acetaminophen (TYLenol 325MG TAB) 650 mg Q6H PRN PO PAIN LEVEL 1 TO 3 08/03/25 00:30 09/02/25 00:29 08/14/25 03:09 650 MG Acetaminophen (TYLenol 650MG ELIXIR) 650 mg Q6H PRN PEG MILD PAIN (1-3) 08/03/25 02:30 08/11/25 08:38 DC 08/08/25 07:04 650 MG Acetaminophen (TYLenol 650MG ELIXIR) 650 mg Q6H PRN PO MILD PAIN (1-3) 08/11/25 14:30 09/10/25 14:29 Al Hydroxide/Mg Hydroxide (MAALox PLUS 30ML) 30 ml Q6H PRN PO INDIGESTION 08/03/25 00:30 09/02/25 00:29 Allopurinol (ZYLOprim 100MG) 100 mg TID PO 08/06/25 14:00 09/05/25 13:59 08/17/25 08:31 100 MG Amiodarone HCl (pacERONE 200MG) 200 mg BID PO 08/13/25 09:00 09/12/25 08:59 08/17/25 08:31 200 MG Amiodarone HCl 150 mg/Dextrose 103 ml @ 618 mls/hr ONCE IV 08/13/25 02:00 11/5/25 02:01 DC Amiodarone HCl 360 mg/Dextrose 207.2 ml @ 33.3 mls/hr AD IV 08/13/25 02:00 08/13/25 02:01 DC Amiodarone HCl 540 mg/Dextrose 310.8 ml @ 16.7 mls/hr [id number] IV 08/13/25 07:00 08/13/25 07:59 DC Amiodarone HCl 540 mg/Dextrose 310.8 ml @ 16.7 mls/hr [id number] IV 08/13/25 11:00 09/12/25 10:59 08/13/25 10:03 16.7 MLS/HR Amiodarone HCL/ Dextrose 100 ml @ 600 mls/hr PROTOCOL IV 08/13/25 02:00 08/13/25 07:06 DC 08/13/25 04:36 600 MLS/HR Amiodarone HCL/ Dextrose 200 ml @ 33.333 mls/ hr PROTOCOL IV 08/13/25 02:00 08/13/25 07:07 DC 08/13/25 05:06 33.333 MLS/HR Atropine Sulfate (Atropine 1mg Syg) 0.5 mg AD PRN IVP HR<30BPM 08/15/25 10:00 Benzocaine (Cepacol Sore Throat Lozenge) 1 each Q4H PRN MM SORE THROAT 08/03/25 10:30 09/02/25 10:29 08/03/25 11:55 1 EACH Cefepime HCl (MAXipime 1 GM vial) 1 gm Q12H IVPB 08/09/25 19:30 08/17/25 07:30 IA 08/16/25 20:12 1 GM Cefepime HCl (MAXipime 1 GM vial) 1 gm Q8H IVPB 08/07/25 07:30 08/09/25 07:17 DC 08/09/25 07:00 1 GM Ceftriaxone Sodium (Rocephin 2gm Inj) 2 gm Q24H IVPB 08/03/25 00:30 08/07/25 07:28 DC 08/07/25 01:39 2 GM Dextrose (D50w) 50 ml AD PRN IV HYPOGLYCEMIA PROTOCOL 08/03/25 00:30 09/02/25 00:29 Diazepam (VALium 5 MG/ML 2 ML SYG) 5 mg AM PRN IV AGITATION/PSYCHOSIS 08/09/25 15:30 08/14/25 17:30 DC 08/12/25 02:59 5 MG Diazepam (VALium 5 MG/ML 2 ML SYG) 5 mg HS IV 08/09/25 21:00 08/14/25 17:30 DC Diltiazem HCl (CARDIzem 25MG INJ) 5 mg AD PRN IVP INCREASED HEART RATE >110 BPM 08/15/25 14:30 08/16/25 15:20 DC 08/16/25 10:56 5 MG Diltiazem HCl (CARDIzem 25MG INJ) 10 mg ONCE PRN IVP CARDIZEM PROTOCOL 08/07/25 15:00 08/07/25 15:00 DC Diltiazem HCl (CARDIzem 60MG TAB) 30 mg Q6H PO 08/08/25 08:00 08/08/25 11:00 DC 08/08/25 07:59 30 MG Diltiazem HCl 125 mg/Sodium Chloride 125 ml @ 0 mls/hr AD PRN IV CARDIZEM PROTOCOL 08/07/25 15:00 08/07/25 14:59 DC Diltiazem HCl 125 mg/Sodium Chloride 125 ml @ 0 mls/hr AD PRN IV CARDIZEM PROTOCOL 08/08/25 11:00 08/12/25 07:58 DC 08/11/25 15:51 15 MLS/HR Diltiazem HCl 125 mg/Sodium Chloride 125 ml @ 0 mls/hr AD PRN IV CARDIZEM PROTOCOL 08/12/25 08:00 08/13/25 01:48 DC Diltiazem HCl 125 mg/Sodium Chloride 125 ml @ 0 mls/hr PROTOCOL IV 08/02/25 22:00 08/04/25 12:58 DC 08/04/25 02:49 0 MLS/HR Diltiazem HCl 125 mg/Sodium Chloride 125 ml @ 0 mls/hr PROTOCOL IV 08/16/25 15:30 09/15/25 15:29 08/16/25 15:59 5 MLS/HR Doxycycline Hyclate 250 ml @ 125 mls/hr Q12H IV 08/08/25 08:00 08/18/25 07:59 08/17/25 08:31 125 MLS/HR Famotidine (Pepcid 20mg Tab) 20 mg DAILY PO 08/03/25 09:00 08/04/25 12:54 DC 08/04/25 09:42 20 MG Glucagon (Glucagon 1mg Kit) 1 mg AD PRN IM HYPOGLYCEMIA PROTOCOL 08/03/25 00:30 09/02/25 00:29 Guaifenesin/ Dextromethorphan (RobiTUSSin DM 200/20MG 10ML) 10 ml Q4H PRN PO COUGH 08/03/25 00:30 09/02/25 00:29 08/05/25 16:31 10 ML Heparin Sodium (Porcine) (HEParin 5,000 UNIT VIAL) 5,000 unit Q12H SQ 08/03/25 00:30 08/03/25 10:08 DC 08/03/25 00:42 5,000 UNIT Insulin Human Regular (humuLIN R 100 UNIT/ML 3ML) INSULIN SLIDING SCAL... ACHS SQ 08/03/25 07:30 09/02/25 07:29 08/15/25 16:22 4 UNIT Lactated Ringer's 1,000 ml @ 50 mls/hr Q20H IV 08/03/25 00:30 08/10/25 10:11 DC 08/09/25 08:47 50 MLS/HR Lactulose (Constulose 20gm/ 30ml Udcup) 20 gm BID PRN PO CONSTIPATION 08/03/25 00:30 09/02/25 00:29 08/11/25 08:38 20 GM Levothyroxine Sodium (SYNTHroid 25MCG TAB) 25 mcg DAILY@0630 PO 08/10/25 06:30 09/09/25 06:29 08/17/25 06:33 25 MCG Lidocaine (Lidocaine Patch 4%) 1 each Q24H TP 08/07/25 16:30 09/06/25 16:29 08/16/25 16:22 1 EACH Magnesium Sulfate 50 ml @ 0 mls/hr PROTOCOL IV 08/08/25 08:00 08/08/25 07:36 DC Magnesium Sulfate 50 ml @ 0 mls/hr PROTOCOL PRN IV MAGNESIUM PROTOCOL 08/04/25 12:00 09/03/25 11:59 08/08/25 06:10 25 MLS/HR Metoprolol Tartrate (loprESSOR) 5 mg ONCE IV 08/07/25 17:00 08/07/25 21:00 DC 08/07/25 16:53 5 MG Metoprolol Tartrate (loprESSOR) 5 mg Q5MIN PRN IV INCREASED HEART RATE >110 BPM 08/11/25 22:00 08/11/25 22:13 DC 08/11/25 22:12 5 MG Metoprolol Tartrate (loprESSOR) 5 mg Q5MIN PRN IV INCREASED HEART RATE >110 BPM 08/12/25 03:30 08/12/25 04:23 DC 08/12/25 04:21 5 MG Metoprolol Tartrate (loprESSOR) 5 mg Q6H PRN IV INCREASED HEART RATE >120 BPM 08/04/25 17:00 08/16/25 12:16 DC 08/16/25 06:39 5 MG Metoprolol Tartrate (loprESSOR) 25 mg BID PO 08/03/25 09:00 08/07/25 15:00 DC 08/07/25 13:10 25 MG Metoprolol Tartrate (loprESSOR) 25 mg TID PO 08/16/25 12:30 08/17/25 08:22 DC 08/16/25 20:13 25 MG Metoprolol Tartrate (loprESSOR) 50 mg ONCE PO 08/07/25 17:00 08/07/25 21:00 DC 08/07/25 16:53 50 MG Metoprolol Tartrate (loprESSOR) 50 mg Q6H PO 08/07/25 19:00 08/11/25 08:04 DC 08/11/25 00:59 50 MG Metoprolol Tartrate (loprESSOR) 50 mg TID PO 08/17/25 08:30 09/16/25 08:29 08/17/25 08:41 50 MG Metoprolol Tartrate (loprESSOR) 75 mg Q6H PO 08/11/25 08:30 08/12/25 07:54 DC 08/12/25 02:58 75 MG Metoprolol Tartrate (loprESSOR) 200 mg Q12H9 PO 08/12/25 09:00 08/15/25 14:24 DC 08/15/25 08:06 200 MG Nitroglycerin (Nitrostat) 0.4 mg PROTOCOL PRN SL CHEST PAIN 08/03/25 00:30 09/02/25 00:29 Olanzapine (ZyPREXA 10MG/ML 1ML Vial) 5 mg DAILY PRN IM AGITATION 08/05/25 17:30 09/04/25 17:29 08/08/25 20:21 5 MG Ondansetron HCl (zoFRAN 4MG INJ) 4 mg Q6H PRN IV NAUSEA/VOMITING 08/03/25 00:30 09/02/25 00:29 Pantoprazole Sodium (PROTonix 40MG INJ) 40 mg BID IVP 08/04/25 21:00 09/03/25 20:59 08/17/25 08:32 40 MG Pantoprazole Sodium (PROTonix 40MG TAB) 40 mg BID PO 08/04/25 21:00 08/04/25 12:57 DC Potassium Chloride 100 ml @ 100 mls/hr AD PRN IV POTASSIUM PROTOCOL 08/04/25 12:00 09/03/25 11:59 08/09/25 17:00 100 MLS/HR Potassium Chloride (K-Dur/Klor-Con 20meq) 20 meq AD PRN PO POTASSIUM PROTOCOL 08/04/25 12:00 09/03/25 11:59 08/15/25 06:35 20 MEQ Potassium Chloride (KCl 10% Elixir 20meq/15ml) 20 meq AD PRN PO POTASSIUM PROTOCOL 08/04/25 12:00 09/03/25 11:59 08/13/25 04:04 20 MEQ Prednisone (deltaSONE/ oraSONE 20MG TAB) 20 mg DAILY PO 08/05/25 17:00 08/10/25 10:08 DC 08/10/25 09:12 20 MG Rivaroxaban (Xarelto) 15 mg DAILY PO 08/04/25 09:00 08/05/25 11:54 DC 08/04/25 09:42 15 MG Sucralfate (Carafate) 1 gm BID PO 08/04/25 21:00 09/03/25 20:59 08/17/25 08:31 1 GM Tramadol HCl (UltRAM) 50 mg Q6H PRN PO MODERATE PAIN (4-6) 08/06/25 19:30 08/10/25 10:33 DC 08/09/25 10:30 50 MG Vancomycin HCl 250 ml @ 125 mls/hr Q12H IV 08/07/25 21:00 11/3/25 17:08 DC 08/11/25 11:14 125 MLS/HR Vancomycin HCl (Vancomycin Protocol) 1 each AD IV 08/07/25 07:30 08/12/25 08:47 DC Vitamin B Complex/ Vit C/Folic Acid (Nephrovite Tablet) 1 cap DAILY PO 08/17/25 09:00 09/16/25 08:59 08/17/25 08:31 1 [facility]: [ ] Hematology Labs: Test 08/22/25 05:58 Range/Units White Blood Count 10.4 4.8-10.8 K/uL Red Blood Count 3.04 L 4.50-6.20 MIL/uL Hemoglobin 9.8 L 14.0-18.0 g/dL Hematocrit 28.8 L 42-54 % Mean Corpuscular Volume 94.7 79-99 fL Mean Corpuscular Hemoglobin 32.2 27.0-33.0 pg Mean Corpuscular Hemoglobin Concent 34.0 32.0-36.0 g/dL Red Cell Distribution Width 13.8 11.0-15.5 % Platelet Count 233 130-400 K/uL Mean Platelet Volume 10.7 H 7.5-10.5 fL Nucleated Red Blood Cells 0.0 0.0-0.19 % Chemistry Labs: Test 08/22/25 11:09 08/22/25 05:58 Range/Units Whole Blood Glucose 93 70-110 MG/DL Sodium Level 141 136-145 mmol/L Potassium Level 3.4 L 3.5-5.1 mmol/L Chloride Level 107 101-111 mmol/L Carbon Dioxide Level 27 21-32 mmol/L Blood Urea Nitrogen 12 7-18 mg/dL Creatinine 0.9 0.5-1.3 mg/dL Glomerular Filtration Rate Calc 90 >90 mL/min Random Glucose 128 H 70-105 mg/dL Total Calcium 8.6 8.5-10.1 mg/dL Total Bilirubin 0.8 0.2-1.0 mg/dL Aspartate Amino Transf (AST/SGOT) 24 10-37 U/L Alanine Aminotransferase (ALT/SGPT) 30 12-78 U/L Alkaline Phosphatase 75 50-136 U/L Total Protein 5.7 L 6.0-8.3 g/dL Albumin 2.3 L 3.5-5.0 g/dL Coagulation Labs: Test 08/22/25 05:58 Range/Units Activated Partial Thromboplast Time 46.6 H 26.3-35.5 [facility]: [place] [address] [place] [address] IMAGING REPORT Signed PATIENT: LADARIUS CARTER MR#: [id number] : 1950 SEX: M AGE: 75 LOCATION: 2A ORDER 16 STATUS: ADM IN REPORT#: [id number] SERVICE 0000 REASON: R/O CLOT IN ATRIUM ORDERING PHYSICIAN: DIONISIO MCINTYRE PROCEDURE: ECHO FU LD - ECHO 2-D F/U-LTD APPROVED REPORT EXAM: LIMITED Two-dimensional and M-mode echocardiogram. INDICATION ICD: r/o clot in atrium 2D Dimensions RVDd 2.9 cm LVED Vol(simp.) 70.2 mL LVES Vol(simp.) 32.4 mL LVEF(%, simp.) 54 % LA ESV INDEX (BP) 31.73 mL/m2 Left Ventricle Left ventricular cavity size is normal. LVEF is 50-55%. Right Ventricle The right ventricle is normal size. Atria The left atrium size is normal. No clot is visualized in the left atrium. The right atrium size is normal. No clot is visualized in the right atrium. Aortic Valve The aortic valve is not well visualized. Mitral Valve Mitral valve leaflets open well. Mild posterior mitral annular calcification. Tricuspid Valve Tricuspid valve leaflets open well. Pulmonic Valve Pulmonic valve is not visualized. Pericardium No pericardial effusion. Other Information Technically limited study due to body habitus, alteed mental status Conclusion LVEF is 50-55%. Mitral valve leaflets open well. Mild posterior mitral annular calcification. No pericardial effusion. No intracardiac masses or thrombus visualized. DICTATED BY: BETTE ISAACS DO DATE: 08/20/25 0910 ELECTRONICALLY SIGNED BY: BETTE ISAACS DO DATE: 08/20/25 9402 PATIENT: LADARIUS CARTER MR#: [id number] : 1950 SEX: M AGE: 75 LOCATION: 2AH ORDER 16 STATUS: [facility] REPORT#: [id number] SERVICE 13 REASON: EXTENSIVE DVT TO LEFT LEG ORDERING PHYSICIAN: DIONISIO MCINTYRE PROCEDURE: PULM VQ - NM PULMONARY/LUNG VQ SCAN EXAM: NM Lung Perfusion and Ventilation Scan. CLINICAL HISTORY: DVT with PE Suspected. TECHNIQUE: Radiolabeled MAA was administered intravenously and planar images of the lungs were obtained in multiple projections. RADIOPHARMACEUTICAL: Perfusion: 4.5 mCi technetium 99m MAA. COMPARISON: None. FINDINGS: PERFUSION: No segmental perfusion defect. IMPRESSION: Normal perfusion scan. /[place] DICTATED BY: GAVIN MATHEWS Jr., MD DATE: 08/19/252130 ELECTRONICALLY SIGNED BY: GAVIN MATHEWS Jr., MD DATE: 08/19/252130 PATIENT: LADARIUS CARTER MR#: [id number] : 1950 SEX: M AGE: 75 LOCATION: 2AH ORDER 1231 STATUS: ADM IN REPORT#: [id number] SERVICE 1230 REASON: SWELLING ORDERING PHYSICIAN: DIONISIO MCINTYRE PROCEDURE: VENOUS UNI - US VENOUS DOPPLER UNILATERAL ADDENDUM REPORT ADDENDUM: EXAM: US for Deep Venous Thrombosis, left Lower Extremity. CLINICAL HISTORY: Leg Pain and Swelling TECHNIQUE: Real-time ultrasound scan of the veins of the left lower extremity with color Doppler flow, spectral waveform analysis and compression. COMPARISON: None provided. FINDINGS: DVT within the left common femoral, superficial femoral, popliteal, and posterior tibial veins. 1.3 x 3.4 x 2.2 cm Campos's cyst. IMPRESSION: 1. Deep venous thrombosis in the left common femoral, superficial femoral, popliteal, and posterior tibial veins. The clinical team was made aware at the time of the examination. /[place] EXAM: US for Deep Venous Thrombosis, left Lower Extremity. CLINICAL HISTORY: Leg Pain and Swelling TECHNIQUE: Real-time ultrasound scan of the veins of the left lower extremity with color Doppler flow, spectral waveform analysis and compression. COMPARISON: None provided. FINDINGS: DVT within the left common femoral, superficial femoral, popliteal, and posterior tibial veins. IMPRESSION: 1. Deep venous thrombosis in the left common femoral, superficial femoral, popliteal, and posterior tibial veins. The clinical team was made aware at the time of the examination. /[place] DICTATED BY: GAVIN MATHEWS Jr., MD DATE: 08/19/251840 ELECTRONICALLY SIGNED BY: DATE: EXAM: US for Deep Venous Thrombosis, left Lower Extremity. CLINICAL HISTORY: Leg Pain and Swelling TECHNIQUE: Real-time ultrasound scan of the veins of the left lower extremity with color Doppler flow, spectral waveform analysis and compression. COMPARISON: None provided. FINDINGS: DVT within the left common femoral, superficial femoral, popliteal, and posterior tibial veins. IMPRESSION: 1. Deep venous thrombosis in the left common femoral, superficial femoral, popliteal, and posterior tibial veins. The clinical team was made aware at the time of the examination. /[place] DICTATED BY: GAVIN MATHEWS Jr., MD DATE: 08/19/251840 ELECTRONICALLY SIGNED BY: GAVIN MATHEWS Jr., MD DATE: 08/19/251840 PATIENT: LADARIUS CARTER MR#: [id number] : 1950 SEX: M AGE: 75 LOCATION: 2AH ORDER 30 STATUS: [facility] REPORT#: [id number] SERVICE 123 REASON: SWELLING ORDERING PHYSICIAN: DIONISIO MCINTYRE PROCEDURE: ART U LE - US ARTERIAL UNILA LOW EXT DUPL EXAM: US Duplex left Lower Extremity Arteries. CLINICAL HISTORY: SWELLING TECHNIQUE: Real-time ultrasound scan of the arteries of the left lower extremity with 2-D cyr scale, color Doppler flow and spectral waveform analysis. COMPARISON: None provided. FINDINGS: COMMON FEMORAL ARTERY: No occlusion or significant stenosis. Biphasic waveforms. SUPERFICIAL FEMORAL ARTERY: No occlusion or significant stenosis. Biphasic waveforms. POPLITEAL ARTERY: No occlusion or significant stenosis. Biphasic waveforms. CALF ARTERIES: No occlusion or significant stenosis. Monophasic waveforms within the dorsalis pedis and posterior tibial arteries. IMPRESSION: 1. No acute arterial occlusion or significant stenosis in the left lower extremity. 2. Monophasic waveforms in the dorsalis pedis and posterior tibial arteries. /[place] DICTATED BY: GAVIN MATHEWS Jr., MD DATE: 08/19/251841 ELECTRONICALLY SIGNED BY: GAVIN MATHEWS Jr., MD DATE: 08/19/251841 PATIENT: LADARIUS CARTER MR#: [id number] : 1950 SEX: M AGE: 75 LOCATION: 2AH ORDER 41 STATUS: ADM IN REPORT#: [id number] SERVICE 104 REASON: SEPSIS ORDERING PHYSICIAN: DIONISIO MCINTYRE PROCEDURE: CXR1VW - CHEST 1VW EXAM: CR Chest, 1 views. CLINICAL HISTORY: Cough. COMPARISON: None provided. FINDINGS: The lungs show no infiltrate or other acute findings. No pleural effusion or pneumothorax. The cardiomediastinal silhouette is within normal limits. No acute osseous abnormality. IMPRESSION: 1. No acute cardiopulmonary pathology is evident. /[place] DICTATED BY: GAVIN MATHEWS Jr., MD DATE: 08/20/25641 ELECTRONICALLY SIGNED BY: GAVIN MATHEWS Jr., MD DATE: 08/20/25641 PATIENT: LADARIUS CARTER MR#: [id number] : 1950 SEX: M AGE: 75 LOCATION: 2AH ORDER 1701 STATUS: ADM IN REPORT#: [id number] SERVICE 1658 REASON: acute renal failure ORDERING PHYSICIAN: KELLEN KIM MD PROCEDURE: RENAL - US RENAL SONOGRAM EXAMINATION: ULTRASOUND OF THE RETROPERITONEUM. CLINICAL HISTORY: Acute renal failure. COMPARISON: None. TECHNIQUE: Real-time grayscale ultrasound images of the kidneys. FINDINGS: The kidneys are normal in caliber, the right kidney measures 10.5 x 4.6 x 4.4 cm and the left kidney measures 9.1 x 5.3 x 3.7 cm in its craniocaudal, AP, and transverse dimensions respectively. There is normal renal cortical thickness and increased cortical echogenicity. There is no renal calculus or hydronephrosis. The urinary bladder is normal in caliber and wall thickness (0.18 cm). There are no calculi in the urinary bladder. IMPRESSION: Increased echotexture of both the kidneys, of concern for renal parenchymal disease. Recommend clinical correlation and with laboratory parameters. /[place] DICTATED BY: GAVIN MATHEWS Jr., MD DATE: 08/17/25 103 ELECTRONICALLY SIGNED BY: GAVIN MATHEWS Jr., MD DATE: 08/17/25 1032 PATIENT: LADARIUS CARTER MR#: [id number] : 1950 SEX: M AGE: 75 LOCATION: 2AH ORDER 1536 STATUS: ADM IN REPORT#: [id number] SERVICE 1534 REASON: decreased air entry ORDERING PHYSICIAN: LENIN MAZARIEGOS PROCEDURE: CXR1VW - CHEST 1VW EXAM: CR Chest, 1 View. CLINICAL HISTORY: decreased air entry COMPARISON: X-ray dated 08/10 FINDINGS: LUNGS: Significantly reduced perihilar opacities compared to the prior radiograph. Persistent and stable nodular opacity in the right upper lobe. PLEURAL SPACES: No pleural effusion or pneumothorax. MEDIASTINUM: The cardiomediastinal silhouette is within normal limits. BONES: No aggressive appearing osseous lesion seen. IMPRESSION: Significantly reduced perihilar opacities compared to the prior radiograph. Persistent and stable nodular opacity in the right upper lobe. /[place] DICTATED BY: GAVIN MATHEWS Jr., MD DATE: 08/17/25 1017 ELECTRONICALLY SIGNED BY: GAVIN MATHEWS Jr., MD DATE: 08/17/25 1017 PATIENT: LADARIUS CARTER MR#: [id number] : 1950 SEX: M AGE: 75 LOCATION: 2A ORDER 1011 STATUS: ADM IN REPORT#: [id number] SERVICE 1010 REASON: sepsis, chf ORDERING PHYSICIAN: DIONISIO MCINTYRE PROCEDURE: CXR1VW - CHEST 1VW ADDENDUM REPORT ADDENDUM: Results were shared by telephone at 01:48 am on 08/11/25 and acknowledged by Patient's Nurse Mr.Joe Monteiro. /[place] EXAM: CHEST RADIOGRAPH, 1 VIEW Technique: Single frontal view of the chest. Clinical Information: Sepsis and congestive heart failure. Findings: Lungs and large airways: Bilateral perihilar air-space opacities are present with mild pulmonary vascular congestion. A right upper lobe nodular opacity is present. Pleura: No pleural effusion or pneumothorax is identified. Heart and mediastinum: Cardiac size and mediastinal contours are within normal limits. Bones/joints: No acute osseous abnormality is identified. Impression: * Comparison: Compared with chest radiograph dated 08/07/2025 09:11 EDT, bilateral perihilar air-space opacities and mild pulmonary vascular congestion are unchanged, and the right upper lobe nodular opacity persists. /[place] DICTATED BY: OTIS GLASS MD DATE: 08/11/25 0149 ELECTRONICALLY SIGNED BY: DATE: EXAM: CHEST RADIOGRAPH, 1 VIEW Technique: Single frontal view of the chest. Clinical Information: Sepsis and congestive heart failure. Findings: Lungs and large airways: Bilateral perihilar air-space opacities are present with mild pulmonary vascular congestion. A right upper lobe nodular opacity is present. Pleura: No pleural effusion or pneumothorax is identified. Heart and mediastinum: Cardiac size and mediastinal contours are within normal limits. Bones/joints: No acute osseous abnormality is identified. Impression: * Comparison: Compared with chest radiograph dated 08/07/2025 09:11 EDT, bilateral perihilar air-space opacities and mild pulmonary vascular congestion are unchanged, and the right upper lobe nodular opacity persists. /[place] DICTATED BY: OTIS GLASS MD DATE: 08/11/25131 ELECTRONICALLY SIGNED BY: OTIS GLASS MD DATE: 08/11/25131 PATIENT: LADARIUS CARTER MR#: [id number] : 1950 SEX: M AGE: 75 LOCATION: 2CV ORDER STATUS: ADM IN REPORT#: [id number] SERVICE 0735 REASON: swelling ORDERING PHYSICIAN: ASHLEY MONTEIRO SUPPLY MANAGER PROCEDURE: VENOUS WILLIAM - US VENOUS DOPPLER BILATERAL EXAM: ULTRASOUND VENOUS DOPPLER OF BOTH LOWER EXTREMITIES Technique: Real-time grayscale ultrasound with graded transducer compression, color Doppler, and pulsed-wave spectral Doppler performed from the common femoral region through the calf veins in longitudinal and transverse planes; respiratory phasicity and distal augmentation maneuvers were assessed. Clinical Information: Bilateral lower-extremity swelling. Findings: Right lower extremity venous system: The common femoral vein, great saphenous vein at the saphenofemoral junction, femoral vein, popliteal vein, and posterior tibial veins are fully compressible with normal color filling and normal respiratory phasicity and augmentation on spectral Doppler; no intraluminal thrombus is identified. Right knee region: A fluid collection in the suprapatellar region measures 5.4 ??? 4.3 ??? 1.4 cm, most consistent with suprapatellar bursitis. Left lower extremity venous system: The common femoral vein, great saphenous vein at the saphenofemoral junction, femoral vein, popliteal vein, and posterior tibial veins are fully compressible with normal color filling and normal respiratory phasicity and augmentation on spectral Doppler; no intraluminal thrombus is identified. Left knee region: A fluid collection in the suprapatellar region measures 5.6 ??? 5.4 ??? 1.4 cm, most consistent with suprapatellar bursitis. Impression: * No sonographic evidence of deep venous thrombosis in either lower extremity from the common femoral through the posterior tibial veins. * Right suprapatellar bursitis with a fluid collection measuring 5.4 ??? 4.3 ??? 1.4 cm; correlate with symptoms and consider orthopedic evaluation and/or aspiration if clinically indicated. * Left suprapatellar bursitis with a fluid collection measuring 5.6 ??? 5.4 ??? 1.4 cm; correlate with symptoms and consider orthopedic evaluation and/or aspiration if clinically indicated. /[place] DICTATED BY: OTIS GLASS MD DATE: 08/08/251537 ELECTRONICALLY SIGNED BY: OTIS GLASS MD DATE: 08/08/251537 PATIENT: LADARIUS CARTER MR#: [id number] : 1950 SEX: M AGE: 75 LOCATION: 2DH ORDER 4 STATUS: ADM IN REPORT#: [id number] SERVICE 0 REASON: left knee swelling, fevers ORDERING PHYSICIAN: ASHLEY MONTEIRO PROCEDURE: LOW EXT WO - CT LOW EXT W/O CONTRAST EXAM: CT left Knee without IV contrast CLINICAL HISTORY: left knee swelling, fevers TECHNIQUE: Axial images were acquired through the left knee without IV contrast. Reformatted images were reviewed. COMPARISON: None provided. FINDINGS: BONES: No acute fracture or aggressive appearing osseous lesion. JOINTS: No dislocation. The joint spaces are narrowed affecting all 3 compartments. SOFT TISSUES: The soft tissues are remarkable for a large joint effusion. No abscess. IMPRESSION: No acute osseous abnormality. Tricompartmental osteoarthritis. No evidence of abscess or osteomyelitis. Moderate joint effusion is seen /[place] DICTATED BY: YAIMA PEREZ MD DATE: 08/07/251521 ELECTRONICALLY SIGNED BY: YAIMA PEREZ MD DATE: 08/07/251521 PATIENT: LADARIUS CARTER MR#: [id number] : 1950 SEX: M AGE: 75 LOCATION: [facility] ORDER 4 STATUS: [facility] REPORT#: [id number] SERVICE 0 REASON: fevers ORDERING PHYSICIAN: ASHLEY MONTEIRO SUPPLY MANAGER PROCEDURE: CXR1VW - CHEST 1VW ADDENDUM REPORT ADDENDUM: Results were shared by telephone at 12:52 am on 08-08-25 and acknowledged by House Supervisior Rosey Hayes. /[place] EXAM: CHEST RADIOGRAPH, 1 VIEW Technique: Single frontal view of the chest was obtained. Clinical Information: Fevers. Findings: Lungs and large airways: Bilateral perihilar air-space opacities with mild pulmonary vascular congestion. A right upper lobe nodular opacity is again seen and appears more conspicuous than on the prior study. Pleura: No pleural effusion or pneumothorax identified. Heart and mediastinum: Cardiac size and mediastinal contours are within normal limits. Bones/joints: No acute osseous abnormality is identified. Impression: * Comparison: Compared with chest radiograph dated 08/02/2025 at 21:01 EDT: the right upper lobe nodular opacity appears increased in conspicuity, and new/greater bilateral perihilar infiltrates with mild pulmonary vascular congestion are present; cardiac and mediastinal contours remain within normal limits. * Bilateral perihilar infiltrates with mild pulmonary vascular congestion???consider infectious process versus edema; correlate clinically and consider short-interval radiographic follow-up to document resolution. /[place] DICTATED BY: OTIS GLASS MD DATE: 08/08/25237 ELECTRONICALLY SIGNED BY: DATE: EXAM: CHEST RADIOGRAPH, 1 VIEW Technique: Single frontal view of the chest was obtained. Clinical Information: Fevers. Findings: Lungs and large airways: Bilateral perihilar air-space opacities with mild pulmonary vascular congestion. A right upper lobe nodular opacity is again seen and appears more conspicuous than on the prior study. Pleura: No pleural effusion or pneumothorax identified. Heart and mediastinum: Cardiac size and mediastinal contours are within normal limits. Bones/joints: No acute osseous abnormality is identified. Impression: * Comparison: Compared with chest radiograph dated 08/02/2025 at 21:01 EDT: the right upper lobe nodular opacity appears increased in conspicuity, and new/greater bilateral perihilar infiltrates with mild pulmonary vascular congestion are present; cardiac and mediastinal contours remain within normal limits. * Bilateral perihilar infiltrates with mild pulmonary vascular congestion???consider infectious process versus edema; correlate clinically and consider short-interval radiographic follow-up to document resolution. /[place] DICTATED BY: OTIS GLASS MD DATE: 08/07/252324 ELECTRONICALLY SIGNED BY: OTIS GLASS MD DATE: 08/07/252324 PATIENT: LADARIUS CARTER MR#: [id number] : 1950 SEX: M AGE: 75 LOCATION: 2DH ORDER 113 STATUS: ADM IN REPORT#: [id number] SERVICE 112 REASON: altered mental status ORDERING PHYSICIAN: DIONISIO MCINTYRE PROCEDURE: HEAD WO - CT HEAD/BRAIN W/O CONTRAST CT OF THE BRAIN WITHOUT CONTRAST CLINICAL INDICATION: Altered mental status TECHNIQUE: Multiple contiguous axial CT images were obtained through the brain without the administration of intravenous contrast. Coronal and sagittal reconstructions were also obtained. COMPARISON: None available FINDINGS: The ventricular system and cortical sulci demonstrate a normal size and configuration for the patients age. There are no intra- or extra-axial collections, mass effect, or midline shift. The basal cisterns are patent. The cyr-white matter differentiation is preserved. The midline structures and cervicomedullary junction are unremarkable. There is no evidence of acute intracranial hemorrhage or areas of acute infarction. Vascular calcification is present. The calvarium is unremarkable in appearance. No suspicious lytic or sclerotic osseous lesions are seen. The visualized portions of the sinuses are well aerated. The mastoid air cells are well pneumatized and well aerated. The visualized orbital structures are unremarkable in appearance. IMPRESSION: 1. No CT evidence of an acute intracranial process. 2. Age-appropriate involutional changes. /[place] DICTATED BY: SUDHA DUNNE MD DATE: 08/04/251417 ELECTRONICALLY SIGNED BY: SUDHA DUNNE MD DATE: 08/04/251417 PATIENT: LADARIUS CARTER MR#: [id number] : 1950 SEX: M AGE: 75 LOCATION: [facility] ORDER STATUS: ADM IN REPORT#: [id number] SERVICE REASON: afib with rvr ORDERING PHYSICIAN: TRENTON ALLEN PROCEDURE: ECHO CMP - ECHO 2-D COMPLETE APPROVED REPORT EXAM: Two-dimensional and M-mode echocardiogram with Doppler and color Doppler. Study Details: TDS INDICATION ICD: Atrial fibrillation with rapid ventricular response. 2D Dimensions IVSd 0.6 (0.7-1.1cm) LVEF(%) 44.6 (>50%) LVED Vol(simp.) 40.0 mL LVDd 4.1 (3.8-5.6cm) FS(%) 22 % LVES Vol(simp.) 21.0 mL PWd 0.9 (0.7-1.1cm) LVOT diam 1.9 (1.8-2.4cm) LVEF(%, simp.) 47 % IVSs 0.7 cm IVC diam 1.1 cm LA ESV INDEX (BP) 15.83 mL/m2 LVDs 3.2 (2.5-4.0cm) PWs 1.0 cm Deformation Strain Apical 4 -9.8 % Apical 2 -7.8 % Apical 3 -10.7 % Global Strain -9.5 % Aortic Valve AoV Vmax 1.0 m/s Ao Peak GR 4.3 mmHg LVOT Vmax 0.6 m/s AoV VTI 0.1 m Ao Mean GR 2.3 mmHg LVOT VTI 0.12 m KEVYN (VMAX) 1.64 cm2 KEVYN (VTI) 2.2 cm2 Mitral Valve MV E Vmax 99.6 cm/s DECEL Time 130 ms P 1/2 T 52 ms MVA (PHT) 4.3 cm2 TDI E/E' Medial 9.4 E/E' Lateral 11.0 Medial E' Peak V 10.57 cm/s Lateral E' Peak V 9.02 cm/s Tricuspid Valve RAP (EST) 8 mmHg RVSP 8.0 mmHg Left Ventricle The left ventricle is normal size. GLS -10.0% Suboptimal endocardial definition. There is normal left ventricular wall thickness. LVEF is 45-50%. The LV diastolic function was unable to be assessed due to atrial arrhythmia. Right Ventricle The right ventricle appears normal in size. The right ventricular systolic function is normal. Atria The left atrium size is normal. The right atrium size is normal. Aortic Valve The aortic valve is normal in structure. No aortic regurgitation is present. There is no aortic valvular stenosis. Mitral Valve Mild posterior annular calcification noted. The mitral valve is mildly thickened. There is no mitral valve regurgitation noted. There is no mitral valve stenosis. Tricuspid Valve The tricuspid valve is normal in structure. There is no tricuspid valve regurgitation noted. Pulmonic Valve The pulmonary valve is normal in structure. There is no pulmonic valvular regurgitation. Great Vessels The aortic root is normal in size. The IVC is normal in size and collapses <50% with inspiration. Pericardium There is no pericardial effusion. Other Information Quality : Technically difficult study due to body habitus Rhythm : A-Fib Conclusion LVEF is 45-50%. Suboptimal endocardial definition. The LV diastolic function was unable to be assessed due to atrial arrhythmia. Mild posterior annular calcification noted. DICTATED BY: BETTE ISAACS DO DATE: 08/03/25 0949 ELECTRONICALLY SIGNED BY: BETTE ISAACS DO DATE: 08/03/25 1229 PATIENT: LADARIUS CARTER MR#: [id number] : 1950 SEX: M AGE: 75 LOCATION: [facility] ORDER 32 STATUS: REG ER REPORT#: [id number] SERVICE 29 REASON: sob ORDERING PHYSICIAN: ILDA JEFFREY PROCEDURE: CXR1VW - CHEST 1VW EXAM: CR Chest, 1 View. CLINICAL HISTORY: sob COMPARISON: None provided. FINDINGS: LUNGS: The lungs show possible right upper lobe lung nodule adjacent to the anterior first rib. PLEURAL SPACES: No evidence of pleural effusion or pneumothorax. MEDIASTINUM: Cardiac size and mediastinal contours within normal limits. BONES: No acute osseous abnormality. IMPRESSION: Possible right upper lobe lung nodule. Recommend CT scan /[place] DICTATED BY: YAIMA PEREZ MD DATE: 08/02/252312 ELECTRONICALLY SIGNED BY: YAIMA PEREZ MD DATE: 08/02/252312 ASSESSMENT: Acute on chronic renal failure Urinary retention S/p Rodríguez catheter placement Atrial fibrillation with RVR on Xarelto (on hold), CHADS2-VASc 5 points, HAS- BLED 4 points+ Tachy-javier syndrome Acute streptococcal pharyngitis Acute complicated cystitis Severe sepsis due to above Acute GI bleed (+) melena Acute blood loss anemia Acute rhabdomyolysis, resolved Acute delirium in patient with dementia Acute metabolic encephalopathy in patient with dementia Electrolyte derangement (Hypokalemia) Left knee swelling with moderate joint effusion is seen per CT knee, rule out septic arthritis Febrile illness, not POA GOUT Diabetes mellitus type 2 History of pancreatic cyst since 2021, negative biopsy per family Dementia PLAN: Labs, diagnostic, radiologic exams reviewed and interpreted by myself and supervising physician. We have reviewed external records in detail Start Flomax 0.4 mg p.o. daily Case management coordinating SNF placement. Recommend urology follow for Rodríguez catheter management Require close monitoring of renal function and electrolytes Order CBC, CMP, and electrolytes in am Continue with antibiotics Renal diabetic diet BiPAP as necessary, for respiratory distress Monitor blood pressure adjust medication doses as needed Avoid hypotensive episodes May use Dilaudid 0.5 mg IV every 6 hours as needed for severe pain Monitor blood sugars Strict intake, output, and daily weight should be monitored Please renally adjust medications Avoid nephrotoxic and nonsteroidal drugs Avoid contrast if possible Will continue to monitor renal function, anemia, electrolytes Treatment plan discussed with patient Questions were answered We have discussed with the other team physicians in detail about the care plan We will continue to monitor the patient closely ATTESTATION BY PHYSICIAN I have seen and examined the patient. I reviewed the documentation, medical decision making, and treatment plan as noted by the mid-level provider above. I agree with the findings and plan of care. KELLEN KIM MD, [facility] Aug 22, 2025 14:53
--- NOTE | 2025-08-22 15:24 | PN ---
[facility] PROGRESS NOTE Date Patient Seen: Aug 22, 2025 Time of Visit: 15:24 Supervising Physician: [ ] Primary Care Physician: Dr. Doris Vela Inpatient Consults: [facility], GI, Dr. Anderson (Orthopedic surgeon) PROBLEM LIST: Extensive Large left DVT not POA Tachy-javier syndrome Acute on CKD stage 3 Atrial fibrillation with RVR transitioned to Eliquis . All man Melena Dementia Acute streptococcal pharyngitis Acute complicated cystitis Severe sepsis due to above Acute rhabdomyolysis, resolved Acute delirium in patient with dementia Acute metabolic encephalopathy in patient with dementia Electrolyte derangement (Hypokalemia) Left knee swelling with moderate joint effusion is seen per CT knee, rule out septic arthritis Febrile illness, not POA GOUT Diabetes mellitus type 2 History of pancreatic cyst since 2021, negative biopsy per family INTERVAL HISTORY: Patient pleasantly confused responds to name. Patient's nurse and I discussed patient's chart prior to assessing the patient. There are no family members present nor friends. Reports no adverse events occurring overnight. Discussed with patient laboratory results, vital signs, medication using treatment, and the treatment plan. We will continue with recommendations of Cardiology amiodarone 200 mg p.o. b.i.d. metoprolol titrate 50 mg p.o. t.i.d. and verapamil 40 mg p.o. t.i.d. for rate control of atrial fibrillation. Patient had we will be transitioned now to Eliquis with a loading dose, 10 mg p.o. b.i.d. for seven days and then Eliquis 5 mg p.o. b.i.d. continuation. Patient denies shortness or breath, fever, chills, nauseousness and diarrhea currently. Case management placement. Further orders per course of stay. A.m. labs he has not PLAN: Follow cardiology recs, telemetry Follow recommendations of GI and Nephrology. Continue with current GI and DVT prophylaxis Case management seeking rehab options for patient prior to discharge. Eliquis 10 mg p.o. b.i.d. then transitioning the maintenance dosage, PT to treat and evaluate with discharge recommendations. Case management requested to assist with discharge placement, custodial facility Further orders per course of stay A.m. labs REVIEW OF SYSTEMS: Unable due to mental status PHYSICAL EXAM: GENERAL: 75 year old male on room air. NAD. HEENT: EOMI, Sclera non icteric, moist mucosa NECK: no JVD LUNGS: Clear breath sounds bilaterally. No wheezes HEART: Regular rate and rhythm. Normal S1 and S2, without murmurs ABD: Abdomen soft, nontender. Bowel sounds present EXT: No clubbing cyanosis, LLE edema and tenderness NEURO: Alert and oriented to person, follows commands Vital Signs (last 8hr) Date Time Temp Pulse Resp B/P (MAP) Pulse Ox O2 Delivery O2 Flow Rate FiO2 08/22/25 12:16 98.6 57 16 99/58 99 Room Air 08/22/25 07:55 98.2 63 16 99/51 98 Room Air 08/22/25 07:35 97 Room Air* 0 21 LABS: Hematology Labs: Test 08/22/25 05:58 Range/Units White Blood Count 10.4 4.8-10.8 K/uL Red Blood Count 3.04 L 4.50-6.20 MIL/uL Hemoglobin 9.8 L 14.0-18.0 g/dL Hematocrit 28.8 L 42-54 % Mean Corpuscular Volume 94.7 79-99 fL Mean Corpuscular Hemoglobin 32.2 27.0-33.0 pg Mean Corpuscular Hemoglobin Concent 34.0 32.0-36.0 g/dL Red Cell Distribution Width 13.8 11.0-15.5 % Platelet Count 233 130-400 K/uL Mean Platelet Volume 10.7 H 7.5-10.5 fL Nucleated Red Blood Cells 0.0 0.0-0.19 % Chemistry Labs: Test 08/22/25 11:09 08/22/25 05:58 Range/Units Whole Blood Glucose 93 70-110 MG/DL Sodium Level 141 136-145 mmol/L Potassium Level 3.4 L 3.5-5.1 mmol/L Chloride Level 107 101-111 mmol/L Carbon Dioxide Level 27 21-32 mmol/L Blood Urea Nitrogen 12 7-18 mg/dL Creatinine 0.9 0.5-1.3 mg/dL Glomerular Filtration Rate Calc 90 >90 mL/min Random Glucose 128 H 70-105 mg/dL Total Calcium 8.6 8.5-10.1 mg/dL Total Bilirubin 0.8 0.2-1.0 mg/dL Aspartate Amino Transf (AST/SGOT) 24 10-37 U/L Alanine Aminotransferase (ALT/SGPT) 30 12-78 U/L Alkaline Phosphatase 75 50-136 U/L Total Protein 5.7 L 6.0-8.3 g/dL Albumin 2.3 L 3.5-5.0 g/dL Coagulation Labs: Test 08/22/25 05:58 Range/Units Activated Partial Thromboplast Time 46.6 H 26.3-35.5 SEC DIAGNOSTICS / RADIOLOGY RESULTS: [ ] Plan: NEURO: Minimize central acting medications as possible. Maintain fall precautions, adequate lighting during the day PULMONARY: Supplemental 02 as needed. Maintain aspiration precautions at all times CARDIOVASCULAR: Follow hemodynamics. Vital signs per facility protocol Cardiology consult pending anticipation for further recommendations GI & NUTRITION: Continue with nutritional support. Continue stool softeners and laxatives as needed. KIDNEYS & ELECTROLYTES: Strict monitoring of intake, output and overall fluid balance. Avoid nephrotoxic medications to the extent possible. Medications to be dosed according to renal function. Monitor electrolytes and replace as needed ENDOCRINE: Maintain blood glucose between 100-180 at all times. Hypoglycemia protocol in place INFECTIOUS DISEASE: Trend temperature, WBC and procalcitonin level Follow cultures, deescalate antibiotics as soon as possible. Panculture if new onset fever ONCOLOGY/HEMATOLOGY/COAGULATION: Monitor for s/s of bleeding Monitor hemoglobin, coagulation studies as needed SKIN: Pressure ulcer prevention per facility protocol Specialty mattress ORTHO/REHAB: Continue PT/OT Prophylaxis: Continue GI and DVT prophylaxis Code Status: Full Resuscitation Disposition: TBD Critical care time 35 mins. MARCO GARSIA AGACNP Aug 22, 2025 15:24
--- NOTE | 2025-08-22 20:15 | PN ---
[facility] PROGRESS NOTE Date Patient Seen: Aug 22, 2025 Time of Visit: 20:10 Supervising Physician: Dr. Dru Soliman Primary Care Physician: Dr. Doris Vela Inpatient Consults: [facility], GI, Dr. Anderson (Orthopedic surgeon) PROBLEM LIST: Extensive Large left DVT not POA Tachy-javier syndrome Acute on CKD stage 3 Atrial fibrillation with RVR chronically on Xarelto Melena Dementia Acute streptococcal pharyngitis Acute complicated cystitis Severe sepsis due to above Acute rhabdomyolysis, resolved Acute delirium in patient with dementia Acute metabolic encephalopathy in patient with dementia Electrolyte derangement (Hypokalemia) Left knee swelling with moderate joint effusion is seen per CT knee, rule out septic arthritis Febrile illness, not POA GOUT Diabetes mellitus type 2 History of pancreatic cyst since 2021, negative biopsy per family INTERVAL HISTORY: Patient is awake alert to name pleasantly confused. This is appears to be his baseline due to dementia. He denies any pain at this time to left lower extremity. As per patient's nurse he has been comfortable and cooperative. He continues on heparin drip per protocol for now for left lower extremity DVT. Awaiting recommendations by Dr. Anatoly flores for possible thrombectomy of DVT. We will have him also evaluate for IVC filter placement by Cardiology team or IR. PLAN: Follow cardiology recs, telemetry amiodarone 200 mg b.i.d., metoprolol 50mg po tid, and verapamil 40 mg tid for arrhythmia management per cardiology recs. Per cardiology DR Anatoly flores to eval for DVT Thrombectomy. Pt may also benefit from IVC filter given that he has recent HX of melena. (This could be done by cardiology or IR will wait for further cardiology recs by DR Anatoly flores) Bladder scan > 1 L -insert FC Following I&Os multimodal pain management. monitor for bleedings heparin gtt per protocol one to one sitter REVIEW OF SYSTEMS: Unable due to mental status PHYSICAL EXAM: GENERAL: 75 year old male on room air. NAD. HEENT: EOMI, Sclera non icteric, moist mucosa NECK: no JVD LUNGS: Clear breath sounds bilaterally. No wheezes HEART: Regular rate and rhythm. Normal S1 and S2, without murmurs ABD: Abdomen soft, nontender. Bowel sounds present EXT: No clubbing cyanosis, LLE edema and tenderness NEURO: Alert and oriented to person, follows commands Vital Signs (last 8hr) Date Time Temp Pulse Resp B/P (MAP) Pulse Ox O2 Delivery O2 Flow Rate FiO2 08/22/25 15:58 97.5 55 16 106/54 98 Room Air 08/22/25 12:16 98.6 57 16 99/58 99 Room Air LABS: Hematology Labs: Test 08/22/25 05:58 Range/Units White Blood Count 10.4 4.8-10.8 K/uL Red Blood Count 3.04 L 4.50-6.20 MIL/uL Hemoglobin 9.8 L 14.0-18.0 g/dL Hematocrit 28.8 L 42-54 % Mean Corpuscular Volume 94.7 79-99 fL Mean Corpuscular Hemoglobin 32.2 27.0-33.0 pg Mean Corpuscular Hemoglobin Concent 34.0 32.0-36.0 g/dL Red Cell Distribution Width 13.8 11.0-15.5 % Platelet Count 233 130-400 K/uL Mean Platelet Volume 10.7 H 7.5-10.5 fL Nucleated Red Blood Cells 0.0 0.0-0.19 % Chemistry Labs: Test 08/22/25 19:44 08/22/25 05:58 Range/Units Whole Blood Glucose 137 H 70-110 MG/DL Sodium Level 141 136-145 mmol/L Potassium Level 3.4 L 3.5-5.1 mmol/L Chloride Level 107 101-111 mmol/L Carbon Dioxide Level 27 21-32 mmol/L Blood Urea Nitrogen 12 7-18 mg/dL Creatinine 0.9 0.5-1.3 mg/dL Glomerular Filtration Rate Calc 90 >90 mL/min Random Glucose 128 H 70-105 mg/dL Total Calcium 8.6 8.5-10.1 mg/dL Total Bilirubin 0.8 0.2-1.0 mg/dL Aspartate Amino Transf (AST/SGOT) 24 10-37 U/L Alanine Aminotransferase (ALT/SGPT) 30 12-78 U/L Alkaline Phosphatase 75 50-136 U/L Total Protein 5.7 L 6.0-8.3 g/dL Albumin 2.3 L 3.5-5.0 g/dL Coagulation Labs: Test 08/22/25 05:58 Range/Units Activated Partial Thromboplast Time 46.6 H 26.3-35.5 SEC DIAGNOSTICS / RADIOLOGY RESULTS: [ ] Plan: NEURO: Minimize central acting medications as possible. Maintain fall precautions, adequate lighting during the day PULMONARY: Supplemental 02 as needed. Maintain aspiration precautions at all times CARDIOVASCULAR: Follow hemodynamics. Vital signs per facility protocol Cardiology consult pending anticipation for further recommendations GI & NUTRITION: Continue with nutritional support. Continue stool softeners and laxatives as needed. KIDNEYS & ELECTROLYTES: Strict monitoring of intake, output and overall fluid balance. Avoid nephrotoxic medications to the extent possible. Medications to be dosed according to renal function. Monitor electrolytes and replace as needed ENDOCRINE: Maintain blood glucose between 100-180 at all times. Hypoglycemia protocol in place INFECTIOUS DISEASE: Trend temperature, WBC and procalcitonin level Follow cultures, deescalate antibiotics as soon as possible. Panculture if new onset fever ONCOLOGY/HEMATOLOGY/COAGULATION: Monitor for s/s of bleeding Monitor hemoglobin, coagulation studies as needed SKIN: Pressure ulcer prevention per facility protocol Specialty mattress ORTHO/REHAB: Continue PT/OT Prophylaxis: Continue GI and DVT prophylaxis Code Status: Full Resuscitation Disposition: TBD Critical care time 35 mins. [facility] Aug 22, 2025 20:15
[2025-08-23] VITALS: BP 121/66; PULSE 55; RESP 18; TEMP 98.1
[2025-08-23 04:00] VITALS: BP 162/78; PULSE 101; RESP 18; TEMP 98
[2025-08-23 05:51] LABS: NUCLEATED RED BLOOD CELLS 0.0 % (0.0-0.19); PLATELET COUNT (AUTO) 245.0 K/uL (130-400); RED BLOOD CELL COUNT(AUTO) 3.35 MIL/uL (4.50-6.20); RED CELL DISTRIBUTION WIDTH 14.2 % (11.0-15.5); WHITE BLOOD COUNT (AUTO) 9.9 K/uL (4.8-10.8)
[2025-08-23 06:06] LABS: ASPARTATE AMINOTRANSFERASE 26.0 U/L (10-37); CREATININE 0.8 mg/dL (0.5-1.3); GLOMERULAR FILTR. RATE CALC 93.0 mL/min (>90); GLUCOSE,RANDOM 98.0 mg/dL (70-105); SODIUM SERUM 140.0 mmol/L (136-145); TOTAL PROTEIN, SERUM 6.0 g/dL (6.0-8.3); UREA NITROGEN, BLOOD 10.0 mg/dL (7-18)
[2025-08-23 07:53] VITALS: BP 135/71; PULSE 71; RESP 18; TEMP 97.8
[2025-08-23 12:09] VITALS: BP 104/55; PULSE 60; RESP 18; TEMP 97.8
--- NOTE | 2025-08-23 15:41 | DS ---
[facility] DISCHARGE SUMMARY Date Patient Seen: Aug 23, 2025 Time of Visit: 15:41 Supervising Physician: [ ] Primary Care Physician: Dr. Doris Vela Inpatient Consults: [facility], GI, Dr. Anderson (Orthopedic surgeon) PROBLEM LIST: Extensive Large left DVT not POA Tachy-javier syndrome Acute on CKD stage 3 Atrial fibrillation with RVR transitioned to Eliquis . All man Melena Dementia Acute streptococcal pharyngitis Acute complicated cystitis Severe sepsis due to above Acute rhabdomyolysis, resolved Acute delirium in patient with dementia Acute metabolic encephalopathy in patient with dementia Electrolyte derangement (Hypokalemia) Left knee swelling with moderate joint effusion is seen per CT knee, rule out septic arthritis Febrile illness, not POA GOUT Diabetes mellitus type 2 History of pancreatic cyst since 2021, negative biopsy per family HOSPITAL COURSE: Patient was admitted to the hospital clinically workup determined to have atrial fibrillation with RVR, treated by Dr. Anatoly Elise cardiology, Limited 2D echo with an LVEF of 50-55% on 08/20/2025 medically managed with verapamil 40 mg q.8 hours, 3 times daily amiodarone 200 mg p.o. q.12 hours daily and metoprolol tartrate 50 mg q.8 hours, 3 times daily. Patient is also clinically worked up determined to harbor DVT lower extremity started on Eliquis 10 mg then transitioned to 5 mg b.i.d.. Patient is also clinically worked up ruled out to have septic arthritis of the right knee by having synovial fluid drained from the right knee. At the time of discharge the patient and family members were offered assisted facility rather than being discharged to home the patient and patient's family were adamant that the patient nor family wanted him to go to a assisted facility with we will denies rehabilitation program. I discussed this with both patient and family and they remained the decision to go home with home health provided by family and support through PCP. At this time the patient is medically stable and can be discharged to home prescriptions has been provided to the patient to be filled for all new medications that the patient has been started on during this hospitalization. Patient agrees to follow up with Dr. Elise at [facility], in 1-2 weeks after being discharged and follow up with primary care provider within 2-3 days after being discharged from hospital. HPI (per admitting provider) Patient is a 75-year-old male with past medical history significant for diabetes type 2, hypertension, BPH, hypothyroidism, atrial fibrillation on Xarelto and [id number] mg p.o. b.i.d., and a surgical history of left shoulder surgery, referred to the emergency department four days in our clinic for evaluation of sore throat associated with fever and chills for about three days. Patient reports that for the past three days, he has been experiencing worsening sore throat associated with fever and chills. Today, he was evaluated at day and night clinic and was referred to the emergency department for further evaluation and treatment. Per ER report, patient WBC at day and night clinic was 12.5. The workup in the emergency department shows group a strep rapid positive, potassium of 3.4, BUN of 21, creatinine 1.7, GFR of 42, glucose of 200, lactic acid of 3.1, CK of 1742, UA positive for UTI. EKG shows AFib with RVR. In the emergency department, patient received NS1 L bolus, Cardizem 10 mg IV push x2, Cardizem 5 mg IV push x2, and was started on Cardizem drip. In addition patient received potassium [id number] mEq once, ceftriaxone1 g IV. And patient was started on Cardizem drip. Patient will be admitted to PCCU for close monitoring. The patient was treated for the following problems: ACTIVE PROBLEM LIST FOR THE HOSPITALIZATION: Extensive Large left DVT not POA Tachy-javier syndrome Acute on CKD stage 3 Atrial fibrillation with RVR transitioned to Eliquis . All man Melena Dementia Acute streptococcal pharyngitis Acute complicated cystitis Severe sepsis due to above Acute rhabdomyolysis, resolved Acute delirium in patient with dementia Acute metabolic encephalopathy in patient with dementia Electrolyte derangement (Hypokalemia) Left knee swelling with moderate joint effusion is seen per CT knee, rule out septic arthritis CHRONIC PROBLEMS: continue previous management per PCP unless otherwise indicated Febrile illness, not POA GOUT Diabetes mellitus type 2 History of pancreatic cyst since 2021, negative biopsy per family Hypertension Hyperlipidemia ORTHODONTIST ASSISTANT FINDINGS/RECOMMENDATIONS: [ ] PROCEDURES: as mentioned above DATE OF PROCEDURE: 08/15/2025 PREOPERATIVE DIAGNOSIS: Right knee, left knee suspected septic arthritis. POSTOPERATIVE DIAGNOSIS: Right knee, left knee suspected septic arthritis. PROCEDURES PERFORMED: Aspiration under local anesthesia of right knee joint, aspiration under local anesthesia of left knee joint. COMPLICATIONS: None. SPECIMENS SENT: Right knee joint and left knee joint synovial fluid was sent for cultures, then white cell count with differential, and crystals. INDICATIONS FOR THE PROCEDURE: This is a 75-year-old man who has been admitted with bilateral knee swelling. He has multiple other medical issues going on. Orthopedics was consulted for bilateral knee swelling. We discussed in detail with the patient regarding his condition and told the treatment options available and the risks and benefits. All questions and consents were answered in detail. The patient verbalized understanding and preferred aspiration of both the knees to rule out septic arthritis. Informed consent was obtained. DESCRIPTION OF PROCEDURE: The patient was correctly identified in his room. The patient was in the supine position. First, we started with the left knee and the left knee was prepped and draped in a sterile fashion. We injected about 1% of lidocaine, 5 mL into the superolateral corner of the left knee. Then after that, we aspirated about 5 mL of yellowish-colored fluid from the left knee joint, which was sent for cultures and synovial fluid analysis to the laboratory. Compression dressing was applied. Then, we turned our attention to the right knee joint. The right knee joint was prepped and draped in a sterile fashion. Again, we injected 5 mL of lidocaine into the superolateral aspect of the right knee. Then, after that, we aspirated about 8 mL of fluid from the right knee joint, which was clear, yellowish colored. After the aspiration, we did a compression dressing. The patient tolerated the procedure well. No complications encountered. TID: [id number] RECEIPT: [id number] Electronically Signed by: Electronically Co-Signed b DISCHARGE MEDICATIONS: Pt hemodynamically stable and afebrile at time of discharge. PCP notified of patients admission, hospital course and discharge. PHYSICAL EXAM: GENERAL: 75 year old male on room air. NAD. HEENT: EOMI, Sclera non icteric, moist mucosa NECK: no JVD LUNGS: Clear breath sounds bilaterally. No wheezes HEART: Regular rate and rhythm. Normal S1 and S2, without murmurs ABD: Abdomen soft, nontender. Bowel sounds present EXT: No clubbing cyanosis, LLE edema and tenderness NEURO: Alert and oriented to person, follows commands FOLLOW-UP: Dr. Doris Vela Follow-up with PCP in 2-3 days RECOMMENDATIONS: See Discharge Instructions This case was seen and discussed with my supervising physician. More than 53 minutes spent on discharge process, including evaluation of the patient, discussion with nursing staff, medication reconciliation and follow-up appointments MARCO GARSIA AGAP Aug 23, 2025 15:41
--- NOTE | 2025-08-23 16:35 | NUR ---
PT HAS BEEN DISCHARGED HOME AFTER PT REFUSED TO HAVE HIM GO TO [facility]. SON SIGNED THE REFUSAL TO SEND TO [facility] AND WANTS TO TAKE HIM HOME. VERBALIZED THAT SHE HAD NEVER SIGNED ANY PAPERWORK FOR HIM TO GO ANYWHERE BUT HOME. WHEN PT HAD ALL OF HIS DISCHARGE ORDERS IN PLACE SHE WAS CALLED TO COME AND IT PROGRAM ENGAGEMENT DIRECTOR PATIENT AND CALL WENT STRAIGHT TO [facility]. AFTER 1/2 HOUR SHE WAS CALLED AGAIN AND SHE DID ANSWER AND STATED THAT HIS SON WOULD COME TO PICK HIM UP.
[2025-08-23 16:37] VITALS: BP 108/58; PULSE 100; RESP 18; TEMP 97.5
--- NOTE | 2025-08-23 17:45 | NUR ---
PT'S DELANEY WAS DC'D HAD BEEN REQUESTED BY FAMILY TO BE DC'D AND PT WAS DRESSED BY SON WITH GREAT DIFFICULTY AND TO PUT HIM IN THE W/C TO TAKE HIM DOWN TO PRIVATE VEHICLE WAS ALSO DIFFICULTY AND HAD TO US A BELT USED BY PHYSICAL THERAPY. FAMILY HAD BEEN MADE AWARE OF PHYSICAL THERAPY UNABLE TO WALK HIM AND STATED THAT IT WAS BECAUSE WOULD SPEND ALL DAY IN BED. FAMILY MEMBERS WERE ALLOWED TO VERBALIZE THEIR CONCERNS AND THAT THEY BELIEVED THAT ONCE THE PATIENT WOULD GET HOME THAT THEY WOULD WORK HIM AND GET HIM BETTER.
--- NOTE | 2025-08-23 21:05 | PN ---
FOLLOWUP PROGRESS NOTE SUBJECTIVE: A 75-year-old male who has had a prolonged hospital course. The patient was initially admitted, found to have septic arthritis. The patient is status post aspiration of the fluid. The patient had acute on chronic renal failure in the hospital. Creatinine has been elevated. The patient had a Rodríguez in place secondary to urinary retention. He remains on the antibiotics. The patient is being seen by case management in regards to placement for the antibiotics. REVIEW OF SYSTEMS: CONSTITUTIONAL: Complains of pain. HEENT: No change in vision. No change in hearing. CARDIOVASCULAR: There are no current chest pains or palpitations. PULMONARY: No shortness of breath. GASTROINTESTINAL: He is tolerating a diet. MUSCULOSKELETAL: Complaints of weakness. PHYSICAL EXAMINATION: VITAL SIGNS: Blood pressure 135/71, pulse 70. GENERAL: He is a chronically ill, elderly male lying in bed on the medical floor. HEENT: Atraumatic. Pupils are equal, round, and reactive to light. Oropharynx is without exudate. Nares are clear. NECK: There is no JVP. There is no thyromegaly, no mass. CARDIOVASCULAR: Regular. There is no S3 or S4 gallop. LUNGS: Coarse with equal thoracic movement. ABDOMEN: Soft, nondistended, nontender. EXTREMITIES: Reveal no clubbing. No cyanosis. NEUROLOGICAL: He is awake. He is alert. LABORATORY DATA: Hemoglobin is 31, white blood cell count is 10,000. Sodium 140, potassium 4.5, BUN 10, creatinine 0.8. IMPRESSION: * Acute on chronic renal failure. * Septic arthritis. * Hypertension. * Debilitation. PLAN: The patient's creatinine is much improved. He continues with the antibiotics as prescribed. The patient was given iron for the anemia. He remains on the antibiotics. The patient is being seen by case management for final disposition. TID: [id number] RECEIPT: [id number]
== END 2025-08-23 17:44 | disposition home or self-care (01) | DRG 871 ==
LOC: EDH 20:19 → EDHIP 08-03 00:23 → 2DH 08-03 06:07 → 2CV 08-08 08:11 → 2BH 08-08 14:59 → 2CH 08-09 10:43 → 2AH 08-09 15:50
PROVIDERS: ADMIT Internal Medicine Critical Care Medicine; ATTEND Internal Medicine Critical Care Medicine
PROC: 0S9D3ZX Drainage of Left Knee Joint, Percutaneous Approach, Diagnostic (ICD-10-PCS; principal; 2025-08-15)
PROC: 0S9C3ZZ Drainage of Right Knee Joint, Percutaneous Approach (ICD-10-PCS; 2025-08-15)
DX: A41.9 Sepsis, unspecified organism (principal); G93.41 Metabolic encephalopathy; M62.82 Rhabdomyolysis; E46 Unspecified protein-calorie malnutrition; E87.20 Acidosis, unspecified; I82.412 Acute embolism and thrombosis of left femoral vein; D62 Acute posthemorrhagic anemia; E77.8 Other disorders of glycoprotein metabolism; I48.21 Permanent atrial fibrillation; N17.9 Acute kidney failure, unspecified; N30.00 Acute cystitis without hematuria; K92.1 Melena; M00.9 Pyogenic arthritis, unspecified; R65.20 Severe sepsis without septic shock; J02.0 Streptococcal pharyngitis; Z79.01 Long term (current) use of anticoagulants; E11.65 Type 2 diabetes mellitus with hyperglycemia; N18.30 Chronic kidney disease, stage 3 unspecified; I12.9 Hypertensive chronic kidney disease with stage 1 through stage 4 chronic kidney disease, or unspecified chronic kidney disease; E03.9 Hypothyroidism, unspecified; F03.90 Unspecified dementia, unspecified severity, without behavioral disturbance, psychotic disturbance, mood disturbance, and anxiety; I48.92 Unspecified atrial flutter; E87.1 Hypo-osmolality and hyponatremia; Z68.1 Body mass index [BMI] 19.9 or less, adult; E83.51 Hypocalcemia; I25.10 Atherosclerotic heart disease of native coronary artery without angina pectoris; M17.10 Unilateral primary osteoarthritis, unspecified knee; I49.5 Sick sinus syndrome; E11.22 Type 2 diabetes mellitus with diabetic chronic kidney disease; E87.6 Hypokalemia; K86.9 Disease of pancreas, unspecified; N40.0 Benign prostatic hyperplasia without lower urinary tract symptoms; E78.5 Hyperlipidemia, unspecified; M10.9 Gout, unspecified; Z91.81 History of falling; Z79.899 Other long term (current) drug therapy; Z79.84 Long term (current) use of oral hypoglycemic drugs
CPT/HCPCS: 36415; 70450; 71045; 71260; 73700; 76770; 78582; 80048; 80053; 80076; 80202; 80305; 81001; 81003; 82140; 82270; 82550; 82728; 82945; 82948; 83036; 83540; 83550; 83605; 83690; 83735; 83880; 84100; 84145; 84439; 84443; 84484; 84550; 85014; 85018; 85025; 85027; 85610; 85730; 86140; 87040; 87070; 87076; 87086; 87426; 87635; 87804; 87880; 89051; 89060; 92610; 93005; 93306; 93308; 93356; 93926; 93970; 93971; 96374; 96375; 99291; A9540; A9558; G0378; J0282; J0561; J0692; J0696; J1160; J1171; J1630; J1644; J1815; J2270; J2470; J3360; J3373; J3475; J3480; J3490; J7030; J7060; J7120; Q9967; J0283